=== PATIENT | female | born 1990 | race Caucasian/White ===

== ENCOUNTER 2020-04-22 12:11 | Emergency (ER) | payer MEDICAID, SELFPAY ==
--- NOTE | 2020-04-22 | US_ITS ---
EXAMINATION: US RENAL BILATERAL CLINICAL INFORMATION: Bilateral costovertebral angle tenderness and fever. History of stones and lithotripsy. COMPARISON: CT abdomen from 03/18/2020. TECHNIQUE: Sonographic imaging of both kidneys was performed using a curved 5 MHz transabdominal transducer. FINDINGS: The kidneys have normal size, cortical thickness and echotexture. The right kidney measures 13.2 x 5.7 x 5.8 cm and left kidney 12 x 5.2 x 5.5 cm (sagittal x AP x transverse dimensions). No evidence of nephrolithiasis or hydronephrosis. No cystic or solid renal mass. No perinephric fluid. IMPRESSION: Kidneys are sonographically normal.
[2020-04-22 12:38] VITALS: BP 132/73; PULSE 103; RESP 20; TEMP 37.4; O2SAT 100; BMI 37.5
--- NOTE | 2020-04-22 13:40 | XR_ITS ---
EXAMINATION: XR CHEST CLINICAL INFORMATION: Fever COMPARISON: 09/13/2013 TECHNIQUE: Frontal view of the chest was obtained. FINDINGS: No significant abnormality is noted involving the heart, lungs, mediastinum, bony thorax or soft tissues. IMPRESSION: Unremarkable examination.
--- NOTE | 2020-04-22 13:49 | ED_ITS ---
HPI - Fever General Chief Complaint: Fever Stated Complaint: FEVER Time Seen by Provider: 04/22/20 13:31 Source: patient and family Mode of arrival: ambulatory History of Present Illness HPI Narrative: 30-year-old female with a PMH asthma, CKD, spinal stenosis, renal stones c/o fever T-max 102?, chills, myalgias, decreased p.o. intake, in creased thirst, bilateral flank pain x6 days. also reports dysuria. Denies cough, CP / SOB, abdominal pain, vomiting, sick contacts/recent travel Related Data Allergies Allergy/AdvReac Type Severity Reaction Status Date / Time cat dander [CATS] Allergy Intermediate RASH Verified 04/22/20 12:37 mold Allergy Intermediate RASH Unverified 03/30/20 15:51 amoxicillin AdvReac Unknown yeast Verified 06/03/17 00:00 infection seasonal Allergy Unknown Unknown Uncoded 04/22/20 12:37 Review of Systems Review of Systems: Constitutional: No Weight loss, + Fever, + Chills, No Night Sweats, + Fatigue, +myalgias ENT/Mouth: No Ear Pain, No Nasal Congestion, No Sinus Pain, No Hoarseness, No sore throat, No Rhinorrhea, No Swallowing Difficulty Cardiovascular: No Chest Pain, No SOB, No Dyspnea on Exertion Respiratory: No Cough, No Sputum, No Wheezing, No Smoke Exposure, No Dyspnea Gastrointestinal: + Nausea, No Vomiting, No Diarrhea, No Constipation, No Abdominal pain Genitourinary: +Dysuria, No Urinary Frequency, No Hematuria No Urinary Incontinence, No Urgency, No Flank Pain, No Urinary Flow Changes, No Hesitancy Musculoskeletal: No joint pain, No Myalgias, No Joint Swelling Skin: No Skin Lesions, No rash Yes all other systems are reviewed and are negative [facility] Past Medical History Attestation statement: The following information was validated with the patient. Medical History (Updated 04/22/20 @ 12:42 by Jeni Botello) Asthma Chronic kidney disease Cyst, pilonidal, with abscess Degenerative disc disease Spinal stenosis Syncope Surgical History (Updated 04/22/20 @ 12:42 by Jeni Botello) H/O Spinal surgery History of cholecystectomy Social History Social History Alcohol intake: current Alcohol intake frequency: holidays/special occasions only Alcohol type: beer Smoking Status: Current every day smoker Smoked in Last 30 Days: Yes Use of substances other than those prescribed or required for medical reasons: No Advance Directives: No Advance Directives Information Provided: No Physical Exam Vital Signs: Vital Signs: Vital Signs Temp Pulse Resp BP Pulse Ox 04/22/20 16:00 100.7 F H 95 18 122/65 97 04/22/20 12:38 99.3 F 103 H 20 132/73 100 Body Mass Index 37.5 Const: General: cooperative and healthy appearing Orientation/consciousness: patient oriented x3 Limitations: no limitations HENMT: Head: Yes normal to inspection Ears: hearing grossly normal bilaterally General nose exam: Normal external nose present Face and sinus: Yes normal facial exam Eyes: General: appearance normal, both eyes and all related structures EOM: EOMs intact bilaterally Neck: Neck: Yes normal visual inspection Resp: Effort & Inspection: normal respiratory effort and no stridor Auscultation: clear to auscultation bilaterally, no crackles, no rales, no rhonchi and no wheezes Cardio: Rate: regular rate Heart sounds: S1 normal heart sound present and S2 normal heart sound present Peripheral pulses: Peripheral pulses 2+ throughout GI: Inspection: Yes normal to inspection Palpation (GI): Soft to palpation, nontender, no guarding and not rigid : General: Yes no CVA tenderness Back/Spine/Pelvis: Back: no CVA tenderness Skin: Wounds: no wounds Neuro: General: patient oriented x3 Extrem: General: Yes normal to inspection Course Course Course Narrative: - leukocytosis of 12.1, labs otherwise unremarkable, lactate WNL, UA infected - CXR unremarkable -Kidney ultrasound normal >> will treat for pyelonephritis lab and imaging results including worrisome signs and symptoms and strict retur n precautions discussed. Patient verbalized understanding feel safe for discharge MDM - Fever MDM Narrative Medical decision making narrative: 30-year-old female with a PMH asthma, CKD, spinal stenosis, renal stones c/o fever T-max 102?, chills, myalgias, decreased p.o. intake, increased thirst, bilateral flank pain x6 days. On exam tachycardic likely from low-grade temp 99.3?, nontoxic appearing. Bilateral CVAT. Concern for UTI/pyelonephritis vs viral syndrome/COVID-19 vs ? renal stone. Low concern for appendicitis /diverticulitis or pneumonia low concern for severe sepsis Plan: Labs, UA, CXR, renal ultrasound, IVF/reassess Differential Diagnosis Differential diagnosis: Likely pyelonephritis and viral infection Lab Data Result diagrams: 04/22/20 15:01 04/22/20 15:01 Labs: Lab Results 04/22/20 04/22/20 04/22/20 Range/Units 14:11 15:01 15:01 WBC 12.1 H (4.8-10.8) X10*3/uL RBC 4.35 (4.20-5.50) X10*6/uL Hgb 13.0 (12.0-16.0) g/dl Hct 39.0 (37-47) % MCV 89.7 (80-98) fL MCH 29.9 (27.0-33.0) pg MCHC 33.3 (31.0-35.0) g/dl RDW 13.1 (11.0-16.0) % Plt Count 323 (160-400) X10*3/uL MPV 9.3 L (9.4-12.3) fL Immature Gran % (Auto) 0.4 (0.0-0.4) % Neut % (Auto) 66.4 (45-73) % Lymph % (Auto) 19.1 L (20-40) % [place] % (Auto) 11.9 H (2-11) % Eos % (Auto) 1.7 (0-4) % Baso % (Auto) 0.5 (0-2) % Lymph # (Auto) 2.3 (1.2-4.9) X10*3/uL [place] # (Auto) 1.4 H (0.1-1.2) X10*3/uL Eos # (Auto) 0.2 (0.0-0.4) X10*3/uL Baso # (Auto) 0.1 (0.0-0.2) X10*3/uL Abs Immat Gran (auto) 0.05 H (0.00-0.03) X10*3/uL Absolute Neuts (auto) 8.0 (2.0-8.3) X10*3/uL Absolute Nucleated RBC 0.000 (0.0-0.012) X10*3/uL Nucleated RBC % (auto) 0.0 (0.0-0.2) /100WBC Smear Tech's Comments VERIFIED Sodium 135 (135-145) mmol/L Potassium 3.8 (3.3-5.1) mmol/l Chloride 103 (96-108) mmol/L Carbon Dioxide 23 (22-29) mmol/L Anion Gap 13 (12-20) BUN 8 L (9-16) mg/dL Creatinine 0.83 (0.5-1.4) mg/dL Estim Creat Clear Calc 124.8 Estimated GFR > 60 Random Glucose 92 (60-115) mg/dL Lactic Acid (0.5-2.0) mmol/L Calcium 8.6 (8.4-10.2) mg/dL Magnesium 1.9 (1.6-2.6) mg/dL Ferritin 106 (10-122) ng/mL Total Bilirubin 0.2 (0.0-1.0) mg/dL Direct Bilirubin < 0.2 (0.0-0.5) mg/dL AST 13 (5-31) U/L ALT 14 (0-31) U/L Alkaline Phosphatase 93 (39-117) U/L Lactate Dehydrogenase 161 (122-220) U/L Total Protein 6.9 (6.5-8.0) g/dL Albumin 3.9 (3.5-5.0) g/dL Urine Color YELLOW Urine Appearance CLEAR Urine pH 6.0 (5.0-8.0) Ur Specific [place] 1.010 (1.005-1.025) Urine Protein NEG (NEG-TRACE) MG/DL Urine Glucose (UA) NEG (NEG) MG/DL Urine Ketones NEG (NEG) MG/DL Urine Blood TRACE (NEG) Urine Nitrite POS H (NEG) Ur Leukocyte Esterase TRACE H (NEG) Urine RBC 0-2 (0) /HPF Urine WBC 15-29 H (0-4) /HPF Ur Squamous Epith Cells 1+ /LPF Urine Bacteria TRACE /LPF 04/22/20 Range/Units 15:01 WBC (4.8-10.8) X10*3/uL RBC (4.20-5.50) X10*6/uL Hgb (12.0-16.0) g/dl Hct (37-47) % MCV (80-98) fL MCH (27.0-33.0) pg MCHC (31.0-35.0) g/dl RDW (11.0-16.0) % Plt Count (160-400) X10*3/uL MPV (9.4-12.3) fL Immature Gran % (Auto) (0.0-0.4) % Neut % (Auto) (45-73) % Lymph % (Auto) (20-40) % [place] % (Auto) (2-11) % Eos % (Auto) (0-4) % Baso % (Auto) (0-2) % Lymph # (Auto) (1.2-4.9) X10*3/uL [place] # (Auto) (0.1-1.2) X10*3/uL Eos # (Auto) (0.0-0.4) X10*3/uL Baso # (Auto) (0.0-0.2) X10*3/uL Abs Immat Gran (auto) (0.00-0.03) X10*3/uL Absolute Neuts (auto) (2.0-8.3) X10*3/uL Absolute Nucleated RBC (0.0-0.012) X10*3/uL Nucleated RBC % (auto) (0.0-0.2) /100WBC Smear Tech's Comments Sodium (135-145) mmol/L Potassium (3.3-5.1) mmol/l Chloride (96-108) mmol/L Carbon Dioxide (22-29) mmol/L Anion Gap (12-20) BUN (9-16) mg/dL Creatinine (0.5-1.4) mg/dL Estim Creat Clear Calc Estimated GFR Random Glucose (60-115) mg/dL Lactic Acid 1.2 (0.5-2.0) mmol/L Calcium (8.4-10.2) mg/dL Magnesium (1.6-2.6) mg/dL Ferritin (10-122) ng/mL Total Bilirubin (0.0-1.0) mg/dL Direct Bilirubin (0.0-0.5) mg/dL AST (5-31) U/L ALT (0-31) U/L Alkaline Phosphatase (39-117) U/L Lactate Dehydrogenase (122-220) U/L Total Protein (6.5-8.0) g/dL Albumin (3.5-5.0) g/dL Urine Color Urine Appearance Urine pH (5.0-8.0) Ur Specific [place] (1.005-1.025) Urine Protein (NEG-TRACE) MG/DL Urine Glucose (UA) (NEG) MG/DL Urine Ketones (NEG) MG/DL Urine Blood (NEG) Urine Nitrite (NEG) Ur Leukocyte Esterase (NEG) Urine RBC (0) /HPF Urine WBC (0-4) /HPF Ur Squamous Epith Cells /LPF Urine Bacteria /LPF
[2020-04-22 14:34] LABS: Glucose Urine UA NEG (NEG); Leukocyte Esterase Urine TRACE (NEG); Nitrite Urine POS (NEG); Urine Blood TRACE (NEG); Urine Ketones NEG (NEG); Urine Protein NEG (NEG-TRACE)
[2020-04-22 14:36] LABS: Appearance Urine CLEAR; Color Urine YELLOW
[2020-04-22 14:41] LABS: Bacteria Urine TRACE /LPF; RBC Urine 0-2 /HPF (0); Squamous Epithelial Cell Urine 1+ /LPF
[2020-04-22] MEDS: 0.9 % Sodium Chloride 1,000 ML 999 ML IVCONT (14:44)
--- NOTE | 2020-04-22 14:46 | PC.NURSE ---
PATIENT A&OX3, IV INSERTED, IVF HANGING PER ORDER, US PERFORMED AT BEDSIDE, PT AWAITING FOR LABS TO BE DRAWN THEY WERE UNABLE TO BE DRAWN OFF IV SITE.
[2020-04-22 15:36] LABS: Basophils Absolute Auto 0.1 X10*3/uL (0.0-0.2); Basophils Percent Auto 0.5 % (0-2); Eosinophils Absolute Auto 0.2 X10*3/uL (0.0-0.4); Eosinophils Percent Auto 1.7 % (0-4); Imm Gran Abs Auto 0.05 X10*3/uL (0.00-0.03); Imm Gran Pct Auto 0.4 % (0.0-0.4); Lymphocytes Absolute Auto 2.3 X10*3/uL (1.2-4.9); Lymphocytes Percent Auto 19.1 % (20-40); MANUAL DIFF FLAG SCAN; Mean Corpuscular HGB Conc 33.3 g/dl (31.0-35.0); Mean Corpuscular Hemoglobin 29.9 pg (27.0-33.0); Mean Corpuscular Volume 89.7 fL (80-98); Mean Platelet Volume 9.3 fL (9.4-12.3); Monocytes Absolute Auto 1.4 X10*3/uL (0.1-1.2); Monocytes Percent Auto 11.9 % (2-11); Neutrophils Percent Auto 66.4 % (45-73); Platelet Count 323 X10*3/uL (160-400); Red Blood Count 4.35 X10*6/uL (4.20-5.50); Red Cell Distribution Width 13.1 % (11.0-16.0); SCAN SMEAR FLAG 1; White Blood Count 12.1 X10*3/uL (4.8-10.8)
[2020-04-22 16:00] VITALS: BP 122/65; PULSE 95; RESP 18; TEMP 38.2; O2SAT 97
[2020-04-22 16:00] LABS: Lactic Acid 1.2 mmol/L (0.5-2.0)
[2020-04-22 16:04] LABS: SLIDE REVIEW VERIFIED
[2020-04-22 16:06] LABS: Alanine Aminotransferase 14 U/L (0-31); Albumin Level 3.9 g/dL (3.5-5.0); Alkaline Phosphatase 93 U/L (39-117); Anion Gap 13 (12-20); Aspartate Amino Transferase 13 U/L (5-31); Bilirubin Direct < 0.2 mg/dL (0.0-0.5); Bilirubin Total 0.2 mg/dL (0.0-1.0); Blood Urea Nitrogen 8 mg/dL (9-16); Calcium 8.6 mg/dL (8.4-10.2); Carbon Dioxide 23 mmol/L (22-29); Chloride 103 mmol/L (96-108); Creatinine Clr Calc Pharmacy 124.8; Estimated Glomerular Filt Rate > 60; Glucose Random 92 mg/dL (60-115); Lactate Dehydrogenase 161 U/L (122-220); Magnesium 1.9 mg/dL (1.6-2.6); Potassium 3.8 mmol/l (3.3-5.1); Sodium 135 mmol/L (135-145); Total Protein 6.9 g/dL (6.5-8.0)
[2020-04-22 16:29] LABS: Ferritin 106 ng/mL (10-122)
--- NOTE | 2020-04-22 17:10 | PC.NURSE ---
PATIENT A&OX3, PT NOW FEBRILE 100.7, LAST TIME PATIENT TOOK MOTRIN WAS 5AM PER PATIENT,-VITALS OTHERWISE STABLE, PATIENT ASKING WHEN SHE WILL BE ABLE TO DISCHARGE, WILL NOTIFY PROVIDER.
[2020-04-22] MEDS: Acetaminophen 325 MG TABLET 650 MG PO (17:19)
--- NOTE | 2020-04-22 17:20 | PC.NURSE ---
PATIENT MEDICATED PER ORDER
--- NOTE | 2020-04-22 18:22 | PC.NURSE ---
PT TEMP UPON DISCHARGE WAS 99.8, PT AMBULATING INDEPENDENTLY
[2020-04-23 13:47] LABS: Procalcitonin 0.06 ng/mL
== END 2020-04-22 18:21 | disposition home or self-care (01) ==
PROVIDERS: Physician Assistant; Emergency Provider Emergency Medicine; PCP Pediatrics
DX: R50.9 Fever, unspecified (principal); Z20.828 Contact with and (suspected) exposure to other viral communicable diseases
CPT/HCPCS: 36415; 71045; 76775; 80048; 80076; 81001; 82728; 83605; 83615; 83735; 84145; 85025; 87040; 87086; 87088; 87186; 87635; 96360; 99284

== ENCOUNTER 2020-06-14 14:50 | Emergency (ER) | payer MEDICAID, SELFPAY ==
[2020-06-14 15:11] VITALS: BP 139/85; PULSE 106; RESP 18; TEMP 37.3; O2SAT 98; BMI 39.1
--- NOTE | 2020-06-14 16:59 | ED.GENADULT ---
HPI - General Adult General Chief complaint: Back Pain/Injury Stated complaint: kidney pain Time Seen by Provider: 06/14/20 16:13 History of Present Illness HPI narrative: 30-year-old female who presents to the emergency department for evaluation bilateral flank pain. She states that she has frequent kidney stones and believes she has had over 100 kidney stones in the past. She states that over the last 2-3 weeks she has been experiencing bilateral kidney stones, right greater than left. She states for the past several days she has had increased right flank pain. She describes the pain as a constant, stabbing pain which is greater than 10/10. She had associated nausea. She denied fever, chills, frequency, urgency or dysuria. The patient was seen in April 2020 and diagnosed with pyelonephritis, she had a positive urine culture at that time for E coli resistant to ampicillin and Bactrim. The patient says she tried to call her urologist today but was unable to get in to be seen, therefore she came to the emergency department for evaluation. Related Data Previous Rx's Medication Instructions Recorded ciprofloxacin HCl [Cipro] 500 mg PO BID 7 Days #14 tab 04/22/20 oxycodone-acetaminophen [Percocet] 1 tab PO Q4H PRN #10 tab 06/14/20 Allergies Allergy/AdvReac Type Severity Reaction Status Date / Time cat dander [CATS] Allergy Intermediate RASH Verified 04/22/20 12:37 mold Allergy Intermediate RASH Unverified 03/30/20 15:51 amoxicillin AdvReac Unknown yeast Verified 06/03/17 00:00 infection seasonal Allergy Unknown Unknown Uncoded 04/22/20 12:37 Review of Systems Review of Systems: Yes all other systems are reviewed and are negative Constitutional: Constitutional: Reports as per HPI Eyes: Eyes: Reports as per HPI ENT: Reports as per HPI Cardiovascular: Cardiovascular: Reports as per HPI Respiratory: Respiratory: Reports as per HPI Gastrointestinal: Gastrointestinal: Reports as per HPI Genitourinary: Genitourinary: Reports as per HPI Musculoskeletal: Musculoskeletal: Reports as per HPI Integumentary/Breasts: Skin/Breast: Reports as per HPI Neurologic: Reports as per HPI and Reports Abnormal speech present Psychiatric: Psychiatric: Reports as per HPI Allergic/Immunologic: Allergic/Immunologic: Reports as per HPI PMFSH Past Medical History Medical History Asthma Chronic kidney disease Cyst, pilonidal, with abscess Degenerative disc disease Spinal stenosis Syncope Surgical History H/O Spinal surgery History of cholecystectomy Social History Social History Alcohol intake: current Alcohol intake frequency: holidays/special occasions only Alcohol type: beer Smoking Status: Current every day smoker Advance Directives: No Advance Directives Information Provided: Yes Physical Exam Vital Signs: Vital Signs: Last Vital Signs Temp 97.5 F 06/14/20 19:29 Pulse 70 06/14/20 19:29 Resp 16 06/14/20 19:29 BP 121/63 06/14/20 19:29 Pulse Ox 97 06/14/20 19:29 Body Mass Index 39.1 Const: General: cooperative, no acute distress, alert and awake Orientation/consciousness: oriented to person and oriented to place Limitations: no limitations HENMT: Head: Yes normal to inspection, Yes normocephalic and Yes atraumatic Ears: external ears normal General nose exam: Normal external nose present Face and sinus: Yes normal facial exam Mouth: Normal oral and palatal mucosa present Teeth and gingiva: dentition normal Throat: Yes posterior oropharynx normal Eyes: General: appearance normal, both eyes and all related structures Periorbital: periorbital findings normal Eyelids: Yes eyelids normal Conjunctivae: conjunctivae normal Sclerae: sclerae normal Corneas: corneas normal Pupils: Equal, round and reactive pupils present Direct Ophthalmoscopy: normal light reflex Neck: Neck: Yes normal visual inspection and Yes supple Lymphatic: no lymphadenopathy noted Chest: Chest palpation & inspection: normal inspection of the chest and normal palpation of entire chest wall Resp: Effort & Inspection: normal respiratory effort, abnormal respiratory pattern, no audible wheezes and no respiratory distress Auscultation: clear to auscultation bilaterally, no crackles, no rales, no rhonchi and no wheezes Cardio: Rate: regular rate Rhythm: regular rhythm Heart sounds: S1 normal heart sound present, S2 normal heart sound present and no murmurs GI: Inspection: No distended Palpation (GI): Soft to palpation, nontender, no guarding and No hepatosplenomegaly present Auscultation: normal bowel sounds : General: Yes no CVA tenderness Back/Spine/Pelvis: Back: no CVA tenderness Skin: General skin exam: no rashes or lesions noted Lesions: no lesions Rashes: no rashes Wounds: no wounds Neuro: General: oriented to person and oriented to place Cranial nerves: Yes CN's II-XII intact bilaterally and Yes Equal, round and reactive pupils present Cognition (Neuro): normal cognition Speech: Abnormal speech present Motor exam (neuro): 5/5 motor strength present throughout Extrem: General: Yes normal to inspection, Yes full ROM, Yes no pedal edema and Yes no calf tenderness Psych: Appearance: grossly normal Mental Status: mental status grossly normal Speech and movement: Clear speech present Affect: normal affect Thought process: Normal thought process present Course Course Course Narrative: 30-year-old female with a history of kidney stones pyelonephritis who presents to the emergency department for evaluation of bilateral flank pain, right greater than left times 2-3 weeks with increased right-sided flank pain times several days. The patient had no other concerning symptoms such as fever, chills, frequency, urgency or dysuria. The patient's physical examination revealed no flank tenderness and no abdominal tenderness. I did order an abdominal workup to include blood work as well as an ultrasound to evaluate for hydronephrosis or hydroureter. The patient was given oxycodone 10 mg orally for her pain. 1950: The patient's laboratory evaluation revealed a slight elevation of WBC of 11.2. Her urinalysis revealed too numerous to count red blood cells but patient states she is having her menstrual period. The patient has 0-2 white blood cells per high-power field suggesting this does not have an infection. test was negative. Ultrasound of the patient's kidneys revealed no hydronephrosis or hydroureter. The patient does have a 3 mm right mid pole kidney stone. The patient did get some relief with oral hydrocodone. I will discharge the patient home with a prescription for Percocet. She is also advised to take Tylenol and ibuprofen for pain. She is advised to follow up with her urologist for re-evaluation and return to the emergency department for symptoms get worse or she develops any symptoms that are concerning to her. Medical Decision Making Lab Data Result diagrams: 06/14/20 17:06 06/14/20 17:06 Labs: Lab Results 06/14/20 06/14/20 06/14/20 Range/Units 17:06 17:06 17:08 WBC 11.2 H (4.8-10.8) X10*3/uL RBC 4.88 (4.20-5.50) X10*6/uL Hgb 14.6 (12.0-16.0) g/dl Hct 43.4 (37-47) % MCV 88.9 (80-98) fL MCH 29.9 (27.0-33.0) pg MCHC 33.6 (31.0-35.0) g/dl RDW 14.2 (11.0-16.0) % Plt Count 357 (160-400) X10*3/uL MPV 8.9 L (9.4-12.3) fL Immature Gran % (Auto) 0.4 (0.0-0.4) % Neut % (Auto) 53.2 (45-73) % Lymph % (Auto) 30.6 (20-40) % [place] % (Auto) 11.7 H (2-11) % Eos % (Auto) 3.6 (0-4) % Baso % (Auto) 0.5 (0-2) % Lymph # (Auto) 3.4 (1.2-4.9) X10*3/uL [place] # (Auto) 1.3 H (0.1-1.2) X10*3/uL Eos # (Auto) 0.4 (0.0-0.4) X10*3/uL Baso # (Auto) 0.1 (0.0-0.2) X10*3/uL Abs Immat Gran (auto) 0.05 H (0.00-0.03) X10*3/uL Absolute Neuts (auto) 5.9 (2.0-8.3) X10*3/uL Absolute Nucleated RBC 0.000 (0.0-0.012) X10*3/uL Nucleated RBC % (auto) 0.0 (0.0-0.2) /100WBC Sodium 137 (135-145) mmol/L Potassium 4.6 D (3.3-5.1) mmol/l Chloride 104 (96-108) mmol/L Carbon Dioxide 23 (22-29) mmol/L Anion Gap 15 (12-20) BUN 10 (9-16) mg/dL Creatinine 0.77 (0.5-1.4) mg/dL Estim Creat Clear Calc 137.5 Estimated GFR > 60 Random Glucose 94 (60-115) mg/dL Calcium 9.1 (8.4-10.2) mg/dL Total Bilirubin 0.3 (0.0-1.0) mg/dL Direct Bilirubin < 0.2 (0.0-0.5) mg/dL AST 17 (5-31) U/L ALT 21 (0-31) U/L Alkaline Phosphatase 103 (39-117) U/L Total Protein 7.3 (6.5-8.0) g/dL Albumin 4.2 (3.5-5.0) g/dL Lipase 28 (8-78) U/L Urine Color RED Urine Appearance CLOUDY Urine pH 5.0 (5.0-8.0) Ur Specific [place] 1.025 (1.005-1.025) Urine Protein 2+ H (NEG-TRACE) MG/DL Urine Glucose (UA) NEG (NEG) MG/DL Urine Ketones 5 (NEG) MG/DL Urine Blood 3+ H (NEG) Urine Nitrite POS H (NEG) Ur Leukocyte Esterase TRACE H (NEG) Urine RBC TNTC H (0) /HPF Urine WBC 0-2 (0-4) /HPF Ur Squamous Epith Cells 1+ /LPF Urine Bacteria NONE /LPF Urine Test NEGATIVE (NEGATIVE) Discharge Plan Discharge Clinical Impression: Bilateral flank pain Patient Disposition: Home, Self-Care Instructions: Flank Pain (ED) Additional Instructions: Your blood work was normal, kidney function was normal. Your urine was positive for blood but this is most likely secondary to her menstrual period. You did not have any white blood cells in the urine which suggests that she did not have a urine infection at this time. The ultrasound of your kidneys revealed no swelling of your kidneys (hydronephrosis) or swelling of the ureter (hydroureter) suggesting that you do not have an obstructing kidney stone at this time. I do not have a clear cause for your flank pain, but for the follow-up with the urologist for re-evaluation. Take ibuprofen 200 mg pills, 3 pills every 6 hours as needed for pain. Take Percocet 1 or 2 pills every 4 hours as needed for pain that is not relieved by ibuprofen. This medication can be addicting, you can ask the pharmacist for less pills a few word about addiction. Follow-up with your doctor in 2 days for re-evaluation. Follow-up with urologist for re-evaluation as well. Please return to the emergency department if his symptoms get worse or if you develop any new symptoms are concerning to you. Prescriptions: New oxycodone-acetaminophen [Percocet] 5-325 mg tablet 1 tab PO Q4H PRN (Reason: pain) Qty: 10 RF: 0 No Action ciprofloxacin HCl [Cipro] 500 mg tablet 500 mg PO BID 7 Days Qty: 14 RF: 0 Referrals: Raquel Sethi MD [Primary Care Provider] - 2 days
[2020-06-14 17:11] LABS: MANUAL DIFF FLAG NO
[2020-06-14] MEDS: oxyCODONE HCl Immed Release 5 MG TABLET 10 MG PO (17:11)
[2020-06-14 17:17] LABS: Glucose Urine UA NEG (NEG); Leukocyte Esterase Urine TRACE (NEG); Nitrite Urine POS (NEG); Specific Gravity - Urine 1.025 (1.005-1.025); Urine Blood 3+ (NEG); Urine Ketones 5 MG/DL (NEG); Urine Protein 2+ MG/DL (NEG-TRACE)
[2020-06-14 17:20] LABS: Basophils Absolute Auto 0.1 X10*3/uL (0.0-0.2); Basophils Percent Auto 0.5 % (0-2); Eosinophils Absolute Auto 0.4 X10*3/uL (0.0-0.4); Eosinophils Percent Auto 3.6 % (0-4); Hematocrit 43.4 % (37-47); Hemoglobin 14.6 g/dl (12.0-16.0); Imm Gran Abs Auto 0.05 X10*3/uL (0.00-0.03); Imm Gran Pct Auto 0.4 % (0.0-0.4); Lymphocytes Absolute Auto 3.4 X10*3/uL (1.2-4.9); Lymphocytes Percent Auto 30.6 % (20-40); Mean Corpuscular HGB Conc 33.6 g/dl (31.0-35.0); Mean Corpuscular Hemoglobin 29.9 pg (27.0-33.0); Mean Corpuscular Volume 88.9 fL (80-98); Mean Platelet Volume 8.9 fL (9.4-12.3); Monocytes Absolute Auto 1.3 X10*3/uL (0.1-1.2); Monocytes Percent Auto 11.7 % (2-11); Neutrophils Absolute Auto 5.9 X10*3/uL (2.0-8.3); Neutrophils Percent Auto 53.2 % (45-73); Platelet Count 357 X10*3/uL (160-400); Red Blood Count 4.88 X10*6/uL (4.20-5.50); Red Cell Distribution Width 14.2 % (11.0-16.0); White Blood Count 11.2 X10*3/uL (4.8-10.8)
[2020-06-14 17:20] LABS: Appearance Urine CLOUDY; Color Urine RED
[2020-06-14 17:24] LABS: UPreg QC Valid YES; Urine Pregnancy NEGATIVE (NEGATIVE)
[2020-06-14 17:34] LABS: Alanine Aminotransferase 21 U/L (0-31); Albumin Level 4.2 g/dL (3.5-5.0); Alkaline Phosphatase 103 U/L (39-117); Anion Gap 15 (12-20); Aspartate Amino Transferase 17 U/L (5-31); Bilirubin Direct < 0.2 mg/dL (0.0-0.5); Bilirubin Total 0.3 mg/dL (0.0-1.0); Blood Urea Nitrogen 10 mg/dL (9-16); Calcium 9.1 mg/dL (8.4-10.2); Carbon Dioxide 23 mmol/L (22-29); Chloride 104 mmol/L (96-108); Creatinine Clr Calc Pharmacy 137.5; Estimated Glomerular Filt Rate > 60; Glucose Random 94 mg/dL (60-115); Lipase 28 U/L (8-78); Potassium 4.6 mmol/l (3.3-5.1); Sodium 137 mmol/L (135-145); Total Protein 7.3 g/dL (6.5-8.0)
--- NOTE | 2020-06-14 17:37 | US_ITS ---
EXAMINATION: US RETROPERITONEAL LIMITED (RENAL ONLY) CLINICAL INFORMATION: Bilateral flank pain. COMPARISON: None TECHNIQUE: Renal ultrasound FINDINGS: RIGHT KIDNEY: 11.6 x 4.8 x 6 cm (SAG x AP x TRV). The kidney is normal in size, contour, and echogenicity. Renal cortical thickness is normal. Nonobstructing midpole 3 mm calculus. No focal parenchymal lesions. No hydronephrosis. LEFT KIDNEY: 10.7 x 5 x 5 cm (SAG x AP x TRV). The kidney is normal in size, contour, and echogenicity. Renal cortical thickness is normal. No calculi or focal parenchymal lesions. No hydronephrosis. US/US renal BI IMPRESSION: Right renal 3 mm midpole nonobstructing calculus.. No hydronephrosis.
[2020-06-14 17:39] LABS: RBC Urine TNTC /HPF (0); Squamous Epithelial Cell Urine 1+ /LPF; WBC Urine 0-2 /HPF (0-4)
--- NOTE | 2020-06-14 18:33 | PC.NURSE ---
ambulating to us via steady gait
[2020-06-14 19:29] VITALS: BP 121/63; PULSE 70; RESP 16; TEMP 36.4; O2SAT 97
== END 2020-06-14 20:35 | disposition home or self-care (01) ==
PROVIDERS: Emergency Provider Emergency Medicine Emergency Medical Services; PCP Pediatrics
DX: R10.9 Unspecified abdominal pain (principal); F17.200 Nicotine dependence, unspecified, uncomplicated; Z71.6 Tobacco abuse counseling; Z79.899 Other long term (current) drug therapy
CPT/HCPCS: 36415; 76775; 80048; 80076; 81001; 81025; 83690; 85025; 87086; 99284

== ENCOUNTER → 2020-06-16 11:03 | Outpatient (BNVA) | payer MEDICAID, SELFPAY | PROVIDERS: PCP Pediatrics; Referring Provider Pediatrics; Visit Provider Urology | DX: Z76.89 Persons encountering health services in other specified circumstances (principal) ==

== ENCOUNTER 2020-08-30 15:09 | Outpatient (REF) | payer MEDICAID, SELFPAY ==
--- NOTE | ~2020-08-30 | US_ITS ---
EXAMINATION: US RETROPERITONEAL LIMITED (RENAL ONLY) CLINICAL INFORMATION: Renal stone. COMPARISON: Previous CT of the abdomen and pelvis March 2020 and renal ultrasound most recent June 2020 TECHNIQUE: Grayscale and color imaging of the kidneys FINDINGS: RIGHT KIDNEY: 11.5 x 4.8 x 6.2 cm (SAG x AP x TRV). The kidney is normal in size, contour, and echogenicity. Renal cortical thickness is normal. No calculi or focal parenchymal lesions. No hydronephrosis. LEFT KIDNEY: 11.9 x 4.9 x 5 cm (SAG x AP x TRV). The kidney is normal in size, contour, and echogenicity. Renal cortical thickness is normal. There is a 2 x 4 mm echogenic density with twinkle artifact in the upper pole questionable for a small stone. No focal parenchymal lesions. No hydronephrosis. US/US renal BI IMPRESSION: Question small left upper pole renal stone.
== END 2020-08-30 15:10 | disposition home or self-care (01) ==
LOC: HO.US 15:09
PROVIDERS: Visit Provider Urology
DX: N20.0 Calculus of kidney (principal)
CPT/HCPCS: 76775

== ENCOUNTER 2020-09-06 14:49 | Emergency (ER) | payer MEDICAID, SELFPAY ==
[2020-09-06 14:58] VITALS: BP 153/91; PULSE 100; RESP 18; TEMP 36.6; O2SAT 99; BMI 39.1
== END 2020-09-06 18:14 | disposition left against medical advice (07) ==
PROVIDERS: Emergency Provider Emergency Medicine; PCP Pediatrics
DX: R10.9 Unspecified abdominal pain (principal); Z87.442 Personal history of urinary calculi; N18.9 Chronic kidney disease, unspecified; F17.200 Nicotine dependence, unspecified, uncomplicated
CPT/HCPCS: 99282

== ENCOUNTER 2020-09-07 12:11 | Emergency (ER) | payer MEDICAID, SELFPAY ==
--- NOTE | ~2020-09-07 | CT_ITS ---
EXAMINATION: CT ABDOMEN AND PELVIS WITHOUT CONTRAST CLINICAL INFORMATION: Bilateral flank pain. Concern for renal calculi. COMPARISON: Renal ultrasound dated 08/30/2020. TECHNIQUE: Multidetector volumetric imaging was performed from the superior aspect of the liver through the pubic symphysis. Sagittal and coronal reformatted images were obtained on the technologist's workstation. This CT examination was performed using dose optimization techniques as appropriate, variously including the following: *Automated exposure control *Adjustment of mA and/or kV according to patient size (this includes techniques or standardized protocols for targeted exams where dose is matched to indication/reason for exam; i.e. extremities or head) *Use of iterative reconstruction technique DLP: 954 mGy-cm FINDINGS: [employer] imaging demonstrates intervertebral graft spacers at L4-L5 and right upper quadrant surgical clips. LUNG BASES: The visualized lung bases are unremarkable. LIVER, GALLBLADDER, AND BILIARY TREE: The liver is normal in size, shape, and attenuation. No focal hepatic lesion or biliary ductal dilatation is present. Gallbladder surgically absent. No intrahepatic or extra hepatic biliary ductal dilation. PANCREAS: Normal. SPLEEN: Normal. ADRENAL GLANDS: Normal. KIDNEYS AND URETERS: The kidneys are normal in size, shape, and attenuation. No hydronephrosis, hydroureter, or calculi seen. Ureters are normal throughout their course. No ureteral calculi. No perinephric stranding. BLADDER: Normal. No urinary bladder calculi. GASTROINTESTINAL TRACT: The small and large bowel are unremarkable. Colonic diverticula. Normal appendix. ABDOMINAL WALL: No significant hernia is appreciated. Tiny fat-containing periumbilical hernia. Rectus diastases. PERITONEUM/RETROPERITONEUM AND MESENTERY: No free air or fluid. LYMPH NODES: No pathologically enlarged lymph nodes. VASCULAR: Normal. PELVIC VISCERA: Anteverted uterus. No adnexal mass. Gas in the cervical soft tissues. Ill-defined hypoattenuation in the left adnexa likely reflects a ovarian cyst presumed functional in nature. Pelvic ultrasound may be considered for further evaluation. Subtle, nonspecific hazy inflammatory changes in the pelvic mesenteric fat of indeterminate significance. OSSEOUS STRUCTURES: Intervertebral spacer at L4-L5. No aggressive lytic or blastic osseous lesions. CT/CT abdomen pelvis wo con IMPRESSION: No evidence of renal, ureteral, or urinary bladder calculi. Normal appendix. Cholecystectomy. Likely left functional adnexal cyst. Pelvic ultrasound may be considered for further evaluation.
[2020-09-07 12:15] VITALS: BP 157/96; PULSE 87; RESP 18; TEMP 37.2; O2SAT 99; BMI 39.1
[2020-09-07 15:33] LABS: MANUAL DIFF FLAG NO
[2020-09-07 15:36] LABS: Basophils Absolute Auto 0.1 X10*3/uL (0.0-0.2); Basophils Percent Auto 0.6 % (0-2); Eosinophils Absolute Auto 0.3 X10*3/uL (0.0-0.4); Eosinophils Percent Auto 3.2 % (0-4); Hematocrit 44.8 % (37-47); Hemoglobin 15.2 g/dl (12.0-16.0); Imm Gran Abs Auto 0.04 X10*3/uL (0.00-0.03); Imm Gran Pct Auto 0.5 % (0.0-0.4); Lymphocytes Absolute Auto 3.2 X10*3/uL (1.2-4.9); Lymphocytes Percent Auto 38.1 % (20-40); Mean Corpuscular HGB Conc 33.9 g/dl (31.0-35.0); Mean Corpuscular Hemoglobin 29.7 pg (27.0-33.0); Mean Corpuscular Volume 87.7 fL (80-98); Mean Platelet Volume 9.6 fL (9.4-12.3); Monocytes Absolute Auto 0.9 X10*3/uL (0.1-1.2); Monocytes Percent Auto 10.2 % (2-11); Neutrophils Percent Auto 47.4 % (45-73); Platelet Count 309 X10*3/uL (160-400); Red Blood Count 5.11 X10*6/uL (4.20-5.50); Red Cell Distribution Width 13.7 % (11.0-16.0); White Blood Count 8.4 X10*3/uL (4.8-10.8)
[2020-09-07 15:38] VITALS: BP 116/60; PULSE 86; RESP 18; TEMP 36.9; O2SAT 98
[2020-09-07 15:55] LABS: Alanine Aminotransferase 25 U/L (0-31); Albumin Level 4.4 g/dL (3.5-5.0); Alkaline Phosphatase 91 U/L (39-117); Anion Gap 16 (12-20); Aspartate Amino Transferase 18 U/L (5-31); Bilirubin Direct 0.2 mg/dL (0.0-0.5); Bilirubin Total 0.5 mg/dL (0.0-1.0); Blood Urea Nitrogen 10 mg/dL (9-16); Calcium 9.7 mg/dL (8.4-10.2); Carbon Dioxide 22 mmol/L (22-29); Chloride 103 mmol/L (96-108); Estimated Glomerular Filt Rate > 60; Glucose Random 105 mg/dL (60-115); Magnesium 1.9 mg/dL (1.6-2.6); Potassium 4.7 mmol/L (3.3-5.1); Sodium 136 mmol/L (135-145); Total Protein 7.6 g/dL (6.5-8.0)
[2020-09-07 16:01] LABS: HCG Quantitative < 2 mIU/mL
--- NOTE | 2020-09-07 16:07 | ED_ITS ---
HPI - Abdominal Pain General Chief Complaint: Abdominal Pain Stated Complaint: kidney or uti infection Time Seen by Provider: 09/07/20 13:58 Source: patient Mode of arrival: ambulatory Limitations: no limitations History of Present Illness HPI narrative: 30 y/o female with history of bilateral kidney stone (multiple episodes over the last 6 years), hx ureteral stents in the past, hx recurrent UTI's, asthma, chronic back pain, pilonidal cyst who presnets to the ED with 1 week of worsening bilateral flank pain associated with severe nausea, bladder pressure and urinary frequency. She recently had a renal ultrasound on 08/30 that showed Question small left upper pole renal stone. She reports severe, sharp intermittent pain in both kidneys for the last week and that she can feel the kidney stones moving. She denies vomiting, diarrhea, LLQ/RLQ pain. No fevers but 1 episode of chills. She denies hematuria, vaginal discharge, vaginal bleeding, or change of . Related Data Previous Rx's Medication Instructions Recorded ciprofloxacin HCl [Cipro] 500 mg PO BID 7 Days #14 tab 04/22/20 oxycodone-acetaminophen [Percocet] 1 tab PO Q4H PRN #10 tab 06/14/20 sulfamethoxazole 800 1 tab PO BID 5 Days #10 tab 06/16/20 mg-trimethoprim 160 mg tablet fludrocortisone 0.1 mg tablet 0.1 mg PO DAILY #90 tab 06/26/20 cefuroxime axetil 250 mg PO BID 7 Days #14 tab 09/07/20 metronidazole [Flagyl] 500 mg PO Q12H #14 tab 09/07/20 ondansetron HCl [Zofran] 4 mg PO Q8H PRN #10 tab 09/07/20 Allergies Allergy/AdvReac Type Severity Reaction Status Date / Time cat dander [CATS] Allergy Intermediate RASH Verified 04/22/20 12:37 mold Allergy Intermediate RASH Unverified 03/30/20 15:51 amoxicillin AdvReac Unknown yeast Verified 06/03/17 00:00 infection seasonal Allergy Unknown Unknown Uncoded 04/22/20 12:37 Review of Systems Review of Systems Constitutional: No Fever, No Chills ENT/Mouth: No sore throat, No Rhinorrhea, No Swallowing Difficulty Eyes: No Eye Pain, No Swelling, No Redness Cardiovascular: No Chest Pain, No SOB, No Orthopnea, No Edema Respiratory: No Cough, No Sputum, No Wheezing, No dyspnea Gastrointestinal: No Nausea, No Vomiting, No Diarrhea, No abdominal Pain Genitourinary: + Dysuria, + Urinary Frequency, No Hematuria Musculoskeletal: No joint pain, No Myalgias Skin: No Skin Lesions, No rash Neuro: No Weakness, No Numbness, No Dizziness, No Headache Psych: No Anxiety/Panic, No Depression Heme/Lymph: No Bruising, No Lymphadenopathy Endocrine: No Polyuria, No Polydipsia Physical Exam Vital Signs: Vital Signs: Last Vital Signs Temp 98.8 F 09/07/20 16:15 Pulse 74 09/07/20 16:15 Resp 19 09/07/20 16:15 BP 121/68 09/07/20 16:15 Pulse Ox 97 09/07/20 16:15 Body Mass Index 39.1 Appearance: Alert. Oriented X3. No acute distress. Eyes: Pupils equal, round and reactive to light. ENT: Pharynx normal. Neck: Normal inspection. Neck supple. CVS: Normal heart rate and rhythm. Pulses normal. Respiratory: No respiratory distress. Breath sounds normal. Abdomen: Obese, Soft and nontender. +BS x4. +CVA tenderness on the right, mild. Pelvic exam deferred. Skin: Skin warm and dry. Normal skin color. Normal skin turgor. No rashes. Extremities: No lower extremity edema. Neuro: Oriented X 3. Nonfocal, moves all 4 extremities. Course Course Course Narrative: 30 y/o female with history of recurrent kidney stones and UTI's presenting with symptoms of kidney stones and UTI. She is non-toxic appearing, reporting severe discomfort 10/10 at times however she appears comfortable. She is not tachycardic, not febrile. Not septic at this time. Will get basic labs and CT scan for further evaluation. Last CT last Summer 2019. Reevaluation(s) Reevaluation #1: UA + for infection - hx E. coli UTI in the past, resistant to Bactrim but sensitive to ceftriaxone. Will give dose of IV abx while awaiting CT scan. No leukocytosis, no fever, Not septic. UA also showing trichomonas - will treat with PO flagyl. She denies vaginal discharge. Deferred pelvic exam for now per patient request. Reevaluation #2: CT scan showing NO stones. Small ovarian cyst noted on the left. No pelvic pain, no LLQ pain. No symptoms. No indication for pelvic U/S at this time. No signs or symptoms of torsion. She is stable for discharge with plan to follow up with PCP and Dr. Paul WONG. MDM - Abdominal Pain Lab Data Result diagrams: 09/07/20 15:22 09/07/20 15:22 Labs: Lab Results 09/07/20 09/07/20 09/07/20 Range/Units 15:22 15: 15:22 WBC 8.4 (4.8-10.8) X10*3/uL RBC 5.11 (4.20-5.50) X10*6/uL Hgb 15.2 (12.0-16.0) g/dl Hct 44.8 (37-47) % MCV 87.7 (80-98) fL MCH 29.7 (27.0-33.0) pg MCHC 33.9 (31.0-35.0) g/dl RDW 13.7 (11.0-16.0) % Plt Count 309 (160-400) X10*3/uL MPV 9.6 (9.4-12.3) fL Immature Gran % (Auto) 0.5 H (0.0-0.4) % Neut % (Auto) 47.4 (45-73) % Lymph % (Auto) 38.1 (20-40) % [place] % (Auto) 10.2 (2-11) % Eos % (Auto) 3.2 (0-4) % Baso % (Auto) 0.6 (0-2) % Lymph # (Auto) 3.2 (1.2-4.9) X10*3/uL [place] # (Auto) 0.9 (0.1-1.2) X10*3/uL Eos # (Auto) 0.3 (0.0-0.4) X10*3/uL Baso # (Auto) 0.1 (0.0-0.2) X10*3/uL Abs Immat Gran (auto) 0.04 H (0.00-0.03) X10*3/uL Absolute Neuts (auto) 4.0 (2.0-8.3) X10*3/uL Absolute Nucleated RBC 0.000 (0.0-0.012) X10*3/uL Nucleated RBC % (auto) 0.0 (0.0-0.2) /100WBC Hold Blue Top SEE NOTE Sodium 136 (135-145) mmol/L Potassium 4.7 (3.3-5.1) mmol/L Chloride 103 (96-108) mmol/L Carbon Dioxide 22 (22-29) mmol/L Anion Gap 16 (12-20) BUN 10 (9-16) mg/dL Creatinine 0.79 (0.5-1.4) mg/dL Estim Creat Clear Calc 134.0 Estimated GFR > 60 Random Glucose 105 (60-115) mg/dL Calcium 9.7 D (8.4-10.2) mg/dL Magnesium 1.9 (1.6-2.6) mg/dL Total Bilirubin 0.5 (0.0-1.0) mg/dL Direct Bilirubin 0.2 (0.0-0.5) mg/dL AST 18 (5-31) U/L ALT 25 (0-31) U/L Alkaline Phosphatase 91 (39-117) U/L Total Protein 7.6 (6.5-8.0) g/dL Albumin 4.4 (3.5-5.0) g/dL Beta HCG, Quant < 2 mIU/mL Urine Color Urine Appearance Urine pH (5.0-8.0) Ur Specific [place] (1.005-1.025) Urine Protein (NEG-TRACE) MG/DL Urine Glucose (UA) (NEG) MG/DL Urine Ketones (NEG) MG/DL Urine Blood (NEG) Urine Nitrite (NEG) Ur Leukocyte Esterase (NEG) Urine RBC (0) /HPF Urine WBC (0-4) /HPF Ur Squamous Epith Cells /LPF Urine Bacteria /LPF Urine Trichomonas Urine Test (NEGATIVE) 09/07/20 09/07/20 Range/Units 15:40 15:40 WBC (4.8-10.8) X10*3/uL RBC (4.20-5.50) X10*6/uL Hgb (12.0-16.0) g/dl Hct (37-47) % MCV (80-98) fL MCH (27.0-33.0) pg MCHC (31.0-35.0) g/dl RDW (11.0-16.0) % Plt Count (160-400) X10*3/uL MPV (9.4-12.3) fL Immature Gran % (Auto) (0.0-0.4) % Neut % (Auto) (45-73) % Lymph % (Auto) (20-40) % [place] % (Auto) (2-11) % Eos % (Auto) (0-4) % Baso % (Auto) (0-2) % Lymph # (Auto) (1.2-4.9) X10*3/uL [place] # (Auto) (0.1-1.2) X10*3/uL Eos # (Auto) (0.0-0.4) X10*3/uL Baso # (Auto) (0.0-0.2) X10*3/uL Abs Immat Gran (auto) (0.00-0.03) X10*3/uL Absolute Neuts (auto) (2.0-8.3) X10*3/uL Absolute Nucleated RBC (0.0-0.012) X10*3/uL Nucleated RBC % (auto) (0.0-0.2) /100WBC Hold Blue Top Sodium (135-145) mmol/L Potassium (3.3-5.1) mmol/L Chloride (96-108) mmol/L Carbon Dioxide (22-29) mmol/L Anion Gap (12-20) BUN (9-16) mg/dL Creatinine (0.5-1.4) mg/dL Estim Creat Clear Calc Estimated GFR Random Glucose (60-115) mg/dL Calcium (8.4-10.2) mg/dL Magnesium (1.6-2.6) mg/dL Total Bilirubin (0.0-1.0) mg/dL Direct Bilirubin (0.0-0.5) mg/dL AST (5-31) U/L ALT (0-31) U/L Alkaline Phosphatase (39-117) U/L Total Protein (6.5-8.0) g/dL Albumin (3.5-5.0) g/dL Beta HCG, Quant mIU/mL Urine Color YELLOW Urine Appearance CLEAR Urine pH 6.0 (5.0-8.0) Ur Specific [place] <= 1.005 (1.005-1.025) Urine Protein NEG (NEG-TRACE) MG/DL Urine Glucose (UA) NEG (NEG) MG/DL Urine Ketones NEG (NEG) MG/DL Urine Blood NEG (NEG) Urine Nitrite NEG (NEG) Ur Leukocyte Esterase 1+ H (NEG) Urine RBC 0 (0) /HPF Urine WBC 1-4 (0-4) /HPF Ur Squamous Epith Cells 3+ /LPF Urine Bacteria TRACE /LPF Urine Trichomonas NOTED Urine Test NEGATIVE (NEGATIVE) Critical Care Time Critical Care Time Critical Care Time: No Discharge Plan Discharge Clinical Impression: Recurrent UTI, Trichomonas infection Patient Disposition: Home, Self-Care Instructions: Trichomoniasis (ED), Urinary Tract Infection in Women (ED) Additional Instructions: Your lab workup today was normal. Your urine test showed evidence of bladder infection - you were given dose of IV antibiotics while in the ER. Recommend start taking the prescribed antibiotic (cefuroxime) tomorrow morning. Your urine test also showed evidence of Trichomonas infection - take the prescribed metronidazole antibiotic for this, starting tonight. Follow up with Dr. Yi as needed. Follow up with your doctor as needed. Prescriptions: New cefuroxime axetil 250 mg tablet 250 mg PO BID 7 Days Qty: 14 RF: 0 ondansetron HCl [Zofran] 4 mg tablet 4 mg PO Q8H PRN (Reason: nausea and vomiting) Qty: 10 RF: 0 metronidazole [Flagyl] 500 mg tablet 500 mg PO Q12H Qty: 14 RF: 0 No Action fludrocortisone 0.1 mg tablet 0.1 mg PO DAILY Qty: 90 RF: 1 oxycodone-acetaminophen [Percocet] 5-325 mg tablet 1 tab PO Q4H PRN (Reason: pain) Qty: 10 RF: 0 ciprofloxacin HCl [Cipro] 500 mg tablet 500 mg PO BID 7 Days Qty: 14 RF: 0 sulfamethoxazole-trimethoprim [Bactrim DS] 800-160 mg tablet 1 tab PO BID 5 Days Qty: 10 RF: 0 Referrals: Herminio Yi MD [Physician] - 1 week [facility] Past Medical History Medical History Asthma Chronic kidney disease Cyst, pilonidal, with abscess Degenerative disc disease Spinal stenosis Syncope Surgical History H/O Spinal surgery History of cholecystectomy Social History Social History Alcohol intake: never Smoking Status: Current every day smoker Use of substances other than those prescribed or required for medical reasons: No Advance Directives: Yes Advance Directives Information Provided: Yes Advance Directives on File: No
[2020-09-07 16:15] VITALS: BP 121/68; PULSE 74; RESP 19; TEMP 37.1; O2SAT 97
[2020-09-07 16:19] LABS: Glucose Urine UA NEG (NEG); Leukocyte Esterase Urine 1+ (NEG); Nitrite Urine NEG (NEG); Specific Gravity - Urine <= 1.005 (1.005-1.025); UACC Culture Trigger YES; Urine Blood NEG (NEG); Urine Ketones NEG (NEG); Urine Protein NEG (NEG-TRACE)
[2020-09-07 16:26] LABS: Appearance Urine CLEAR; Color Urine YELLOW
[2020-09-07 16:27] LABS: UPreg QC Valid YES; Urine Pregnancy NEGATIVE (NEGATIVE)
[2020-09-07 16:59] LABS: Bacteria Urine TRACE /LPF; RBC Urine 0 /HPF (0); Squamous Epithelial Cell Urine 3+ /LPF; Trichomonas Urine NOTED
[2020-09-07] MEDS: Ketorolac Tromethamine 30 MG/ML VIAL IVPUSH (17:21)
[2020-09-07] MEDS: ondansetron HCL 4 MG/2 ML VIAL IVPUSH (17:21)
[2020-09-07] MEDS: cefTRIAXone sodium 1 GM in 0.9 % Sodium Chloride 50 ML IV (17:22)
[2020-09-07] MEDS: 0.9 % Sodium Chloride 1,000 ML 999 ML IVCONT (17:22)
[2020-09-07 18:00] VITALS: BP 131/75; PULSE 58; RESP 18; TEMP 37.1; O2SAT 99
== END 2020-09-07 18:00 | disposition home or self-care (01) ==
PROVIDERS: Physician Assistant; Emergency Provider Emergency Medicine; PCP Pediatrics
DX: A59.03 Trichomonal cystitis and urethritis (principal); Z87.440 Personal history of urinary (tract) infections; Z87.442 Personal history of urinary calculi; N18.9 Chronic kidney disease, unspecified; F17.200 Nicotine dependence, unspecified, uncomplicated
CPT/HCPCS: 36415; 74176; 80048; 80076; 81001; 81003; 81025; 83735; 84702; 85025; 87086; 96365; 96374; 96375; 99284; J0696; J1885; J2405

== ENCOUNTER → 2020-10-19 11:13 | Outpatient (BNVA) | payer MEDICAID, SELFPAY | PROVIDERS: PCP Pediatrics; Visit Provider Urology | DX: N20.0 Calculus of kidney (principal) | CPT/HCPCS: 81002; 99212 ==

== ENCOUNTER 2021-02-09 07:46 | Emergency (ER) | payer MEDICAID, SELFPAY ==
[2021-02-09 07:53] VITALS: BP 145/99; PULSE 131; RESP 20; TEMP 35.8; O2SAT 97
[2021-02-09 08:12] VITALS: BP 137/87; PULSE 103; RESP 18; TEMP 37.2; O2SAT 97
--- NOTE | 2021-02-09 08:26 | ED_ITS ---
HPI - General Adult General Chief complaint: General Medical Stated complaint: abd pain Time Seen by Provider: 02/09/21 08:20 Source: patient Mode of arrival: ambulatory Limitations: no limitations History of Present Illness HPI narrative: Patient comes to the emergency room complaining of bilateral flank pain that started in August. Patient is known to have nephrolithiasis. Patient has an appointment with Urology in April. Patient states she has had multiple episodes of UTIs and pyelonephritis. States 3 weeks ago she was treated with what she believes is Bactrim for UTI. Patient denies any urinary symptoms other than the chronic bilateral flank pain for 5 months. Patient denies fever chills, no abdominal pain Related Data Previous Rx's Medication Instructions Recorded ciprofloxacin HCl 500 mg tablet 500 mg PO BID 7 Days #14 tab 04/22/20 (Cipro) oxycodone-acetaminophen 5 mg-325 1 tab PO Q4H PRN #10 tab 06/14/20 mg tablet (Percocet) sulfamethoxazole 800 1 tab PO BID 5 Days #10 tab 06/16/20 mg-trimethoprim 160 mg tablet (Bactrim DS) cefuroxime axetil 250 mg tablet 250 mg PO BID 7 Days #14 tab 09/07/20 metronidazole 500 mg tablet 500 mg PO Q12H #14 tab 09/07/20 (Flagyl) ondansetron HCl 4 mg tablet 4 mg PO Q8H PRN #10 tab 09/07/20 (Zofran) fludrocortisone 0.1 mg tablet 0.1 mg PO DAILY 90 Days #90 tab 02/08/21 levofloxacin 500 mg tablet 500 mg PO DAILY #9 tab 02/09/21 Allergies Allergy/AdvReac Type Severity Reaction Status Date / Time cat dander [CATS] Allergy Intermediate RASH Verified 04/22/20 12:37 mold Allergy Intermediate RASH Unverified 03/30/20 15:51 amoxicillin AdvReac Unknown yeast Verified 06/03/17 00:00 infection seasonal Allergy Unknown Unknown Uncoded 04/22/20 12:37 Review of Systems Review of Systems: Constitutional : No Weight loss, No Fever, No Chills, No Night Sweats, No Fatigue, No Malaise ENT/Mouth : No Hearing loss, No Ear Pain, No Nasal Congestion, No Sinus Pain, No Hoarseness, No sore throat, No Rhinorrhea, No Swallowing Difficulty Eyes: No Eye Pain, No Swelling, No Redness, No Foreign Body, No Discharge, No Vision Changes Cardiovascular : No Chest Pain, No SOB, No Dyspnea on Exertion, No Orthopnea, No Edema, No Palpitations Respiratory : No Cough, No Sputum, No Wheezing, No Smoke Exposure, No Dyspnea Gastrointestinal : No Nausea, No Vomiting, No Diarrhea, No Constipation, No abdominal Pain, No Hematochezia, No Melena Genitourinary : no irregular bleeding, No Dysuria, No Urinary Frequency, No Hematuria, No Urinary Incontinence, No Urgency, complaining of bilateral Flank Pain for 5 months No Urinary Flow Changes, No Hesitancy Musculoskeletal : No joint pain, No Myalgias, No Joint Swelling Skin : No Skin Lesions, No rash Neuro : No Weakness, No Numbness, No Paresthesias, No Loss of Consciousness, No Dizziness, No Headache Psych : No Anxiety/Panic, No Depression, No SI/HI/AH/VH, No Social Issues, Heme/Lymph: No Bruising, No Bleeding,No Lymphadenopathy Endocrine : No Polyuria, No Polydipsia, No Temperature Intolerance PMFSH Past Medical History Medical History Asthma Chronic kidney disease Cyst, pilonidal, with abscess Degenerative disc disease Spinal stenosis Syncope Surgical History H/O Spinal surgery History of cholecystectomy Social History Social History Alcohol intake: never Patient Tobacco Use Status: Current everyday Tobacco user Smoked in Last 30 Days: Yes Use of substances other than those prescribed or required for medical reasons: No Advance Directives: No Advance Directives Information Provided: No Patient : No Physical Exam Vital Signs: Vital Signs: Last Vital Signs Temp 98.9 F 02/09/21 08:12 Pulse 103 H 02/09/21 08:12 Resp 18 02/09/21 08:12 BP 137/87 02/09/21 08:12 Pulse Ox 97 02/09/21 08:12 Body Mass Index 0.0 Const: Other: Appearance: Alert. Oriented X3. No acute distress. Sitting comfortably in bed Eyes: Pupils equal, round and reactive to light. ENT: Pharynx normal. Neck: Normal inspection. Neck supple. No lymph nodes noted. No crepitus CVS: Normal heart rate and rhythm. Pulses normal. Normal S1 and S2 Respiratory: No respiratory distress. Breath sounds normal. No Wheezing. No rales Abdomen: Soft and nontender. No rigidity. No distention. No flank pain bilaterally Skin: Skin warm and dry. Normal skin color. Normal skin turgor. Extremities: No lower extremity edema. No lower extremity edema. No Lacerations. No Rash Neuro: Oriented X 3. No motor deficit. No sensory deficit. Moving all extermities. No slurred speech. Course Course Course Narrative: Patient remains comfortable, no nausea vomiting, 1 dose of To radol IV offer. I discussed the labs with the patient, patient does have a UTI, patient given 1 dose of p.o. levofloxacin. Patient struck to follow up with Dr. Yi. Patient's white blood cell count within normal limits, no fever or chills, sepsis is not suspected. Medical Decision Making Lab Data Result diagrams: 02/09/21 08:37 02/09/21 08:37 Labs: Lab Results 02/09/21 02/09/21 02/09/21 Range/Units 08:37 08:37 08:45 WBC 10.4 (4.8-10.8) X10*3/uL RBC 4.61 (4.20-5.50) X10*6/uL Hgb 14.1 (12.0-16.0) g/dl Hct 42.0 (37-47) % MCV 91.1 (80-98) fL MCH 30.6 (27.0-33.0) pg MCHC 33.6 (31.0-35.0) g/dl RDW 14.4 (11.0-16.0) % Plt Count 309 (160-400) X10*3/uL MPV 9.2 L (9.4-12.3) fL Immature Gran % (Auto) 1.0 H (0.0-0.4) % Neut % (Auto) 58.7 (45-73) % Lymph % (Auto) 23.8 (20-40) % [place] % (Auto) 11.4 H (2-11) % Eos % (Auto) 4.4 H (0-4) % Baso % (Auto) 0.7 (0-2) % Lymph # (Auto) 2.5 (1.2-4.9) X10*3/uL [place] # (Auto) 1.2 (0.1-1.2) X10*3/uL Eos # (Auto) 0.5 H (0.0-0.4) X10*3/uL Baso # (Auto) 0.1 (0.0-0.2) X10*3/uL Abs Immat Gran (auto) 0.10 H (0.00-0.03) X10*3/uL Absolute Neuts (auto) 6.1 (2.0-8.3) X10*3/uL Absolute Nucleated RBC 0.000 (0.0-0.012) X10*3/uL Nucleated RBC % (auto) 0.0 (0.0-0.2) /100WBC Sodium 137 (135-145) mmol/L Potassium 4.4 (3.3-5.1) mmol/L Chloride 107 (96-108) mmol/L Carbon Dioxide 20 L (22-29) mmol/L Anion Gap 14 (12-20) BUN 14 (9-16) mg/dL Creatinine 0.80 (0.5-1.4) mg/dL Estim Creat Clear Calc 215.2 Estimated GFR > 60 Random Glucose 91 (60-115) mg/dL Calcium 9.7 (8.4-10.2) mg/dL Total Bilirubin 0.3 (0.0-1.0) mg/dL Direct Bilirubin < 0.2 (0.0-0.5) mg/dL AST 20 (5-31) U/L ALT 23 (0-31) U/L Alkaline Phosphatase 93 (39-117) U/L Total Protein 7.0 (6.5-8.0) g/dL Albumin 3.9 (3.5-5.0) g/dL Urine Color YELLOW Urine Appearance HAZY Urine pH 6.0 (5.0-8.0) Ur Specific [place] 1.025 (1.005-1.025) Urine Protein NEG (NEG-TRACE) MG/DL Urine Glucose (UA) NEG (NEG) MG/DL Urine Ketones NEG (NEG) MG/DL Urine Blood NEG (NEG) Urine Nitrite POS H (NEG) Ur Leukocyte Esterase NEG (NEG) Urine RBC 0 (0) /HPF Urine WBC 0-2 (0-4) /HPF Ur Squamous Epith Cells 3+ /LPF Urine Bacteria 3+ /LPF Urine Test (NEGATIVE) 02/09/21 Range/Units 08:45 WBC (4.8-10.8) X10*3/uL RBC (4.20-5.50) X10*6/uL Hgb (12.0-16.0) g/dl Hct (37-47) % MCV (80-98) fL MCH (27.0-33.0) pg MCHC (31.0-35.0) g/dl RDW (11.0-16.0) % Plt Count (160-400) X10*3/uL MPV (9.4-12.3) fL Immature Gran % (Auto) (0.0-0.4) % Neut % (Auto) (45-73) % Lymph % (Auto) (20-40) % [place] % (Auto) (2-11) % Eos % (Auto) (0-4) % Baso % (Auto) (0-2) % Lymph # (Auto) (1.2-4.9) X10*3/uL [place] # (Auto) (0.1-1.2) X10*3/uL Eos # (Auto) (0.0-0.4) X10*3/uL Baso # (Auto) (0.0-0.2) X10*3/uL Abs Immat Gran (auto) (0.00-0.03) X10*3/uL Absolute Neuts (auto) (2.0-8.3) X10*3/uL Absolute Nucleated RBC (0.0-0.012) X10*3/uL Nucleated RBC % (auto) (0.0-0.2) /100WBC Sodium (135-145) mmol/L Potassium (3.3-5.1) mmol/L Chloride (96-108) mmol/L Carbon Dioxide (22-29) mmol/L Anion Gap (12-20) BUN (9-16) mg/dL Creatinine (0.5-1.4) mg/dL Estim Creat Clear Calc Estimated GFR Random Glucose (60-115) mg/dL Calcium (8.4-10.2) mg/dL Total Bilirubin (0.0-1.0) mg/dL Direct Bilirubin (0.0-0.5) mg/dL AST (5-31) U/L ALT (0-31) U/L Alkaline Phosphatase (39-117) U/L Total Protein (6.5-8.0) g/dL Albumin (3.5-5.0) g/dL Urine Color Urine Appearance Urine pH (5.0-8.0) Ur Specific [place] (1.005-1.025) Urine Protein (NEG-TRACE) MG/DL Urine Glucose (UA) (NEG) MG/DL Urine Ketones (NEG) MG/DL Urine Blood (NEG) Urine Nitrite (NEG) Ur Leukocyte Esterase (NEG) Urine RBC (0) /HPF Urine WBC (0-4) /HPF Ur Squamous Epith Cells /LPF Urine Bacteria /LPF Urine Test NEGATIVE (NEGATIVE) Discharge Plan Discharge Clinical Impression: Recurrent UTI, Bilateral nephrolithiasis Patient Disposition: Home, Self-Care Instructions: Urinary Tract Infection in Women (ED) Additional Instructions: Please follow-up with your primary care physician tomorrow. If you have any worsening or new symptoms, please return to the emergency room or call 911 Prescriptions: New levofloxacin 500 mg tablet 500 mg PO DAILY Qty: 9 RF: 0 No Action fludrocortisone 0.1 mg tablet 0.1 mg PO DAILY 90 Days Qty: 90 RF: 2 oxycodone-acetaminophen [Percocet] 5-325 mg tablet 1 tab PO Q4H PRN (Reason: pain) Qty: 10 RF: 0 cefuroxime axetil 250 mg tablet 250 mg PO BID 7 Days Qty: 14 RF: 0 ondansetron HCl [Zofran] 4 mg tablet 4 mg PO Q8H PRN (Reason: nausea and vomiting) Qty: 10 RF: 0 metronidazole [Flagyl] 500 mg tablet 500 mg PO Q12H Qty: 14 RF: 0 ciprofloxacin HCl [Cipro] 500 mg tablet 500 mg PO BID 7 Days Qty: 14 RF: 0 sulfamethoxazole-trimethoprim [Bactrim DS] 800-160 mg tablet 1 tab PO BID 5 Days Qty: 10 RF: 0
[2021-02-09 08:41] LABS: Basophils Absolute Auto 0.1 X10*3/uL (0.0-0.2); Basophils Percent Auto 0.7 % (0-2); Eosinophils Absolute Auto 0.5 X10*3/uL (0.0-0.4); Eosinophils Percent Auto 4.4 % (0-4); Hemoglobin 14.1 g/dl (12.0-16.0); Lymphocytes Absolute Auto 2.5 X10*3/uL (1.2-4.9); Lymphocytes Percent Auto 23.8 % (20-40); MANUAL DIFF FLAG NO; Mean Corpuscular HGB Conc 33.6 g/dl (31.0-35.0); Mean Corpuscular Hemoglobin 30.6 pg (27.0-33.0); Mean Corpuscular Volume 91.1 fL (80-98); Mean Platelet Volume 9.2 fL (9.4-12.3); Monocytes Absolute Auto 1.2 X10*3/uL (0.1-1.2); Monocytes Percent Auto 11.4 % (2-11); Neutrophils Absolute Auto 6.1 X10*3/uL (2.0-8.3); Neutrophils Percent Auto 58.7 % (45-73); Platelet Count 309 X10*3/uL (160-400); Red Blood Count 4.61 X10*6/uL (4.20-5.50); Red Cell Distribution Width 14.4 % (11.0-16.0); White Blood Count 10.4 X10*3/uL (4.8-10.8)
[2021-02-09 08:53] LABS: Glucose Urine UA NEG (NEG); Leukocyte Esterase Urine NEG (NEG); Nitrite Urine POS (NEG); Specific Gravity - Urine 1.025 (1.005-1.025); UACC Culture Trigger YES; Urine Blood NEG (NEG); Urine Ketones NEG (NEG); Urine Protein NEG (NEG-TRACE)
[2021-02-09 08:54] LABS: Appearance Urine HAZY; Color Urine YELLOW
[2021-02-09 08:55] LABS: UPreg QC Valid YES; Urine Pregnancy NEGATIVE (NEGATIVE)
[2021-02-09 09:01] LABS: Bacteria Urine 3+ /LPF; RBC Urine 0 /HPF (0); Squamous Epithelial Cell Urine 3+ /LPF; WBC Urine 0-2 /HPF (0-4)
[2021-02-09 09:09] LABS: Alanine Aminotransferase 23 U/L (0-31); Albumin Level 3.9 g/dL (3.5-5.0); Alkaline Phosphatase 93 U/L (39-117); Anion Gap 14 (12-20); Aspartate Amino Transferase 20 U/L (5-31); Bilirubin Direct < 0.2 mg/dL (0.0-0.5); Bilirubin Total 0.3 mg/dL (0.0-1.0); Blood Urea Nitrogen 14 mg/dL (9-16); Calcium 9.7 mg/dL (8.4-10.2); Carbon Dioxide 20 mmol/L (22-29); Chloride 107 mmol/L (96-108); Creatinine Clr Calc Pharmacy 215.2; Estimated Glomerular Filt Rate > 60; Glucose Random 91 mg/dL (60-115); Potassium 4.4 mmol/L (3.3-5.1); Sodium 137 mmol/L (135-145)
[2021-02-09 09:17] LABS: Amphetamine Screen Urine Not Detected (Not Detect); Barbiturates, Urine Not Detected (Not Detect); Benzodiazepines Screen Urine Not Detected (Not Detect); Cannabinoid Screen Urine Not Detected (Not Detect); Cocaine Screen Urine Not Detected (Not Detect); Opiate Screen Urine Not Detected (Not Detect); Phencyclidine Screen Urine Not Detected (Not Detect)
[2021-02-09] MEDS: levoFLOXacin 500 MG TABLET PO (09:18)
[2021-02-09] MEDS: Ketorolac Tromethamine 15 MG/ML VIAL 30 MG IVPUSH (09:21)
== END 2021-02-09 09:34 | disposition home or self-care (01) ==
PROVIDERS: Emergency Provider Emergency Medicine; PCP Pediatrics
DX: N20.0 Calculus of kidney (principal); N39.0 Urinary tract infection, site not specified; R10.9 Unspecified abdominal pain; F17.210 Nicotine dependence, cigarettes, uncomplicated; Z87.440 Personal history of urinary (tract) infections; Z87.442 Personal history of urinary calculi; Z79.899 Other long term (current) drug therapy
CPT/HCPCS: 36415; 80048; 80076; 80307; 81001; 81025; 85025; 87086; 87088; 87186; 96374; 99284; J1885

== ENCOUNTER 2021-03-17 09:38 | Emergency (ER) | payer MEDICAID, SELFPAY ==
[2021-03-17 09:57] VITALS: BP 142/93; PULSE 107; RESP 16; TEMP 36.9; O2SAT 97; BMI 45.4
--- NOTE | 2021-03-17 10:55 | ED_ITS ---
HPI - Dental/Oral General Chief complaint: Dental/Oral Stated complaint: JAW PAIN Time Seen by Provider: 03/17/21 10:19 Source: patient Mode of arrival: ambulatory Limitations: no limitations History of Present Illness MD Complaint: tooth pain Teeth map: 1. She had 2 dental extractions to the molars Onset (ago): day(s) (3 days ago) Duration: constant Severity: moderate Relieving factors: nothing Exacerbating factors: nothing Context: history of dental caries, poor dental care and other (Recent dental extraction on Friday by oral surgeon of 2 molars on the left lower aspect of the mouth) Treatment prior to arrival: other (She is currently on clindamycin and taking Motrin Tylenol and no symptomatic relief) Related Data Previous Rx's Medication Instructions Recorded ciprofloxacin HCl 500 mg tablet 500 mg PO BID 7 Days #14 tab 04/22/20 (Cipro) oxycodone-acetaminophen 5 mg-325 1 tab PO Q4H PRN #10 tab 06/14/20 mg tablet (Percocet) sulfamethoxazole 800 1 tab PO BID 5 Days #10 tab 06/16/20 mg-trimethoprim 160 mg tablet (Bactrim DS) cefuroxime axetil 250 mg tablet 250 mg PO BID 7 Days #14 tab 09/07/20 metronidazole 500 mg tablet 500 mg PO Q12H #14 tab 09/07/20 (Flagyl) ondansetron HCl 4 mg tablet 4 mg PO Q8H PRN #10 tab 09/07/20 (Zofran) fludrocortisone 0.1 mg tablet 0.1 mg PO DAILY 90 Days #90 tab 02/08/21 levofloxacin 500 mg tablet 500 mg PO DAILY #9 tab 02/09/21 acetaminophen 500 mg tablet 1,000 mg PO QID PRN #14 tab 03/17/21 (Tylenol Extra Strength) ibuprofen 800 mg tablet 800 mg PO Q8H PRN #14 tab 03/17/21 oxycodone 5 mg tablet 5 mg PO BID PRN #10 tab 03/17/21 Allergies Allergy/AdvReac Type Severity Reaction Status Date / Time cat dander [CATS] Allergy Intermediate RASH Verified 04/22/20 12:37 mold Allergy Intermediate RASH Unverified 03/30/20 15:51 amoxicillin AdvReac Unknown yeast Verified 06/03/17 00:00 infection seasonal Allergy Unknown Unknown Uncoded 04/22/20 12:37 Review of Systems Review of Systems: Constitutional : No Fever, No Chills, No changes in PO intake, No difficulty speaking, no recent dental procedure, no heat or cold intolerance while eating, no recent face trauma, ENT/Mouth : + Dental pain/jaw pain, No Sore throat, No throat swelling, No swallowing difficulty, no change in voice, No facial swelling, no drooling, no trismus, no bleeding, no lacerations, no tongue swelling, gum swelling, Eyes: No Eye Pain, No periorbital Swelling Cardiovascular : No Chest Pain, No SOB Respiratory : No Cough, No Sputum, No Wheezing, No Smoke Exposure, No Dyspnea Gastrointestinal : No Nausea, No Vomiting, No Diarrhea Genitourinary : No Dysuria Musculoskeletal : No Myalgias Skin : No rash, no facial swelling or redness, Neuro : No Weakness, No Numbness, No Headache Yes all other systems are reviewed and are negative FOR[facility]LY [facility] Past Medical History Attestation statement: The following information was validated with the patient. Medical History Asthma Chronic kidney disease Cyst, pilonidal, with abscess Degenerative disc disease Spinal stenosis Syncope Surgical History H/O Spinal surgery History of cholecystectomy Social History Social History Alcohol intake: never Patient Tobacco Use Status: Current everyday Tobacco user Advance Directives: Yes Advance Directives Information Provided: No Advance Directives on File: No Patient : No Physical Exam Vital Signs: Vital Signs: Last Vital Signs Temp 98.4 F 03/17/21 09:57 Pulse 107 H 03/17/21 09:57 Resp 16 03/17/21 09:57 BP 142/93 H 03/17/21 09:57 Pulse Ox 97 03/17/21 09:57 Body Mass Index 45.4 vital signs have been reviewed as normal and appeared to be correct. Blood pressure hypertensive 143/93 Heart rate tachycardic at 107. Respiration rate normal. Temperature normal. Oxygen saturation normal. Appearance: Alert. Oriented X3. No acute distress. Head: Normal external exam. Normocephalic. Atraumatic. Eyes: PERRLA. EOMI. Conjunctiva and sclera normal. Eyelids normal. ENT: EAC normal. TM's Normal. Pharynx normal. Uvula midline. Moist mucous membranes. No trismus noted. No drooling noted. No muffled voice noted. Dentition: Patient with poor dentition throughout with multiple dental caries. She appears to have 2 molar extractions to the left lower aspect no purulent drainage/fluctuance noted or foreign bodies. Gingival within normal limits. No fluctuance. Not consistent with peritonsillar abscess. Not consistent with dental abscess. No salivary duct obstruction noted. Neck: Normal inspection. Neck supple. FROM. No adenopathy. Thyroid Normal. No meningeal signs. No neck mass noted. Trachea midline. CVS: Normal heart rate and rhythm. Heart sound normal. No murmurs noted. Pulses normal throughout. Respiratory: No respiratory distress. Painless inspiration. Breath sounds kalyani l. No wheezes/rales/rhonchi noted. Chest nontender. No accessory muscle usage noted or decreased air movement noted. Back: Full range of motion noted. Skin: Skin warm and dry. Normal skin color. Normal skin turgor. No rashes/lesions/lacerations noted. Extremities:Extremities exhibit normal range of motion. Extremities nontender. Neuro: Oriented X 3. No motor deficit. No sensory deficit. Reflexes normal. Course Course Course Narrative: 30-year-old female presenting to the ED 3 days after she had 2 molars extracted by her oral surgeon currently on clindamycin and Motrin Tylenol reports she is taking as prescribed although no symptomatic relief. Reports she called her dentist this morning although they are closed therefore she came here for further evaluation treatment. On exam patient is noted to have the 2 extraction sites no signs of infection or fluctuance. Not consistent with peritonsillar/dental abscess or pharyngeal abscess. No trismus or drooling on exam. Will DC home with symptomatic treatment instructions to continue taking her antibiotics as previously prescribed and to follow up with her oral surgeon. Patient understands agrees with this plan. [facility] - Dental/Oral Medical Records Attestation: I reviewed the patient's medical records. Discharge Plan Discharge Clinical Impression: Toothache, Dental caries Patient Disposition: Home, Self-Care Instructions: Toothache (ED), Tooth Extraction (DC) Additional Instructions: Please continue taking your previously prescribed antibiotics and medications as previously prescribed. Return if any new or worsening symptoms follow-up with her oral surgeon at your earliest convenience. Prescriptions: New ibuprofen 800 mg tablet 800 mg PO Q8H PRN (Reason: pain) Qty: 14 RF: 0 acetaminophen [Tylenol Extra Strength] 500 mg tablet 1,000 mg PO QID PRN (Reason: fever or pain) Qty: 14 RF: 0 oxycodone 5 mg tablet 5 mg PO BID PRN (Reason: pain) Qty: 10 RF: 0 No Action fludrocortisone 0.1 mg tablet 0.1 mg PO DAILY 90 Days Qty: 90 RF: 2 oxycodone-acetaminophen [Percocet] 5-325 mg tablet 1 tab PO Q4H PRN (Reason: pain) Qty: 10 RF: 0 cefuroxime axetil 250 mg tablet 250 mg PO BID 7 Days Qty: 14 RF: 0 ondansetron HCl [Zofran] 4 mg tablet 4 mg PO Q8H PRN (Reason: nausea and vomiting) Qty: 10 RF: 0 metronidazole [Flagyl] 500 mg tablet 500 mg PO Q12H Qty: 14 RF: 0 levofloxacin 500 mg tablet 500 mg PO DAILY Qty: 9 RF: 0 ciprofloxacin HCl [Cipro] 500 mg tablet 500 mg PO BID 7 Days Qty: 14 RF: 0 sulfamethoxazole-trimethoprim [Bactrim DS] 800-160 mg tablet 1 tab PO BID 5 Days Qty: 10 RF: 0 Referrals: Raquel Sethi MD [Primary Care Provider] - 2 days Print Language: Macedonian
== END 2021-03-17 11:14 | disposition home or self-care (01) ==
PROVIDERS: Emergency Provider Student in an Organized Health Care Education/Training Program; PCP Pediatrics
DX: K08.89 Other specified disorders of teeth and supporting structures (principal); K02.9 Dental caries, unspecified; F17.210 Nicotine dependence, cigarettes, uncomplicated
CPT/HCPCS: 99283

== ENCOUNTER 2021-03-28 15:50 | Outpatient (REF) | payer MEDICAID, SELFPAY ==
--- NOTE | ~2021-03-28 | US_ITS ---
EXAMINATION: US RETROPERITONEAL LIMITED (RENAL ONLY) CLINICAL INFORMATION: Calculus of kidney. COMPARISON: CT abdomen and pelvis 09/07/2020. Renal ultrasound 09/27/2020 and 06/14/2020. KUB 03/07/2020 and 03/03/2020. TECHNIQUE: Real-time imaging of the kidneys. FINDINGS: RIGHT KIDNEY: 11.6 x 4.8 x 6.1 cm (SAG x AP x TRV). The kidney is normal in size, contour, and echogenicity. Renal cortical thickness is normal. No calculi or focal parenchymal lesions. No hydronephrosis. LEFT KIDNEY: 11.7 x 4.9 x 5.6 cm (SAG x AP x TRV). The kidney is normal in size, contour, and echogenicity. Renal cortical thickness is normal. There are 2 echogenic foci with twinkle artifact questionable for small stones measuring 3 mm in the upper pole and 4 mm in the lower pole. No focal parenchymal lesions or hydronephrosis. US/US renal BI IMPRESSION: Question small left renal stones. Normal right kidney..
== END 2021-03-28 15:51 | disposition home or self-care (01) ==
LOC: HO.US 15:50
PROVIDERS: Visit Provider Urology
DX: N20.0 Calculus of kidney (principal)
CPT/HCPCS: 76775

== ENCOUNTER → 2021-04-17 12:59 | Outpatient (BNVA) | payer MEDICAID, SELFPAY | DX: N20.0 Calculus of kidney (principal) | CPT/HCPCS: 99212 ==

== ENCOUNTER → 2021-04-24 12:34 | Outpatient (BNVA) | payer MEDICAID, SELFPAY | PROVIDERS: PCP Pediatrics; Referring Provider Pediatrics; Visit Provider Internal Medicine Cardiovascular Disease | DX: R94.31 Abnormal electrocardiogram [ECG] [EKG] (principal); R55 Syncope and collapse; R60.0 Localized edema; E66.01 Morbid (severe) obesity due to excess calories | CPT/HCPCS: 93005; 99212 ==

== ENCOUNTER 2021-05-14 10:33 | Day surgery (SDC) | payer MEDICAID, SELFPAY ==
[2021-05-08 09:36] VITALS: BMI 46.2
--- NOTE | 2021-05-11 10:17 | HO.ANESPROP2 ---
Documented by User: Crystal Curran NP 05/11/21 10:24 HPI - Anesthesia Eval Consult details Narrative: 31yo F for Left Cystoscopy, Ureteroroscopy, Retro, Laser with possible stents Optimized per cardiology, OK to proceed without ECHO results PMFSH Active Problems Active Problems: All Active Problems (Updated 05/07/21 @ 15:45 by Jennifer Schwab RN) Recurrent UTI (Acute) Bilateral nephrolithiasis (Acute) Morbid obesity (Acute) Vasovagal syncope (Acute) Past Medical History Medical History Asthma Chronic kidney disease Degenerative disc disease Morbid obesity Spinal stenosis Vasovagal syncope Surgical History Surgical History H/O Spinal surgery History of cholecystectomy History of surgical removal of pilonidal cyst Hx of cystoscopy Hx of lithotripsy Social History Social History Alcohol intake: never Patient Tobacco Use Status: Current everyday Tobacco user Tobacco use type: Cigarette Advance Directives Information Provided: Yes (informational brochure mailed) Advance Directives on File: No Meds Allergies Allergy/AdvReac Type Severity Reaction Status Date / Time cat dander [CATS] Allergy Intermediate RASH Verified 04/17/21 13:07 mold Allergy Intermediate RASH Verified 04/17/21 13:07 amoxicillin AdvReac Intermediate yeast Verified 05/08/21 09:31 infection seasonal Allergy Unknown Unknown Uncoded 04/22/20 12:37 Home Medications Medication Instructions Recorded Confirmed Last Taken Type aripiprazole 10 mg tablet 10 mg PO DAILY 04/24/21 05/08/21 Unknown History Exam Exam Date and Time: May 11, 2021 1017 Height,Weight and Vital Signs: Height 5 ft 7 in Weight 133.81 kg Pertinent Lab Results Pertinent Lab Results: Laboratory Tests 02/09/21 02/09/21 08:37 08:37 WBC 10.4 Hgb 14.1 Hct 42.0 Plt Count 309 Sodium 137 Potassium 4.4 Chloride 107 Carbon Dioxide 20 L BUN 14 Creatinine 0.80 Narrative Narrative: EKG 04/2021 sinus tachycardia with right atrial enlargement and rightward axis deviation with nonspecific ST T wave changes Assessment and Plan Assessment Anesthesia Assessment: Chart Reviewed Documented by User: Saida Knox MD 05/14/21 12:47 PMFSH Past Medical History Medical History Asthma Chronic kidney disease Degenerative disc disease Morbid obesity Spinal stenosis Vasovagal syncope Surgical History Surgical History H/O Spinal surgery History of cholecystectomy History of surgical removal of pilonidal cyst Hx of cystoscopy Hx of lithotripsy History of Problems with Anesthesia: No Social History Social History Alcohol intake: never Patient Tobacco Use Status: Current everyday Tobacco user Tobacco use type: Cigarette Advance Directives Information Provided: Yes (informational brochure mailed) Advance Directives on File: No Meds Allergies Allergy/AdvReac Type Severity Reaction Status Date / Time cat dander [CATS] Allergy Intermediate RASH Verified 04/17/21 13:07 mold Allergy Intermediate RASH Verified 04/17/21 13:07 amoxicillin AdvReac Intermediate yeast Verified 05/08/21 09:31 infection seasonal Allergy Unknown Unknown Uncoded 04/22/20 12:37 Home Medications Medication Instructions Recorded Confirmed Last Taken Type aripiprazole 10 mg tablet 10 mg PO DAILY 04/24/21 05/08/21 Unknown History Exam Airway Mallampati Class: II (Very poor dentition) TM Dist: >3cm Loose/Missing/Broken Teeth: Yes, Upper and Lower Heart: RRR Lungs: CTA Assessment and Plan Assessment Anesthesia Assessment: Anesthesia Plan Discussed Final Anesthetic Review History of Problems with Anesthesia: No NPO: Yes ASA Class: III Final Preanesthetic Review: Meds/Allgs Chart Reviewed, Consent Obtained/Reviewed and Anes Risks/Benef Reviewed Patient Risk: Intermediate Procedure Risk: Low Anesthetic Plan Anesthetic Plan: GA Disposition: Standard PACU
--- NOTE | ~2021-05-14 | FL_ITS ---
EXAMINATION: XR FLUOROSCOPY WITH IMAGES CLINICAL INFORMATION: Urinary calculus. COMPARISON: CT scan of 09/07/2020 and ultrasound of 03/28/2021. TECHNIQUE: Fluoroscopy performed by Dr. Herminio Yi. Fluoroscopy time: 40.1 seconds DLP: 22.2 mGy-cm Images: 2 FINDINGS: Two images demonstrate small amount of contrast within the urinary bladder. A catheter is seen with its proximal and overlying the left upper quadrant. Pigtail does not appear to be formed. The distal end of the catheter is seen overlying the urinary bladder without pigtail formed and questionably with the distal and lying within the urethra. FL/FL guidance in OR IMPRESSION: Intraoperative fluoroscopy performed for left ureteral intervention as described.
[2021-05-14 11:03] VITALS: BP 145/95; PULSE 103; RESP 18; TEMP 36.1; O2SAT 96
[2021-05-14 11:14] LABS: UPreg QC Valid YES; Urine Pregnancy NEGATIVE (NEGATIVE)
[2021-05-14] MEDS: levoFLOXacin 500 MG TABLET PO (11:22)
[2021-05-14] MEDS: Lactated Ringers 1,000 ML 100 ML IVCONT (11:22)
--- NOTE | 2021-05-14 13:18 | P.HPSUR_ITS ---
Pre-Procedural Eval Section A Date of Service: 05/14/21 Section B Chief Complaint: kidney stone Details of Present Illness: Left kidney stones Relevant Family History (Specify if Yes): Yes Relevant Social History: None Present Medications: see Short Stay Collaborative assessment Medical History: Significant History History of Previous Operations: Relevant previous surgery/procedure and date(s) Allergies: Allergies Allergy/AdvReac Type Severity Reaction Status Date / Time cat dander [CATS] Allergy Intermediate RASH Verified 04/17/21 13:07 mold Allergy Intermediate RASH Verified 04/17/21 13:07 amoxicillin AdvReac Intermediate yeast Verified 05/08/21 09:31 infection seasonal Allergy Unknown Unknown Uncoded 04/22/20 12:37 Review of Systems Sugical H&P ROS: Negative: Constitution, Cardiovascular, Respiratory, Neurologic al, Psychiatric, Hem-Onc, Allergic/Immunologic, Gastrointestinal, Genitourinary, Musculoskeletal, Integumentary, Endocrine and Eyes/Ears/Nose/Throat Exam Surgical H&P Exam: Normal: HEENT, Normal: Heart, Normal: Lungs, Normal: Extremities, Normal: Abdomen, Normal: Skin and Normal: Neurological Plan Diagnosis/Plan: Unchanged (Cysto left retrograde, left ureteroscopy, laser lithotripsy, stent placement) I have reviewed the history and physical and performed a pertinent physical examination on my patient. No changes have occurred unless specified.
[2021-05-14 14:15] VITALS: BP 100/64; PULSE 68; RESP 15; TEMP 36.4; O2SAT 99
--- NOTE | 2021-05-14 14:15 | P.OP_ITS ---
Operative Note Operative Note Date of Service: 05/14/21 Narrative: PreOperative Diagnosis: Left renal stones Post Operative Diagnosis: Left submucosal renal stones Procedure: - cystoscopy, left retrograde - left dilatation of ureteric orifice under fluoroscopy - left ureteroscopy, laser lithotripsy of submucosal calyceal stones - left stent placement Surgeon: Dr Herminio Yi Anesthesia: General Indications for procedure: This is a 31-year-old female. Known stone former. Prior calcium oxalate stones. On imaging has stones on left side. Recommendation for ureteroscopy given prior ESWL and more than 1 target. Procedure: After informed consent was verified patient was brought to the operating placed in supine position. Anesthesia was administered per protocol. Patient was placed in modified dorsal lithotomy position and prepped and draped in a sterile fashion. Safety pause time-out and side of surgery confirmed. Antibiotics confirmed. Twenty-two Nigerian cystoscope placed. Left ureteric orifice seen in normal position. Retrograde examination performed. No filling defects seen of ureteral clear defect within left renal pelvis. Sensor guidewire placed. Ureteric access sheath used for dilatation of left ureteric orifice. Wire removed. Flexible digital ureteral scope placed. Kidney in determine its entirety. Multiple small calcifications seen submucosally in multiple papilla. Probably when ultrasound is performed the small fragments appear is a single medium-sized fragment. Using the holmium laser with dusting settings stones were released from the submucosa on 3 different calices. Upper, lower and lower. Once this was performed the Sensor guidewire was placed back up the access sheath. The digital scope was removed. The access sheath was removed. A 6 Nigerian by 24 cm double-J stent was placed with good coil seen within the renal pelvis and in the bladder. She tolerated the procedure well was extubated in operating room transferred in stable condition to the recovery area. Pathology: None Drains: 6 Nigerian by 24 cm double-J stone
[2021-05-14 14:20] VITALS: BP 136/88; PULSE 85; RESP 18; O2SAT 96
[2021-05-14 14:25] VITALS: BP 133/91; PULSE 83; RESP 17; O2SAT 96
[2021-05-14 14:30] VITALS: BP 137/97; PULSE 82; RESP 17; O2SAT 96
[2021-05-14] MEDS: ondansetron HCL 4 MG/2 ML VIAL IVPUSH (14:35)
[2021-05-14] MEDS: Phenazopyridine HCL 100 MG TABLET PO (14:35)
[2021-05-14 14:44] VITALS: BP 140/96; PULSE 82; RESP 16; TEMP 36.1; O2SAT 98
== END 2021-05-14 15:21 | disposition home or self-care (01) ==
PROVIDERS: Nurse Practitioner; PCP Pediatrics; Visit Provider Urology
PROC: (CPT 52356; principal; 2021-05-14 12:50)
DX: N20.0 Calculus of kidney (principal); Z87.442 Personal history of urinary calculi; N18.9 Chronic kidney disease, unspecified; J45.909 Unspecified asthma, uncomplicated; E66.01 Morbid (severe) obesity due to excess calories; Z68.42 Body mass index [BMI] 45.0-49.9, adult; R55 Syncope and collapse; F17.210 Nicotine dependence, cigarettes, uncomplicated
CPT/HCPCS: 52356; 81025; C1769; C1894; C2617; J1100; J1170; J2250; J2405; J3010; Q9967

== ENCOUNTER 2021-05-21 13:51 | Day surgery (SDC) | payer MEDICAID, SELFPAY ==
--- NOTE | 2021-05-18 10:21 | P.CONAN_ITS ---
Documented by User: Crystal Curran NP 05/18/21 10:25 HPI - Anesthesia Eval Consult details Narrative: 31yo F for Left Cystoscopy & Stent Removal Optimized per cardiology, OK to proceed without ECHO results PMFSH Active Problems Active Problems: All Active Problems (Updated 05/07/21 @ 15:45 by Jennifer Schwab RN) Recurrent UTI (Acute) Bilateral nephrolithiasis (Acute) Morbid obesity (Acute) Vasovagal syncope (Acute) Past Medical History Medical History Asthma Chronic kidney disease Degenerative disc disease Morbid obesity Spinal stenosis Vasovagal syncope Surgical History Surgical History H/O Spinal surgery History of cholecystectomy History of surgical removal of pilonidal cyst Hx of cystoscopy Hx of lithotripsy History of Problems with Anesthesia: No Social History Social History Alcohol intake: never Patient Tobacco Use Status: Current everyday Tobacco user Tobacco use type: Cigarette Use of substances other than those prescribed or required for medical reasons: No Are you DNR?: No Advance Directives: No Advance Directives Information Provided: Yes Meds Allergies Allergy/AdvReac Type Severity Reaction Status Date / Time cat dander [CATS] Allergy Intermediate RASH Verified 04/17/21 13:07 mold Allergy Intermediate RASH Verified 04/17/21 13:07 amoxicillin AdvReac Intermediate yeast Verified 05/08/21 09:31 infection seasonal Allergy Unknown Unknown Uncoded 04/22/20 12:37 Home Medications Medication Instructions Recorded Confirmed Last Taken Type aripiprazole 10 mg tablet 10 mg PO DAILY 04/24/21 05/08/21 Unknown History Exam Exam Date and Time: May 18, 2021 1021 Pertinent Lab Results Pertinent Lab Results: Laboratory Tests ? 02/09/21 02/09/21 ? 08:37 08:37 WBC ?10.4 ? Hgb ?14.1 ? Hct ?42.0 ? Plt Count ?309 ? Sodium ? ?137 Potassium ? ?4.4 C Chloride ? ?107 Carbon Dioxide ? ?20 L BUN ? ?14 Creatinine ? ?0.80 Narrative Narrative: EKG 04/2021 sinus tachycardia with right atrial enlargement and rightward axis deviation with nonspecific ST T wave changes Assessment and Plan Assessment Anesthesia Assessment: Chart Reviewed Final Anesthetic Review History of Problems with Anesthesia: No Documented by User: Clarice Segura MD 05/21/21 15:39 HPI - Anesthesia Eval Consult details Narrative: 31yo F for Cystoscopy & Left Stent Removal Optimized per cardiology, OK to proceed without ECHO results PMFSH Past Medical History Medical History Asthma Chronic kidney disease Degenerative disc disease Morbid obesity Spinal stenosis Vasovagal syncope Family History Family history of problems with anesthesia: No Surgical History Surgical History H/O Spinal surgery History of cholecystectomy History of surgical removal of pilonidal cyst Hx of cystoscopy Hx of lithotripsy History of Problems with Anesthesia: No Social History Social History Alcohol intake: never Patient Tobacco Use Status: Current everyday Tobacco user Tobacco use type: Cigarette Use of substances other than those prescribed or required for medical reasons: No Are you DNR?: No Advance Directives: No Advance Directives Information Provided: Yes Meds Allergies Allergy/AdvReac Type Severity Reaction Status Date / Time cat dander [CATS] Allergy Intermediate RASH Verified 04/17/21 13:07 mold Allergy Intermediate RASH Verified 04/17/21 13:07 amoxicillin AdvReac Intermediate yeast Verified 05/08/21 09:31 infection seasonal Allergy Unknown Unknown Uncoded 04/22/20 12:37 Home Medications Medication Instructions Recorded Confirmed Last Taken Type aripiprazole 10 mg tablet 10 mg PO DAILY 04/24/21 05/08/21 Unknown History Exam Height,Weight and Vital Signs: Height 5 ft 7 in Weight 136.078 kg Vital Signs Temp Pulse Resp BP Pulse Ox 05/21/21 15:36 98.5 F 86 18 116/72 96 05/21/21 14:14 95 Airway Mallampati Class: II TM Dist: >3cm Neck ROM: Full Loose/Missing/Broken Teeth: Yes (Poor. Missing and broken) Heart: RRR Lungs: CTAB Assessment and Plan Assessment Anesthesia Assessment: Anesthesia Plan Discussed Final Anesthetic Review Family History of Problems with Anesthesia: No History of Problems with Anesthesia: No NPO: Yes ASA Class: III Final Preanesthetic Review: No Changes in Pt Med Stat, Meds/Allgs Chart Reviewed, Consent Obtained/Reviewed and Anes Risks/Benef Reviewed Patient Risk: Intermediate Procedure Risk: Low Assessment/Block/Sedation in SS: Assess/Block/Sedation-SS Anesthetic Plan Anesthetic Plan: GA Disposition: Standard PACU
[2021-05-21 14:14] VITALS: O2SAT 95; BMI 47.0
[2021-05-21 14:19] LABS: UPreg QC Valid YES; Urine Pregnancy NEGATIVE (NEGATIVE)
[2021-05-21] MEDS: Lactated Ringers 1,000 ML 100 ML IVCONT (14:27)
[2021-05-21] MEDS: levoFLOXacin 500 MG TABLET PO (14:49)
[2021-05-21 15:36] VITALS: BP 116/72; PULSE 86; RESP 18; TEMP 36.9; O2SAT 96
--- NOTE | 2021-05-21 15:45 | MHC.SHP ---
Pre-Procedural Eval Section A Date of Service: 05/21/21 The patient is an INPATIENT: Yes Changes since office visit: No Cold of Flu in the past 2 weeks, No New Medical Problems, No Changes in Medication and No Patient answered all questions The History & Physical has been completed within 30 days and I have reviewed it.: Yes Section B Chief Complaint: calculus of kidney Allergies: Allergies Allergy/AdvReac Type Severity Reaction Status Date / Time cat dander [CATS] Allergy Intermediate RASH Verified 04/17/21 13:07 mold Allergy Intermediate RASH Verified 04/17/21 13:07 amoxicillin AdvReac Intermediate yeast Verified 05/08/21 09:31 infection seasonal Allergy Unknown Unknown Uncoded 04/22/20 12:37 Plan Diagnosis/Plan: Unchanged (cysto left stent removal) I have reviewed the history and physical and performed a pertinent physical examination on my patient. No changes have occurred unless specified.
[2021-05-21 16:25] VITALS: BP 116/71; PULSE 75; RESP 16; TEMP 36.8; O2SAT 94
[2021-05-21 16:40] VITALS: BP 118/64; PULSE 81; RESP 16; TEMP 36.8; O2SAT 96
--- NOTE | 2021-05-21 16:40 | W.PM.OPN ---
Operative Note Operative Note Date of Service: 05/21/21 Narrative: PreOperative Diagnosis: Indwelling left ureteric stent Post Operative Diagnosis: Indwelling left ureteric stent Procedure: Cystoscopy stent removal Surgeon: Dr Herminio Yi Anesthesia: Sedation Indications for procedure: Did not tolerate procedure in office. Requested procedure in operating room Procedure: After informed consent was verified the patient was brought to the operating room and placed in a supine position. Anesthesia was administered per protocol. Patient was prepped and draped in sterile fashion. Safety pause time-out was performed. Antibiotics being given. Cystoscopy performed. Stent seen grasped and removed from left ureteric orifice. She tolerated procedure well was transferred in stable condition to recovery area Pathology: None Drains: None
== END 2021-05-21 16:49 | disposition home or self-care (01) ==
PROVIDERS: Nurse Practitioner; PCP Pediatrics; Visit Provider Urology
PROC: (CPT 52310; principal; 2021-05-21 15:30)
DX: Z46.6 Encounter for fitting and adjustment of urinary device (principal); Z96.0 Presence of urogenital implants; N20.0 Calculus of kidney; N18.9 Chronic kidney disease, unspecified; Z87.442 Personal history of urinary calculi; R55 Syncope and collapse; J45.909 Unspecified asthma, uncomplicated; Z88.0 Allergy status to penicillin; F17.210 Nicotine dependence, cigarettes, uncomplicated; Z90.49 Acquired absence of other specified parts of digestive tract
CPT/HCPCS: 52310; 81025; J1885; J2250; J3010; Q9967

== ENCOUNTER → 2021-06-05 09:16 | Outpatient (REF) | payer MEDICAID, SELFPAY ==
--- NOTE | 2021-06-05 09:20 | CA_ITS ---
Transthoracic Echocardiogram Patient (Last, First, Middle): Bita Irizarry A Gender: Female Date of : 1990 Age: 31 Procedure Date: 06/05/2021 Procedure Type: Transthoracic Echocardiogram Location: OP Height: 170.18 cm Weight: 136.08 kg BSA: 2.40 m2 Heart Rate: bpm BP: 120 / 78 mmHg Team Leader Surgery: YOLIE/DAVID Referring MD: Beny Leach MD Sharemilker: Beny Leach MD Symptoms: R94.31 - Abnormal electrocardiogram [ECG] [EKG] Study Quality: Fair ECG Rhythm: Sinus Conclusions: - 1. Normal LV systolic function with grade 1 diastolic dysfunction 2. Possible inferior wall motion abnormality 3. Normal cardiac valvular Doppler 4. Normal RV systolic pressure 5. No gross pericardial effusion Findings Left Ventricle Normal left ventricular size, thickness, and systolic function. The visually estimated ejection fraction is between 55-60%. Spectral Doppler is indicative of an impaired relaxation filling pattern. E/E prime ratio is <8, consistent with normal filling pressures. Evidence suggests grade I (mild) diastolic dysfunction. Right Ventricle Normal right ventricular cavity size and systolic function. Atria The left atrium is likely dilated. There is no evidence of interatrial shunt. The right atrium is normal in size. Aortic Valve Normal aortic valve structure and function. There is no aortic valve stenosis. There is no aortic valve regurgitation. Mitral Valve Normal mitral valve structure and function. There is trace mitral valve regurgitation. There is no mitral valve stenosis. Pulmonic Valve The pulmonic valve was not well visualized. Tricuspid Valve Likely normal tricuspid valve structure and function. There is trace tricuspid valve regurgitation. The right ventricular systolic pressure is normal. The right ventricular systolic pressure is 26 mmHg. Normal right atrial pressure. There is no evidence of pulmonary hypertension. Great Vessels All visible segments of the aorta are normal in size. The pulmonary artery was not well visualized. Venous The inferior vena cava is normal in size and collapses greater than 50% with inspiration. Pericardium/Pleural There is no evidence of pericardial effusion. Prior Study Comparison No prior study available for comparison. Measurements 2D Linear Measurements IVSd: 1.15 0.6-0.9/0.6-1.0 cm LVIDd: 4.86 3.9-5.3/4.2-5.9 cm LVIDd Index: 2.03 2.4-3.2/2.2-3.1 cm/m2 LVIDs: 2.98 2.0-3.6 cm LVPWd: 0.94 0.7-1.1 cm Ao Root: 3.10 2.1-3.5 cm LA Diam: 3.50 2.7-3.8/3.0-4.0 cm LAIDs Index: 1.46 1.5-2.3 cm/m2 LV Mass: 230.20 67-162/88-224 g LV Mass Index: 95.92 43-95/49-115 g/m2 LVOT Diam: 2.00 3.0+(-)1.3 cm Mitral Valve MV Pk E: 0.50 MV PK A: 0.61 MV Decel Time: 352.00 E/A: 0.80 E'Lateral: 10.60 E'Medial: 7.62 E/E' Med: 6.60 E/E' Lat: 4.70 PHT: 103.00 MVA PHT: 2.14 Decel [place]: 1.43 Aortic Valve AoV Pk Conner: 1.42 AoV Mn Conner: 0.98 AoV VTI: 0.28 AoV Pk Grad: 8.00 Aov Mn Grad: 4.00 [place] Cont.VTI: 2.32 LVOT LVOT Pk Conner: 1.13 LVOT Mn Conner: 0.74 LVOT VTI: 0.21 LVOT Pk Grad: 5.00 LVOT Mn Grad: 2.00 LVOT Diam: 2.00 LVOT Area: 3.14 Diastolic Function MV Pk E: 0.50 MV Pk A: 0.61 E/A: 0.80 E'Medial: 7.62 E/E' Med: 6.60 E' Laterial: 10.60 E/E' Lat: 4.70 Tricuspid Valve TR Pk Conner: 2.39 TR Pk Grad: 23.00 RA Press: 3.00 RVSP: 26.00 Great Vessels Aorta Ao Root-2D: 3.10 2.0-3.7 cm Ao Asc: 2.80 2.1-3.4 cm Ao Arch: 2.70 Updated in Other Vendor System with Status of Final Beny Leach MD electronically signed on 06/05/2021 2:15:02 PM with status of Final
== END ==
LOC: HO.CARD 09:16
PROVIDERS: Visit Provider Internal Medicine Cardiovascular Disease
DX: R94.31 Abnormal electrocardiogram [ECG] [EKG] (principal)
CPT/HCPCS: 93306

== ENCOUNTER 2021-06-11 15:46 | Outpatient (REF) | payer MEDICAID, SELFPAY ==
--- NOTE | ~2021-06-11 | US_ITS ---
EXAMINATION: US RETROPERITONEAL LIMITED (RENAL ONLY) CLINICAL INFORMATION: Calculus of kidney. COMPARISON: Bilateral renal ultrasound dated 03/28/2021 and 08/30/2020. CT of abdomen and pelvis without contrast dated 12/05/2020. KUBs dated 03/07/2020 and 03/03/2020. TECHNIQUE: Real-time imaging of the kidneys. FINDINGS: RIGHT KIDNEY: 11.5 x 4.8 x 5.9 cm (SAG x AP x TRV). The kidney is normal in size, contour, and echogenicity. Renal cortical thickness is normal. No calculi or focal parenchymal lesions. No hydronephrosis. LEFT KIDNEY: (0 x 4.6 x 6.1 cm (SAG x AP x TRV). The kidney is normal in size, contour, and echogenicity. Renal cortical thickness is normal. There is question of a 4 mm stone in the lower pole. No focal parenchymal lesions or hydronephrosis. US/US retroperitoneal limited IMPRESSION: Question left lower pole renal stone.
== END 2021-06-11 15:47 | disposition home or self-care (01) ==
LOC: HO.US 15:46
PROVIDERS: PCP Pediatrics; Visit Provider Urology
DX: N20.0 Calculus of kidney (principal)
CPT/HCPCS: 76775

== ENCOUNTER → 2021-06-28 09:22 | Outpatient (REF) | payer MEDICAID, SELFPAY ==
--- NOTE | ~2021-06-28 | NM_ITS ---
Myocardial perfusion study Indication: Abnormal EKG to evaluate for myocardial ischemia Technique: The patient was brought in for a Lexiscan perfusion study on 06/28/2021. Patient performed low-level exercise and was injected 0.4 mg of Lexiscan intravenously. Within a minute of injection, 40 mCi of sestamibi was given intravenously. Images were obtained using the SPECT gamma camera interlaced with the gating device. Images were obtained in supine position. Resting perfusion study was performed on 06/29/2021. Patient was administered 40 mCi of sestamibi intravenously at rest. Images were then obtained in supine position. Images obtained with and without CT attenuation. Total DLP 137 mGy-cm. Images were processed with the software and compared side to side in short axis, horizontal long axis and vertical long axis views. Findings: The stress perfusion study showed non attenuated images show minimally reduced uptake and anterior wall most in the basal and mid segments of the LV myocardium. Remainder of the LV myocardium normally perfused. Attenuation corrected images show normal uptake of radiotracer in all segments of LV myocardium. There is suggestion of left ventricle hypertrophy. The gated study shows normal LV systolic function with calculated LVEF of 61%. LV cavity is normal size. The gated study shows normal systolic wall thickening and contraction of segments. Resting study shows attenuation corrected images show mildly reduced uptake in the distal anterior and apex of the LV myocardium. Non attenuated images show normal uptake of radiotracer in all segments of LV myocardium.. Gating at rest reveals normal cyst colic wall motion with ejection fraction at 60%. The findings are consistent with findings overall equivocal, with reversible defect suggestive nontransmural images. However this is most suggestive of shifting breast attenuation. Anterior uptake is normalized after attenuation corrected images.. NM/NM cardiolite stress test Impression: 1. Myocardial perfusion imaging study shows likely normal myocardial perfusion 2. Gated LVEF is 61% 3. Transient ischemic dilatation not present EKG is equivocal for ischemia
--- NOTE | 2021-06-28 09:24 | CA_ITS ---
Acquisition Time: 2021-06-28 10:36:10 Total Exercise Time: 00:02:05 Test Indications: Abnormal ECG Medications: SEE CHART Protocol: TAMIKO Max HR: 173 BPM 92% of Pred: 188 BPM Max BP: 238/100 mmHG Max Work Load: 4.5 METS Exercise stress test with exercise 2 min 5 sec of Tamiko protocol, with moderate shortness of breath and request to stop exercise, without arrythmia, with brisk chronotropic and hypertensive response to exercise with max BP 238/100, with EKG changes meeting criteria for ischemia: up to 1 mm horizontal to downslopng ST depression inferiorly and V4-V6 with gradual improvement in recovery. Once breathing, BP and heart rate improved, test was changed to a pharmacological stress test with Lexiscan injection, while sitting, without anginal symptoms, without arrythmia, with normotensive response to injection, with nondiagnostic EKG for ischemia. In recovery she was treated with Aminophylline 75mg IVP to reverse Lexsican. Nuclear images pending. Test reviewed with Dr Leach. Referred By: Beny Leach Overread By: DIONNE FRIEDMAN
== END ==
LOC: HO.CARD 09:22
PROVIDERS: PCP Pediatrics; Visit Provider Internal Medicine Cardiovascular Disease
DX: R94.31 Abnormal electrocardiogram [ECG] [EKG] (principal)
CPT/HCPCS: 78452; 93017; A9500; J0280; J2785

== ENCOUNTER → 2021-07-24 14:34 | Outpatient (BNVA) | payer MEDICAID, SELFPAY | PROVIDERS: PCP Pediatrics; Visit Provider Urology ==

== ENCOUNTER 2021-12-17 14:10 | Emergency (ER) | payer MEDICAID, SELFPAY ==
[2021-12-17 14:13] VITALS: BP 155/106; PULSE 129; RESP 20; TEMP 36.8; O2SAT 96; BMI 47.0
[2021-12-17 14:30] LABS: Appearance Urine CLEAR; Color Urine YELLOW; Glucose Urine UA NEG (NEG); Leukocyte Esterase Urine NEG (NEG); Nitrite Urine NEG (NEG); PH 5.5 (5.0-8.0); Urine Blood NEG (NEG); Urine Ketones NEG (NEG); Urine Protein NEG (NEG-TRACE)
[2021-12-17 14:32] LABS: UPreg QC Valid YES; Urine Pregnancy NEGATIVE (NEGATIVE)
== END 2021-12-17 20:37 | disposition left against medical advice (07) ==
PROVIDERS: Emergency Provider Emergency Medicine; PCP Pediatrics
DX: R10.9 Unspecified abdominal pain (principal); Z87.442 Personal history of urinary calculi; Z87.440 Personal history of urinary (tract) infections
CPT/HCPCS: 81003; 81025; 99282

== ENCOUNTER 2021-12-26 12:15 | Emergency (ER) | payer MEDICAID, SELFPAY ==
--- NOTE | ~2021-12-26 | XR_ITS ---
EXAMINATION: XR CHEST CLINICAL INFORMATION: Shortness of breath COMPARISON: Previous chest x-ray April 2020 TECHNIQUE: 2 views of the chest were obtained. FINDINGS: The cardiac and mediastinal contours are normal. There is subsegmental atelectasis at the left lung base. The lungs are otherwise clear. There is no pleural effusion or pneumothorax. Bony structures are normal. XR/XR chest 2V IMPRESSION: Subsegmental atelectasis at the left lung base.
[2021-12-26 12:25] VITALS: BP 153/100; PULSE 133; RESP 20; TEMP 37.2; O2SAT 96; BMI 47.0
--- NOTE | 2021-12-26 12:31 | ECG_ITS ---
Test Reason : chest pain Blood Pressure : / mmHG Vent. Rate : 122 BPM Atrial Rate : 122 BPM P-R Int : 128 ms QRS Dur : 086 ms QT Int : 300 ms P-R-T Axes : 057 079 007 degrees QTc Int : 427 ms Sinus tachycardia Possible Left atrial enlargement T wave abnormality, consider inferior ischemia Abnormal ECG When compared with ECG of 23-JAN-2016 22:31, Nonspecific T wave abnormality has replaced inverted T waves in Lateral leads Referred By: Generic ED Physician Electronically Signed By:Hussain Willis
[2021-12-26 12:57] LABS: MANUAL DIFF FLAG NO
[2021-12-26 12:58] LABS: Basophils Absolute Auto 0.1 X10*3/uL (0.0-0.2); Basophils Percent Auto 0.6 % (0-2); Eosinophils Percent Auto 8.2 % (0-4); Hematocrit 44.9 % (37.0-47.0); Hemoglobin 14.8 g/dl (12.0-16.0); Imm Gran Abs Auto 0.09 X10*3/uL (0.00-0.03); Imm Gran Pct Auto 0.8 % (0.0-0.4); Lymphocytes Absolute Auto 3.1 X10*3/uL (1.2-4.9); Lymphocytes Percent Auto 26.9 % (20-40); Mean Corpuscular Hemoglobin 29.9 pg (27.0-33.0); Mean Corpuscular Volume 90.7 fL (80.0-98.0); Monocytes Absolute Auto 1.3 X10*3/uL (0.1-1.2); Monocytes Percent Auto 11.2 % (2-11); Neutrophils Percent Auto 52.3 % (45-73); Platelet Count 340 X10*3/uL (160-400); Red Blood Count 4.95 X10*6/uL (4.20-5.50); Red Cell Distribution Width 14.3 % (11.0-16.0); White Blood Count 11.5 X10*3/uL (4.8-10.8)
[2021-12-26 13:13] LABS: Anion Gap 15 (12-20); Blood Urea Nitrogen 6 mg/dL (9-16); Calcium 9.3 mg/dL (8.4-10.2); Carbon Dioxide 23 mmol/L (22-29); Chloride 104 mmol/L (96-108); Creatinine Clr Calc Pharmacy 130.9; Estimated Glomerular Filt Rate > 60; Glucose Random 103 mg/dL (60-115); Potassium 4.6 mmol/L (3.3-5.1); Sodium 137 mmol/L (135-145)
[2021-12-26 13:17] LABS: Troponin-I High Sensitivity < 3.5 ng/L (<3.5-17.0)
[2021-12-26 13:20] LABS: COVID-19 Test Negative (Negative); IDNOW Serial# 16C4AD1C; Influenza A Negative (Negative); Influenza B2 Negative (Negative)
--- NOTE | 2021-12-26 16:32 | ED_ITS ---
HPI - URI/Sore Throat General Chief Complaint: Upper Respiratory Symptoms Stated Complaint: chest pain diff breathing Time Seen by Provider: 12/26/21 16:32 Source: patient Mode of arrival: ambulatory Limitations: no limitations History of Present Illness HPI Narrative: This is a 31-year-old female past medical history significant for asthma, CKD, degenerative disc disease, spinal stenosis, syncopal episodes presenting to the emergency department with complaints of cough, shortness of breath, congestion times 4 days worsening. She tells me that the cough is consistent throughout the day, she reports shortness of breath when she coughs, she tells me she feels like she has chest congestion and facial congestion. Patient tells me this feels like her typical bronchitis. She tells me that she is a current daily smoker. She tells me that she is coughing up clear sputum. Denies any recent sick contacts. Denies chest pain, nausea, vomiting, fevers, chills, headache, dizziness, weakness, calf pain or tenderness, pleuritic chest pain.. To note patient is not on control, denies any recent long travel, no history of PE/DVT, no history of hypercoagulable disorders. MD elicited complaint: cough and nasal congestion Onset (ago): day(s) (4) Consistency: constant Severity: moderate Description of mucous: clear Able to tolerate fluids by mouth: Yes Exacerbating factors: nothing Relieving factors: nothing Associated symptoms: nasal congestion, cough and shortness of breath Treatments prior to arrival: none Related Data Home Medications Medication Instructions Recorded Confirmed aripiprazole 10 mg tablet 10 mg PO DAILY 04/24/21 05/08/21 Previous Rx's Medication Instructions Recorded ondansetron HCl 4 mg tablet 4 mg PO Q8H PRN nausea and 09/07/20 (Zofran) vomiting #10 tabs fludrocortisone 0.1 mg tablet 0.1 mg PO DAILY 90 days #90 tabs 02/08/21 acetaminophen 500 mg tablet 1,000 mg PO QID PRN fever or pain 03/17/21 (Tylenol Extra Strength) #14 tabs ibuprofen 800 mg tablet 800 mg PO Q8H PRN pain #14 tabs 03/17/21 oxycodone 5 mg tablet 5 mg PO BID PRN pain #10 tabs 03/17/21 pyridoxine (vitamin B6) 100 mg 100 mg PO DAILY 90 days #90 tabs 04/17/21 tablet propranolol 80 mg capsule,24 80 mg PO DAILY #30 caps 04/24/21 hr,extended release (Inderal LA) oxycodone-acetaminophen 5 mg-325 1 tab PO Q4H PRN pain (scale score 05/14/21 mg tablet 4-6) 7 days #14 tabs phenazopyridine 100 mg tablet 100 mg PO TID PRN Spasm 4 days #12 05/14/21 (Pyridium) tabs tamsulosin 0.4 mg capsule 0.4 mg PO BEDTIME 14 days #14 caps 05/14/21 tramadol 50 mg tablet 50 mg PO Q6H PRN pain (scale score 05/14/21 4-6) #14 tabs albuterol sulfate 90 mcg/actuation 2 inh inhalation Q4-6H PRN 12/26/21 breath activated powder inhaler shortness of breath or wheezing #1 ea azithromycin 250 mg tablet See Rx Instructions PO .COMPLEX #6 12/26/21 tabs prednisone 20 mg tablet 20 mg PO DAILY 5 days #5 tabs 12/26/21 Allergies Allergy/AdvReac Type Severity Reaction Status Date / Time cat dander [CATS] Allergy Intermediate RASH Verified 07/24/21 14:44 mold Allergy Intermediate RASH Verified 07/24/21 14:44 amoxicillin AdvReac Intermediate yeast Verified 07/24/21 14:44 infection seasonal Allergy Unknown Unknown Uncoded 07/24/21 14:44 Review of Systems Review of Systems: Constitutional : No Weight loss, No Fever, No Chills, No Fatigue, No Malaise ENT/Mouth : No sore throat, No Rhinorrhea Eyes: No Eye Pain, No Swelling, No Redness Cardiovascular : No Chest Pain, No SOB, + Dyspnea on Exertion, No Orthopnea, No Edema, No Palpitations Respiratory : + Cough, + Sputum, No Wheezing Gastrointestinal : No Nausea, No Vomiting, No Diarrhea, No Constipation, No abdominal Pain, No Hematochezia, No Melena Genitourinary : No Dysuria, No Urinary Frequency, No Hematuria, Musculoskeletal : No joint pain, No Myalgias, No Joint Swelling Skin : No Skin Lesions, No rash Neuro : No Weakness, No Numbness, No Dizziness, No Headache Psych : No Anxiety/Panic, No Depression All other systems reviewed and are negative Yes all other systems are reviewed and are negative PMFSH Past Medical History Attestation statement: The following information was validated with the patient. Source: old records reviewed and nursing notes reviewed Medical History Asthma Chronic kidney disease Degenerative disc disease Spinal stenosis Surgical History H/O Spinal surgery History of cholecystectomy History of surgical removal of pilonidal cyst Hx of cystoscopy Hx of lithotripsy Social History Social History Alcohol intake: never Patient Tobacco Use Status: Current everyday Tobacco user Tobacco use type: Cigarette Advance Directives: No Advance Directives Information Provided: No Physical Exam Vital Signs: Vital Signs: Last Vital Signs Temp 99 F 12/26/21 12:25 Pulse 102 H 12/26/21 16:54 Resp 20 12/26/21 16:54 BP 153/100 H 12/26/21 12:25 Pulse Ox 96 12/26/21 12:25 O2 Del Method 12/26/21 12:25 BMI result Body Mass Index 47.0 Vital signs stable Appearance: Alert.? Oriented X3.? No acute distress.? Head: Normocephalic, atraumatic, no step-offs or deformities Eyes: Pupils equal, round and reactive to light.? ENT: Pharynx normal.? Neck: Normal inspection.? Neck supple.? CVS: Normal heart rate and rhythm.? Pulses normal.? Respiratory: No respiratory distress.? Wheezing throughout. Abdomen: Soft and nontender.? Skin: Skin warm and dry.? Normal skin color.? Normal skin turgor.? Extremities: No lower extremity edema.? No calf ttp, negative Kamala. 5/5 strength to bilateral upper and lower extremities Back: No midline tenderness, no C-spine tenderness, full range of motion, no CVA tenderness bilaterally Neuro: Oriented X 3.? No motor deficit.? No sensory deficit. CN 2-12 intact Course Reevaluation(s) Reevaluation #1: Patient with slight leukocytosis likely secondary viral infection or bron chitis. Chemistry with no acute electrolyte abnormalities. Troponin negative, EKG nonischemic unlikely ACS. Flu, COVID negative. Patient with subsegmental atelectasis at the left lung base on chest x-ray . Time: 16:59 Reevaluation #2: Patient's wheezing improved after 1 DuoNeb, offered for patient to get a 2nd however patient tells me she is hungry and would like to go eat [employer]. At this time patient will be discharged home with PCP follow-up. She will be started given is Z-Krishna, prednisone and albuterol inhaler for home. Advised her to return with new or worsening symptoms. Time: 17:28 MDM - URI/Sore Throat MDM Narrative Medical decision making narrative: 1637 31-year-old female presents with productive cough, congestion, shortness of breath times 4 days worsening. Physical exam significant for expiratory wheezing, regular rate rhythm, abdomen soft nontender nondistended, neuro exam nonfocal. Negative Kamala bilaterally. History and physical examination consistent with acute bronchitis or pneumonia. Low suspicion for PE on my examination patient was not tachycardic. Plan at this time labs, imaging, covid Medical Records Attestation: I reviewed the patient's medical records. Lab Data Attestation: I reviewed the patient's lab results. Result diagrams: 12/26/21 12:50 12/26/21 12:50 Labs: Lab Results 12/26/21 12/26/21 12/26/21 Range/Units 12:50 12:50 12:50 WBC 11.5 H (4.8-10.8) X10*3/uL RBC 4.95 (4.20-5.50) X10*6/uL Hgb 14.8 (12.0-16.0) g/dl Hct 44.9 (37.0-47.0) % MCV 90.7 (80.0-98.0) fL MCH 29.9 (27.0-33.0) pg MCHC 33.0 (31.0-35.0) g/dl RDW 14.3 (11.0-16.0) % Plt Count 340 (160-400) X10*3/uL MPV 9.0 L (9.4-12.3) fL Immature Gran % (Auto) 0.8 H (0.0-0.4) % Neut % (Auto) 52.3 (45-73) % Lymph % (Auto) 26.9 (20-40) % [place] % (Auto) 11.2 H (2-11) % Eos % (Auto) 8.2 H (0-4) % Baso % (Auto) 0.6 (0-2) % Lymph # (Auto) 3.1 (1.2-4.9) X10*3/uL [place] # (Auto) 1.3 H (0.1-1.2) X10*3/uL Eos # (Auto) 1.0 H (0.0-0.4) X10*3/uL Baso # (Auto) 0.1 (0.0-0.2) X10*3/uL Abs Immat Gran (auto) 0.09 H (0.00-0.03) X10*3/uL Absolute Neuts (auto) 6.0 (2.0-8.3) x10*3/uL Absolute Nucleated RBC 0.000 (0.0-0.012) X10*3/uL Nucleated RBC % (auto) 0.0 (0.0-0.2) /100WBC Sodium 137 (135-145) mmol/L Potassium 4.6 (3.3-5.1) mmol/L Chloride 104 (96-108) mmol/L Carbon Dioxide 23 (22-29) mmol/L Anion Gap 15 (12-20) BUN 6 L (9-16) mg/dL Creatinine 0.89 (0.5-1.4) mg/dL Estim Creat Clear Calc 130.9 Estimated GFR > 60 Random Glucose 103 (60-115) mg/dL Calcium 9.3 (8.4-10.2) mg/dL Troponin I High Sens < 3.5 (<3.5-17.0) ng/L COVID-19 (FAITH) (Negative) COVID-19 Clin Com Influenza Type A (NYDIA) (Negative) Influenza Type B (NYDIA) (Negative) Influenza A & B Note 12/26/21 12/26/21 Range/Units 12:50 12:50 WBC (4.8-10.8) X10*3/uL RBC (4.20-5.50) X10*6/uL Hgb (12.0-16.0) g/dl Hct (37.0-47.0) % MCV (80.0-98.0) fL MCH (27.0-33.0) pg MCHC (31.0-35.0) g/dl RDW (11.0-16.0) % Plt Count (160-400) X10*3/uL MPV (9.4-12.3) fL Immature Gran % (Auto) (0.0-0.4) % Neut % (Auto) (45-73) % Lymph % (Auto) (20-40) % [place] % (Auto) (2-11) % Eos % (Auto) (0-4) % Baso % (Auto) (0-2) % Lymph # (Auto) (1.2-4.9) X10*3/uL [place] # (Auto) (0.1-1.2) X10*3/uL Eos # (Auto) (0.0-0.4) X10*3/uL Baso # (Auto) (0.0-0.2) X10*3/uL Abs Immat Gran (auto) (0.00-0.03) X10*3/uL Absolute Neuts (auto) (2.0-8.3) x10*3/uL Absolute Nucleated RBC (0.0-0.012) X10*3/uL Nucleated RBC % (auto) (0.0-0.2) /100WBC Sodium (135-145) mmol/L Potassium (3.3-5.1) mmol/L Chloride (96-108) mmol/L Carbon Dioxide (22-29) mmol/L Anion Gap (12-20) BUN (9-16) mg/dL Creatinine (0.5-1.4) mg/dL Estim Creat Clear Calc Estimated GFR Random Glucose (60-115) mg/dL Calcium (8.4-10.2) mg/dL Troponin I High Sens (<3.5-17.0) ng/L COVID-19 (FAITH) Negative (Negative) COVID-19 Clin Com See Note Influenza Type A (NYDIA) Negative (Negative) Influenza Type B (NYDIA) Negative (Negative) Influenza A & B Note See Note ECG Data Attestation: I personally reviewed and interpreted this ECG as follows: ECG interpretation date: 12/26/21 ECG interpretation time: 16:58 Prior ECG tracings: available for review Interpretation: Ventricular rate of 122, VA normal, QRS normal, QT/QTC normal. EKG shows sinus tachycardia with possible left atrial enlargement no ST elevations or inversions concerning for ischemia. No significant changes when compared from EKG from January 2016. Critical Care Time Critical Care Time Critical Care Time: No Discharge Plan Discharge Clinical Impression: Bronchitis Patient Disposition: Home, Self-Care Instructions: Acute Bronchitis (ED), How Your Lungs Work (ED) Additional Instructions: Take your medications as prescribed. If you were prescribed antibiotics today, it is important that you take your medication to their entirety, do not skip any doses, do not finish them early. Follow-up with your primary care provider this week. Return to the emergency department with new or worsening symptoms. Such as fevers, chills, chest pain, shortness of breath, nausea, vomiting, dizziness, h eadache, vision changes, lethargy In case of emergency call 911 Prescriptions: New azithromycin 250 mg tablet See Rx Instructions .ROUTE .COMPLEX Qty: 6 0RF Rx Instructions: For 250 mg dose pack: take 500 mg today (day 1), then 250 mg for 4 days (days 2-5) prednisone 20 mg tablet 20 mg PO DAILY 5 Days Qty: 5 0RF albuterol sulfate 90 mcg/actuation aerosol powdr breath activated 2 inh inhalation Q4-6H PRN (Reason: shortness of breath or wheezing) Qty: 1 0RF No Action fludrocortisone 0.1 mg tablet 0.1 mg PO DAILY 90 Days Qty: 90 2RF ondansetron HCl [Zofran] 4 mg tablet 4 mg PO Q8H PRN (Reason: nausea and vomiting) Qty: 10 0RF ibuprofen 800 mg tablet 800 mg PO Q8H PRN (Reason: pain) Qty: 14 0RF acetaminophen [Tylenol Extra Strength] 500 mg tablet 1,000 mg PO QID PRN (Reason: fever or pain) Qty: 14 0RF oxycodone 5 mg tablet 5 mg PO BID PRN (Reason: pain) Qty: 10 0RF phenazopyridine [Pyridium] 100 mg tablet 100 mg PO TID PRN (Reason: Spasm) 4 Days Qty: 12 0RF tramadol 50 mg tablet 50 mg PO Q6H PRN (Reason: pain (scale score 4-6)) Qty: 14 0RF tamsulosin 0.4 mg capsule 0.4 mg PO BEDTIME 14 Days Qty: 14 0RF oxycodone-acetaminophen 5-325 mg tablet 1 tab PO Q4H PRN (Reason: pain (scale score 4-6)) 7 Days Qty: 14 0RF aripiprazole 10 mg tablet 10 mg PO DAILY propranolol [Inderal LA] 80 mg capsule,extended release 24 hr 80 mg PO DAILY Qty: 30 5RF pyridoxine (vitamin B6) 100 mg tablet 100 mg PO DAILY 90 Days Qty: 90 1RF Referrals: Raquel Sethi MD [Primary Care Provider] - 2 days Stand Alone Forms: Work/School Release
--- NOTE | 2021-12-26 16:49 | PC.NURSE ---
RT contacted for jose tx
[2021-12-26] MEDS: Albuterol/Iprat 2.5/0.5MG 3 ML AMPUL.NEB INHALE (16:52)
[2021-12-26 16:54] VITALS: PULSE 102; RESP 20; O2SAT 95
[2021-12-26 18:04] VITALS: BP 134/88; PULSE 113; RESP 16; O2SAT 97
== END 2021-12-26 18:06 | disposition home or self-care (01) ==
PROVIDERS: Emergency Provider Internal Medicine; PCP Pediatrics
DX: J40 Bronchitis, not specified as acute or chronic (principal); J45.909 Unspecified asthma, uncomplicated; N18.9 Chronic kidney disease, unspecified; F17.210 Nicotine dependence, cigarettes, uncomplicated; Z20.822 Contact with and (suspected) exposure to COVID-19
CPT/HCPCS: 71046; 80048; 84484; 85025; 87502; 87635; 93005; 94640; 99284

== ENCOUNTER 2022-01-22 08:27 | Emergency (ER) | payer MEDICAID, SELFPAY ==
--- NOTE | ~2022-01-22 | CT_ITS ---
EXAMINATION: CT ABDOMEN AND PELVIS WITHOUT CONTRAST CLINICAL INFORMATION: Flank pain. History of kidney stones. COMPARISON: Previous ultrasounds most recent May [address] August 2020 TECHNIQUE: Multidetector volumetric imaging was performed from the superior aspect of the liver through the pubic symphysis. Sagittal and coronal reformatted images were obtained on the technologist's workstation. This CT examination was performed using dose optimization techniques as appropriate, variously including the following: *Automated exposure control *Adjustment of mA and/or kV according to patient size (this includes techniques or standardized protocols for targeted exams where dose is matched to indication/reason for exam; i.e. extremities or head) *Use of iterative reconstruction technique DLP: 1165 mGy-cm FINDINGS: LUNG BASES: The visualized lung bases are unremarkable. LIVER, GALLBLADDER, AND BILIARY TREE: The liver is normal in size, shape, and attenuation. No focal hepatic lesion or biliary ductal dilatation is present. The gallbladder has been removed. PANCREAS: Unremarkable. SPLEEN: Unremarkable. ADRENAL GLANDS: Unremarkable. KIDNEYS AND URETERS: There are tiny 1 to 2 mm stones in the lower pole of both kidneys. No hydronephrosis, ureteral dilatation or ureteral stone.. BLADDER: Not optimally distended. GASTROINTESTINAL TRACT: Diverticulosis of the colon. No evidence of diverticulitis. The small and large bowel are otherwise unremarkable. The appendix is unremarkable. ABDOMINAL WALL: Small umbilical hernia containing fat.. LYMPH NODES: Normal. VASCULAR: Unremarkable. PELVIC VISCERA: Unremarkable. OSSEOUS STRUCTURES: Postsurgical changes at L4-L5. CT/CT abdomen pelvis wo con IMPRESSION: Tiny nonobstructing bilateral renal stones. Diverticulosis of the colon. Fleischner guidelines were followed.
--- NOTE | ~2022-01-22 | XR_ITS ---
EXAMINATION: XR CHEST CLINICAL INFORMATION: Left chest pain COMPARISON: Chest 12/26/2021 TECHNIQUE: 2 views of the chest were obtained. FINDINGS: The lungs are well-expanded with patchy opacity in the lingular segment likely atelectasis. Heart size and progress clarities normal. No gross bony abnormality seen. XR/XR chest 2V IMPRESSION: Patchy lingular atelectasis. Rest of the lungs are clear.
[2022-01-22 08:37] VITALS: BP 149/99; PULSE 100; RESP 19; TEMP 36.6; O2SAT 100; BMI 47.0
[2022-01-22 10:42] VITALS: BP 142/88; PULSE 77; RESP 18; TEMP 36.8; O2SAT 98
--- NOTE | 2022-01-22 10:46 | ED.FEMALEGU ---
HPI - Female Genitourinary General Chief complaint: Urogenital-Female Stated complaint: Kidney Stones L Breast Pain Time Seen by Provider: 01/22/22 10:46 Source: patient Mode of arrival: ambulatory Limitations: no limitations History of Present Illness HPI Narrative: low back pain and left lateral chest pain, worse with coughing. patient states she has frequent stones and feels that she has stones again. Pertinent past history: other (kidney stones) Onset (ago): week(s) Location of symptoms: low back Related Data Home Medications Medication Instructions Recorded Confirmed aripiprazole 10 mg tablet 10 mg PO DAILY 04/24/21 05/08/21 Previous Rx's Medication Instructions Recorded ondansetron HCl 4 mg tablet 4 mg PO Q8H PRN nausea and 09/07/20 (Zofran) vomiting #10 tabs fludrocortisone 0.1 mg tablet 0.1 mg PO DAILY 90 days #90 tabs 02/08/21 acetaminophen 500 mg tablet 1,000 mg PO QID PRN fever or pain 03/17/21 (Tylenol Extra Strength) #14 tabs ibuprofen 800 mg tablet 800 mg PO Q8H PRN pain #14 tabs 03/17/21 oxycodone 5 mg tablet 5 mg PO BID PRN pain #10 tabs 03/17/21 pyridoxine (vitamin B6) 100 mg 100 mg PO DAILY 90 days #90 tabs 04/17/21 tablet propranolol 80 mg capsule,24 80 mg PO DAILY #30 caps 04/24/21 hr,extended release (Inderal LA) oxycodone-acetaminophen 5 mg-325 1 tab PO Q4H PRN pain (scale score 05/14/21 mg tablet 4-6) 7 days #14 tabs phenazopyridine 100 mg tablet 100 mg PO TID PRN Spasm 4 days #12 05/14/21 (Pyridium) tabs tamsulosin 0.4 mg capsule 0.4 mg PO BEDTIME 14 days #14 caps 05/14/21 tramadol 50 mg tablet 50 mg PO Q6H PRN pain (scale score 05/14/21 4-6) #14 tabs albuterol sulfate 90 mcg/actuation 2 inh inhalation Q4-6H PRN 12/26/21 breath activated powder inhaler shortness of breath or wheezing #1 ea azithromycin 250 mg tablet See Rx Instructions PO .COMPLEX #6 12/26/21 tabs prednisone 20 mg tablet 20 mg PO DAILY 5 days #5 tabs 12/26/21 cyclobenzaprine 10 mg tablet 10 mg PO TID #10 tabs 01/22/22 naproxen 500 mg tablet (Naprosyn) 500 mg PO BID #20 tabs 01/22/22 oxycodone-acetaminophen 5 mg-325 1 tab PO DAILY pain 7 days #7 tabs 01/22/22 mg tablet (Percocet) Allergies Allergy/AdvReac Type Severity Reaction Status Date / Time cat dander [CATS] Allergy Intermediate RASH Verified 07/24/21 14:44 mold Allergy Intermediate RASH Verified 07/24/21 14:44 amoxicillin AdvReac Intermediate yeast Verified 07/24/21 14:44 infection seasonal Allergy Unknown Unknown Uncoded 07/24/21 14:44 Review of Systems Constitutional: Constitutional: Reports no additional constitutional complaints Eyes: Eyes: Reports no additional eye complaints ENT: Denies dizziness Cardiovascular: Cardiovascular: Reports no additional cardiovascular complaints Respiratory: Respiratory: Reports as per HPI Gastrointestinal: Gastrointestinal: Reports no additional gastrointestinal complaints Genitourinary: Genitourinary: Reports no additional female genitourinary complaints Musculoskeletal: Musculoskeletal: Reports no additional musculoskeletal complaints Integumentary/Breasts: Skin/Breast: Denies rash Neurologic: Reports system reviewed and no additional complaints, except as documented, Denies dizziness and Denies Sensory deficit (Neuro) Psychiatric: Psychiatric: Denies anxiety PMFSH Past Medical History Medical History Asthma Chronic kidney disease Degenerative disc disease Morbid obesity Spinal stenosis Vasovagal syncope Surgical History H/O Spinal surgery History of cholecystectomy History of surgical removal of pilonidal cyst Hx of cystoscopy Hx of lithotripsy Social History Social History Alcohol intake: current Alcohol intake frequency: holidays/special occasions only Alcohol type: beer Patient Tobacco Use Status: Current everyday Tobacco user Tobacco use type: Cigarette Use of substances other than those prescribed or required for medical reasons: No Advance Directives: Yes Advance Directives Information Provided: Yes Advance Directives on File: No Physical Exam Vital Signs: Vital Signs: Last Vital Signs Temp 98.3 F 01/22/22 10:42 Pulse 77 01/22/22 10:42 Resp 18 01/22/22 10:42 BP 142/88 H 01/22/22 10:42 Pulse Ox 98 01/22/22 10:42 O2 Del Method 01/22/22 10:42 BMI result Body Mass Index 47.0 Const: Other: obese female looking older than stated age Orientation/consciousness: oriented to person and patient oriented x3 Limitations: no limitations HEENT: Head: Yes normal to inspection Ears: external ears normal General nose exam: Normal external nose present Mouth: Normal oral and palatal mucosa present and oropharynx normal Throat: Yes posterior oropharynx normal Eyes: General: appearance normal, both eyes and all related structures Neck: Other: supple Neck: Yes normal visual inspection Chest: Chest palpation & inspection: normal inspection of the chest Resp: Auscultation: clear to auscultation bilaterally Cardio: Jugular venous distension: no JVD Rate: regular rate Rhythm: regular rhythm Heart sounds: S1 normal heart sound present and S2 normal heart sound present GI: Inspection: Yes normal to inspection Palpation (GI): Soft to palpation, nontender and No hepatosplenomegaly present Auscultation: normal bowel sounds Back/Spine/Pelvis: Other: left SI joint tenderness Skin: General skin exam: no rashes or lesions noted Neuro: General: oriented to person and patient oriented x3 Cranial nerves: Yes CN's II-XII intact bilaterally Motor exam (neuro): 5/5 motor strength present throughout Sensory Exam: No Sensory deficit (Neuro) Extrem: General: Yes normal to inspection Psych: Appearance: grossly normal Course Reevaluation(s) Reevaluation #1: Patient with non obstructing stone. Pain is most likely from SI joint will place on NSAIDs and flexeril Time: 12:58 MDM - Female Genitourinary Lab Data Labs: Lab Results 01/22/22 01/22/22 01/22/22 Range/Units 11:27 11:32 11:32 Urine Color YELLOW Urine Appearance HAZY Urine pH 6.0 (5.0-8.0) Ur Specific [place] >= 1.030 H (1.005-1.025) Urine Protein NEG (NEG-TRACE) MG/DL Urine Glucose (UA) NEG (NEG) MG/DL Urine Ketones NEG (NEG) MG/DL Urine Blood NEG (NEG) Urine Nitrite NEG (NEG) Ur Leukocyte Esterase NEG (NEG) Urine Test NEGATIVE (NEGATIVE) COVID-19 (FAITH) Negative (Negative) COVID-19 Clin Com See Note Imaging Data Chest x-ray: Radiologist's impression: FINDINGS: The lungs are well-expanded with patchy opacity in the lingular segment likely atelectasis. Heart size and progress clarities normal. No gross bony abnormality seen. XR/XR chest 2V IMPRESSION: Patchy lingular atelectasis. Rest of the lungs are clear. CT scan - abdomen: Radiologist's impression: IMPRESSION: Tiny nonobstructing bilateral renal stones. Diverticulosis of the colon.? ? Discharge Plan Discharge Clinical Impression: Low back pain Patient Disposition: Home, Self-Care Instructions: Acute Low Back Pain (ED) Prescriptions: New cyclobenzaprine 10 mg tablet 10 mg PO TID Qty: 10 0RF naproxen [Naprosyn] 500 mg tablet 500 mg PO BID Qty: 20 0RF No Action fludrocortisone 0.1 mg tablet 0.1 mg PO DAILY 90 Days Qty: 90 2RF oxycodone-acetaminophen [Percocet] 5-325 mg tablet 1 tab PO DAILY 7 Days Qty: 7 0RF Rx Instructions: Partial Fill upon patient request. ondansetron HCl [Zofran] 4 mg tablet 4 mg PO Q8H PRN (Reason: nausea and vomiting) Qty: 10 0RF ibuprofen 800 mg tablet 800 mg PO Q8H PRN (Reason: pain) Qty: 14 0RF acetaminophen [Tylenol Extra Strength] 500 mg tablet 1,000 mg PO QID PRN (Reason: fever or pain) Qty: 14 0RF oxycodone 5 mg tablet 5 mg PO BID PRN (Reason: pain) Qty: 10 0RF phenazopyridine [Pyridium] 100 mg tablet 100 mg PO TID PRN (Reason: Spasm) 4 Days Qty: 12 0RF tramadol 50 mg tablet 50 mg PO Q6H PRN (Reason: pain (scale score 4-6)) Qty: 14 0RF tamsulosin 0.4 mg capsule 0.4 mg PO BEDTIME 14 Days Qty: 14 0RF oxycodone-acetaminophen 5-325 mg tablet 1 tab PO Q4H PRN (Reason: pain (scale score 4-6)) 7 Days Qty: 14 0RF azithromycin 250 mg tablet See Rx Instructions .ROUTE .COMPLEX Qty: 6 0RF Rx Instructions: For 250 mg dose pack: take 500 mg today (day 1), then 250 mg for 4 days (days 2-5) prednisone 20 mg tablet 20 mg PO DAILY 5 Days Qty: 5 0RF albuterol sulfate 90 mcg/actuation aerosol powdr breath activated 2 inh inhalation Q4-6H PRN (Reason: shortness of breath or wheezing) Qty: 1 0RF aripiprazole 10 mg tablet 10 mg PO DAILY propranolol [Inderal LA] 80 mg capsule,extended release 24 hr 80 mg PO DAILY Qty: 30 5RF pyridoxine (vitamin B6) 100 mg tablet 100 mg PO DAILY 90 Days Qty: 90 1RF Referrals: Raquel Sethi MD [Primary Care Provider] - 1 week
[2022-01-22] MEDS: Ketorolac Tromethamine 60 MG/2 ML VIAL IM (11:21)
[2022-01-22 11:43] LABS: UPreg QC Valid YES; Urine Pregnancy NEGATIVE (NEGATIVE)
[2022-01-22 11:47] LABS: Appearance Urine HAZY; Color Urine YELLOW; Glucose Urine UA NEG (NEG); Leukocyte Esterase Urine NEG (NEG); Nitrite Urine NEG (NEG); Specific Gravity - Urine >= 1.030 (1.005-1.025); Urine Blood NEG (NEG); Urine Ketones NEG (NEG); Urine Protein NEG (NEG-TRACE)
[2022-01-22 11:53] LABS: COVID-19 Test Negative (Negative)
== END 2022-01-22 14:03 | disposition home or self-care (01) ==
PROVIDERS: Emergency Provider Emergency Medicine; PCP Pediatrics
DX: R10.9 Unspecified abdominal pain (principal); R07.89 Other chest pain; N64.4 Mastodynia; M54.50 Low back pain, unspecified; R05.9 Cough, unspecified; F17.210 Nicotine dependence, cigarettes, uncomplicated; Z20.822 Contact with and (suspected) exposure to COVID-19; Z79.899 Other long term (current) drug therapy; Z71.6 Tobacco abuse counseling; Z87.442 Personal history of urinary calculi
CPT/HCPCS: 71046; 74176; 81003; 81025; 87635; 96372; 99284; J1885

== ENCOUNTER 2022-07-16 15:30 | Outpatient (REF) | payer MEDICAID, SELFPAY ==
--- NOTE | ~2022-07-16 | US_ITS ---
EXAMINATION: US RETROPERITONEAL LIMITED (RENAL ONLY) CLINICAL INFORMATION: Calculus of kidney. COMPARISON: CT abdomen and pelvis without contrast 01/22/2022. Ultrasound retroperitoneal limited (renal only) 06/11/2021 and 03/28/2021. X-ray abdomen KUB 03/07/2020 and 03/03/2020. TECHNIQUE: Real-time imaging of the kidneys. Limited visualization due to bowel gas and body habitus. FINDINGS: RIGHT KIDNEY: 11.9 x 4.7 x 7.1 cm (SAG x AP x TRV). No hydronephrosis. No renal calculi. Limited visualization. LEFT KIDNEY: 11.9 x 4.7 x 6.3 cm (SAG x AP x TRV). No hydronephrosis. No renal calculi. Limited visualization. US/US renal BI IMPRESSION: No hydronephrosis. No renal calculi. Limited visualization.
== END 2022-07-16 15:31 | disposition home or self-care (01) ==
LOC: HO.HMGCX 15:30
PROVIDERS: PCP Pediatrics; Visit Provider Urology
DX: N20.0 Calculus of kidney (principal)
CPT/HCPCS: 76775

== ENCOUNTER → 2022-07-23 14:39 | Outpatient (BNVA) | payer MEDICAID, SELFPAY | PROVIDERS: PCP Pediatrics; Visit Provider Urology | DX: Z87.442 Personal history of urinary calculi (principal) | CPT/HCPCS: 99212 ==

== ENCOUNTER 2022-11-25 14:08 | Outpatient (REF) | payer MEDICAID, SELFPAY ==
--- NOTE | ~2022-11-25 | MM_ITS ---
EXAMINATION: MM DIAGNOSTIC DIGITAL BREAST TOMOSYNTHESIS, BILATERAL US DIAGNOSTIC ULTRASOUND BREAST, RIGHT CLINICAL INFORMATION: Pain right nipple/areolar. No redness, discharge, or palpable abnormality. No prior breast imaging. Age 32. No known family history breast cancer. The lifetime risk of breast cancer based on the Tyrer-Cuzick Model is 13%. COMPARISON: None (current study represents initial baseline exam). TECHNIQUE: Digital breast tomosynthesis is performed in both the craniocaudal and mediolateral oblique views along with computer-aided detection (CAD). Synthesized 2D images are generated from the tomosynthesis. Additional bilateral MLO views are obtained. Ultrasound right breast is targeted to the anterior breasts subareolar and periareolar region. Grayscale imaging and color Doppler are performed without and with harmonics. FINDINGS: There are scattered areas of fibroglandular density (ACR BI-RADS breast composition Category b). Right breast shows no significant mass, or architectural abnormality. Neither breast shows skin thickening or coarsening of the Faisal's ligaments. No abnormal calcifications. The axilla and skin contours are unremarkable. Left breast has small nodular asymmetry is central mid 9:00 and mid lower inner quadrant, respectively. No architectural abnormality. Ultrasound right breast demonstrates incidental 0.5 cm simple cyst 11:00 position 2 cm from nipple. There is no solid mass or architectural abnormality. No focal duct ectasia. No skin thickening or edema tracking in soft tissue planes. Results are discussed with the patient at time of visit. There is no imaging correlate for right breast symptoms. Left mammography small asymmetries are probably benign. Short interval follow-up left mammography will be suggested in 6 months to confirm stability of parenchymal pattern. MM/MM tomosynthesis diagnostic BI IMPRESSION: Right: -No mammographic evidence of malignancy or inflammatory changes. -Incidental simple cyst anterior 11:00 right breast. No inflammatory changes. Left: -Probable benign nodular asymmetries mid central 9:00 and mid lower inner quadrant, respectively. ASSESSMENT: BI-RADS 3: Probably Benign RECOMMENDATION: 1. Patient's right breast symptoms should be managed based on the clinical impression. 2. Recommend short interval six-month follow-up left mammography for probable benign asymmetries. This patient's information was entered into a reminder system with a target due date for their next mammogram.
== END 2022-11-25 14:09 | disposition home or self-care (01) ==
LOC: HO.MAMMO 14:08
PROVIDERS: PCP Pediatrics; Visit Provider General Practice
DX: N64.4 Mastodynia (principal)
CPT/HCPCS: 76642; 77062; 77066

== ENCOUNTER 2023-03-04 09:40 | Outpatient (REF) | payer MEDICAID, SELFPAY ==
--- NOTE | ~2023-03-04 | XR_ITS ---
EXAMINATION: XR ABDOMEN KUB CLINICAL INDICATION: Kidney stone COMPARISON: Previous renal ultrasound July [address] of the abdomen and pelvis January 2022 TECHNIQUE: AP view of the abdomen. FINDINGS: The bowel gas pattern is normal with no evidence of ileus or obstruction. No renal stone. Calcified phleboliths in the pelvis. Postsurgical changes at L4-L5. XR/XR KUB IMPRESSION: No definite stone seen. Calcified phleboliths in the pelvis.
== END 2023-03-04 09:41 | disposition home or self-care (01) ==
LOC: HO.XRAY 09:40
PROVIDERS: Visit Provider Urology
DX: N20.0 Calculus of kidney (principal)
CPT/HCPCS: 74018

== ENCOUNTER 2023-04-17 15:38 | Outpatient (REF) | payer MEDICAID, SELFPAY | END 2023-04-17 15:39 | disposition home or self-care (01) | LOC: HO.CHCLNP 15:38 | PROVIDERS: Visit Provider Family Medicine | DX: Z11.52 Encounter for screening for COVID-19 (principal); R05.1 Acute cough | CPT/HCPCS: 0241U ==

== ENCOUNTER 2023-05-07 10:30 | Outpatient (REF) | payer MEDICAID, SELFPAY ==
[2023-05-07 15:01] LABS: MANUAL DIFF FLAG NO
[2023-05-07 15:05] LABS: Basophils Absolute Auto 0.1 X10*3/uL (0.0-0.2); Basophils Percent Auto 0.7 % (0-2); Eosinophils Absolute Auto 0.4 X10*3/uL (0.0-0.4); Eosinophils Percent Auto 4.2 % (0-4); Hematocrit 44.1 % (37.0-47.0); Hemoglobin 14.4 g/dl (12.0-16.0); Imm Gran Abs Auto 0.04 X10*3/uL (0.00-0.03); Imm Gran Pct Auto 0.5 % (0.0-0.4); Lymphocytes Absolute Auto 3.1 X10*3/uL (1.2-4.9); Lymphocytes Percent Auto 36.2 % (20-40); Mean Corpuscular HGB Conc 32.7 g/dl (31.0-35.0); Mean Corpuscular Hemoglobin 30.1 pg (27.0-33.0); Mean Corpuscular Volume 92.3 fL (80.0-98.0); Mean Platelet Volume 10.1 fL (9.4-12.3); Monocytes Absolute Auto 0.8 X10*3/uL (0.1-1.2); Monocytes Percent Auto 8.7 % (2-11); Neutrophils Absolute Auto 4.3 x10*3/uL (2.0-8.3); Neutrophils Percent Auto 49.7 % (45-73); Platelet Count 327 X10*3/uL (160-400); Red Blood Count 4.78 X10*6/uL (4.20-5.50); Red Cell Distribution Width 14.7 % (11.0-16.0); White Blood Count 8.6 X10*3/uL (4.8-10.8)
[2023-05-07 15:28] LABS: Alanine Aminotransferase 20 U/L (0-31); Albumin Level 4.1 g/dL (3.5-5.0); Alkaline Phosphatase 91 U/L (39-117); Anion Gap 14 (12-20); Aspartate Amino Transferase 18 U/L (5-31); Bilirubin Direct 0.1 mg/dL (0.0-0.5); Bilirubin Total 0.3 mg/dL (0.0-1.0); Blood Urea Nitrogen 5 mg/dL (9-16); Calcium 9.8 mg/dL (8.4-10.2); Carbon Dioxide 25 mmol/L (22-29); Chloride 105 mmol/L (96-108); Cholesterol 205 mg/dL (<200); Estimated Glomerular Filt Rate > 60; Glucose Fasting 83 mg/dL (60-99); HDL Cholesterol 35 mg/dL (>40); LDL Cholesterol Calculated 136 mg/dL (<100); Potassium 4.3 mmol/L (3.3-5.1); Sodium 140 mmol/L (135-145); Total Protein 7.3 g/dL (6.5-8.0); Triglycerides 171 mg/dL (<150)
[2023-05-07 15:40] LABS: Estimated Average Glucose 103 mg/dL; Hemoglobin A1c % 5.2 % (<6.0)
[2023-05-07 15:49] LABS: Insulin 14 uU/mL (2-29); TSH reflex Free T4 0.63 uIU/mL (0.32-4.0); Vitamin D 25-OH Total 23.7 ng/mL (>30)
[2023-05-07 17:12] LABS: CT PCR NOT DETECTED (Not Detect.); NG PCR NOT DETECTED (Not Detect.)
[2023-05-08 04:47] LABS: ~HepC Num1 0.07 S/CO (0.00-0.79); ~Hepatitis C Antibody Nonreactive (Nonreactive)
[2023-05-10 15:33] LABS: HIV RNA PCR Qn Copies Not Detected Copies/mL; HIV RNA PCR Qn Log Copies Not Detected Log cps/mL
== END 2023-05-07 10:31 | disposition home or self-care (01) ==
LOC: HO.CHCLDS 10:30
PROVIDERS: Visit Provider Pediatrics
DX: Z00.00 Encounter for general adult medical examination without abnormal findings (principal); Z11.3 Encounter for screening for infections with a predominantly sexual mode of transmission
CPT/HCPCS: 0353U; 80048; 80061; 80076; 82306; 83036; 83525; 84443; 85025; 86803; 87536; 87900

== ENCOUNTER 2023-05-26 08:37 | Outpatient (REF) | payer MEDICAID, SELFPAY ==
--- NOTE | ~2023-05-26 | US_ITS ---
EXAMINATION: US RETROPERITONEAL LIMITED (RENAL ONLY) CLINICAL INFORMATION: Calculus in the kidney. COMPARISON: X-ray abdomen KUB 03/04/2023. Renal ultrasound 07/16/2022 and 06/11/2021. CT abdomen and pelvis 01/22/2022. TECHNIQUE: Real-time imaging of the kidneys. FINDINGS: RIGHT KIDNEY: 11.6 x 5.0 x 5.9 cm (SAG x AP x TRV). The kidney is normal in size, contour, and echogenicity. Renal cortical thickness is normal. No focal parenchymal lesions or hydronephrosis. 0.6 x 0.4 x 0.9 cm upper pole nonobstructing renal calculus is seen. Couple small adjacent nonobstructing lower pole calculi also identified. LEFT KIDNEY: 12.6 x 4.8 x 6.3 cm (SAG x AP x TRV). The kidney is normal in size, contour, and echogenicity. Renal cortical thickness is normal. No focal parenchymal lesions or hydronephrosis. 0.7 x 0.3 x 0.5 cm upper pole nonobstructing calculus identified. US/US renal BI IMPRESSION: Bilateral nonobstructing renal calculi.
== END 2023-05-26 08:38 | disposition home or self-care (01) ==
LOC: HO.US 08:37
PROVIDERS: Visit Provider Urology
DX: N20.0 Calculus of kidney (principal)
CPT/HCPCS: 76775

== ENCOUNTER 2023-06-11 10:28 | Outpatient (REF) | payer MEDICAID, SELFPAY ==
--- NOTE | ~2023-06-11 | MM_ITS ---
EXAMINATION: MM DIAGNOSTIC DIGITAL BREAST TOMOSYNTHESIS, LEFT CLINICAL INFORMATION: Six-month follow-up for left breast small densities COMPARISON: Mammography: 09/25/2022, no additional. TECHNIQUE: Digital left breast tomosynthesis is performed in both the craniocaudal and mediolateral oblique views along with computer-aided detection (CAD). Synthesized 2D images are generated from the tomosynthesis. FINDINGS: There are scattered areas of fibroglandular density (ACR BI-RADS breast composition Category b). Left breast small densities previously noted are unchanged in both appearance and morphology. These favor benign process. On previous ultrasound, a 0.5 simple cyst was seen in the 11:00 position, 2 cm from the nipple. Otherwise, there are no suspicious masses, suspicious grouped calcifications, or areas of architectural distortion in either breast. The parenchymal pattern is stable from prior exams. MM/MM tomosynthesis diagnostic LT IMPRESSION: There are no significant changes from prior study. Recommend six-month interval follow-up left breast standard views to assess stability when the patient is due for bilateral screening. ASSESSMENT: BI-RADS BI-RADS 3 - Probably benign finding(s) - 6 month follow-up suggested RECOMMENDATION: 6 Month F/U Results were provided to the patient at time of visit by the technologist. This patient's information was entered into a reminder system with a target due date for their next mammogram.
== END 2023-06-11 10:29 | disposition home or self-care (01) ==
LOC: HO.MAMMO 10:28
PROVIDERS: PCP Pediatrics; Visit Provider Pediatrics
DX: R92.2 Inconclusive mammogram (principal)
CPT/HCPCS: 77061; 77065

== ENCOUNTER → 2023-06-11 11:00 | Outpatient (BNV) | payer MEDICAID, SELFPAY | PROVIDERS: PCP Pediatrics; Visit Provider Radiology Diagnostic Radiology | DX: R92.312 Mammographic fatty tissue density, left breast (principal) | CPT/HCPCS: 77061; 77065 ==

== ENCOUNTER 2023-06-12 10:39 | Outpatient (AMB) | payer MEDICAID, SELFPAY ==
--- NOTE | 2023-06-12 10:54 | A.OFFVIS_ITS ---
Intake Intake Visit Reasons: 3mo follow up/ US Intake Note: Patient is Present for Follow Up US Urology Medication: None Antibiotic Allergies: Amoxicillin Compliants: Patient states that she is currently in chronic pain and discomfort Allergies cat dander [CATS] Allergy (Intermediate, Verified 06/12/23 10:58) RASH mold Allergy (Intermediate, Verified 06/12/23 10:58) RASH amoxicillin Adverse Reaction (Intermediate, Verified 06/12/23 10:58) yeast infection seasonal Allergy (Unknown, Uncoded 06/12/23 10:58) Unknown HPI HPI Comments History of Present Illness Details Bita is a pleasant female. She is a patient of Dr. Sethi. She is seen for the following urologic conditions - nephrolithiasis Discussed imaging findings Has recurrent stones bilateral Has been causing intermittent discomfort with nausea. Requesting Zofran. Is interested in ESWL Would prefer to have it done with sequential sides Well organized repeat baseline stone labs and 24 hour urine Recurrent stone former Imaging 09/03 CT NAD, 07/03 renal ultrasound no evidence of stones, 07/04 renal ultrasound no evidence of stones - 07/05 renal ultrasound bilateral 6 mm stone Procedures - multiple prior ESWL Associated symptoms - minimal No definitive family history Discussed dietary restrictions Encouraged fluid intake with lemon water PFSH Medical History Morbid obesity Vasovagal syncope Asthma Spinal stenosis Degenerative disc disease Chronic kidney disease Surgical History History of surgical removal of pilonidal cyst Hx of lithotripsy Hx of cystoscopy History of cholecystectomy H/O Spinal surgery Social History Alcohol intake: current Alcohol intake frequency: holidays/special occasions only Alcohol type: beer Patient Tobacco Use Status: Current everyday Tobacco user Tobacco use type: Cigarette Review of Systems Const Denies chills and Denies fever(s) Card Reports no additional complaints and Denies syncope Resp Denies cough GI Denies abdominal pain and Denies heartburn Reports as per HPI and Denies change in libido Neuro Denies syncope Psych Denies change in libido Endo Denies change in libido Physical Exam Const General: cooperative, healthy appearing, comfortable and no acute distress Orientation/consciousness: patient oriented x3 HEENT Face and sinus: Yes normal facial exam Mouth: moist mucous membranes Neck Neck: Yes normal visual inspection, Yes full ROM and Yes trachea midline Chest Chest palpation & inspection: normal inspection of the chest Resp Effort & Inspection: normal respiratory effort, able to speak in complete sentences and no respiratory distress GI Inspection: Yes normal to inspection Back/Spine/Pelvis Cervical Spine: normal cervical lordosis Thoracic/Lumbar Spine: thoracic and lumbar spine normal to inspection Skin General skin exam: no rashes or lesions noted Neuro General: patient oriented x3, gait normal, tone normal and moves all extremities Extrem General: Yes normal to inspection and Yes capillary refill normal Assessment & Plan Assessment & Plan (1) Bilateral nephrolithiasis: Code(s): N20.0 - Calculus of kidney Plan Sequentially ESWL Extracorporeal Shock Wave Lithotripsy We discussed the nature of the decision and reasonable alternatives for performing the above surgery. Interventions include chemical dissolution, ESWL, ureteroscopy with laser lithotripsy and stent placement, PCNL. Options such as medical therapy were discussed. The relative uncertainties and benefits related to each alternate procedure were adequately discussed. General surgical risks including, but not limited to, pain, bleeding, infection, myocardial infarction, pulmonary embolus, deep vein thrombosis and cerebrovascular accident which may result in further hospitalization were discussed. Full disclosure of the procedure as well as all major risks, benefits and complications were discussed including but not limited to risks of bleeding, injury to the kidney with hematoma or marilyn-hematoma, failure to fragments stone, potential for ureteric obstruction from stone passage and need for secondary procedures. There is a small long-term risk of hypertension and a question juanito of diabetes. Success rate of fragmentation and passage is approximately 70- 75%. This is compared to the risks and benefits for ureteroscopy which has a higher success rate but is a more invasive procedure. The success rate of the procedure was discussed. Success of the procedure in the short-term does not necessarily guarantee that long-term success will be maintained. Suitable follow up will need to be maintained. The patient showed understanding of the discussion as well as the typical recovery time, and the outpatient nature of this procedure. Opportunity was given for questions. Repeat-back protocol used to confirm understanding. They wish to proceed with right and left ESWL - left first. Orders: Orders Calcium Today N20.0 - Calculus of kidney Magnesium Today N20.0 - Calculus of kidney Phosphorus Today N20.0 - Calculus of kidney Uric Acid Today N20.0 - Calculus of kidney Parathyroid Hormone Intact Today N20.0 - Calculus of kidney Medications: New pyridoxine (vitamin B6) 50 mg PO DAILY 90 days 90 tabs 1RF N20.0 - Calculus of kidney ondansetron HCl 4 mg PO BEDTIME 4 days PRN 20 tabs 0RF nausea and vomiting N20.0 - Calculus of kidney Patient Instructions: Imaging studies, laboratory and physical exam results were discussed and reviewed in detail. No major barriers to patient understanding were identified. An opportunity to ask questions regarding the treatment plan was provided. All questions were answered. The patient expressed understanding and agreement with the above treatment plan. The patient is aware they should contact our office by phone for worsening of their current condition or the appearance of new urologic symptoms. Compliance is encouraged with any medications and followup testing that is ordered. It is a privilege to participate in the urologic care of your patient. If you have any questions or concerns regarding treatment for the above conditions, or other urologic issues, please do not hesitate to contact me. The office telephone contact is [phone]. This note is constructed using voice recognition software. While every effort has been made to ensure accuracy preformer impregnated fabrics errors may have been included. Yours sincerely, Dr Herminio Yi MD, [facility] - Urology Providers of Expert, Compassionate Care for the Genitourinary System Coding Level of Care Code Est Pt Level 4 (93373) Diagnoses Bilateral nephrolithiasis N20.0
== END 2023-06-12 11:31 | disposition home or self-care (01) ==
PROVIDERS: PCP Pediatrics; Visit Provider Urology
DX: N20.0 Calculus of kidney (principal)
CPT/HCPCS: 99214

== ENCOUNTER → 2023-06-12 10:39 | Outpatient (BNVA) | payer MEDICAID, SELFPAY | PROVIDERS: PCP Pediatrics; Visit Provider Urology | DX: N20.0 Calculus of kidney (principal); N18.9 Chronic kidney disease, unspecified | CPT/HCPCS: 99212 ==

== ENCOUNTER 2023-06-26 10:19 | Outpatient (AMB) | payer MEDICAID, SELFPAY ==
[2023-06-26 10:25] VITALS: BP 132/73; PULSE 101; BMI 44.5
--- NOTE | 2023-06-26 10:25 | A.OFFVIS_ITS ---
Intake Vital Signs 06/26/23 10:25 06/26/23 10:40 06/26/23 10:42 Height 5 ft 7 in Weight 284 lb 6.341 oz BMI 44.5 BP 132/73 134/85 127/77 Blood Pressure Location Lt brachial Lt brachial Lt brachial Position Supine Sitting Standing Pulse 101 H 106 H 113 H Intake Visit Reasons: pre-op with ekg Intake Note: pre-op with ekg pt its having chest pain bc she haves bronchitis. 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 Accompanied by: Self / Same As Patient Allergies cat dander [CATS] Allergy (Intermediate, Verified 06/12/23 10:58) RASH mold Allergy (Intermediate, Verified 06/12/23 10:58) RASH amoxicillin Adverse Reaction (Intermediate, Verified 06/12/23 10:58) yeast infection seasonal Allergy (Unknown, Uncoded 06/12/23 10:58) Unknown Medication List - Last Reconciled 06/26/23 by Beny Leach MD albuterol sulfate 90 mcg/actuation 2 inhalations inhalation Q4-6H PRN aripiprazole 10 mg PO DAILY aripiprazole 20 mg PO DAILY azithromycin For 250 mg dose pack: take 500 mg today (day 1), then 250 mg for 4 days (days 2-5) PO clonazepam mg PO cyclobenzaprine 10 mg PO TID ondansetron HCl 4 mg PO BEDTIME PRN 4 days prednisone 20 mg PO DAILY pyridoxine (vitamin B6) 50 mg PO DAILY 90 days HPI HPI Comments History of Present Illness Details Bita comes for follow-up. Since April she has been of Florinef therapy as it was felt that this would be causing weight gain. She has multiple limitations including asthmatic bronchitis, back pain which prevents her from exercising. She has not been able to lose weight. She has not had any recurrent syncopal episodes. She has been maintaining adequate hydration. She is scheduled to undergo renal stones surgery in the future. She denies any other cardiac symptoms at this point in time. [facility] Medical History Morbid obesity Vasovagal syncope Asthma Spinal stenosis Degenerative disc disease Chronic kidney disease Surgical History History of surgical removal of pilonidal cyst Hx of lithotripsy Hx of cystoscopy History of cholecystectomy H/O Spinal surgery Social History Alcohol intake: current Alcohol intake frequency: holidays/special occasions only Alcohol type: beer Patient Tobacco Use Status: Current everyday Tobacco user Tobacco use type: Cigarette Review of Systems Const Reports chills, Reports fatigue, Reports fever(s), Reports frequent falls, Reports weakness, Reports weight gain and Reports weight loss ENT Reports dizziness Card Reports chest pain, Reports leg edema, Reports lightheadedness, Reports palpitations, Reports dyspnea and Reports dyspnea on exertion Resp Reports cough, Reports dyspnea and Reports dyspnea on exertion GI Reports hematochezia Musc Reports abnormal gait, Reports muscle weakness, Reports numbness, Reports radiating pain into limb and Reports tingling Neuro Reports abnormal gait, Reports dizziness, Reports frequent falls, Reports numbness, Reports tingling and Reports weakness Endo Reports fatigue and Reports palpitations Physical Exam Vital Signs: Last Vital Signs Pulse 113 H 06/26/23 10:42 BP 127/77 06/26/23 10:42 BMI result Body Mass Index 44.5 Const General: cooperative, comfortable, no acute distress, alert, awake and poor hygiene Nutritional Appearance: obese morbidly obese Orientation/consciousness: patient oriented x3 Limitations: no limitations Neck Neck: Yes trachea midline, Yes supple and Yes no JVD Resp Effort & Inspection: normal respiratory effort Auscultation: clear to auscultation bilaterally Cardio Jugular venous distension: no JVD Rate: regular rate and tachycardic Rhythm: regular rhythm Heart sounds: S1 normal heart sound present, S2 normal heart sound present, no click, no gallops, no murmurs and no rubs GI Auscultation: normal bowel sounds Neuro General: patient oriented x3 and no focal motor deficits Extrem General: No clubbing, No cyanosis and Yes edema Office Procedures EKG Details: EKG shows sinus tachycardia otherwise normal EKG [id number], Complete Assessment & Plan Assessment & Plan (1) Preoperative cardiovascular examination: Code(s): Z01.810 - Encounter for preprocedural cardiovascular examination Plan: Preoperative cardiovascular risk stratification this young woman with negative stress test within last 2 years with no cardiovascular symptoms. Unfortunately she does have risk factors although there are no new symptoms that would preclude her from having surgery. She remains low risk for perioperative cardiovascular morbidity mortality and is optimized to undergo the noncardiac surgery under general anesthesia. (2) Vasovagal syncope: Comment: sees Dr. Leach Code(s): R55 - Syncope and collapse Plan: Prior history of vasovagal syncope and was taken off Florinef therapy. Although in the last 2 months she has had no recurrent events. We discussed about management of vasovagal syncope again with increase fluid and salt intake. She understands the symptoms and management well. Will follow up in the clinic in 2 years time, sooner p.r.n.. Coding Level of Care Code Est Pt Level 3 (06293) Diagnoses Preoperative cardiovascular examination Z01.810 Vasovagal syncope R55 CPT Codes EKG - CPT: 81892-[id number], Complete ([id number])
[2023-06-26 10:40] VITALS: BP 134/85; PULSE 106
[2023-06-26 10:42] VITALS: BP 127/77; PULSE 113
== END 2023-06-26 10:55 | disposition home or self-care (01) ==
PROVIDERS: PCP Pediatrics; Visit Provider Internal Medicine Cardiovascular Disease
DX: Z01.810 Encounter for preprocedural cardiovascular examination (principal); R55 Syncope and collapse
CPT/HCPCS: 93010; 99213

== ENCOUNTER → 2023-06-26 10:19 | Outpatient (BNVA) | payer MEDICAID, SELFPAY | PROVIDERS: PCP Pediatrics; Visit Provider Internal Medicine Cardiovascular Disease | DX: Z01.810 Encounter for preprocedural cardiovascular examination (principal); R55 Syncope and collapse | CPT/HCPCS: 93005; 99212 ==

== ENCOUNTER 2023-07-02 06:58 | Day surgery (SDC) | payer MEDICAID, SELFPAY ==
[2023-06-30 09:36] VITALS: BMI 44.5
--- NOTE | 2023-07-01 09:02 | HO.ANESPROP2 ---
Documented by User: Crystal Curran NP 07/01/23 09:04 HPI - Anesthesia Eval Consult details Narrative: 33yo F for Right ESWL PMFSH Active Problems Active Problems: All Active Problems (Updated 01/23/22 @ 00:02 by Dane Finn) Recurrent UTI (Acute) Bilateral nephrolithiasis (Acute) Morbid obesity (Acute) Vasovagal syncope (Acute) Past Medical History Medical History Anxiety and depression Morbid obesity Vasovagal syncope Asthma Spinal stenosis Degenerative disc disease Chronic kidney disease Family History Family history of problems with anesthesia: No Surgical History Surgical History History of surgical removal of pilonidal cyst Hx of lithotripsy Hx of cystoscopy History of cholecystectomy H/O Spinal surgery History of Problems with Anesthesia: No Social History Social History Alcohol intake: current Alcohol intake frequency: holidays/special occasions only Alcohol type: beer Patient Tobacco Use Status: Current everyday Tobacco user Tobacco use type: Cigarette Cigarettes Per Day: 8 Use of substances other than those prescribed or required for medical reasons: No Are you DNR?: No Advance Directives: No Advance Directives Information Provided: Yes Meds Allergies Allergy/AdvReac Type Severity Reaction Status Date / Time cat dander [CATS] Allergy Intermediate RASH Verified 07/02/23 07:09 mold Allergy Intermediate RASH Verified 07/02/23 07:09 amoxicillin AdvReac Intermediate yeast Verified 07/02/23 07:09 infection seasonal Allergy Unknown Unknown Uncoded 06/12/23 10:58 Home Medications Medication Instructions Recorded Confirmed Last Taken Type aripiprazole 20 mg tablet 20 mg PO DAILY 06/26/23 06/26/23 Unknown History clonazepam 1 mg tablet mg PO BID PRN Anxiety 06/26/23 06/26/23 Unknown History ergocalciferol (vitamin D2) 1,250 1,250 mcg PO QWEEK 07/02/23 07/02/23 Unknown History mcg (50,000 unit) capsule Exam Height,Weight and Vital Signs: Height 5 ft 7 in Weight 128.82 kg Pertinent Lab Results Pertinent Lab Results: Laboratory Tests 05/07/23 10:35 WBC 8.6 Hgb 14.4 Hct 44.1 Plt Count 327 Sodium 140 Potassium 4.3 Chloride 105 Carbon Dioxide 25 BUN 5 L Creatinine 0.75 Assessment and Plan Assessment Anesthesia Assessment: Chart Reviewed Final Anesthetic Review Family History of Problems with Anesthesia: No History of Problems with Anesthesia: No Documented by User: Colby Mcgowan MD 07/02/23 07:55 PMFSH Past Medical History Medical History Anxiety and depression Morbid obesity Vasovagal syncope Asthma Spinal stenosis Degenerative disc disease Chronic kidney disease Surgical History Surgical History History of surgical removal of pilonidal cyst Hx of lithotripsy Hx of cystoscopy History of cholecystectomy H/O Spinal surgery Social History Social History Alcohol intake: current Alcohol intake frequency: holidays/special occasions only Alcohol type: beer Patient Tobacco Use Status: Current everyday Tobacco user Tobacco use type: Cigarette Cigarettes Per Day: 8 Use of substances other than those prescribed or required for medical reasons: No Are you DNR?: No Advance Directives: No Advance Directives Information Provided: Yes Meds Allergies Allergy/AdvReac Type Severity Reaction Status Date / Time cat dander [CATS] Allergy Intermediate RASH Verified 07/02/23 07:09 mold Allergy Intermediate RASH Verified 07/02/23 07:09 amoxicillin AdvReac Intermediate yeast Verified 07/02/23 07:09 infection seasonal Allergy Unknown Unknown Uncoded 06/12/23 10:58 Home Medications Medication Instructions Recorded Confirmed Last Taken Type aripiprazole 20 mg tablet 20 mg PO DAILY 06/26/23 06/26/23 Unknown History clonazepam 1 mg tablet mg PO BID PRN Anxiety 06/26/23 06/26/23 Unknown History ergocalciferol (vitamin D2) 1,250 1,250 mcg PO QWEEK 07/02/23 07/02/23 Unknown History mcg (50,000 unit) capsule Exam Airway Mallampati Class: III TM Dist: >3cm Neck ROM: Full Loose/Missing/Broken Teeth: Yes Heart: rrr+[id number] Lungs: cta b/l Assessment and Plan Assessment Anesthesia Assessment: Anesthesia Plan Discussed Final Anesthetic Review NPO: Yes ASA Class: III Final Preanesthetic Review: No Changes in Pt Med Stat, Meds/Allgs Chart Reviewed, Consent Obtained/Reviewed and Anes Risks/Benef Reviewed Patient Risk: Intermediate Procedure Risk: Intermediate Assessment/Block/Sedation in SS: Assess/Block/Sedation-SS Anesthetic Plan Anesthetic Plan: GA, MAC: and Agree w/ Assess. and Plan Disposition: Standard PACU
--- NOTE | ~2023-07-02 | XR_ITS ---
EXAMINATION: XR ABDOMEN KUB CLINICAL INDICATION: Right renal stone. COMPARISON: KUB from 03/04/2023. Renal ultrasound from 05/26/2023. Abdomen CT from 01/22/2022. TECHNIQUE: AP view of the abdomen. FINDINGS: Cholecystectomy clips in the right upper quadrant of the abdomen. Bowel gas pattern is normal. There are no radiographically visible renal stones. The calcifications seen within the pelvis correspond to phleboliths. Intervertebral fusion cages are present within the L4-L5 disc space. No suspicious osseous lesions. XR/XR KUB IMPRESSION: No radiographic evidence of renal stones.
[2023-07-02 07:10] VITALS: BMI 45.1
[2023-07-02 07:19] VITALS: BP 143/92; PULSE 88; RESP 15; TEMP 36.4; O2SAT 97
[2023-07-02 07:19] LABS: UPreg QC Valid YES; Urine Pregnancy NEGATIVE (NEGATIVE)
[2023-07-02] MEDS: Lactated Ringers 1,000 ML 100 ML IVCONT (07:31)
[2023-07-02] MEDS: Acetaminophen 1,000 MG/100 ML PIGGYBACK 400 MG IV (08:00)
--- NOTE | 2023-07-02 08:09 | W.PM.OPN ---
Operative Note Operative Note Date of Service: 07/02/23 Narrative: PreOperative Diagnosis: Right Renal stones Post Operative Diagnosis: Right Renal stones Procedure: Right ESWL Surgeon: Dr Herminio Yi Anesthesia: mac/sedation Indications for procedure: The patient understands ESWL may be a staged procedure and subsequent intervention may be required based on imaging after ESWL. Quoted stone clearance rates for a solitary procedure are in the 70-80% range based primarily on stone location. They also understand there is a risk of bleeding to the kidney, infection, damage to adjacent organs, and stone migration following the procedure. - Imaging bilateral 6mm stones - right causing more pain than left Procedure: After informed consent was verified the patient was brought to the operating room and placed in a supine position. Anesthesia was performed per protocol. Safety pause time-out was performed. Imaging was displayed in the room and laterality confirmed. ESWL was performed. The 1st 500 shocks were performed at 60 hertz. These were performed with increasing power. Once maximum power was reached the rate was increased to 180 hertz. A total of 2500 shocks were given. Targeted imaging with ultrasound/fluoroscopy showed stone smudging suggestive of disintegration. The patient tolerated the procedure well and was transferred to the recovery area upon completion. Post procedure imaging will be organized. There was no evidence for flank discoloration.
[2023-07-02 08:41] VITALS: BP 132/68; PULSE 75; RESP 16; TEMP 36.4; O2SAT 97
[2023-07-02 08:46] VITALS: BP 132/66; PULSE 72; RESP 16; O2SAT 97
[2023-07-02 08:51] VITALS: BP 127/87; PULSE 71; RESP 16; O2SAT 97
[2023-07-02] MEDS: Ketorolac Tromethamine 15 MG/ML VIAL IVPUSH (08:54)
[2023-07-02 08:56] VITALS: BP 103/77; PULSE 61; RESP 16; TEMP 36.3; O2SAT 97
== END 2023-07-02 10:13 | disposition home or self-care (01) ==
PROVIDERS: Nurse Practitioner; PCP Pediatrics; Visit Provider Urology
PROC: (CPT 50590; principal; 2023-07-02 09:10)
DX: N20.0 Calculus of kidney (principal); N18.9 Chronic kidney disease, unspecified; Z87.442 Personal history of urinary calculi; J45.909 Unspecified asthma, uncomplicated; E66.01 Morbid (severe) obesity due to excess calories; F41.8 Other specified anxiety disorders; Z79.899 Other long term (current) drug therapy; Z88.1 Allergy status to other antibiotic agents; Z98.890 Other specified postprocedural states; F17.210 Nicotine dependence, cigarettes, uncomplicated
CPT/HCPCS: 50590; 74018; 81025; J0131; J1885; J2250; J2704; J3010

== ENCOUNTER → 2023-07-02 06:58 | Outpatient (BNV) | payer MEDICAID, SELFPAY | PROVIDERS: PCP Pediatrics; Visit Provider Urology | DX: N20.0 Calculus of kidney (principal) | CPT/HCPCS: 50590 ==

== ENCOUNTER → 2023-07-24 12:08 | Outpatient (BNVA) | payer MEDICAID, SELFPAY | PROVIDERS: PCP Pediatrics; Visit Provider Urology ==

== ENCOUNTER 2023-07-30 05:56 | Day surgery (SDC) | payer MEDICAID, SELFPAY ==
--- NOTE | 2023-07-28 13:00 | HO.ANESPROP2 ---
Documented by User: Crystal Curran NP 07/28/23 13:01 HPI - Anesthesia Eval Consult details Narrative: 33yo F for Left ESWL s/p right side 07/02/23 with GA-LMA Poor denition PMFSH Active Problems Active Problems: All Active Problems (Updated 07/02/23 @ 07:11 by Miracle Louis RN) Bilateral nephrolithiasis (Acute) Recurrent UTI (Acute) Morbid obesity (Acute) Vasovagal syncope (Acute) Past Medical History Medical History Anxiety and depression Morbid obesity Vasovagal syncope Asthma Spinal stenosis Degenerative disc disease Chronic kidney disease Family History Family history of problems with anesthesia: No Surgical History Surgical History History of surgical removal of pilonidal cyst Hx of lithotripsy Hx of cystoscopy History of cholecystectomy H/O Spinal surgery History of Problems with Anesthesia: No Social History Social History Alcohol intake: current Alcohol intake frequency: holidays/special occasions only Alcohol type: beer Patient Tobacco Use Status: Current everyday Tobacco user Tobacco use type: Cigarette Cigarettes Per Day: 10 Use of substances other than those prescribed or required for medical reasons: No Are you DNR?: No Advance Directives: No Advance Directives Information Provided: Yes Meds Allergies Allergy/AdvReac Type Severity Reaction Status Date / Time cat dander [CATS] Allergy Intermediate RASH Verified 07/30/23 07:13 mold Allergy Intermediate RASH Verified 07/30/23 07:13 amoxicillin AdvReac Intermediate yeast Verified 07/30/23 07:13 infection seasonal Allergy Unknown Unknown Uncoded 06/12/23 10:58 Home Medications Medication Instructions Recorded Confirmed Last Taken Type aripiprazole 20 mg tablet 20 mg PO DAILY 06/26/23 07/28/23 Unknown History clonazepam 1 mg tablet 1 mg PO BID PRN Anxiety 06/26/23 07/28/23 Unknown History ergocalciferol (vitamin D2) 1,250 1,250 mcg PO QWEEK 07/02/23 07/28/23 Unknown History mcg (50,000 unit) capsule Exam Pertinent Lab Results Pertinent Lab Results: Laboratory Tests 05/07/23 10:35 WBC 8.6 Hgb 14.4 Hct 44.1 Plt Count 327 Sodium 140 Potassium 4.3 Chloride 105 Carbon Dioxide 25 BUN 5 L Creatinine 0.75 Assessment and Plan Assessment Anesthesia Assessment: Chart Reviewed Final Anesthetic Review Family History of Problems with Anesthesia: No History of Problems with Anesthesia: No Documented by User: Clarice Segura MD 07/30/23 07:41 PMFSH Active Problems Active Problems: All Active Problems (Updated 07/30/23 @ 07:15 by Clarice Segura MD) Bilateral nephrolithiasis (Acute) Recurrent UTI (Acute) Morbid obesity (Acute) BMI 45.6 Vasovagal syncope (Acute) Denies VIELKA Past Medical History Medical History Anxiety and depression Morbid obesity Vasovagal syncope Asthma Spinal stenosis Degenerative disc disease Chronic kidney disease Surgical History Surgical History History of surgical removal of pilonidal cyst Hx of lithotripsy Hx of cystoscopy History of cholecystectomy H/O Spinal surgery Social History Social History Alcohol intake: current Alcohol intake frequency: holidays/special occasions only Alcohol type: beer Patient Tobacco Use Status: Current everyday Tobacco user Tobacco use type: Cigarette Cigarettes Per Day: 10 Use of substances other than those prescribed or required for medical reasons: No Are you DNR?: No Advance Directives: No Advance Directives Information Provided: Yes Meds Allergies Allergy/AdvReac Type Severity Reaction Status Date / Time cat dander [CATS] Allergy Intermediate RASH Verified 07/30/23 07:13 mold Allergy Intermediate RASH Verified 07/30/23 07:13 amoxicillin AdvReac Intermediate yeast Verified 07/30/23 07:13 infection seasonal Allergy Unknown Unknown Uncoded 06/12/23 10:58 Home Medications Medication Instructions Recorded Confirmed Last Taken Type aripiprazole 20 mg tablet 20 mg PO DAILY 06/26/23 07/28/23 Unknown History clonazepam 1 mg tablet 1 mg PO BID PRN Anxiety 06/26/23 07/28/23 Unknown History ergocalciferol (vitamin D2) 1,250 1,250 mcg PO QWEEK 07/02/23 07/28/23 Unknown History mcg (50,000 unit) capsule Exam Height,Weight and Vital Signs: Height 5 ft 7 in Weight 132.086 kg Vital Signs Temp Pulse Resp BP Pulse Ox O2 Del Method 07/30/23 07:01 98.2 F 104 H 16 143/104 H 96 Room Air Pertinent Lab Results Pertinent Lab Results: Laboratory Tests 05/07/23 10:35 WBC 8.6 Hgb 14.4 Hct 44.1 Plt Count 327 Sodium 140 Potassium 4.3 Chloride 105 Carbon Dioxide 25 BUN 5 L Creatinine 0.75 Lab Results 07/30/23 Range/Units 06:55 Urine Test NEGATIVE (NEGATIVE) Airway Mallampati Class: II TM Dist: >3cm Neck ROM: Full Loose/Missing/Broken Teeth: Yes (Poor. Many broken/missing) Heart: RRR Lungs: CTAB Assessment and Plan Assessment Anesthesia Assessment: Anesthesia Plan Discussed Final Anesthetic Review NPO: Yes ASA Class: III Final Preanesthetic Review: No Changes in Pt Med Stat, Meds/Allgs Chart Reviewed, Consent Obtained/Reviewed and Anes Risks/Benef Reviewed Patient Risk: Intermediate Procedure Risk: Low Assessment/Block/Sedation in SS: Assess/Block/Sedation-SS Anesthetic Plan Anesthetic Plan: GA and MAC: Disposition: Standard PACU
[2023-07-28 14:17] VITALS: BMI 44.5
--- NOTE | ~2023-07-30 | XR_ITS ---
EXAMINATION: XR ABDOMEN KUB CLINICAL INDICATION: Left-sided renal stone Preoperative KUB COMPARISON: 07/02/23 TECHNIQUE: AP view of the abdomen. FINDINGS: There are surgical clips in the right upper quadrant. Disc prostheses available for/L5. The renal contours are not well visualized. There is no definite opaque calculus overlying the expected region of either kidney. There are multiple round calcifications in the pelvis similar to previous. The bowel gas pattern is nonobstructed XR/XR KUB IMPRESSION: No definite opaque left renal calculus
[2023-07-30 06:59] VITALS: BMI 45.6
[2023-07-30 07:01] VITALS: BP 143/104; PULSE 104; RESP 16; TEMP 36.8; O2SAT 96
[2023-07-30] MEDS: Acetaminophen 1,000 MG/100 ML PIGGYBACK 400 MG IV (07:10)
[2023-07-30] MEDS: Lactated Ringers 1,000 ML 100 ML IVCONT (07:12)
[2023-07-30 07:14] LABS: UPreg QC Valid YES; Urine Pregnancy NEGATIVE (NEGATIVE)
--- NOTE | 2023-07-30 07:43 | MHC.SHP ---
Pre-Procedural Eval Section A Date of Service: 07/30/23 The patient is an INPATIENT: No Changes since office visit: No Cold of Flu in the past 2 weeks, No New Medical Problems, No Changes in Medication and No Patient answered all questions The History & Physical has been completed within 30 days and I have reviewed it.: Yes Section B Chief Complaint: Calculus of kidney Allergies: Allergies Allergy/AdvReac Type Severity Reaction Status Date / Time cat dander [CATS] Allergy Intermediate RASH Verified 07/30/23 07:13 mold Allergy Intermediate RASH Verified 07/30/23 07:13 amoxicillin AdvReac Intermediate yeast Verified 07/30/23 07:13 infection seasonal Allergy Unknown Unknown Uncoded 06/12/23 10:58 Plan Diagnosis/Plan: Unchanged (left renal ESWL) I have reviewed the history and physical and performed a pertinent physical examination on my patient. No changes have occurred unless specified. Time Spent With Patient Time: Total time managing care of this patient today ____ minutes.
--- NOTE | 2023-07-30 08:15 | W.PM.OPN ---
Operative Note Operative Note Date of Service: 07/30/23 Narrative: PreOperative Diagnosis: left Renal stones Post Operative Diagnosis: left Renal stones Procedure: left ESWL Surgeon: Dr Herminio Yi Anesthesia: mac/sedation Indications for procedure: The patient understands ESWL may be a staged procedure and subsequent intervention may be required based on imaging after ESWL. Quoted stone clearance rates for a solitary procedure are in the 70-80% range based primarily on stone location. They also understand there is a risk of bleeding to the kidney, infection, damage to adjacent organs, and stone migration following the procedure. - Imaging 7mm left upper pole ultrasound Procedure: After informed consent was verified the patient was brought to the operating room and placed in a supine position. Anesthesia was performed per protocol. Safety pause time-out was performed. Imaging was displayed in the room and laterality confirmed. ESWL was performed. The 1st 500 shocks were performed at 60 hertz. These were performed with increasing power. Once maximum power was reached the rate was increased to 180 hertz. A total of 2500 shocks were given. Targeted imaging with ultrasound/fluoroscopy showed stone smudging suggestive of disintegration. The patient tolerated the procedure well and was transferred to the recovery area upon completion. Post procedure imaging will be organized. There was no evidence for flank discoloration.
[2023-07-30 08:23] VITALS: BP 126/90; PULSE 78; RESP 17; TEMP 36.8; O2SAT 98
[2023-07-30 08:38] VITALS: BP 133/92; PULSE 86; RESP 20; TEMP 36.2; O2SAT 100
== END 2023-07-30 09:23 | disposition home or self-care (01) ==
PROVIDERS: Nurse Practitioner; PCP Pediatrics; Visit Provider Urology
PROC: (CPT 50590; principal; 2023-07-30 07:30)
DX: N20.0 Calculus of kidney (principal); N18.9 Chronic kidney disease, unspecified; J45.909 Unspecified asthma, uncomplicated; Z88.0 Allergy status to penicillin
CPT/HCPCS: 50590; 74018; 81025; J0131; J1596; J1885; J2250; J2704; J3010

== ENCOUNTER → 2023-07-30 05:56 | Outpatient (BNV) | payer MEDICAID, SELFPAY | PROVIDERS: PCP Pediatrics; Visit Provider Urology | DX: N20.0 Calculus of kidney (principal) | CPT/HCPCS: 50590 ==

== ENCOUNTER 2023-09-09 10:05 | Outpatient (REF) | payer MEDICAID, SELFPAY ==
--- NOTE | ~2023-09-09 | US_ITS ---
EXAMINATION: US RETROPERITONEAL LIMITED (RENAL ONLY) CLINICAL INFORMATION: Calculus of kidney. COMPARISON: X-ray abdomen KUB 07/30/2023 and 07/02/2023. Renal ultrasound 05/26/2023 and 07/16/2022. CT abdomen and pelvis 01/22/2022. TECHNIQUE: Real-time imaging of the kidneys. Limited visualization due to bowel gas. FINDINGS: RIGHT KIDNEY: 12.1 x 4.7 x 7.3 cm (SAG x AP x TRV). Lower pole 4 mm and 3 mm calculi. No hydronephrosis. Renal cortical thickness is normal. Limited visualization. LEFT KIDNEY: 13 x 5 x 6 cm (SAG x AP x TRV). No hydronephrosis. Renal cortical thickness is normal. Limited visualization. Tiny punctate echogenic focus in the interpolar region may possibly represent a tiny nonobstructing calculus. US/US renal BI IMPRESSION: 1. Right renal lower pole 4 mm and 3 mm calculi. No hydronephrosis. 2. Possible tiny punctate nonobstructing left renal calculus.
== END 2023-09-09 10:06 | disposition home or self-care (01) ==
LOC: HO.HMGCX 10:05
PROVIDERS: PCP Pediatrics; Visit Provider Urology
DX: N20.0 Calculus of kidney (principal)
CPT/HCPCS: 76775

== ENCOUNTER 2023-09-12 11:40 | Outpatient (AMB) | payer MEDICAID, SELFPAY ==
--- NOTE | 2023-09-12 11:41 | A.OFFVIS_ITS ---
Intake Intake Visit Reasons: Post-op- ESWL/Ultrasound(09/09)Confirmed Intake Note: Patient presents today for a telehealth follow-up Meds- Pyridium, Vitamin B6, Tamsulosin Allergies to Antibiotic- Amoxicillin Blood Thinner- None Immersion Metal Cleaner Required: No Allergies cat dander [CATS] Allergy (Intermediate, Verified 09/12/23 11:43) RASH mold Allergy (Intermediate, Verified 09/12/23 11:43) RASH amoxicillin Adverse Reaction (Intermediate, Verified 09/12/23 11:43) yeast infection seasonal Allergy (Unknown, Uncoded 09/12/23 11:43) Unknown HPI HPI Comments History of Present Illness Details Bita is a pleasant female. She is a patient of Dr. Sethi. She is seen for the following urologic conditions - nephrolithiasis Still with pain on right side Small stone on US Renal US - Lower pole 4 mm and 3 mm calculi Repeat baseline stone labs and 24 hour urine Recurrent stone former Imaging 09/03 CT NAD, 07/03 renal ultrasound no evidence of stones, 07/04 renal ultrasound no evidence of stones - 07/05 renal ultrasound bilateral 6 mm stone Procedures - multiple prior ESWL Associated symptoms - minimal No definitive family history Discussed dietary restrictions Encouraged fluid intake with lemon water PFSH Medical History Anxiety and depression Morbid obesity Vasovagal syncope Asthma Spinal stenosis Degenerative disc disease Chronic kidney disease Surgical History History of surgical removal of pilonidal cyst Hx of lithotripsy Hx of cystoscopy History of cholecystectomy H/O Spinal surgery Social History Alcohol intake: current Alcohol intake frequency: holidays/special occasions only Alcohol type: beer Patient Tobacco Use Status: Current everyday Tobacco user Tobacco use type: Cigarette Cigarettes Per Day: 10 Assessment & Plan Assessment & Plan (1) Bilateral nephrolithiasis: Code(s): N20.0 - Calculus of kidney Plan Risks, benefits and alternatives to therapy were discussed. These include but are not limited to infection, bleeding, damage to local organs and tissues, need for further interventions. Anesthetic risks regarding cardiac arrhythmia, blood clots, and potential mortality were discussed. The patient understands the typical recovery time and the outpatient nature of the procedure. After consideration of these risks the patient gives full informed consent and they wish to move ahead with the procedure. Right ESWL Orders: Orders US renal BI 09/09/23 N20.0 - Calculus of kidney Patient Instructions: Imaging studies, laboratory and physical exam results were discussed and reviewed in detail. No major barriers to patient understanding were identified. An opportunity to ask questions regarding the treatment plan was provided. All questions were answered. The patient expressed understanding and agreement with the above treatment plan. The patient is aware they should contact our office by phone for worsening of their current condition or the appearance of new urologic symptoms. Compliance is encouraged with any medications and followup testing that is ordered. It is a privilege to participate in the urologic care of your patient. If you have any questions or concerns regarding treatment for the above conditions, or other urologic issues, please do not hesitate to contact me. The office telephone contact is [phone]. This note is constructed using voice recognition software. While every effort has been made to ensure accuracy telecommunications project manager errors may have been included. Yours sincerely, Dr Herminio Yi MD, MISA[facility] - Urology Providers of Expert, Compassionate Care for the Genitourinary System Telehealth Telehealth Location of provider rendering services: practice address Location of patient: address on file Patient Identification confirmed using: Name, : Yes Telehealth method: video Patient verbally consented to treatment: Yes Patient verbally consented to billing insurance company: Yes Patient informed of any privacy concerns related to visit: Yes Coding Level of Care Code Est Pt Level 4 (32884) Diagnoses Bilateral nephrolithiasis N20.0
== END 2023-09-12 12:23 | disposition home or self-care (01) ==
LOC: HO.HUSH 11:40
PROVIDERS: PCP Pediatrics; Visit Provider Urology
DX: N20.0 Calculus of kidney (principal)
CPT/HCPCS: 99024

== ENCOUNTER → 2023-09-12 11:40 | Outpatient (BNVA) | payer MEDICAID, SELFPAY | PROVIDERS: PCP Pediatrics; Visit Provider Urology | DX: N20.0 Calculus of kidney (principal) | CPT/HCPCS: 99212 ==

== ENCOUNTER → 2023-09-30 10:09 | Day surgery (SDC) | payer MEDICAID, SELFPAY ==
--- NOTE | 2023-09-29 09:22 | HO.ANESPROP2 ---
HPI - Anesthesia Eval Consult details Narrative: 33yo F for Right Cystoscopy, Ureteroroscopy, Retro, Laser with possible stent placement s/p ESWL 07/2023 with [facility] Active Problems Active Problems: All Active Problems (Updated 07/02/23 @ 07:11 by Miracle Louis RN) Bilateral nephrolithiasis (Acute) Recurrent UTI (Acute) Morbid obesity (Acute) Vasovagal syncope (Acute) Past Medical History Medical History Anxiety and depression Morbid obesity Vasovagal syncope Asthma Spinal stenosis Degenerative disc disease Chronic kidney disease Family History Family history of problems with anesthesia: No Surgical History Surgical History (Updated 09/26/23 @ 12:26 by Jennifer Schwab RN) History of surgical removal of pilonidal cyst Hx of lithotripsy Hx of cystoscopy History of cholecystectomy H/O Spinal surgery History of Problems with Anesthesia: No Social History Social History Alcohol intake: current Alcohol intake frequency: holidays/special occasions only Alcohol type: beer Patient Tobacco Use Status: Current everyday Tobacco user Tobacco use type: Cigarette Cigarettes Per Day: 10 Meds Allergies Allergy/AdvReac Type Severity Reaction Status Date / Time cat dander [CATS] Allergy Intermediate RASH Verified 09/12/23 11:43 mold Allergy Intermediate RASH Verified 09/12/23 11:43 amoxicillin AdvReac Intermediate yeast Verified 09/12/23 11:43 infection seasonal Allergy Unknown Unknown Uncoded 09/12/23 11:43 Home Medications Medication Instructions Recorded Confirmed Last Taken Type aripiprazole 20 mg tablet 20 mg PO DAILY 06/26/23 09/26/23 Unknown History clonazepam 1 mg tablet 1 mg PO BID PRN Anxiety 06/26/23 09/26/23 Unknown History ergocalciferol (vitamin D2) 1,250 1,250 mcg PO QWEEK 07/02/23 09/26/23 Unknown History mcg (50,000 unit) capsule Exam Height,Weight and Vital Signs: Height 5 ft 7 in Assessment and Plan Assessment Anesthesia Assessment: Chart Reviewed Final Anesthetic Review Family History of Problems with Anesthesia: No History of Problems with Anesthesia: No
[2023-09-30 10:40] LABS: UPreg QC Valid YES; Urine Pregnancy POSITIVE (NEGATIVE)
--- NOTE | 2023-09-30 10:46 | PC.NURSE ---
patient cancelled secondary to positive pregnacny dr maya at bedside speaking to patient aware of new careplan
== END ==
PROVIDERS: Nurse Practitioner; PCP Pediatrics; Visit Provider Urology
DX: N20.0 Calculus of kidney (principal); Z53.09 Procedure and treatment not carried out because of other contraindication; Z32.01 Encounter for pregnancy test, result positive
CPT/HCPCS: 81025; J2250; J2704; J3010; Q9967

== ENCOUNTER 2023-10-03 15:44 | Outpatient (AMB) | payer MEDICAID, SELFPAY ==
--- NOTE | 2023-10-03 15:45 | A.OFFVIS_ITS ---
Intake Visit Reasons: Cancelled Surgical Procedure- follow up Intake Note: Patient is Present for Telephone Follow Up Urology Med:Vitamin b6. Tamsulosin Antibiotic Allergy: Amoxicillin Blood Thinner: None Allergies cat dander [CATS] Allergy (Intermediate, Verified 10/18/23 08:54) RASH mold Allergy (Intermediate, Verified 10/18/23 08:54) RASH amoxicillin Adverse Reaction (Intermediate, Verified 10/18/23 08:54) yeast infection seasonal Allergy (Unknown, Uncoded 09/12/23 11:43) Unknown HPI Comments Details: Bita is a pleasant female. She is a patient of Dr. Sethi. She is seen for the following urologic conditions - nephrolithiasis Telemedicine Evaluation 15 min Consultation Doximity Juancarlos Video Schedule for right-sided ESWL Recurrent stone former Imaging 09/03 CT NAD, 07/03 renal ultrasound no evidence of stones, 07/04 renal ultrasound no evidence of stones - 07/05 renal ultrasound bilateral 6 mm stone Procedures - multiple prior ESWL Associated symptoms - minimal No definitive family history Discussed dietary restrictions Encouraged fluid intake with lemon water PFSH Medical History Anxiety and depression Morbid obesity Vasovagal syncope Asthma Spinal stenosis Degenerative disc disease Chronic kidney disease Surgical History History of surgical removal of pilonidal cyst Hx of lithotripsy Hx of cystoscopy History of cholecystectomy H/O Spinal surgery Social History Alcohol intake: current Alcohol intake frequency: a few times a week Alcohol type: beer Patient Tobacco Use Status: Current everyday Tobacco user Tobacco use type: Cigarette Cigarettes Per Day: 10 Smoked in Last 30 Days: Yes Use of substances other than those prescribed or required for medical reasons: No Advance Directives: No Advance Directives Information Provided: No Review of Systems Const All systems reviewed & are unremarkable except as noted in HPI and below Reports no additional complaints Resp Reports no additional complaints GI Reports no additional complaints Reports as per HPI Musc Reports no additional complaints Physical Exam Telemedicine evaluation Appropriate responses Regular breathing rate and rhythm HEENT Head: Yes normal to inspection Ears: hearing grossly normal bilaterally Eyes General: appearance normal, both eyes and all related structures Neck Neck: Yes normal visual inspection Chest Chest palpation & inspection: normal inspection of the chest Resp Effort & Inspection: normal respiratory effort and able to speak in complete sentences Telehealth Telehealth Location of provider rendering services: practice address Location of patient: address on file Patient Identification confirmed using: Name, : Yes Telehealth method: video Patient verbally consented to treatment: Yes Patient verbally consented to billing insurance company: Yes Patient informed of any privacy concerns related to visit: Yes Assessment & Plan Assessment & Plan (1) Bilateral nephrolithiasis: Code(s): N20.0 - Calculus of kidney Category: Medical Plan Extracorporeal Shock Wave Lithotripsy We discussed the nature of the decision and reasonable alternatives for performing the above surgery. Interventions include chemical dissolution, ESWL, ureteroscopy with laser lithotripsy and stent placement, PCNL. Options such as medical therapy were discussed. The relative uncertainties and benefits related to each alternate procedure were adequately discussed. General surgical risks including, but not limited to, pain, bleeding, infection, myocardial infarction, pulmonary embolus, deep vein thrombosis and cerebrovascular accident which may result in further hospitalization were discussed. Full disclosure of the procedure as well as all major risks, benefits and complications were discussed including but not limited to risks of bleeding, injury to the kidney with hematoma or marilyn-hematoma, failure to fragments stone, potential for ureteric obstruction from stone passage and need for secondary procedures. There is a small long-term risk of hypertension and a question juanito of diabetes. Success rate of fragmentation and passage is approximately 70- 75%. This is compared to the risks and benefits for ureteroscopy which has a higher success rate but is a more invasive procedure. The success rate of the procedure was discussed. Success of the procedure in the short-term does not necessarily guarantee that long-term success will be maintained. Suitable follow up will need to be maintained. The patient showed understanding of the discussion as well as the typical recovery time, and the outpatient nature of this procedure. Opportunity was given for questions. Repeat-back protocol used to confirm understanding. They wish to proceed with right ESWL Patient Instructions: Imaging studies, laboratory and physical exam results were discussed and reviewed in detail. No major barriers to patient understanding were identified. An opportunity to ask questions regarding the treatment plan was provided. All questions were answered. The patient expressed understanding and agreement with the above treatment plan. The patient is aware they should contact our office by phone for worsening of their current condition or the appearance of new urologic symptoms. Compliance is encouraged with any medications and followup testing that is ordered. It is a privilege to participate in the urologic care of your patient. If you have any questions or concerns regarding treatment for the above conditions, or other urologic issues, please do not hesitate to contact me. The office telephone contact is [phone]. This note is constructed using voice recognition software. While every effort has been made to ensure accuracy monorail crane operator errors may have been included. Yours sincerely, Dr Herminio Yi MD, [facility]ISA[facility] - Urology Providers of Expert, Compassionate Care for the Genitourinary System
== END 2023-10-03 16:30 | disposition home or self-care (01) ==
LOC: HO.HUSH 15:44
PROVIDERS: PCP Pediatrics; Visit Provider Urology
DX: N20.0 Calculus of kidney (principal)
CPT/HCPCS: 99024

== ENCOUNTER → 2023-10-03 15:44 | Outpatient (BNVA) | payer MEDICAID, SELFPAY | PROVIDERS: PCP Pediatrics; Visit Provider Urology ==

== ENCOUNTER 2023-10-18 08:50 | Emergency (ER) | payer MEDICAID, SELFPAY ==
[2023-10-18 08:51] VITALS: BP 142/94; PULSE 127; RESP 20; TEMP 36.5; O2SAT 97; BMI 45.4
--- NOTE | 2023-10-18 09:24 | ED_ITS ---
HPI - Skin/Abscess/Foreign Bdy General Chief complaint: Skin/Abscess/Foreign Body Stated complaint: Abscess Time Seen by Provider: 10/18/23 09:17 Source: patient Mode of arrival: ambulatory Limitations: no limitations Related Data Home Medications ?Medication ?Instructions ?Recorded ?Confirmed aripiprazole 20 mg tablet 20 mg PO DAILY 06/26/23 09/26/23 clonazepam 1 mg tablet 1 mg PO BID PRN Anxiety 06/26/23 09/26/23 ergocalciferol (vitamin D2) 1,250 1,250 mcg PO QWEEK 07/02/23 09/26/23 mcg (50,000 unit) capsule Previous Rx's ?Medication ?Instructions ?Recorded albuterol sulfate 90 mcg/actuation 2 inh inhalation Q4-6H PRN 12/26/21 breath activated powder inhaler shortness of breath or wheezing #1 ea ondansetron HCl 4 mg tablet 4 mg PO BEDTIME PRN nausea and 06/12/23 vomiting 4 days #20 tabs pyridoxine (vitamin B6) 50 mg 50 mg PO DAILY 90 days #90 tabs 06/12/23 tablet oxycodone-acetaminophen 5 mg-325 1 tab PO Q4H PRN pain (scale score 07/02/23 mg tablet 4-6) 7 days #14 tabs phenazopyridine 100 mg tablet 100 mg PO TID PRN Spasm 4 days #12 07/02/23 (Pyridium) tabs naproxen 500 mg tablet 500 mg PO BID PRN pain 7 days #14 07/30/23 tabs oxycodone-acetaminophen 5 mg-325 1 tab PO Q4H PRN pain (scale score 07/30/23 mg tablet 4-6) 7 days #14 tabs phenazopyridine 100 mg tablet 100 mg PO TID PRN Spasm 4 days #12 07/30/23 (Pyridium) tabs tamsulosin 0.4 mg capsule 0.4 mg PO BEDTIME 14 days #14 caps 07/30/23 cephalexin 500 mg tablet 500 mg PO Q6H 10 days #40 tabs 10/18/23 doxycycline hyclate 100 mg capsule 100 mg PO BID 10 days #20 caps 10/18/23 Allergies Allergy/AdvReac Type Severity Reaction Status Date / Time cat dander [CATS] Allergy Intermediate RASH Verified 10/18/23 08:54 mold Allergy Intermediate RASH Verified 10/18/23 08:54 amoxicillin AdvReac Intermediate yeast Verified 10/18/23 08:54 infection seasonal Allergy Unknown Unknown Uncoded 09/12/23 11:43 Review of Systems Review of Systems: Yes all other systems are reviewed and are negative [facility] Past Medical History Attestation statement: The following information was validated with the patient. Source: old records reviewed and nursing notes reviewed Medical History Anxiety and depression Morbid obesity Vasovagal syncope Asthma Spinal stenosis Degenerative disc disease Chronic kidney disease Surgical History History of surgical removal of pilonidal cyst Hx of lithotripsy Hx of cystoscopy History of cholecystectomy H/O Spinal surgery Social History Social History Alcohol intake: current Alcohol intake frequency: holidays/special occasions only Alcohol type: beer Patient Tobacco Use Status: Current everyday Tobacco user Tobacco use type: Cigarette Cigarettes Per Day: 10 Advance Directives: No Advance Directives Information Provided: No Physical Exam Vital Signs: Vital Signs: Last Vital Signs Temp 97.7 F 10/18/23 08:51 Pulse 127 H 10/18/23 08:51 Resp 20 10/18/23 08:51 BP 142/94 H 10/18/23 08:51 Pulse Ox 97 10/18/23 08:51 O2 Del Method Room Air 10/18/23 08:51 BMI result Body Mass Index 45.4 vss Appearance: Alert.? Oriented X3.? No acute distress.? Head: Normocephalic, atraumatic, no step-offs or deformities Eyes: Pupils equal, round and reactive to light.? CVS: Pulses normal.? Respiratory: No respiratory distress. Abdomen: Soft and nontender.? Skin: Skin warm and dry.? Normal skin color.? Normal skin turgor.? + folliculitis w/ celluliitis and question developing abcess to right side of mons pubis region. No fluctuance Extremities: No lower extremity edema.? No calf ttp. 5/5 strength to bilateral upper and lower extremities Back: No midline tenderness, no C-spine tenderness, full range of motion, no CVA tenderness bilaterally Neuro: Oriented X 3.? No motor deficit.? No sensory deficit. CN 2-12 intact Medical Decision Making Medical Decision Making [facility] Narrative: [id number] 33 year old female presents w/ painful bump in mons pubis X 1 week PE + folliculitis w/ celluliitis and question developing abcess to right side of mons pubis region. No fluctuance HX and physical exam concerning for cellulitis with folliculitis. And possibly a developing abscess. No abscess at this time. Unlikely Dave gangrene, necrotizing infection. Plan at this time will discharge with doxycycline and Keflex. Educated on warm compresses. Educated patient on diagnosis and treatment plan, answered all question, patient verbalizes understanding. At this time patient will be discharged home, advised to return with new or worsening symptoms. Educated on worrisome signs and symptoms and when to return. At this time I feel comfortable discharge home. Differential Diagnosis Differential Diagnoses: The differential diagnosis associated with the presentation includes HX and physical exam concerning for cellulitis with folliculitis. And possibly a developing abscess. No abscess at this time. Unlikely Dave gangrene, necrotizing infection. Admission/Observation Consideration of admission/observation: Escalation of care including admission/observation considered Unlikley Prescription Management I considered prescription management with: Pain Medication (Educated on ibuprofen every 6 hours Tylenol every 4) and Antibiotic Chronic Conditions Patient?s care impacted by: Other (Kidney stones) Critical Care Time Critical Care Time Critical Care Time: No Discharge Plan Discharge Clinical Impression: Folliculitis, Cellulitis Patient Disposition: Home, Self-Care Instructions: Cellulitis (ED), Folliculitis (ED), Warm Compress or Soak (ED) Additional Instructions: Take your medications as prescribed. If you were prescribed antibiotics today, it is important that you take your medication to their entirety, do not skip any doses, do not finish them early. Follow-up with your primary care provider this week. Return to the emergency department with new or worsening symptoms. Such as fevers, chills, chest pain, shortness of breath, nausea, vomiting, dizziness, headache, vision changes, lethargy In case of emergency call 911 You can take ibuprofen every 6 hours Tylenol every 4 as needed for pain or discomfort Prescriptions: New doxycycline hyclate 100 mg capsule 100 mg PO BID 10 Days Qty: 20 0RF cephalexin 500 mg tablet 500 mg PO Q6H 10 Days Qty: 40 0RF No Action albuterol sulfate 90 mcg/actuation aerosol powdr breath activated 2 inh inhalation Q4-6H PRN (Reason: shortness of breath or wheezing) Qty: 1 0RF ergocalciferol (vitamin D2) 1,250 mcg (50,000 unit) capsule 1,250 mcg PO QWEEK oxycodone-acetaminophen 5-325 mg tablet 1 tab PO Q4H PRN (Reason: pain (scale score 4-6)) 7 Days Qty: 14 0RF Rx Instructions: Partial Fill upon patient request. phenazopyridine [Pyridium] 100 mg tablet 100 mg PO TID PRN (Reason: Spasm) 4 Days Qty: 12 0RF oxycodone-acetaminophen 5-325 mg tablet 1 tab PO Q4H PRN (Reason: pain (scale score 4-6)) 7 Days Qty: 14 0RF Rx Instructions: Partial Fill upon patient request. tamsulosin 0.4 mg capsule 0.4 mg PO BEDTIME 14 Days Qty: 14 0RF phenazopyridine [Pyridium] 100 mg tablet 100 mg PO TID PRN (Reason: Spasm) 4 Days Qty: 12 0RF naproxen 500 mg tablet 500 mg PO BID PRN (Reason: pain) 7 Days Qty: 14 0RF pyridoxine (vitamin B6) 50 mg tablet 50 mg PO DAILY 90 Days Qty: 90 1RF ondansetron HCl 4 mg tablet 4 mg PO BEDTIME PRN (Reason: nausea and vomiting) 4 Days Qty: 20 0RF clonazepam 1 mg tablet 1 mg PO BID PRN (Reason: Anxiety) aripiprazole 20 mg tablet 20 mg PO DAILY Referrals: Raquel Sethi MD [Primary Care Provider] - 2 days Print Language: Japanese
[2023-10-18 09:34] VITALS: PULSE 90
[2023-10-18 09:37] VITALS: BP 142/94; PULSE 89; RESP 18; TEMP 36.5; O2SAT 97
== END 2023-10-18 09:37 | disposition home or self-care (01) ==
PROVIDERS: Emergency Provider Student in an Organized Health Care Education/Training Program; PCP Pediatrics
DX: L03.314 Cellulitis of groin (principal); L73.9 Follicular disorder, unspecified; F17.210 Nicotine dependence, cigarettes, uncomplicated; Z79.899 Other long term (current) drug therapy
CPT/HCPCS: 99283; 99284

== ENCOUNTER 2023-11-12 08:22 | Day surgery (SDC) | payer MEDICAID, SELFPAY ==
[2023-11-10 14:10] VITALS: BMI 44.5
--- NOTE | 2023-11-11 12:12 | HO.ANESPROP2 ---
Documented by User: Crystal Curran NP 11/11/23 12:13 HPI - Anesthesia Eval Consult details Narrative: 33yo F for Right ESWL s/p same 07/2023 with MAC Cx'd DOS 09/2023 for +HCG PMFSH Active Problems Active Problems: All Active Problems Bilateral nephrolithiasis (Acute) Recurrent UTI (Acute) Morbid obesity (Acute) Vasovagal syncope (Acute) Past Medical History Medical History Anxiety and depression Morbid obesity Vasovagal syncope Asthma Spinal stenosis Degenerative disc disease Chronic kidney disease Family History Family history of problems with anesthesia: No Surgical History Surgical History History of surgical removal of pilonidal cyst Hx of lithotripsy Hx of cystoscopy History of cholecystectomy H/O Spinal surgery History of Problems with Anesthesia: No Social History Social History Alcohol intake: current Alcohol intake frequency: former alcohol drinker Alcohol type: beer Patient Tobacco Use Status: Current everyday Tobacco user Tobacco use type: Cigarette Cigarettes Per Day: 10 Use of substances other than those prescribed or required for medical reasons: No Are you DNR?: No Advance Directives: No Advance Directives Information Provided: Yes Meds Allergies Allergy/AdvReac Type Severity Reaction Status Date / Time cat dander [CATS] Allergy Intermediate RASH Verified 10/18/23 08:54 mold Allergy Intermediate RASH Verified 10/18/23 08:54 amoxicillin AdvReac Intermediate yeast Verified 10/18/23 08:54 infection seasonal Allergy Unknown Unknown Uncoded 09/12/23 11:43 Home Medications ?Medication ?Instructions ?Recorded ?Confirmed ?Last Taken ?Type aripiprazole 20 mg tablet 20 mg PO DAILY 06/26/23 11/12/23 Unknown History clonazepam 1 mg tablet 1 mg PO BID PRN Anxiety 06/26/23 11/12/23 Unknown History ergocalciferol (vitamin D2) 1,250 1,250 mcg PO QWEEK 07/02/23 11/12/23 Unknown History mcg (50,000 unit) capsule Exam Height,Weight and Vital Signs: Height 5 ft 7 in Weight 128.82 kg Assessment and Plan Assessment Anesthesia Assessment: Chart Reviewed Final Anesthetic Review Family History of Problems with Anesthesia: No History of Problems with Anesthesia: No Documented by User: Frankie Melendez MD 11/12/23 12:58 PMFSH Past Medical History Medical History Anxiety and depression Morbid obesity Vasovagal syncope Asthma Spinal stenosis Degenerative disc disease Chronic kidney disease Patient : No Surgical History Surgical History History of surgical removal of pilonidal cyst Hx of lithotripsy Hx of cystoscopy History of cholecystectomy H/O Spinal surgery Social History Social History Alcohol intake: current Alcohol intake frequency: former alcohol drinker Alcohol type: beer Patient Tobacco Use Status: Current everyday Tobacco user Tobacco use type: Cigarette Cigarettes Per Day: 10 Use of substances other than those prescribed or required for medical reasons: No Are you DNR?: No Advance Directives: No Advance Directives Information Provided: Yes Meds Allergies Allergy/AdvReac Type Severity Reaction Status Date / Time cat dander [CATS] Allergy Intermediate RASH Verified 10/18/23 08:54 mold Allergy Intermediate RASH Verified 10/18/23 08:54 amoxicillin AdvReac Intermediate yeast Verified 10/18/23 08:54 infection seasonal Allergy Unknown Unknown Uncoded 09/12/23 11:43 Home Medications ?Medication ?Instructions ?Recorded ?Confirmed ?Last Taken ?Type aripiprazole 20 mg tablet 20 mg PO DAILY 06/26/23 11/12/23 Unknown History clonazepam 1 mg tablet 1 mg PO BID PRN Anxiety 06/26/23 11/12/23 Unknown History ergocalciferol (vitamin D2) 1,250 1,250 mcg PO QWEEK 07/02/23 11/12/23 Unknown History mcg (50,000 unit) capsule Exam Airway Mallampati Class: II TM Dist: <=3cm Neck ROM: Full Loose/Missing/Broken Teeth: No Heart: ok Lungs: ok Assessment and Plan Assessment Anesthesia Assessment: Anesthesia Plan Discussed Final Anesthetic Review NPO: Yes ASA Class: III Final Preanesthetic Review: No Changes in Pt Med Stat, Meds/Allgs Chart Reviewed and Consent Obtained/Reviewed Patient Risk: Intermediate Procedure Risk: Low Anesthetic Plan Anesthetic Plan: GA and Agree w/ Assess. and Plan Disposition: Standard PACU
--- NOTE | ~2023-11-12 | XR_ITS ---
EXAMINATION: XR ABDOMEN KUB CLINICAL INDICATION: Right-sided flank pain COMPARISON: Ultrasound kidneys dated 09/09/2023 TECHNIQUE: AP view of the abdomen. FINDINGS: There is a fair amount of stool in the colon overlying the kidneys. No discrete stones are seen overlying the expected region of the kidneys. Surgical clips are seen in the right upper quadrant and postsurgical changes observed at the L4-L5 level. Several calcifications are seen in the pelvis likely phleboliths. XR/XR KUB IMPRESSION: No evidence for nephrolithiasis on this plain film.
[2023-11-12 10:22] LABS: UPreg QC Valid YES; Urine Pregnancy NEGATIVE (NEGATIVE)
[2023-11-12 10:25] VITALS: BMI 44.8
[2023-11-12] MEDS: Lactated Ringers 1,000 ML 100 ML IVCONT (10:30)
--- NOTE | 2023-11-12 12:57 | MHC.SHP ---
Pre-Procedural Eval Section A - 24 Hr Update-Section A only Date of Service: 11/12/23 The patient is an INPATIENT: No The patient has been examined within 24 hours of the surgical procedure. The History & Physical has been completed within 30 days and I have reviewed it.: Yes Section B - Complete if H&P > 30 days Chief Complaint: Calculus of kidney, right Allergies: Allergies Allergy/AdvReac Type Severity Reaction Status Date / Time cat dander [CATS] Allergy Intermediate RASH Verified 10/18/23 08:54 mold Allergy Intermediate RASH Verified 10/18/23 08:54 amoxicillin AdvReac Intermediate yeast Verified 10/18/23 08:54 infection seasonal Allergy Unknown Unknown Uncoded 09/12/23 11:43 Plan Diagnosis/Plan: Unchanged I have reviewed the history and physical and performed a pertinent physical examination on my patient. No changes have occurred unless specified. Right ESWL. Discussed risks to include but not limited to, blood in the urine, bruising to the skin, kidney hematoma, possible need for another procedure if a stone fragment obstructs the ureter while passing, possible need to repeat procedure if stone is not completely fragmented. Time Spent With Patient Time: Total time managing care of this patient today ____ minutes.
--- NOTE | 2023-11-12 13:43 | W.PM.OPN ---
Operative Note Operative Note Date of Service: 11/12/23 Narrative: PreOperative Diagnosis:? ? Right Renal stone Post Operative Diagnosis:?Right? Renal stone Procedure:?Right? ESWL Surgeon:?Dr Kate Mendez Anesthesia:? General Indications for procedure: The patient understands there is a risk of bruising or hematoma to the kidney, infection, and stone migration following the procedure and subsequent intervention may be required.? Ultrasound 4 x 4 mm mid/lower pole stone Procedure: After informed consent was verified the patient was brought to the operating room and placed in a supine position.? Anesthesia was performed per protocol. Safety pause time-out was performed. Imaging was displayed in the room and laterality confirmed. ESWL was performed.?The stone was visualized on ultrasound.? Shockwave lithotripsy was performed, with a maximum rate of 120 hertz. After the first 300 shocks a pause for 3 minutes was completed.? A total of 2000 shocks to a maximum of power of 18 with a maximum rate of 120 hertz.? The patient tolerated the procedure well and was transferred to the recovery area upon completion. Complications: None
[2023-11-12 13:55] VITALS: BP 127/75; PULSE 80; RESP 20; TEMP 36.6; O2SAT 94
[2023-11-12 14:00] VITALS: BP 114/73; PULSE 65; RESP 18; O2SAT 95
[2023-11-12 14:05] VITALS: BP 135/80; PULSE 72; RESP 18; O2SAT 95
[2023-11-12 14:10] VITALS: BP 118/64; PULSE 74; RESP 18; O2SAT 98
[2023-11-12 14:25] VITALS: BP 134/78; PULSE 68; RESP 18; TEMP 36.3; O2SAT 98
== END 2023-11-12 15:12 | disposition home or self-care (01) ==
PROVIDERS: Nurse Practitioner; PCP Pediatrics; Visit Provider Urology
PROC: (CPT 50590; principal; 2023-11-12 10:30)
DX: N20.0 Calculus of kidney (principal); N18.9 Chronic kidney disease, unspecified; Z87.442 Personal history of urinary calculi; J45.909 Unspecified asthma, uncomplicated; R55 Syncope and collapse; F41.8 Other specified anxiety disorders; E66.01 Morbid (severe) obesity due to excess calories; Z98.890 Other specified postprocedural states
CPT/HCPCS: 50590; 74018; 81025; J0131; J0690; J2704; J3010

== ENCOUNTER → 2023-11-12 08:22 | Outpatient (BNV) | payer MEDICAID, SELFPAY | PROVIDERS: PCP Pediatrics; Visit Provider Urology | DX: N20.0 Calculus of kidney (principal) | CPT/HCPCS: 50590 ==

== ENCOUNTER 2023-11-18 09:40 | Outpatient (REF) | payer MEDICAID, SELFPAY ==
--- NOTE | ~2023-11-18 | US_ITS ---
EXAMINATION: US RETROPERITONEAL LIMITED (RENAL ONLY) CLINICAL INFORMATION: Calculus of kidney. COMPARISON: X-ray KUB 11/12/2023 and 07/30/2023. Renal ultrasound from 09/09/2023 and 05/26/2023. CT abdomen and pelvis 01/22/2022. TECHNIQUE: Real-time imaging of the kidneys. FINDINGS: RIGHT KIDNEY: 12.4 x 5.3 x 7.1 cm (SAG x AP x TRV). The kidney is normal in size, contour, and echogenicity. Renal cortical thickness is normal. No focal parenchymal lesions or hydronephrosis. There is a lower pole stone at 4 mm in an upper pole stone at 3 mm. No change. LEFT KIDNEY: 12.6 x 4.9 x 5.9 cm (SAG x AP x TRV). The kidney is normal in size, contour, and echogenicity. Renal cortical thickness is normal. No calculi or focal parenchymal lesions. No hydronephrosis. US/US renal BI IMPRESSION: Small right nephroliths. No change from prior ultrasound dated 09/09/2023. No hydronephrosis..
== END 2023-11-18 09:41 | disposition home or self-care (01) ==
LOC: HO.HMGCX 09:40
PROVIDERS: PCP Pediatrics; Visit Provider Urology
DX: N20.0 Calculus of kidney (principal)
CPT/HCPCS: 76775

== ENCOUNTER 2023-11-24 11:01 | Outpatient (REF) | payer MEDICAID, SELFPAY ==
--- NOTE | ~2023-11-24 | MM_ITS ---
EXAMINATION: MM DIAGNOSTIC DIGITAL BREAST TOMOSYNTHESIS, BILATERAL US BREAST LIMITED, LEFT MAMMOGRAPHY: CLINICAL INFORMATION: Recommended short interval follow-up of 2 small focal asymmetries in the medial aspect of the left breast is noted on prior mammograms. COMPARISON: Mammography: This study is compared with prior mammograms dating back to 2019. TECHNIQUE: Digital breast tomosynthesis is performed in both the craniocaudal and mediolateral oblique views along with computer-aided detection (CAD). Synthesized 2D images are generated from the tomosynthesis. FINDINGS: There are scattered areas of fibroglandular density (ACR BI-RADS breast composition Category b). There are no significant masses, abnormal calcifications, or other abnormalities. There has been no significant interval change in the benign-appearing structures of the medial aspect of the left breast. ULTRASOUND: CLINICAL INFORMATION: Recommended short interval follow-up of 2 small focal asymmetries in the medial aspect of the left breast is noted on prior mammograms. COMPARISON: This study is compared with prior sonography from May 2023. TECHNIQUE: Targeted sonographic evaluation was performed using a high frequency linear transducer. Selected archived documentation. FINDINGS: LEFT BREAST: Sonography of the superior aspect of the right breast is normal. In the 8:00 region of the left breast, there is normal elias tissue spanning 1 cm in greatest dimension. There are no suspicious findings. MM/MM tomosynthesis diagnostic BI IMPRESSION: No mammographic signs of malignancy. OVERALL ASSESSMENT: Mammography: BI-RADS 1 - Negative Ultrasound: BI-RADS 1 - Negative RECOMMENDATION: 1 year F/U Results were provided to the patient at time of visit by the technologist. This patient's information was entered into a reminder system with a target due date for their next mammogram.
--- NOTE | ~2023-11-24 | US_ITS ---
EXAMINATION: MM DIAGNOSTIC DIGITAL BREAST TOMOSYNTHESIS, BILATERAL US BREAST LIMITED, LEFT MAMMOGRAPHY: CLINICAL INFORMATION: Recommended short interval follow-up of 2 small focal asymmetries in the medial aspect of the left breast is noted on prior mammograms. COMPARISON: Mammography: This study is compared with prior mammograms dating back to 2018. TECHNIQUE: Digital breast tomosynthesis is performed in both the craniocaudal and mediolateral oblique views along with computer-aided detection (CAD). Synthesized 2D images are generated from the tomosynthesis. FINDINGS: There are scattered areas of fibroglandular density (ACR BI-RADS breast composition Category b). There are no significant masses, abnormal calcifications, or other abnormalities. There has been no significant interval change in the benign-appearing structures of the medial aspect of the left breast. ULTRASOUND: CLINICAL INFORMATION: Recommended short interval follow-up of 2 small focal asymmetries in the medial aspect of the left breast is noted on prior mammograms. COMPARISON: This study is compared with prior sonography from May 2023. TECHNIQUE: Targeted sonographic evaluation was performed using a high frequency linear transducer. Selected archived documentation. FINDINGS: LEFT BREAST: Sonography of the superior aspect of the right breast is normal. In the 8:00 region of the left breast, there is normal eilas tissue spanning 1 cm in greatest dimension. There are no suspicious findings. US/US breast LT limited IMPRESSION: No mammographic signs of malignancy. OVERALL ASSESSMENT: Mammography: BI-RADS 1 - Negative Ultrasound: BI-RADS 1 - Negative RECOMMENDATION: 1 year F/U Results were provided to the patient at time of visit by the technologist. This patient's information was entered into a reminder system with a target due date for their next mammogram.
== END 2023-11-24 11:02 | disposition home or self-care (01) ==
LOC: HO.MAMMO 11:01
PROVIDERS: PCP Pediatrics; Visit Provider Pediatrics
DX: R92.30 Dense breasts, unspecified (principal)
CPT/HCPCS: 76642; 77062; 77066

== ENCOUNTER → 2023-11-24 11:30 | Outpatient (BNV) | payer MEDICAID, SELFPAY | PROVIDERS: PCP Pediatrics; Visit Provider Radiology Diagnostic Radiology | DX: R92.8 Other abnormal and inconclusive findings on diagnostic imaging of breast (principal) | CPT/HCPCS: 76642; 77062; 77066 ==

== ENCOUNTER 2023-12-24 15:27 | Outpatient (AMB) | payer MEDICAID, SELFPAY ==
--- NOTE | 2023-12-24 15:28 | A.OFFVIS_ITS ---
Intake Visit Reasons: ESWL- follow up/US Intake Note: Patient is Present for Telephone Follow Up Ultrasound Allergies cat dander [CATS] Allergy (Intermediate, Verified 01/29/24 15:21) RASH mold Allergy (Intermediate, Verified 01/29/24 15:21) RASH amoxicillin Adverse Reaction (Intermediate, Verified 01/29/24 15:21) yeast infection seasonal Allergy (Unknown, Uncoded 01/29/24 15:21) Unknown HPI Comments Details: Bita is a pleasant female. She is a patient of Dr. Sethi. She is seen for the following urologic conditions - nephrolithiasis Telemedicine Evaluation 15 min Consultation [employer] [facility] Video Persistent residual stone Suggest right-sided ureteroscopy Recurrent stone former Imaging 09/03 CT NAD, 07/03 renal ultrasound no evidence of stones, 07/04 renal ultrasound no evidence of stones - 07/05 renal ultrasound bilateral 6 mm stone Procedures - multiple prior ESWL Associated symptoms - minimal No definitive family history Discussed dietary restrictions Encouraged fluid intake with lemon water PFSH Medical History Anxiety and depression Morbid obesity Vasovagal syncope Asthma Spinal stenosis Degenerative disc disease Chronic kidney disease Surgical History History of surgical removal of pilonidal cyst Hx of lithotripsy Hx of cystoscopy History of cholecystectomy H/O Spinal surgery Social History Alcohol intake: current Alcohol intake frequency: former alcohol drinker Alcohol type: beer Patient Tobacco Use Status: Current everyday Tobacco user Tobacco use type: Cigarette Cigarettes Per Day: 10 Review of Systems Const All systems reviewed & are unremarkable except as noted in HPI and below Reports no additional complaints Resp Reports no additional complaints GI Reports no additional complaints Reports as per HPI Musc Reports no additional complaints Physical Exam Telemedicine evaluation Appropriate responses Regular breathing rate and rhythm HEENT Head: Yes normal to inspection Ears: hearing grossly normal bilaterally Eyes General: appearance normal, both eyes and all related structures Neck Neck: Yes normal visual inspection Chest Chest palpation & inspection: normal inspection of the chest Resp Effort & Inspection: normal respiratory effort and able to speak in complete sentences Telehealth Telehealth Telehealth Platform: [employer] Location of provider rendering services: practice address Location of patient: address on file Patient Identification confirmed using: Name, : Yes Telehealth method: video Patient verbally consented to treatment: Yes Patient verbally consented to billing insurance company: Yes Patient informed of any privacy concerns related to visit: Yes Minutes spent on Phone/Video with Pt.: 15 Assessment & Plan Assessment & Plan (1) Bilateral nephrolithiasis: Code(s): N20.0 - Calculus of kidney Category: Medical Plan Ureteroscopy We discussed the nature of the decision and reasonable alternatives for performing ureteroscopy. Options such as medical therapy were discussed. Interventions include chemical dissolution, ESWL, ureteroscopy with laser lithotripsy and stent placement, PCNL. The relative uncertainties and benefits related to each alternate procedure were adequately discussed. General surgical risks including, but not limited to - pain, bleeding, infection, myocardial infarction, pulmonary embolus, deep vein thrombosis and cerebrovascular accident which may result in further hospitalization were discussed. Full disclosure of the procedure as well as all major risks, benefits and complications were discussed including but not limited to damage to the urethra, bladder and kidney infection, damage to the ureter, stent migration or malposition, scarring to the renal pelvis, remnant stone fragments, subsequent stone passage with need for secondary procedures. The overall secondary pro cedure rate is approximately 10-15%. The overall clearance rate is approximately 90-95%. Success of the procedure in the short-term does not necessarily guarantee that long-term success will be maintained. Suitable follow up will need to be maintained. The patient showed understanding of discussion and wishes to proceed with - cystoscopy, retrograde, ureteroscopy, possible lithotripsy/stone basketing and stent on the right side Patient Instructions: Imaging studies, laboratory and physical exam results were discussed and reviewed in detail. No major barriers to patient understanding were identified. An opportunity to ask questions regarding the treatment plan was provided. All questions were answered. The patient expressed understanding and agreement with the above treatment plan. The patient is aware they should contact our office by phone for worsening of their current condition or the appearance of new urologic symptoms. Compliance is encouraged with any medications and followup testing that is ordered. It is a privilege to participate in the urologic care of your patient. If you have any questions or concerns regarding treatment for the above conditions, or other urologic issues, please do not hesitate to contact me. The office telephone contact is [phone]. This note is constructed using voice recognition software. While every effort has been made to ensure accuracy rescue boat operator errors may have been included. Yours sincerely, Dr Herminio Yi MD, [facility] - Urology Providers of Expert, Compassionate Care for the Genitourinary System Coding Level of Care Code Est Pt Level 4 (31844) Diagnoses Bilateral nephrolithiasis N20.0
== END 2023-12-24 16:11 | disposition home or self-care (01) ==
LOC: HO.HUSH 15:27
PROVIDERS: PCP Pediatrics; Visit Provider Urology
DX: N20.0 Calculus of kidney (principal)
CPT/HCPCS: 99024

== ENCOUNTER → 2023-12-24 15:27 | Outpatient (BNVA) | payer MEDICAID, SELFPAY | PROVIDERS: PCP Pediatrics; Visit Provider Urology ==

== ENCOUNTER 2024-01-20 10:46 | Day surgery (SDC) | payer MEDICAID, SELFPAY ==
--- NOTE | 2024-01-19 12:06 | HO.ANESPROP2 ---
Documented by User: Crystal Curran NP 01/19/24 12:07 HPI - Anesthesia Eval Consult details Narrative: 33yo F for Right Cystoscopy, Ureteroroscopy, Retro, Laser with possible stent placement s/p ESWL with GA-LMA 4 PMFSH Active Problems Active Problems: All Active Problems Bilateral nephrolithiasis (Acute) Recurrent UTI (Acute) Morbid obesity (Acute) Vasovagal syncope (Acute) Past Medical History Medical History Anxiety and depression Morbid obesity Vasovagal syncope Asthma Spinal stenosis Degenerative disc disease Chronic kidney disease Family History Family history of problems with anesthesia: No Surgical History Surgical History History of surgical removal of pilonidal cyst Hx of lithotripsy Hx of cystoscopy History of cholecystectomy H/O Spinal surgery History of Problems with Anesthesia: No Social History Social History Alcohol intake: current Alcohol intake frequency: former alcohol drinker Alcohol type: beer Patient Tobacco Use Status: Current everyday Tobacco user Tobacco use type: Cigarette Cigarettes Per Day: 10 Use of substances other than those prescribed or required for medical reasons: Yes Substance Use Frequency: Occasionally Are you DNR?: No Advance Directives: No Advance Directives Information Provided: Yes Meds Allergies Allergy/AdvReac Type Severity Reaction Status Date / Time cat dander [CATS] Allergy Intermediate RASH Verified 10/18/23 08:54 mold Allergy Intermediate RASH Verified 10/18/23 08:54 amoxicillin AdvReac Intermediate yeast Verified 10/18/23 08:54 infection seasonal Allergy Unknown Unknown Uncoded 09/12/23 11:43 Home Medications ?Medication ?Instructions ?Recorded ?Confirmed ?Last Taken ?Type aripiprazole 20 mg tablet 20 mg PO DAILY 06/26/23 11/12/23 Unknown History clonazepam 1 mg tablet 1 mg PO BID PRN Anxiety 06/26/23 11/12/23 Unknown History ergocalciferol (vitamin D2) 1,250 1,250 mcg PO QWEEK 07/02/23 11/12/23 Unknown History mcg (50,000 unit) capsule Assessment and Plan Assessment Anesthesia Assessment: Chart Reviewed Final Anesthetic Review Family History of Problems with Anesthesia: No History of Problems with Anesthesia: No Documented by User: Edward Jaramillo MD 01/20/24 12:50 [facility] Past Medical History Medical History Anxiety and depression Morbid obesity Vasovagal syncope Asthma Spinal stenosis Degenerative disc disease Chronic kidney disease Surgical History Surgical History History of surgical removal of pilonidal cyst Hx of lithotripsy Hx of cystoscopy History of cholecystectomy H/O Spinal surgery Social History Social History Alcohol intake: current Alcohol intake frequency: former alcohol drinker Alcohol type: beer Patient Tobacco Use Status: Current everyday Tobacco user Tobacco use type: Cigarette Cigarettes Per Day: 10 Use of substances other than those prescribed or required for medical reasons: Yes Substance Use Frequency: Occasionally Are you DNR?: No Advance Directives: No Advance Directives Information Provided: Yes Meds Allergies Allergy/AdvReac Type Severity Reaction Status Date / Time cat dander [CATS] Allergy Intermediate RASH Verified 10/18/23 08:54 mold Allergy Intermediate RASH Verified 10/18/23 08:54 amoxicillin AdvReac Intermediate yeast Verified 10/18/23 08:54 infection seasonal Allergy Unknown Unknown Uncoded 09/12/23 11:43 Home Medications ?Medication ?Instructions ?Recorded ?Confirmed ?Last Taken ?Type aripiprazole 20 mg tablet 20 mg PO DAILY 06/26/23 11/12/23 Unknown History clonazepam 1 mg tablet 1 mg PO BID PRN Anxiety 06/26/23 11/12/23 Unknown History ergocalciferol (vitamin D2) 1,250 1,250 mcg PO QWEEK 07/02/23 11/12/23 Unknown History mcg (50,000 unit) capsule Exam Airway Mallampati Class: III TM Dist: >3cm Neck ROM: Full Loose/Missing/Broken Teeth: Yes, Upper and Lower Assessment and Plan Assessment Anesthesia Assessment: Anesthesia Plan Discussed Final Anesthetic Review NPO: Yes ASA Class: III Final Preanesthetic Review: No Changes in Pt Med Stat, Meds/Allgs Chart Reviewed, Consent Obtained/Reviewed and Anes Risks/Benef Reviewed Patient Risk: Intermediate Procedure Risk: Low Anesthetic Plan Anesthetic Plan: GA Disposition: Standard PACU
[2024-01-20] VITALS (7 sets, daily range): BP systolic 114–139; BP diastolic 79–95; PULSE 73–91; RESP 13–18; TEMP 36.4–36.7; O2SAT 93–95; BMI 44.8
--- NOTE | ~2024-01-20 | FL_ITS ---
EXAMINATION: XR FLUOROSCOPY WITH IMAGES CLINICAL INFORMATION: Right renal calculus. COMPARISON: Renal ultrasound 11/18/2023. TECHNIQUE: Fluoroscopy Supervised By: Dr. Kate Mendez. Fluoroscopy Time: 44.1 seconds. Cumulative Dose: 16.248 mGy. DAP: 7.0678 Gycm2. Images: 8. FINDINGS: Intraoperative fluoroscopy and spot films were performed during a procedure in the OR. Contrast media is injected into the right renal collecting system. There is some forniceal extravasation. No large filling defects are seen. A guidewire is seen in the region of the renal pelvis. A top of a pigtail catheter is seen overlying the renal pelvis. The last sequential image shows no catheter. Surgical clips are present in the gallbladder fossa. Please correlate with Dr. Mendez's report for complete details. FL/FL guidance in OR IMPRESSION: Intraoperative fluoroscopy and spot films were obtained. Please see Dr. Mendez's report for complete details.
[2024-01-20 11:29] LABS: UPreg QC Valid YES; Urine Pregnancy NEGATIVE (NEGATIVE)
[2024-01-20] MEDS: Lactated Ringers 1,000 ML 100 ML IVCONT (11:54)
--- NOTE | 2024-01-20 11:57 | MHC.SHP ---
Pre-Procedural Eval Section A - 24 Hr Update-Section A only Date of Service: 01/20/24 The patient is an INPATIENT: No The patient has been examined within 24 hours of the surgical procedure. The History & Physical has been completed within 30 days and I have reviewed it.: Yes Section B - Complete if H&P > 30 days Chief Complaint: Calculus of kidney, right Details of Present Illness: 33 year old female h/o nephrolithiasis. CoMorbidity Obesity. Here for right ureteroscopy stone management Allergies: Allergies Allergy/AdvReac Type Severity Reaction Status Date / Time cat dander [CATS] Allergy Intermediate RASH Verified 10/18/23 08:54 mold Allergy Intermediate RASH Verified 10/18/23 08:54 amoxicillin AdvReac Intermediate yeast Verified 10/18/23 08:54 infection seasonal Allergy Unknown Unknown Uncoded 09/12/23 11:43 Review of Systems Review of Systems Comment: 10- point ROS negative other than noted in HPI Exam Surgical H&P Exam: Normal: HEENT, Normal: Heart, Normal: Skin and Normal: Neurological Plan Diagnosis/Plan: Unchanged I have reviewed the history and physical and performed a pertinent physical examination on my patient. No changes have occurred unless specified. Plan for Cystoscopy, right ureteroscopy, possible laser lithotripsy, possible ureteral stent. Risks discussed included but not limited to, possible need to repeat procedure if stone is not completely fragmented, Irritative voiding symptoms, bladder spasms, urgency, blood in urine. Time Spent With Patient Time: Total time managing care of this patient today ____ minutes.
--- NOTE | 2024-01-20 14:12 | W.PM.OPN ---
Operative Note Operative Note Date of Service: 01/20/24 Narrative: PreOperative Diagnosis:?? right renal calculi Post Operative Diagnosis:?? right renal calculi Procedure: - cystoscopy, right retrograde, right ureteroscopy Surgeon:?Dr Kate Mendze Anesthesia:? General Indications for procedure: s/p right ESWL for right renal calculus, fu renal us noted persistent calculi 3mm right upper pole, 4 mm right lower pole. Findings: no free floating calculi, few punctate calcifications adherent to renal tissue Procedure: After informed consent was verified the patient was brought to the operating placed on the OR table in supine position.? General Anesthesia was administered per protocol.? The patient was placed in lithotomy position, prepped and draped in the usual sterile fashion.? Safety pause time-out and side of surgery confirmed.? Antibiotics confirmed. 2% lidocaine jelly 10 mL was passed transurethrally. A 22 Kiswahili cystoscope was inserted transurethrally, The bladder was visualized.? Both ureteric orifices were in normal position. An open-ended ureteral catheter was passed into the right ureteral orifice and a retrograde examination was performed. There were no filling defects visualized. A guidewire was passed through the ureteral catheter into the kidney. The balloon dilator size 15 fr was passed over the guide -wire the balloon was inflated to 8 mmHg and the intramural ureter was dilated for 40 seconds. The balloon dilator was deflated and removed. After removing the balloon dilator a 2nd guidewire was then passed into the kidney to use as a safety. The cystoscope was removed, leaving both guidewires in place. One guidewire was used as the safety and was attached to the draping. The flexible ureteroscope was passed over one of the guidewires to the right renal pelvis. One guidewire was removed. The calyces were evaluated. No freely floating calculi visualized. Few punctate calcifications were noted adherent to renal tissue. The ureteroscope was removed. The open ended ureteral catheter was passed over the safety guidewire, the guide wire was removed and the catheter remained to drain the renal pelvis. The bladder was emptied.? The patient tolerated the procedure well and was brought to the recovery room in stable condition. Complications: None Drains: none
[2024-01-20] MEDS: Phenazopyridine HCL 100 MG TABLET PO (14:28)
== END 2024-01-20 14:46 | disposition home or self-care (01) ==
PROVIDERS: Nurse Practitioner; PCP Pediatrics; Visit Provider Urology
PROC: (CPT 52351; principal; 2024-01-20 13:10)
DX: N20.0 Calculus of kidney (principal); Z87.442 Personal history of urinary calculi; J45.909 Unspecified asthma, uncomplicated; R55 Syncope and collapse; F41.8 Other specified anxiety disorders; E66.01 Morbid (severe) obesity due to excess calories; N18.9 Chronic kidney disease, unspecified; Z79.899 Other long term (current) drug therapy; Z88.1 Allergy status to other antibiotic agents; Z98.890 Other specified postprocedural states; F17.210 Nicotine dependence, cigarettes, uncomplicated
CPT/HCPCS: 52351; 81025; C1726; C1758; C1769; J0690; J1100; J2250; J2405; J2704; J3010; Q9967

== ENCOUNTER → 2024-01-20 10:46 | Outpatient (BNV) | payer MEDICAID, SELFPAY | PROVIDERS: PCP Pediatrics; Visit Provider Urology | DX: N20.0 Calculus of kidney (principal) | CPT/HCPCS: 52341; 74420 ==

== ENCOUNTER → 2024-01-29 15:17 | Outpatient (BNVA) | payer MEDICAID, SELFPAY | PROVIDERS: PCP Pediatrics; Visit Provider Urology ==

== ENCOUNTER 2024-04-13 09:28 | Outpatient (REF) | payer MEDICAID, SELFPAY ==
--- NOTE | ~2024-04-13 | US_ITS ---
EXAMINATION: US RETROPERITONEAL LIMITED (RENAL ONLY) CLINICAL INFORMATION: Calculus of kidney. COMPARISON: Renal ultrasound 11/18/2023 and 09/09/2023. X-ray abdomen KUB 11/12/2023. CT abdomen and pelvis 01/22/2022. TECHNIQUE: Real-time imaging of the kidneys. FINDINGS: RIGHT KIDNEY: 12.0 x 4.8 x 6.4 cm (SAG x AP x TRV). The kidney is normal in size, contour, and echogenicity. Renal cortical thickness is normal. No calculi or focal parenchymal lesions. The small stones seen on the right at the time of the prior ultrasound are not identified on this exam. No hydronephrosis. LEFT KIDNEY: 12.2 x 5.0 x 6.6 cm (SAG x AP x TRV). The kidney is normal in size, contour, and echogenicity. Renal cortical thickness is normal. No calculi or focal parenchymal lesions. No hydronephrosis. US/US renal BI IMPRESSION: Normal exam Electronically signed by: Tony Bowie MD 06/16/2024 11:32 PM DON[facility]
== END 2024-04-13 09:29 | disposition home or self-care (01) ==
LOC: HO.HMGCX 09:28
PROVIDERS: PCP Pediatrics; Visit Provider Urology
DX: N20.0 Calculus of kidney (principal)
CPT/HCPCS: 76775

== ENCOUNTER 2024-04-28 09:53 | Outpatient (AMB) | payer MEDICAID, SELFPAY ==
--- NOTE | 2024-04-28 09:56 | MHC.OFFVIS ---
Intake Visit Reasons: 3M US (set)no litholink Intake Note: Patient is Present for Telephone Follow Up Ultrasound Urology Med:Vitamin B6, Allopurinol Antibiotic Allergy: Amoxicillin Blood Thinner:None Senior Integration Architect Required: No Accompanied by: Self / Same As Patient Allergies cat dander [CATS] Allergy (Intermediate, Verified 04/28/24 09:57) RASH mold Allergy (Intermediate, Verified 04/28/24 09:57) RASH amoxicillin Adverse Reaction (Intermediate, Verified 04/28/24 09:57) yeast infection seasonal Allergy (Unknown, Uncoded 04/28/24 09:57) Unknown Medication List - Last Reconciled 04/28/24 by Herminio Yi MD albuterol sulfate 90 mcg/actuation 2 inhalations inhalation Q4-6H PRN allopurinol 100 mg PO DAILY 90 days aripiprazole 20 mg PO DAILY clonazepam 1 mg PO BID PRN ergocalciferol (vitamin D2) 1,250 mcg PO QWEEK pyridoxine (vitamin B6) 50 mg PO DAILY 90 days venlafaxine ER 150 mg PO DAILY venlafaxine ER 37.5 mg PO DAILY HPI Comments Details: Bita is a pleasant female. She is a patient of Dr. Sethi. She is seen for the following urologic conditions - nephrolithiasis Telemedicine Evaluation 15 min Consultation [employer] Juancarl[employer] Video attempted Recent ultrasound shows no stones Continue allopurinol with vitamin B6. Prescriptions provided. Has not been able to complete Litholink. Six-month follow-up with imaging Recurrent stone former Imaging 09/03 CT NAD, 07/03 renal ultrasound no evidence of stones, 07/04 renal ultrasound no evidence of stones - 07/05 renal ultrasound bilateral 6 mm stone - 05/06 renal ultrasound no stones Procedures - multiple prior ESWL - 01/04 right ESWL Associated symptoms - minimal No definitive family history Discussed dietary restrictions Encouraged fluid intake with lemon water PFSH Medical History Anxiety and depression Morbid obesity Vasovagal syncope Asthma Spinal stenosis Degenerative disc disease Chronic kidney disease Surgical History History of surgical removal of pilonidal cyst Hx of lithotripsy Hx of cystoscopy History of cholecystectomy H/O Spinal surgery Social History (Reviewed 04/28/24 @ 09:57 by TRUDI Franklin Alcohol intake: current Alcohol intake frequency: former alcohol drinker Alcohol type: beer Patient Tobacco Use Status: Current everyday Tobacco user Tobacco use type: Cigarette Cigarettes Per Day: 10 Review of Systems Const All systems reviewed & are unremarkable except as noted in HPI and below Reports no additional complaints Resp Reports no additional complaints GI Reports no additional complaints Reports as per HPI Musc Reports no additional complaints Physical Exam Telemedicine evaluation Appropriate responses Regular breathing rate and rhythm HEENT Head: Yes normal to inspection Ears: hearing grossly normal bilaterally Eyes General: appearance normal, both eyes and all related structures Neck Neck: Yes normal visual inspection Chest Chest palpation & inspection: normal inspection of the chest Resp Effort & Inspection: normal respiratory effort and able to speak in complete sentences Telehealth Telehealth Telehealth Platform: TLabs Location of provider rendering services: practice address Location of patient: address on file Patient Identification confirmed using: Name, : Yes Telehealth method: video Patient verbally consented to treatment: Yes Patient verbally consented to billing insurance company: Yes Patient informed of any privacy concerns related to visit: Yes Minutes spent on Phone/Video with Pt.: 15 Assessment & Plan Assessment & Plan (1) Bilateral nephrolithiasis: Code(s): N20.0 - Calculus of kidney Category: Medical Plan Six-month follow-up renal ultrasound Continue vitamin B6 and allopurinol Orders: Orders US renal BI 6 Months N20.0 - Calculus of kidney Medications: Refilled pyridoxine (vitamin B6) 50 mg PO DAILY 90 days 90 tabs 1RF N20.0 - Calculus of kidney allopurinol 100 mg PO DAILY 90 days 90 tabs 1RF N20.0 - Calculus of kidney Patient Instructions: Imaging studies, laboratory and physical exam results were discussed and reviewed in detail. No major barriers to patient understanding were identified. An opportunity to ask questions regarding the treatment plan was provided. All questions were answered. The patient expressed understanding and agreement with the above treatment plan. The patient is aware they should contact our office by phone for worsening of their current condition or the appearance of new urologic symptoms. Compliance is encouraged with any medications and followup testing that is ordered. It is a privilege to participate in the urologic care of your patient. If you have any questions or concerns regarding treatment for the above conditions, or other urologic issues, please do not hesitate to contact me. The office telephone contact is [phone]. This note is constructed using voice recognition software. While every effort has been made to ensure accuracy p 3 armament/ordnance ima technician errors may have been included. Yours sincerely, Dr Herminio Yi MD, MISAEL [facility] - Urology Providers of Expert, Compassionate Care for the Genitourinary System Coding Level of Care Code Tele Est Pt Level 3 (75167) Diagnoses Bilateral nephrolithiasis N20.0
== END 2024-04-28 14:04 | disposition home or self-care (01) ==
LOC: HO.HUSH 09:53
PROVIDERS: PCP Pediatrics; Visit Provider Urology
DX: N20.0 Calculus of kidney (principal)
CPT/HCPCS: 99213

== ENCOUNTER → 2024-04-28 09:53 | Outpatient (BNVA) | payer MEDICAID, SELFPAY | PROVIDERS: PCP Pediatrics; Visit Provider Urology ==

== ENCOUNTER 2024-10-27 10:22 | Outpatient (REF) | payer MEDICAID, SELFPAY ==
--- NOTE | ~2024-10-27 | US_ITS ---
CLINICAL HISTORY: N20.0 - Calculus of kidney US renal Comparison: 04/13/2024 Findings: Right kidney 11.9 cm length. 3 mm upper pole nonobstructing stone. 6 mm midpole nonobstructing stones. Left kidney 12.2 cm length. No significant focal abnormality. No bilateral hydronephrosis. Normal bilateral renal echogenicity. Impression: Nonobstructing right renal stones This document has been electronically signed by: Thad Galloway MD on 10/27/2024 22:01:49
--- OUTSIDE RECORDS SUMMARY | 2024-10-27 12:05 | XMS_ITS | Encounter Summary ---
Author Organization [employer] Address [address] [facility] [address] [place] [address] Care Team Providers Care Director Of Solutions Architecture Name Role Phone Raquel Sethi MD Primary Care Provider [phone] Sarkis Law Unavailable Unavailable Reason for Visit * Reason Onset Date Comments new script 05/07/2023 Encounter Details Date Type Department Care Team ([facility] Contact Info) Description 05/07/2023 Telephone [facility] MEDICINE [address] [place] [address] Raquel Sethi MD [address] [place], [place] [phone] new script Social History Tobacco Use Types Packs/Day Years Used Date Smoking Tobacco: Every Day Cigarettes 0.5 14 Smokeless Tobacco: Never Depression Answer Date Recorded Patient Health Questionnaire-9 Score 1 03/10/2023 Housing Stability Answer Date Recorded What is your housing situation today? I have mateo chavira 04/28/[address] you li ve. Do you have problems with any of the following? None of the above 04/28/2023 Food Insecurity Answer Date Recorded Within the past 12 months, y ou worried that your food would run out before you got money to buy more: Never True 04/28/2023 Within the past 12 months,th e food you bought just didn't last and you didn't have enough money to get more: Never True Transportation Answer Date Recorded In the past 12 months, has l ack of transportation kept you from medical appts, meetings, work or from getting things needed for daily living? Yes, it has kept me from medical appointments or getting medications. 04/23/2023 Utilities Answer Date Recorded In the past 12 months, has t he electric, gas, oil or water company threatened to shut off services in your home? No 04/28/2023 Depression Answer Date Recorded Patient Health Questionnaire-2 Score 0 03/10/2023 Comments No Sex and Gender Information Value Date Recorded Sex Assigned at Female 05/13/2022 10:18 AM EDT Legal Sex Female 10:18 AM EDT Gender Identity Female 05/13/2022 10:18 AM EDT Sexual Orientation Straight 05/13/2022 10 :18 AM EDT documented as of this encounter Miscellaneous Notes * Telephone Encounter - Mirza Dubois RN - 05/07/2023 11:19 AM EDT Please review message below and advise. Thank you. * Telephone Encounter - Tamara Malagon - 05/07/2023 11:13 AM EDT [facility] [place] [facility] requesting a new script for Ventolin inhaler. Also stated we sent today Pro air inhaler but that one is no longer available. PCP DR. Sethi documented in this encounter Plan of Treatment Not on file documented as of this encounter Visit Diagnoses Not on filedocumented in this encounter Additional Health Concerns Assessment Noted Time PHQ-9 Depression Total Score: 1 03/10/20 23 2:28 PM EDT documented as of this encounter Care Teams Director Of Solutions Architecture Relationship Specialty Start Date End Date Raquel Sethi MD [address] [place] [address] PCP - General Family Medicine 07/14/18 Sarkis Law FNP [address] [place] [address] Nurse Practitioner Family Medicine 06/17/23 documented as of this encounter
--- OUTSIDE RECORDS SUMMARY | 2024-10-27 12:05 | XMS_ITS | Encounter Summary ---
Author Organization [employer] Address [address] [facility] [facility] [address] [place] [address] Care Team Providers Care Butane Compressor Operator Name Role Phone Raquel Sethi MD Primary Care Provider [phone] Sarkis Law Unavailable Unavailable Encounter Details Date Type Department Care Team ([facility] Contact Info) Description 06/02/2023 Abstract [facility] MEDICINE [address] [place] [address] Beronica Mcginnis Social History Tobacco Use Types Packs/Day Years Used Date Smoking Tobacco: Every Day Cigarettes 0.5 14 Smokeless Tobacco: Never Depression Answer Date Recorded Patient Health Questionnaire-9 Score 1 05/12/2023 Patient Health Questionnaire-9 Score 1 05/12/2023 Last PHQ-9: Questionnaire Data Not on file 1 Housing Stability Answer Date Recorded What is [...] Date Recorded Patient Health Questionnaire-2 Score 0 05/12/2023 Comments No Sex and Gender Information Value Date Recorded Sex Assigned at Female 05/13/2022 10:18 AM EDT Legal Sex Female 10:18 AM EDT Gender Identity Female 05/13/2022 10:18 AM EDT Sexual Orientation Straight 05/13/2022 10 :18 AM EDT documented as of this encounter Plan of Treatment Not on file documented as of this encounter Procedures Procedure Name Priority Date/Time Associated Diagnosis Comments PAP/HPV Routine 10/29/2018 documented in this encounter Results * Pap Smear (10/29/2018) Pap Negative for intraephithelial lesion or malignancy Negative for intraephithelial lesion or malignancy, Other HPV Undetected Historical Provider HEALTH MAINTENANCE Final Result documented in this encounter Visit Diagnoses Not on filedocumented in this encounter Additional Health Concerns Assessment Noted Time PHQ-9 Depression Total Score: 1 05/12/20 23 9:20 AM EDT documented as of this encounter Care Teams Butane Compressor Operator Relationship Specialty Start Date End Date Raquel Sethi MD [address] [place] [address] PCP - General Family Medicine 07/14/18 Sarkis Law FNP [address] [place] [address] Nurse Practitioner Family Medicine 06/17/23 documented as of this encounter
--- OUTSIDE RECORDS SUMMARY | 2024-10-27 12:05 | XMS_ITS | Encounter Summary ---
Author Organization [employer] Address [address] [address], [place] [address] Care Team Providers Care Pump Tender Name Role Phone Raquel Sethi MD Primary Care Provider [phone] Sarkis Law Unavailable Unavailable Reason for Visit * Reason Onset Date Comments Medication Question 09/12/2022 Encounter Details Date Type Department Care Team ([facility] Contact Info) Description 09/12/[address] [facility] MEDICINE [address] [place] [address] Raquel Sethi MD [address] [place], [place] [phone] Medication Question Social History Tobacco Use Types Packs/Day Years Used Date Smoking Tobacco: Every Day Cigarettes 0.5 14 Smokeless Tobacco: Never PHQ-2 Answer Date Recorded Patient Health Questionnaire-2 Score 0 08/27/2022 Comments Unknown Sex and Gender Information Value Date Recorded Sex Assigned at Female 05/13/2022 10:18 AM EDT Legal Sex Female 10:18 AM EDT Gender Identity Female 05/13/2022 10:18 AM EDT Sexual Orientation Straight 05/13/2022 10 :18 AM EDT COVID-19 Exposure Response Date Recorded In the last 10 days, have yo u been in contact with someone who was confirmed or suspected to have Coronavirus/COVID-19? Yes 08/29/2022 9:33 AM EST documented as of this encounter Miscellaneous Notes * Telephone Encounter - Waylon Talbot - 09/12/2022 12:46 PM EST Tc from pt requesting a call back regarding medication clonazepam 1 mg states PCP declined medication. Please contact pt at [phone] documented in this encounter Plan of Treatment Not on file documented as of this encounter Visit Diagnoses Not on filedocumented in this encounter Additional Health Concerns Assessment Noted Time PHQ-9 Depression Total Score: 2 08/27/19 23 9:17 AM EST documented as of this encounter Care Teams Pump Tender Relationship Specialty Start Date End Date Raquel Sethi MD [address] [place] [address] PCP - General Family Medicine 07/14/18 Sarkis Law FNP [address] [place] [address] Nurse Practitioner Family Medicine 06/17/23 documented as of this encounter
--- OUTSIDE RECORDS SUMMARY | 2024-10-27 12:05 | XMS_ITS | Encounter Summary ---
Author Organization [employer] Address [address] [facility] [address] [place] [address] Care Team Providers Care Biological Engineer Name Role Phone Raquel Sethi MD Primary Care Provider Sarkis Law Unavailable Unavailable Reason for Visit * Reason Onset Date Comments Med Refill 11/17/2023 Encounter Details Date Type Department Care Team ([facility] st Contact Info) Description 11/17/2023 Refill [facility] MEDICINE [address] [place] [address] Raquel Sethi MD [address] [place], [place] [phone] Anxious depression Social History Tobacco Use Types Packs/Day Years Used Date Smoking Tobacco: Every Day Cigarettes 0.5 14 Smokeless Tobacco: Never Depression Answer Date Recorded Patient Health Questionnaire-9 Score 2 11/13/2023 Patient Health Questionnaire-9 Score 2 11/13/2023 Last PHQ-9: Questionnaire Data Not on file 0 11/13/2023 Housing Stability Answer Date Recorded What is [...] Date Recorded Patient Health Questionnaire-2 Score 0 11/13/2023 Comments No Sex and Gender Information Value Date Recorded Sex Assigned at Female 05/13/2022 10:18 AM EDT Legal Sex Female 10:18 AM EDT Gender Identity Female 05/13/2022 10:18 AM EDT Sexual Orientation Straight 05/13/2022 10 :18 AM EDT documented as of this encounter Miscellaneous Notes * Telephone Encounter - Michaela Wakefield - 11/17/2023 8:45 AM EDT TC from pt requesting medication refill. Pt stated [facility] is out of stock Medications needing refill : clonazePAM (KlonoPIN) 1 MG tablet To be sent to: [facility] - [place], [place] - [facility] [address] documented in this encounter Plan of Treatment Not on file documented as of this encounter Visit Diagnoses Diagnosis Anxious depression documented in this encounter Additional Health Concerns Assessment Noted Time PHQ-9 Depression Total Score: 2 11/13/19 24 2:13 PM EDT documented as of this encounter Care Teams Biological Engineer Relationship Specialty Start Date End Date Raquel Sethi MD [address] [place] [address] PCP - General Family Medicine 07/14/18 Sarkis Law FNP [address] [place] [address] Nurse Practitioner Family Medicine 06/17/23 documented as of this encounter
--- OUTSIDE RECORDS SUMMARY | 2024-10-27 12:05 | XMS_ITS | Clinical Summary ---
Author Organization [employer] Address [address] [place] [address] 7 [place] [address] Care Team Providers Care Flower Grader Name Role Phone Raquel Sethi MD Primary Care Provider [phone] Sarkis Law Unavailable Unavailable Allergies Active Allergy Reactions Criticality Noted Date Comments Amoxicillin High 07/30/2023 Other Reaction(s): yeast infection Side Effects Cat Dander Rash High 11/21/2011 Other reaction(s): Hives / Skin Rash Molds & Smuts Rash High 07/30/2023 Pollen Extract Unknown 06/12/2023 Medications fludrocortisone (Florinef) 0.1 MG tablet Take 1 tablet by mouth in the morning. 019 Active azelastine (Astelin) 0.1 % nasal spray Administer 1 spray into each nostril 2 times daily. Use in each nostril as directed 30 mL 12 023 Active Blood Pressure kitIndications: Elevated BP without diagnosis of hypertension 1 Units in the morning. 1 kit 023 Active albuterol 108 (90 Base) MCG/ACT inhaler Inhale 2 puffs every 6 (six) hours if needed for wheezing. 18 g 2 023 Active ARIPiprazole (Abilify) 20 MG tablet Take 1 tablet (20 mg) by mouth Once daily. 90 tablet 3 024 Active venlafaxine XR (Effexor XR) 37.5 MG 24 hr capsuleIndicati ons:Anxious depression Once daily for 10 days prior to menses. Along with Venlafaxine ER 150 mg once daily. Do not crush or chew. 60 capsule 3 024 Active venlafaxine XR (Effexor XR) 150 MG 24 hr capsuleIndicati ons:Anxious depression Take 1 capsule (150 mg) by mouth Once daily. Also take Venlafaxine 37.5 mg daily for 10 days prior to menses. Do not crush or chew. 90 capsule 3 024 Active triamcinolone (Kenalog) 0.5 % cream Apply topically 3 times daily. 30 g 5 024 Active Semaglutide-Matthew ght Management (Wegovy) 0.25 MG/0.5ML solution auto-injectorIn dications:Anxio us depression,BMI 45.0-49.9, adult (CMS/HCC),Lumba r disc herniation Inject 0.25 mg weekly subcutaneously 0.5 mL 1 Active cetirizine (ZyrTEC) 10 MG tablet Take 1 tablet (10 mg) by mouth Once per day. 30 tablet 11 025 2025 Active bacitracin-poly myxin b (Polysporin) ointment Apply topically 2 times daily. 30 g 025 Active clonazePAM (KlonoPIN) 1 MG tabletIndicatio ns:Anxious depression Take 1 tablet (1 mg) by mouth 2 times daily. 45 tablet 025 Active clonazePAM (KlonoPIN) 1 MG tabletIndicatio ns:Anxious depression Take 1 tablet (1 mg) by mouth 2 times daily. 45 tablet 025 2024 Discontinued(R eorder (will not trigger notification to Pharmacy)) Active Problems Problem Noted Date Diagnosed Date Elevated BP without diagnosis of hypertension Assessment & Plan (04/17/2023 1:59 PM EDT): -Patient presents visit with elevated blood pressure readings 154/102 mmHg., was advised to monitor blood pressure home and bring readings upon next visit. -Will send Bloop pressure kit -Recommended to follow up with PCP Blood pressure was retaken with readings of 154/98 mmHg. 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 Stable and doing well. Continue Venlafaxine ER 150 mg daily plus extra Venlafaxine 37.5 mg for 9-10 days prior to onset of menses through day 2 of menses Continue Abilify 20 mg daily. Continue Clonazepam 1 mg BID prn, monthly quantity #45 tabs. F/U with therapist as usual. Since this provider is retiring, patient will now be transferred back to her PCP for continued medication management. She should call the health center with any needs or concerns. All her questions were answered. I have wished her well. Pt agrees with the plan. Assessment & Plan (09/09/2023 9:55 AM EST): Also PMDD. Doing well. Continue Clonazepam 1 mg BID prn, monthly quantity #45 tabs. Continue Venlafaxine ER 150 mg daily plus extra Venlafaxine 37.5 mg for 9-10 days prior to onset of menses through day 2 of menses Continue Abilify 20 mg daily. F/U with therapist, and with me in 2 months. On 05/12/2023 provider informed pt that I would be retiring, but we will make every effort to ensure continuity of care. Pt agrees with the plan. Assessment & Plan (07/10/2023 9:55 AM EST): Also PMDD. More anxious recently. Will not increase Clonazepam, continue 1 mg BID prn, monthly quantity #45 tabs. Increase to Venlafaxine ER 150 mg daily plus extra Venlafaxine 37.5 mg for 9-10 days prior to onset of menses through day 2 of menses Continue Abilify 20 mg daily. Urged to call to F/U for counseling so as not to lose her place on the list. On 05/12/2023 provider informed pt that I would be retiring within the next year or so. At upcoming appt in 2 months will discuss plans for continuity of care. Pt agrees with the plan. Assessment & Plan (05/12/2023 10:04 AM EDT): Also PMDD. Still doing well. Continue Abilify 20 mg daily. If she finds the Abilify too sedating, can take it at bedtime. Continue Venlafaxine ER 75 mg daily, plus extra Venlafaxine 37.5 mg for 9-10 days prior to onset of menses through day 2 of menses. Continue Clonazepam 1 mg BID prn, monthly quantity #45 tabs. Urged to call to F/U for counseling so as not to lose her place on the list. Today 05/12/2023 provider informed pt that I would be retiring within the next year or so, but we would make every effort to assure smooth transition of care. F/U with me in 2 months. She agrees with the plan. Assessment & Plan (03/10/2023 2:55 PM EDT): Also PMDD. Doing well. Continue Abilify 20 mg daily. Continue Venlafaxine ER 75 mg daily, plus extra Venlafaxine 37.5 mg for 9-10 days prior to onset of menses through day 2 of menses. Continue Clonazepam 1 mg BID prn, monthly quantity #45 tabs. Will refer again for counseling. F/U with me in 2 months. She agrees with the plan. Assessment & Plan (01/07/2023 9:43 AM EDT): Also PMDD. Generally doing well. For sleep problem, consider sleep apnea especially in context of morbid obesity. Suggest discussing with her PCP whether sleep study is indicated. Continue Venlafaxine ER 75 mg daily, plus extra Venlafaxine 37.5 mg for 9-10 days prior to onset of menses through day 2 of menses, Abilify 20 mg daily. Continue Clonazepam 1 mg BID prn, monthly quantity #45 tabs. Has been referred for OP counseling. F/U with me in 2 months. She agrees with the plan. Assessment & Plan (11/12/2022 10:13 AM EDT): Also PMDD. Feeling more anxious and depressed r/t several health and family problems. Unable to increase Venlafaxine r/t daytime sedation. Continue Venlafaxine ER 75 mg daily, plus extra Venlafaxine 37.5 mg for 9-10 days prior to onset of menses through day 2 of menses. Will increase to Abilify 20 mg daily. Continue Clonazepam 1 mg BID prn, monthly quantity #45 tabs. Will refer for OP counseling. F/U with me in 6-8 weeks. She agrees with the plan. Assessment & Plan (08/27/2022 10:14 AM EST): Also PMDD. Feeling more anxious and tired lately s/p COVID. No change in medication, but do get enough rest and good nutrition. Continue Clonazepam 1 mg BID prn, monthly quantity #45 tabs. Continue Venlafaxine ER 75 mg daily, plus extra Venlafaxine 37.5 mg for 9-10 days prior to onset of menses through day 2 of menses. Continue Abilify 15 mg daily. F/U with me in 2 months. She agrees with the plan. Superficial folliculitis due to bacteria 018 Chronic anxiety 11/14/2015 Renal calculus 11/14/2015 Lumbar disc herniation 02/09/2013 Acne 10/22/2012 Tobacco use disorder, continuous 09/18/2012 Cough 08/27/2012 Assessment & Plan (04/17/2023 1:59 PM EDT): -Patient with concerns of sputum cough will be prescribed steroids. -Will have refill on inhaler. Vasovagal syncope 12/25/2011 Obesity 12/25/2011 Assessment & Plan (04/17/2023 1:59 PM EDT): Discussed calorie deficit, recommended reduction of 20-30% of maintenance calories; golf club weigher referral offered. Recommended to decrease soda and sugary beverage consumption. Recommended at least 20 g per meal of protein to assist with satiety. Recommended at least 150 min/week of moderate intensity exercise. Anxiety 12/25/2011 Encounters Date Type Department Care Team Description 09/30/2024 Refill [facility] MED & PEDS [address] [place] [address] Raquel Sethi MD Anxious depression 09/24/2024 Population Health Risk Score [facility] ([facility] Department [address] [phone] Provider, Population Health Generic 09/15/2024 9:00 AM EST Telemedicine [facility] MED & PEDS [address] [place] [address] Raquel Sethi MD Abscess of axilla, right (Primary Dx); Renal calculus; Anxious depression 09/15/2024 Travel 09/09/2024 11:15 AM EST Office Visit [facility] MED [facility] PEDS [address] [place] [address] Raquel Sethi MD Abscess of axilla, right (Primary Dx) 09/09/2024 Travel 09/08/2024 Travel 09/08/2024 Telephone [facility] MEDICINE [address] [place], [place] [phone] Raquel Sethi MD Nurse Triage 09/08/2024 Refill [facility] MED & PEDS [address] [place] [address] Raquel Sethi MD Anxious depression 08/16/2024 Refill [facility] MED & PEDS [address] [place] [address] Dipika Markham MD Anxious depression 08/16/2024 Refill [facility] MED & PEDS [address] [place] [address] Dipika Markham MD Anxious depression 08/16/2024 Refill [facility] MED & PEDS [address] [place] [address] Raquel Sethi MD from Last 3 Months Immunizations Name Administration Dates Next Due DTaP, 5 pertussis antigens 02/25/1994,,1989,07/28,1989 HPV, Quadrivalent 05/27/2007,02/03/2007,11/25/19 07 Hep B, Adolescent or Pediatric 04/04/2000,1999,11/16/1999 Influenza injectable quadriv alent IIV4 with preservative 05/21/2019,04/01/2018,03/27/2015 Influenza injectable quadriv alent preservative free 05/16/2017,07/09/2016 Influenza, IIV3, injectable 04/20/2014 Influenza, Split (incl. jorge luis [place] antigen) 04/26/2013,04/17/2012 Influenza, seasonal, injecta ble, preservative free 04/22/2024 MMR 02/06/1997,07/28/1990 Meningococcal MCV4O 10/08/2007 OPV, Trivalent 02/25/1994, 1,1989,05/28 Pneumococcal Polysaccharide PPSV23 05/16/2017 TD (adult), 2 Lf tetanus tox oid, preservative free, adsorbed 01/12/2019,11/17/2000 Tdap 04/25/2017,10/08/2007 Varicella 10/08/2007,02/06/1997 Social History Tobacco Use Types Packs/Day Years Used Date Smoking Tobacco: Every Day Cigarettes 0.5 14 Smokeless Tobacco: Never Tobacco Cessation:Ready to Q uit: Not Asked; Counseling Given: Yes Depression Answer Date Recorded Patient Health Questionnaire-9 [...] Orientation Straight 05/13/2022 10 :18 AM EDT Last Filed Vital Signs Vital Sign Reading Time Taken Comments Blood Pressure 119/85 09/09/2024 10:56 AM EST Pulse 117 09/09/2024 10:56 AM EST Temperature 37.2 ??C (98.9 ??F) 09/09/2024 10:[address] Respiratory Rate 20 09/09/2024 10:56 AM EST Oxygen Saturation 97% 09/09/2024 10:56 AM EST Inhaled Oxygen Concentration - - Weight 135 kg (298 lb) 09/09/2024 10:56 AM EST Height 170.8 cm (5' 7.25 ) 09/09/2024 10:[address] Body Mass Index 46.33 09/09/2024 10:56 AM EST Plan of Treatment Health Maintenance Due Date Last Done Comments HIV Screening 1989 Alcohol/Substance Use Screening 2001 Family Planning (PISQ) 2004 Pneumococcal Vaccine: Pediatrics (0 to 5 Years) and At-Risk Patients (6 to 49) Years) (2 of 2 - PCV) 05/16/2018 05/16/2017 Cervical Cancer Screening 10/30/2023 HPV/Cotest 10/30/2023 10/29/2018, 10/29/2018 Pap Smear 10/30/2023 10/29/2018 SDOH Screening 11/21/2023 11/20/2022 COVID-19 Vaccine ( season) 2024 01/08/2021, 12/13/2020 Depression Screening 11/12/2024 11/13/2023, 11/13/19 24 Mammogram 11/23/2024 11/24/2023, 11/11, 06/11/2023, Additional history exists Tobacco Screening 04/22/2025 04/22/2024 Lipid Panel 05/07/2028 05/07/2023, 11/13/2020 DTaP/Tdap/Td Vaccines (9 - Td or Tdap) 01/12/2029 01/12/2019, 04/25/2017, 10/08/2007, Additional history exists Zoster Vaccines (1 of 2) 2039 RSV Patients and Patients Aged 60 years or older (1 - 1-dose 75+ series) 2064 IPV Vaccines Completed 02/25/1994, 10/12, 1989, Additional history exists Hepatitis B Vaccines Completed 04/04/2000, 12/24/1999, 11/16/1999 HPV Vaccines Completed 05/27/2007, 01/12, 11/24/2006 Meningococcal Vaccine Completed 10/08/2007 Hepatitis C Screening Completed 05/07/2023 Influenza Vaccine Completed 04/22/2024, , 04/01/2018, Additional history exists HIB Vaccines Aged Out No longer eligi ble based on patient's age to complete this topic Hepatitis A Vaccines Aged Out No long er eligible based on patient's age to complete this topic RSV under 20 months Aged Out No longe r eligible based on patient's age to complete this topic Rotavirus Vaccines Aged Out No longer eligible based on patient's age to complete this topic Procedures Procedure Name Priority Date/Time Associated Diagnosis Comments BI MAMMOGRAM DIAGNOSTIC TOMOSYNTHESIS BILATERAL Routine 11/24/2023 11:35 AM EDT HEPATITIS C AB W/REFL TO HCV RNA, QN, PCR Routine 05/07/2023 10:35 AM EDT Routine medical exam LIPID PANEL, STANDARD Routine 05/07/2023 10:35 AM EDT Routine medical exam ZZZ HISTORICAL HPV MRNA E6/E7 Routine 10/29/2018 3:26 PM EDT HM PAP/HPV Routine 10/29/2018 from Last 3 Months or Most Recently Relevant to Health Maintenance Results * BI Mammogram Diagnostic Tomosynthesis Bilateral (11/24/2023 11:35 AM EDT) Anatomical Region Laterality Modality Breast Bilateral Mammography 11/24/2023 11:3 5 AM EDT Narrative 12/01/2023 7:35 AM EDT ? [facility] ? [address] ?[place] [address] ? Mammography Report ? Signed ? Patient: Justice,Bita A ?MR#: [id number] ?? [id number] ? : 1990 ?Acct:[id number] ? Age/Sex: 33 / F ?ADM Date: 11/24/23 ? Loc: HO.MAMMO ? Attending Dr: Raquel Sethi MD ? Ordering Physician: Raquel Sethi MD ?Results: 1Ne ?? gative ? Date of Service: 11/24/23 ?Follow Up: 1 Year From Orig ?? inal Mammogram ? Procedure(s): MM tomosynthesis diagnostic BI ?? Accession Number(s): [id number] ? cc: Raquel Sethi MD ? EXAMINATION: ?? MM DIAGNOSTIC DIGITAL BREAST TOMOSYNTHESIS, BILATERAL ?? US BREAST LIMITED, LEFT ? MAMMOGRAPHY: ?? CLINICAL INFORMATION: ? Recommended short interval follow-up of 2 small focal asymmetries in ?? the medial aspect of the left breast is noted on prior mammograms. ? COMPARISON: ?? Mammography: This study is compared with prior mammograms dating back ?? to 2018. ? TECHNIQUE: ?? Digital breast tomosynthesis is performed in both the craniocaudal and ?? mediolateral oblique views along with computer-aided detection (CAD). ?? Synthesized 2D images are generated from the tomosynthesis. ? FINDINGS: ?? There are scattered areas of fibroglandular density (ACR BI-RADS breast ?? composition Category b). ? There are no significant masses, abnormal calcifications, or other ?? abnormalities. ?? There has been no significant interval change in the benign-appearing ?? structures of the medial aspect of the left breast. ? ULTRASOUND: ?? CLINICAL INFORMATION: ?? Recommended short interval follow-up of 2 small focal asymmetries in ?? the medial aspect of the left breast is noted on prior mammograms. ? COMPARISON: ?? This study is compared with prior sonography from May 2023. ? TECHNIQUE: ?? Targeted sonographic evaluation was performed using a high frequency ?? linear transducer. ??Selected archived documentation. ? FINDINGS: ? LEFT BREAST: Sonography of the superior aspect of the right breast is ?? normal. ?? In the 8:00 region of the left breast, there is normal elais tissue ?? spanning 1 cm in greatest dimension. There are no suspicious findings. ? MM/MM tomosynthesis diagnostic BI ?? IMPRESSION: ?? No mammographic signs of malignancy. ? OVERALL ASSESSMENT: ?? Mammography: BI-RADS 1 - Negative ?? Ultrasound: BI-RADS 1 - Negative ? RECOMMENDATION: ?? 1 year F/U ? Results were provided to the patient at time of visit by the ?? technologist. ? This patient's information was entered into a reminder system with a ?? target due date for their next mammogram. ? Dictated By: ?Anabel Vences MD ? Signed By: ?<Electronically signed by Anabel Vences MD in OV> ? 12/01/23 0731 ? DD/ 1135 ? TD/TT: ? Child Care Leader: ? Procedure Note [place] - 12/01/2023 [facility] [address] [place] [address] Mammography Report Signed Patient: Bita Irizarry [facility]#: [id number] : 1990Acct:[id number] Age/Sex: 33 / FADM Date: 11/24/23 Loc: HO.MAMMO Attending Dr: Raquel Sethi MD Ordering Physician: Raquel Sethi MDResults: 1Ne gatjacek Date of Service: 11/24/23Follow Up: 1 Year From [facility] ina Mammogram Procedure(s): MM tomosynthesis diagnostic BI Accession Number(s): [id number] cc: Raquel Sethi MD EXAMINATION: MM DIAGNOSTIC DIGITAL BREAST TOMOSYNTHESIS, BILATERAL US BREAST LIMITED, LEFT MAMMOGRAPHY: CLINICAL INFORMATION: Recommended short interval follow-up of 2 small focal asymmetries in the medial aspect of the left breast is noted on prior mammograms. COMPARISON: Mammography: This study is compared with prior mammograms dating back to 2018. TECHNIQUE: Digital breast tomosynthesis is performed in both the craniocaudal and mediolateral oblique views along with computer-aided detection (CAD). Synthesized 2D images are generated from the tomosynthesis. FINDINGS: There are scattered areas of fibroglandular density (ACR BI-RADS breast composition Category b). There are no significant masses, abnormal calcifications, or other abnormalities. There has been no significant interval change in the benign-appearing structures of the medial aspect of the left breast. ULTRASOUND: CLINICAL INFORMATION: Recommended short interval follow-up of 2 small focal asymmetries in the medial aspect of the left breast is noted on prior mammograms. COMPARISON: This study is compared with prior sonography from May 2023. TECHNIQUE: Targeted sonographic evaluation was performed using a high frequency linear transducer. Selected archived documentation. FINDINGS: LEFT BREAST: Sonography of the superior aspect of the right breast is normal. In the 8:00 region of the left breast, there is normal elias tissue spanning 1 cm in greatest dimension. There are no suspicious findings. MM/MM tomosynthesis diagnostic BI IMPRESSION: No mammographic signs of malignancy. OVERALL ASSESSMENT: Mammography: BI-RADS 1 - Negative Ultrasound: BI-RADS 1 - Negative RECOMMENDATION: 1 year F/U Results were provided to the patient at time of visit by the technologist. This patient's information was entered into a reminder system with a target due date for their next mammogram. Dictated By: Anabel Vences MD Signed By: <Electronically signed by Anabel Vences MD in OV> 12/01/23 0731 DD/ 1135 TD/TT: Child Care Leader: Raquel Sethi MD IMG BI PROCEDURES Edited Resu lt - Final * Hepatitis C Antibody with Reflex to HCV, RNA, Quantitative, Real-Time PCR (05/07/2023 10:35 AM EDT) Hepatitis C Antibody Nonreactive Nonreactive [facility] Comment:Antibodies to HCV no t detected; does not exclude early acuteHCV infection. Blood Venous blood specimen / Unknown 05/07/2023 10:35 AM EDT 05/07/2023 2:55 PM EDT us Raquel Sethi MD LAB BLOOD ORDERABLES Final Re sult [facility] [address] [place] [phone] * (ABNORMAL) Lipid Panel, Standard (05/07/2023 10:35 AM EDT) Triglycerides 171(H) <150 mg/dL [facility] Comment:Desirable Triglyceri de: less than 150 mg/dLBorderline High Triglyceride 150-199 mg/dLHigh Triglyceride: 200-499 mg/dLVery High Triglyceride: greater than or equal to 5OO mg/dL Cholesterol 205(H) <200 mg/dL [facility] Comment:Desirable Cholestero l: less than 200 mg/dLBorderline High Cholesterol: 200-239 mg/dLHigh Cholesterol: greater than 239 mg/dL LDL Cholesterol Calculated 136(H) <100 mg/dL [facility] Comment:Desirable LDL: less than 100 mg/dLNear Optimal/Above Optimal LDL: 110- 129 mg/dLBorderline High LDL: 130-159 mg/dLHigh LDL: 160-189 mg/dLVery High LDL: greater than or equal to 190 mg/dL HDL Cholesterol 35(L) >40 mg/dL [facility] Comment:Desirable HDL: great er than 40 mg/dL Note: This HDL assay may give artificially low results in patients with liver disease. Blood Venous blood specimen / Unknown 05/07/2023 10:35 AM EDT 05/07/2023 2:55 PM EDT us Raquel Sethi MD LAB BLOOD ORDERABLES Final Re sult Performing Organization Address City/[facility]/ZIP Co de Phone Number [facility] [address] [place] [phone] * HPV mRNA E6/E7 (10/29/2018 3:26 PM EDT) HPV mRNA E6/E7 Not Detected NOT DETECTED [facility] Comment: This test was performed using the APTIMA(R) HPV Assay ([employer] This assay detects E6/E7 viral messenger RNA (mRNA) from 14 high-risk HPV types (16,18,31,33,35,39,45,51, 52,56,58,59,66,68). For additional information please refer to: http://education.[employer]/faq/RVZ279i2 (This link is being provided for informational/ educational purposes only.) The analytical performance characteristics of this assay have been determined by [employer] [place], [place]. The modifications have not been cleared or approved by the FDA. This assay has been validated pursuant to the CLIA regulations and is used for clinical purposes. Test Performed by [facility], [facility], [address] [place] [address] Heath Kemp M.D., Ph.D., Director of Laboratories , CLIA [id number] Please note: ??Effective 03/25/2016, HPV testing will be performed using [employer]'s APTIMA test which targets mRNA. Detecting mRNA instead of DNA, as in older methods, offers significant improvements in specificity. 10/29/2018 3:26 PM EDT us Raquel Sethi MD HISTORICAL/NON ORDERABLE LABS Final Result Performing Organization Address City/State/[facility] Co de Phone Number [facility] [address] [place] [phone] * Pap Smear (10/29/2018) Pap Negative for intraephithelial lesion or malignancy Negative for intraephithelial lesion or malignancy, Other HPV Undetected Historical Provider HEALTH MAINTENANCE Final Result from Last 3 Months or Most Recently Relevant to Health Maintenance Insurance * Guarantor: Bita Irizarry Account Type Relation to Patient Date of Phone Billing Address Personal/Family Self [phone] Care Teams Flower Grader Relationship Specialty Start Date End Date Raquel Sethi MD [address] [place] [address] PCP - General Family Medicine 07/14/18 Sarkis Law FNP [address] [place] [address] Nurse Practitioner Family Medicine 06/17/23
--- OUTSIDE RECORDS SUMMARY | 2024-10-27 12:05 | XMS_ITS | Encounter Summary ---
Author Organization [employer] Address [address] [facility] [address] [place] [address] Care Team Providers Care Building Services Engineer Name Role Phone Raquel Sethi MD Primary Care Provider Sarkis Law Unavailable Unavailable Reason for Visit * Reason Onset Date Comments Med Refill 12/03/2023 Encounter Details Date Type Department Care Team ([facility] Contact Info) Description 12/03/2023 Refill [facility] MED & PEDS [address] [place] [address] Raquel Sethi MD [address] [place], [place] [phone] Social History Tobacco Use Types Packs/Day Years [...] documented as of this encounter Care Teams Building Services Engineer Relationship Specialty Start Date End Date Raquel Sethi MD [address] [place] [address] PCP - General Family Medicine 07/14/18 Sarkis Law FNP [address] [place] [address] Nurse Practitioner Family Medicine 06/17/23 documented as of this encounter
--- OUTSIDE RECORDS SUMMARY | 2024-10-27 12:05 | XMS_ITS | Encounter Summary ---
Author Organization [employer] Address 75 [facility] 7 [place] [address] Care Team Providers Care Inventory Controller Name Role Phone Raquel Sethi MD Primary Care Provider [phone] Sarkis Law Unavailable Unavailable Reason for Visit * Reason Onset Date Comments Med Refill 06/20/2024 Encounter Details Date Type Department Care Team ([facility] Contact Info) Description 06/20/2024 Refill [facility] MED & PEDS [address] [place] [address] Raquel Sethi MD [address] [place] [address] Anxious depression Social History Tobacco Use Types [...] documented as of this encounter Care Teams Inventory Controller Relationship Specialty Start Date End Date Raquel Sethi MD [address] [place] [address] PCP - General Family Medicine 07/14/18 Sarkis Law FNP [address] [place] [address] Nurse Practitioner Family Medicine 06/17/23 documented as of this encounter
--- OUTSIDE RECORDS SUMMARY | 2024-10-27 12:05 | XMS_ITS | Encounter Summary ---
Author Organization [employer] Address 75 [facility] 7 [place] [address] Care Team Providers Care Instructional Support Services Director Name Role Phone Raquel Sethi MD Primary Care Provider [phone] Sarkis Law Unavailable Unavailable Reason for Visit * Reason Onset Date Comments Nurse Triage 09/08/2024 Encounter Details Date Type Department Care Team ([facility] Contact Info) Description 09/08/2024 Telephone [facility] MEDICINE [address] [place] [address] Raquel Sethi MD [address] [place], [place] [phone] Nurse Triage Social History Tobacco Use Types Packs/Day Years [...] encounter Miscellaneous Notes * Telephone Encounter - Lucy Santos RN - 09/08/2024 10:18 AM EST Triage call Pt reports a half dollar sized boil under right arm pit. Pt reports it is painful andreddened. Pt is taking tylenol for discomfort and applying warm compresses often. Pt is given home care advice for care of the area. Pt is offered to come today to be seen by provider but, requests apt tomorrow instead. ASK apt with Dr. sethi 09/09/24 @ 1115AM. Pt agrees with this disposition and home care advised. Insurance is verified as active prior to booking Protocol Used: Boil (Skin Abscess) (Adult) Protocol-Based Disposition: See in Office or Video Visit Today or Tomorrow Video visit not offered Positive Triage Question: * Patient wants to be seen * All higher-acuity triage questions were negative Care Advice Discussed: * Reassurance and Education - Boil * Treatment for a Boil - General Care Advice * Treatment for a Boil - Moist Heat * Treatment for a Boil - Antibiotic Ointment * Draining Pus Is Contagious * Preventing Spread to Yourself and Others * Pain Medicines * Reasons To Call Back - Severe pain or fever occurs - Widespread rash occurs - You become worse * Telephone Encounter - Mann Larios - 09/08/2024 8:54 AM EST Symptom: Blisters Outcome: Schedule an appointment to be seen within 24 hours Reason: Caller denied all higher acuity questions The caller accepted this outcome. documented in this encounter Plan of Treatment Not on file documented as of this encounter Visit Diagnoses Not on filedocumented in this encounter Additional Health Concerns Assessment Noted Time PHQ-9 Depression Total Score: 2 11/13/19 24 2:13 PM EDT documented as of this encounter Care Teams Instructional Support Services Director Relationship Specialty Start Date End Date Raquel Sethi MD [address] [place] [address] PCP - General Family Medicine 07/14/18 Sarkis Law FNP [address] [place] [address] Nurse Practitioner Family Medicine 06/17/23 documented as of this encounter
== END 2024-10-27 10:23 | disposition home or self-care (01) ==
LOC: HO.HMGCX 10:22
PROVIDERS: PCP Pediatrics; Visit Provider Urology
DX: N20.0 Calculus of kidney (principal)
CPT/HCPCS: 76775

== ENCOUNTER → 2024-10-27 10:37 | Outpatient (BNV) | payer MEDICAID, SELFPAY | PROVIDERS: PCP Pediatrics; Visit Provider Radiology Diagnostic Radiology | DX: N20.0 Calculus of kidney (principal) | CPT/HCPCS: 76775 ==

== ENCOUNTER 2024-11-16 13:23 | Outpatient (AMB) | payer MEDICAID, SELFPAY ==
--- NOTE | 2024-11-16 13:24 | A.OFFVIS_ITS ---
Intake Visit Reasons: Followup/US Intake Note: Patient is present for US F/U Urology Medication:ONDANSETRON,ALLOPURINOL,VITAMIN B6 Antibiotic Allergy:AMOXICILLIN Blood Thinner:NONE Warehouse Administrator Required: No Allergies cat dander [CATS] Allergy (Intermediate, Verified 11/16/24 13:25) RASH mold Allergy (Intermediate, Verified 11/16/24 13:25) RASH amoxicillin Adverse Reaction (Intermediate, Verified 11/16/24 13:25) yeast infection seasonal Allergy (Unknown, Uncoded 11/16/24 13:25) Unknown HPI Comments Details: Bita is a pleasant female. She is a patient of Dr. Sethi. She is seen for the following urologic conditions - nephrolithiasis Telemedicine Evaluation 15 min Consultation [employer] Video attempted Recent ultrasound shows small stones right side Does have symptoms Organize ureteroscopy Continue allopurinol with vitamin B6. Prescriptions provided. Recurrent stone former Imaging 09/03 CT NAD, 07/03 renal ultrasound no evidence of stones, 07/04 renal ultrasound no evidence of stones - 07/05 renal ultrasound bilateral 6 mm stone - 05/06 renal ultrasound no stones - 11/05 renal ultrasound question 3 mm stone right side Procedures - multiple prior ESWL - 01/04 right ESWL Associated symptoms - minimal No definitive family history Discussed dietary restrictions Encouraged fluid intake with lemon water PFSH Medical History Anxiety and depression Morbid obesity Vasovagal syncope Asthma Spinal stenosis Degenerative disc disease Chronic kidney disease Surgical History History of surgical removal of pilonidal cyst Hx of lithotripsy Hx of cystoscopy History of cholecystectomy H/O Spinal surgery Social History Alcohol intake: current Alcohol intake frequency: former alcohol drinker Alcohol type: beer Patient Tobacco Use Status: Current everyday Tobacco user Tobacco use type: Cigarette Cigarettes Per Day: 10 Assessment & Plan Assessment & Plan (1) Bilateral nephrolithiasis: Code(s): N20.0 - Calculus of kidney Category: Medical Plan Risks, benefits and alternatives to therapy were discussed. These include but are not limited to infection, bleeding, damage to local organs and tissues, need for further interventions. Anesthetic risks regarding cardiac arrhythmia, blood clots, and potential mortality were discussed. The patient understands the typical recovery time and the outpatient nature of the procedure. After consideration of these risks the patient gives full informed consent and they wish to move ahead with the procedure. Cystoscopy, right retrograde, right ureteroscopy with laser lithotripsy stent placement Medications: Refilled allopurinol 100 mg PO DAILY 90 tabs 1RF 90 days N20.0 - Calculus of kidney pyridoxine (vitamin B6) 50 mg PO DAILY 90 tabs 1RF 90 days N20.0 - Calculus of kidney Patient Instructions: This note is constructed using voice recognition software. While every effort has been made to ensure accuracy systems accountant errors may have been included. Imaging studies, laboratory and physical exam results were discussed and reviewed in detail. No major barriers to patient understanding were identified. An opportunity to ask questions regarding the treatment plan was provided. All questions were answered. The patient expressed understanding and agreement with the above treatment plan. The patient is aware they should contact our office by phone for worsening of their current condition or the appearance of new urologic symptoms. Compliance is encouraged with any medications and followup testing that is ordered. It is a privilege to participate in the urologic care of your patient. If you have any questions or concerns regarding treatment for the above conditions, or other urologic issues, please do not hesitate to contact me. The office telephone contact is [phone]. Sincerely, Dr Herminio iY MD, MISA[facility] - Urology Compassionate Specialist Care for the Genitourinary System Coding Level of Care Code Tele Est Pt Level 4 (92260) Diagnoses Bilateral nephrolithiasis N20.0
--- OUTSIDE RECORDS SUMMARY | 2024-11-16 14:38 | XMS_ITS | Encounter Summary ---
Author Organization [employer] Address 75 [facility] 7t [place] [address] Care Team Providers Care Watch Caser Name Role Phone Raquel Sethi MD Primary Care Provider [phone] Sarkis Law Unavailable Unavailable Encounter Details Date Type Department Care Team ([facility] Contact Info) Description 06/02/2023 Abstract [facility] MEDICINE [address] [place] [address] Beronica Mcginnis Social History Tobacco Use Types Packs/Day Years Used Date Smoking Tobacco: Every Day Cigarettes 0.5 14 Smokeless Tobacco: Never Depression Answer Date Recorded Patient Health Questionnaire-9 Score 1 05/12/2023 Patient Health Questionnaire-9 Score 1 05/12/2023 Last PHQ-9: Questionnaire Data Not on file 1 Housing Stability Answer Date Recorded What is your housing situation today? I have mateoshahrzad chavira 04/28/[address] you [...] intraephithelial lesion or malignancy, Other HPV Undetected us Historical Provider HEALTH MAINTENANCE Final Result documented in this encounter Visit Diagnoses Not on filedocumented in this encounter Additional Health Concerns Assessment Noted Time PHQ-9 Depression Total Score: 1 05/12/20 23 9:20 AM EDT documented as of this encounter Care Teams Watch Caser Relationship Specialty Start Date End Date Raquel Sethi MD [address] [place] [address] PCP - General Family Medicine 07/14/18 Sarkis Law FNP [address] [place] [address] Nurse Practitioner Family Medicine 06/17/23 documented as of this encounter
--- OUTSIDE RECORDS SUMMARY | 2024-11-16 14:38 | XMS_ITS | Encounter Summary ---
Author Organization [employer] Address 75 [facility] 7 [place] [address] Care Team Providers Care Java Software Engineer Name Role Phone Raquel Sethi MD Primary Care Provider [phone] Sarkis Law Unavailable Unavailable Reason for Visit * Reason Onset Date Comments Med Refill 11/17/2023 Encounter Details Date Type Department Care Team ([facility] st Contact Info) Description 11/17/2023 Refill [facility] MEDICINE [address] [place] [address] Raquel Sethi MD [address] [place] [address] Anxious depression Social History Tobacco Use Types [...] 1 MG tablet To be sent to: [facility] - [place], [place] - [address] [place] [address] documented in this encounter Plan of Treatment Not on file documented as of this encounter Visit Diagnoses Diagnosis Anxious depression documented in this encounter Additional Health Concerns Assessment Noted Time PHQ-9 Depression Total Score: 2 11/13/19 24 2:13 PM EDT documented as of this encounter Care Teams Java Software Engineer Relationship Specialty Start Date End Date Raquel Sethi MD [address] [place] [address] PCP - General Family Medicine 07/14/18 Sarkis Law FNP [address] [place] [address] Nurse Practitioner Family Medicine 06/17/23 documented as of this encounter
--- OUTSIDE RECORDS SUMMARY | 2024-11-16 14:38 | XMS_ITS | Encounter Summary ---
Author Organization [employer] Address 75 [facility] 7 [place] [address] Care Team Providers Care Stator Winder Name Role Phone Raquel Sethi MD Primary Care Provider [phone] Sarkis Law Unavailable Unavailable Encounter Details Date Type Department Care Team ([facility] Contact Info) Description 11/10/2024 Orders Only [facility] MED & PEDS [address] [place], [place] [phone] Dipika Markham MD [address] [place] [address] Social History Tobacco Use Types Packs/Day Years [...] documented as of this encounter Care Teams Stator Winder Relationship Specialty Start Date End Date Raquel Sethi MD [address] [place] [address] PCP - General Family Medicine 07/14/18 Sarkis Law FNP [address] [place] [address] Nurse Practitioner Family Medicine 06/17/23 documented as of this encounter
--- OUTSIDE RECORDS SUMMARY | 2024-11-16 14:38 | XMS_ITS | Clinical Summary ---
Author Organization [employer] Address [address] [place] [address] 7t [place] [address] Care Team Providers Care Residence Leasing Agent Name Role Phone Raquel Sethi MD Primary Care Provider [phone] Sarkis Law Unavailable Unavailable Allergies Active Allergy [...] 2 times daily. 45 tablet 025 Active ondansetron (Zofran) 4 MG tabletIndicatio ns:Nausea and Vomiting Take 1 tablet (4 mg) by mouth every 12 (twelve) hours if needed for nausea or vomiting. 20 tablet 025 Active clonazePAM (KlonoPIN) 1 MG tabletIndicatio ns:Anxious depression Take 1 tablet (1 mg) by mouth 2 times daily. 45 tablet 025 2024 Discontinued(R eorder (will not trigger notification to Pharmacy)) ondansetron (Zofran) 1 MG split tablet Take 4 mg by mouth 1 (one) time. 2024 Discontinued(T herapy completed) ondansetron (Zofran) 4 MG tabletIndicatio ns:Nausea and Vomiting Take 4 mg by mouth every 12 (twelve) hours if needed for nausea or vomiting. 2024 Discontinued(R eorder (will not trigger notification [...] recommended reduction of 20-30% of maintenance calories; test inspection engineer referral offered. Recommended to decrease soda and sugary beverage consumption. Recommended at least 20 g per meal of protein to assist with satiety. Recommended at least 150 min/week of moderate intensity exercise. Anxiety 12/25/2011 Encounters Date Type Department Care Team Description 11/10/2024 Orders Only [facility] MED & PEDS [address] [place] [address] Dipika Markham MD 10/29/2024 Refill [facility] [address] [place] [address] Raquel Sethi MD Anxious depression 10/28/2024 Refill [facility] [address] [place] [address] Raquel Sethi MD Anxious depression 10/27/2024 Orders Only [facility] External Provider, [facility] 09/30/2024 Refill [facility] CHC MED & PEDS [address] [place] [address] Raquel Sethi MD Anxious depression 09/24/2024 Population Health Risk Score [facility] (C[facility]) Department [address] [id number] Provider, Population Health Generic 09/15/2024 9:00 AM EST Telemedicine [facility] [address] [place] [address] Raquel Sethi MD Abscess of axilla, right (Primary Dx); Renal calculus; Anxious depression 09/15/2024 Travel 09/09/2024 11:15 AM EST Office Visit [facility] [address] [place] [address] Raquel Sethi MD Abscess of axilla, right (Primary Dx) 09/09/2024 Travel 09/08/2024 Travel 09/08/2024 Telephone [facility] MEDICINE [address] [place] [address] Raquel Sethi MD Nurse Triage 09/08/2024 Refill [facility] [address] [place] [address] Raquel Sethi MD Anxious depression from Last 3 Months Immunizations Name Administration [...] the past 12 months, has t he [employer], gas, oil or water company threatened to [...] Procedure Name Priority Date/Time Associated Diagnosis Comments US RENAL BI Routine 10/27/2024 10:01 PM EDT BI MAMMOGRAM DIAGNOSTIC TOMOSYNTHESIS BILATERAL Routine 11/24/2023 [...] Recently Relevant to Health Maintenance Results * US RENAL BI (10/27/2024 10:01 PM EDT) Anatomical Region Laterality Modality Abdomen Ultrasound 10/27/2024 10:0 1 PM EDT Narrative 10/27/2024 10:03 PM EDT ? [facility] ?[address] ? [place] [address] ? Ultrasound Report ? Signed ? Patient: Bita Irizarry ?MR#: [id number] ?? [id number] ? : 1990 ?Acct:[id number] ? Age/Sex: 34 / F ?ADM Date: 10/27/24 ? Loc: HO.HMGCX ? Attending Dr: Herminio Yi MD ? Ordering Physician: Herminio Yi MD ?? Date of Service: 10/27/24 ?? Procedure(s): US renal BI ?? Accession Number(s): [id number] ? cc: Raquel Sethi MD; Herminio Yi MD ? CLINICAL HISTORY: N20.0 - Calculus of kidney ? US renal ? Comparison: 04/13/2024 ? Findings: ? Right kidney 11.9 cm length. ?? 3 mm upper pole nonobstructing stone. ?? 6 mm midpole nonobstructing stones. ? Left kidney 12.2 cm length. ?? No significant focal abnormality. ? No bilateral hydronephrosis. ?? Normal bilateral renal echogenicity. ? Impression: ? Nonobstructing right renal stones ? This document has been electronically signed by: Thad Galloway MD on ?? 10/27/2024 22:01:49 ? Dictated By: ?Thad Galloway MD ? Signed By: ?<Electronically signed by Thad Galloway MD in OV> ? 10/27/242201 ? DD/ 00 ? TD/TT: 10/27/242200 ? Wet Char Conveyor Tender: ? Procedure Note Donotarmindainterpreter, Image - 10/27/2024 [facility] [address] [place] [address] [place] [address] Ultrasound Report Signed Patient: Bita Irizarry AMR#: [id number] : 1990Acct:[id number] Age/Sex: 34 / FADM Date: 10/27/24 Loc: HO.HMGCX Attending Dr: Herminio Yi MD Ordering Physician: Herminio Yi MD Date of Service: 10/27/24 Procedure(s): US renal BI Accession Number(s): [id number] cc: Raquel Sethi MD; Herminio Yi MD CLINICAL HISTORY: N20.0 - Calculus of kidney US renal Comparison: 04/13/2024 Findings: Right kidney 11.9 cm length. 3 mm upper pole nonobstructing stone. 6 mm midpole nonobstructing stones. Left kidney 12.2 cm length. No significant focal abnormality. No bilateral hydronephrosis. Normal bilateral renal echogenicity. Impression: Nonobstructing right renal stones This document has been electronically signed by: Thad Galloway MD on 10/27/2024 22:01:49 Dictated By: Thad Galloway MD Signed By: <Electronically signed by Thad Galloway MD in OV> 10/27/242201 DD/ 00 TD/TT: 10/27/242200 Wet Char Conveyor Tender: [facility] External Provider IMG US PROCEDURES Final Result * BI Mammogram Diagnostic Tomosynthesis Bilateral (11/24/2023 11:35 AM EDT) Anatomical Region Laterality Modality Breast Bilateral Mammography 11/24/2023 11:3 5 AM EDT Narrative 12/01/2023 7:35 AM EDT ? [facility] ? [address] ?[place] [address] ? Mammography Report ? Signed ? Patient: Justice,Bita A ?MR#: [id number] ?? [id number] ? : 1990 ?Acct:[id number] ? Age/Sex: 33 / F ?ADM Date: 11/24/23 ? Loc: HO.MAMMO ? Attending Dr: Raquel Sethi MD ? Ordering Physician: Raquel Sethi MD ?Results: 1Ne ?? gative ? Date of Service: 11/24/23 ?Follow Up: 1 Year From Orig ?? inal Mammogram ? Procedure(s): MM tomosynthesis diagnostic BI ?? Accession Number(s): [id number] ? cc: Raquel Sethi MD ? EXAMINATION: [...] left breast, there is normal elias tissue ?? spanning 1 cm in greatest [...] 0731 ? DD/ 1135 ? TD/TT: ? Wet Char Conveyor Tender: ? Procedure Note Mikayla, Image - 12/01/2023 [facility] [address] [place] [address] [place] [address] Mammography Report Signed Patient: Bita Irizarry#: [id number] : 1990Acct:[id number] Age/Sex: 33 / FADM Date: 11/24/23 Loc: JERMAINE Attending Dr: Raquel Sethi MD Ordering Physician: Begolli,Raquel M MDResults: 1Ne gative Date of Service: 11/24/23Follow Up: 1 Year From Orig inal Mammogram Procedure(s): MM tomosynthesis diagnostic BI Accession Number(s): [id number] cc: Raquel Sethi MD EXAMINATION: MM DIAGNOSTIC DIGITAL BREAST TOMOSYNTHESIS, BILATERAL US BREAST LIMITED, LEFT MAMMOGRAPHY: CLINICAL INFORMATION: Recommended short interval follow-up of 2 small focal asymmetries in the medial aspect of the left breast is noted on prior mammograms. COMPARISON: Mammography: This study is compared with prior mammograms dating back to 2019. TECHNIQUE: Digital breast tomosynthesis is performed in [...] in OV> 12/01/23 0731 DD/ 1135 TD/TT: Wet Char Conveyor Tender: Raquel Sethi MD IMG BI PROCEDURES Edited Resu lt - Final * Hepatitis C Antibody with Reflex to HCV, RNA, Quantitative, Real-Time PCR (05/07/2023 10:35 AM EDT) Hepatitis C Antibody Nonreactive Nonreactive [facility] Comment:Antibodies to HCV no t detected; does not exclude early acuteHCV infection. Blood Venous blood specimen / Unknown 05/07/2023 10:35 AM EDT 05/07/2023 2:55 PM EDT Raquel Sethi MD LAB BLOOD ORDERABLES Final Re sult [facility] [address] [place] [phone] * (ABNORMAL) Lipid Panel, Standard (05/07/2023 10:35 AM EDT) Triglycerides 171(H) <150 mg/dL [facility] Comment:Desirable Triglyceri de: less than 150 mg/dLBorderline High Triglyceride 150-199 mg/dLHigh Triglyceride: 200-499 mg/dLVery High Triglyceride: greater than or equal to 5OO mg/dL Cholesterol 205(H) <200 mg/dL [facility] Comment:Desirable Cholestero l: less than 200 mg/dLBorderline High Cholesterol: 200-239 mg/dLHigh Cholesterol: greater than 239 mg/dL LDL Cholesterol Calculated 136(H) <100 mg/dL [facility] Comment:Desirable LDL: less than 100 mg/dLNear Optimal/Above Optimal LDL: 110- 129 mg/dLBorderline High LDL: 130-159 mg/dLHigh LDL: 160-189 mg/dLVery High LDL: greater than or equal to 190 mg/dL HDL Cholesterol 35(L) >40 mg/dL [facility] Comment:Desirable HDL: great er than 40 mg/dL Note: This HDL assay may give artificially low results in patients with liver disease. Blood Venous blood specimen / Unknown 05/07/2023 10:35 AM EDT 05/07/2023 2:55 PM EDT Raquel Sethi MD LAB BLOOD ORDERABLES Final Re sult [facility] [address] [place] [address] [phone] * HPV mRNA E6/E7 (10/29/2018 3:26 PM EDT) HPV mRNA E6/E7 Not Detected NOT DETECTED [facility] Comment: This test was performed using the APTIMA(R) HPV Assay ([email or web address] This assay detects E6/E7 viral messenger RNA (mRNA) from 14 high-risk HPV types (16,18,31,33,35,39,45,51, 52,56,58,59,66,68). For additional information please refer to: http://education.[employer]/faq/GGB061y0 (This link is being provided for informational/ educational purposes only.) The analytical performance characteristics of this assay have been determined by [employer] [place], [place]. The modifications have not been cleared or approved by the FDA. This assay has been validated pursuant to the CLIA regulations and is used for clinical purposes. Test Performed by [facility], [employer] [facility], [address] [place] [address] Heath Kemp M.D., Ph.D., Director of Laboratories , CLIA [id number] Please note: ??Effective 03/25/2016, HPV testing will be performed using [employer]'s APTIMA test which targets mRNA. Detecting mRNA instead of DNA, as in older methods, offers significant improvements in specificity. 10/29/2018 3:26 PM EDT us Raquel Sethi MD HISTORICAL/NON ORDERABLE LABS Final Result [facility] [address] [place] [address], * Hm Pap Smear (10/29/2018) Pap Negative for intraephithelial lesion or malignancy Negative for intraephithelial lesion or malignancy, Other HPV Undetected us Historical Provider HEALTH MAINTENANCE Final Result from Last 3 Months or Most Recently Relevant to Health Maintenance Insurance [employer] Care Teams Residence Leasing Agent Relationship Specialty Start Date End Date Raquel Sethi MD [address] [place] [address] PCP - General Family Medicine 07/14/18 Sarkis Law FNP [address] [place] [address] Nurse Practitioner Family Medicine 06/17/23
--- OUTSIDE RECORDS SUMMARY | 2024-11-16 14:38 | XMS_ITS | Encounter Summary ---
Author Organization [employer] Address [address] [facility] [address] [place] [address] Care Team Providers Care Mining Detail Draftsperson Name Role Phone Raquel Sethi MD Primary Care Provider Sarkis Law Unavailable Unavailable Reason for Visit * Reason Onset Date Comments Medication Question 09/12/2022 Encounter Details Date Type Department Care Team ([facility] Contact Info) Description 09/12/2022 Telephone [facility] MEDICINE [address] [place] [address] Raquel Sethi MD [address] [place] [address] Medication Question Social History Tobacco Use Types [...] PCP declined medication. Please contact pt at [phone] documented in this encounter Plan of Treatment Not on file documented as of this encounter Visit Diagnoses Not on filedocumented in this encounter Additional Health Concerns Assessment Noted Time PHQ-9 Depression Total Score: 2 08/27/19 9:17 AM EST documented as of this encounter Care Teams Mining Detail Draftsperson Relationship Specialty Start Date End Date Raquel Sethi MD [address] [place] [address] PCP - General Family Medicine 07/14/18 Sarkis Law FNP [address] [place] [address] Nurse Practitioner Family Medicine 06/17/23 documented as of this encounter
--- OUTSIDE RECORDS SUMMARY | 2024-11-16 14:38 | XMS_ITS | Encounter Summary ---
Author Organization [employer] Address [address] [facility] 7 [place] [address] Care Team Providers Care Deskidding Machine Operator Name Role Phone Raquel Sethi MD Primary Care Provider [phone] Sarkis Law Unavailable Unavailable Reason for Visit * Reason Onset Date Comments new script 05/07/2023 Encounter Details Date Type Department Care Team ([facility] Contact Info) Description 05/07/[address] [facility] MEDICINE [address] [place] [address] Raquel Sethi MD [address] [place] [address] new script Social History Tobacco Use Types [...] - 05/07/2023 11:13 AM EDT Tc from [place] with [facility] requesting a new script for Ventolin [...] documented as of this encounter Care Teams Deskidding Machine Operator Relationship Specialty Start Date End Date Raquel Sethi MD [address] [place] [address] PCP - General Family Medicine 07/14/18 Sarkis Law FNP [address] [place] [address] Nurse Practitioner Family Medicine 06/17/23 documented as of this encounter
--- OUTSIDE RECORDS SUMMARY | 2024-11-16 14:38 | XMS_ITS | Encounter Summary ---
Author Organization [employer] Address [address] [facility] 7 [place] [address] Care Team Providers Care Chassis Driver Name Role Phone Raquel Sethi MD Primary Care Provider [phone] Sarkis Law Unavailable Unavailable Reason for Visit * Reason Onset Date Comments Med Refill 12/03/2023 Encounter Details Date Type Department Care Team ([facility] Contact Info) Description 12/03/2023 Refill [facility] MED & PEDS [address] [place] [address] Raquel Sethi MD [address] [place] [address] Social History Tobacco Use Types Packs/Day Years [...] documented as of this encounter Care Teams Chassis Driver Relationship Specialty Start Date End Date Raquel Sethi MD [address] [place] [address] PCP - General Family Medicine 07/14/18 Sarkis Law FNP [address] [place] [address] Nurse Practitioner Family Medicine 06/17/23 documented as of this encounter
--- OUTSIDE RECORDS SUMMARY | 2024-11-16 14:39 | XMS_ITS | Encounter Summary ---
Author Organization [employer] Address [address] [facility] [address] [place] [address] Care Team Providers Care Bi Data Architect Name Role Phone Raquel Sethi MD Primary Care Provider [phone] Sarkis Law Unavailable Unavailable Reason for Visit * Reason Onset Date Comments Med Refill 06/20/2024 Encounter Details Date Type Department Care Team ([facility] st Contact Info) Description 06/20/2024 Refill [facility] MED & PEDS [address] [place] [address] Raquel Sethi MD [address] [place] [address] Anxious depression Social History Tobacco Use Types [...] documented as of this encounter Care Teams Bi Data Architect Relationship Specialty Start Date End Date Raquel Sethi MD [address] [place] [address] PCP - General Family Medicine 07/14/18 Sarkis Law FNP [address] [place] [address] Nurse Practitioner Family Medicine 06/17/23 documented as of this encounter
--- OUTSIDE RECORDS SUMMARY | 2024-11-16 14:39 | XMS_ITS | Encounter Summary ---
Author Organization [employer] Address [address] [facility] 7 [place] [address] Care Team Providers Care Ward Helper Name Role Phone Raquel Sethi MD Primary Care Provider [phone] Sarkis Law Unavailable Unavailable Reason for Visit * Reason Onset Date Comments Nurse Triage 09/08/2024 Encounter Details Date Type Department Care Team ([facility] st Contact Info) Description 09/08/2024 Telephone [facility] MEDICINE [address] [place] [address] Raquel Sethi MD [address] [place] [address] Nurse Triage Social History Tobacco Use Types [...] documented as of this encounter Care Teams Ward Helper Relationship Specialty Start Date End Date Raquel Sethi MD [address] [place] [address] PCP - General Family Medicine 07/14/18 Sarkis Law FNP [address] [place] [address] Nurse Practitioner Family Medicine 06/17/23 documented as of this encounter
== END 2024-11-16 14:02 | disposition home or self-care (01) ==
LOC: HO.HUSH 13:24
PROVIDERS: PCP Pediatrics; Visit Provider Urology
DX: N20.0 Calculus of kidney (principal)
CPT/HCPCS: 99214

== ENCOUNTER 2024-12-25 14:12 | Emergency (ER) | payer MEDICAID, SELFPAY ==
--- NOTE | ~2024-12-25 | CT_ITS ---
CLINICAL HISTORY: pleuritic CP, tachycardic CTA chest with 3-D postprocessing Comparison: CR - XR CHEST 2V - 12/25/24 14:50 EDT Findings: Study quality is adequate for the diagnosis of pulmonary embolism. No pulmonary embolism. Heart size within normal limits. RV/LV ratio is normal. No calcified coronary artery disease. No aortic dissection or aneurysm. No calcified atherosclerotic disease. Mediastinal/hilar lymph nodes measure up to 1.1 cm in short axis in the right paratracheal region. Subsegmental atelectasis versus scarring in the lingula. No pneumothorax. Trace pleural fluid. No acute osseous or soft tissue abnormality. Wall thickening of the esophagus. No acute pathology in the imaged portion of the upper abdomen. Status post cholecystectomy. Small hiatal hernia. Colonic diverticulosis. Impression: No pulmonary embolism. Esophageal wall thickening may indicate esophagitis. Trace pleural fluid. Mild lymphadenopathy, likely infectious/inflammatory. This document has been electronically signed by: Sierra Craft MD on 12/25/2024 18:14:39
--- NOTE | ~2024-12-25 | XR_ITS ---
CLINICAL HISTORY: chest pain worse with swallowing 2 view chest x-ray Comparison: None Findings: No consolidation or effusion. Normal size heart. No acute fracture. IMPRESSION: 1. No acute findings. This document has been electronically signed by: Eduin Rai MD on 12/25/2024 15:32:24
--- NOTE | 2024-12-25 14:14 | ECG_ITS ---
Test Reason : chest pain Blood Pressure : */* mmHG Vent. Rate : 108 BPM Atrial Rate : 108 BPM P-R Int : 130 ms QRS Dur : 88 ms QT Int : 322 ms P-R-T Axes : 53 73 -8 degrees QTcB Int : 431 ms Sinus tachycardia T wave abnormality, consider inferior ischemia Abnormal ECG When compared with ECG of 26-Dec-2021 12:35, No significant change was found Referred By: Betty Treviño Electronically Signed By: MAHENDRA COLEMAN MD
[2024-12-25 14:27] VITALS: BP 151/99; PULSE 121; RESP 16; TEMP 36.3; O2SAT 100; BMI 46.2
--- NOTE | 2024-12-25 14:28 | ED_ITS ---
HPI - General Adult General Chief complaint: Chest Pain Stated complaint: CP, numbness/tingling in hand Time Seen by Provider: 12/25/24 15:26 Source: patient and RN notes reviewed Mode of arrival: ambulatory Limitations: no limitations History of Present Illness ED Provider: Aurelia Crowley PA-C HPI narrative: This is a 34 year old female, with a past medical history of asthma, chronic kidney disease, degenerative disc disease, morbid obesity, spinal stenosis, who presents emergency department with concerns of back pain and chest pain. Patient reports that over the last 2 days she has had chest pain that radiates into her back. She states that the pain is constant, and tends to worsen when she is swallowing. Describing this as a burning Sensation. She states that Friday evening she did have alcohol. She does not typically drink alcohol daily. She denies any fevers or chills. She does also report tingling into her right 4th and 5th digits. She denies history of similar symptoms in the past. She denies any palpitations, abdominal pain, nausea, vomiting or diarrhea. Denies any urinary symptoms. No history of blood clots or cancer history. She is a smoker. No history of IVDA. She is not on any hormone replacement or control. No recent travel, surgery, or hospitalizations. No other complaints or concerns at this time. MD complaint: Chest pain/back pain Relieving factors: none Exacerbating factors: none Associated symptoms: denies other symptoms Treatments prior to arrival: none Related Data Home Medications ?Medication ?Instructions ?Recorded ?Confirmed aripiprazole 20 mg tablet 20 mg PO DAILY 06/26/23 04/28/24 clonazepam 1 mg tablet 1 mg PO BID PRN Anxiety 06/26/23 04/28/24 ergocalciferol (vitamin D2) 1,250 1,250 mcg PO QWEEK 07/02/23 04/28/24 mcg (50,000 unit) capsule venlafaxine 150 mg 150 mg PO DAILY 01/29/24 04/28/24 capsule,extended release 24 hr venlafaxine 37.5 mg 37.5 mg PO DAILY 01/29/24 04/28/24 capsule,extended release 24 hr Previous Rx's ?Medication ?Instructions ?Recorded albuterol sulfate 90 mcg/actuation 2 inh inhalation Q4-6H PRN 12/26/21 breath activated powder inhaler shortness of breath or wheezing #1 ea ondansetron HCl 4 mg tablet 4 mg PO Q8H 14 days #42 tabs 11/05/24 allopurinol 100 mg tablet 100 mg PO DAILY 90 days #90 tabs 11/16/24 pyridoxine (vitamin B6) 50 mg 50 mg PO DAILY 90 days #90 tabs 11/16/24 tablet omeprazole 20 mg capsule,delayed 20 mg PO DAILY 4 weeks #28 caps 12/25/24 release Allergies Allergy/AdvReac Type Severity Reaction Status Date / Time cat dander [CATS] Allergy Intermediate RASH Verified 12/25/24 14:27 mold Allergy Intermediate RASH Verified 12/25/24 14:27 amoxicillin AdvReac Intermediate yeast Verified 12/25/24 14:27 infection seasonal Allergy Unknown Unknown Uncoded 11/16/24 13:25 Review of Systems 2 Review of Systems: Yes all other systems are reviewed and are negative Constitutional: Constitutional: Reports as per [facility] Past Medical History Attestation statement: The following information was validated with the patient. Medical History Anxiety and depression Morbid obesity Vasovagal syncope Asthma Spinal stenosis Degenerative disc disease Chronic kidney disease Surgical History History of surgical removal of pilonidal cyst Hx of lithotripsy Hx of cystoscopy History of cholecystectomy H/O Spinal surgery Social History Social History Alcohol intake: current Alcohol intake frequency: former alcohol drinker Alcohol type: beer Patient Tobacco Use Status: Current everyday Tobacco user Tobacco use type: Cigarette Cigarettes Per Day: 10 Smoked in Last 30 Days: Yes Use of substances other than those prescribed or required for medical reasons: Yes Substance Use Type: Marijuana Substance Use Frequency: Occasionally Advance Directives: No Advance Directives Information Provided: No Do you have a plan to hurt others: No Plan Patient : No Physical Exam ED Vital Signs: Vital Signs - 24 hr 12/25/24 14:27 12/25/24 16:05 12/25/24 18:05 Temperature 97.4 F 98.6 F 98.6 F Pulse Rate 121 H 109 H 101 H Respiratory Rate 16 18 18 Blood Pressure 151/99 H 139/85 126/85 Pulse Oximetry 100 95 99 Oxygen Delivery Method Room Air Room Air Room Air 12/25/24 18:51 12/25/24 19:36 Temperature 98.6 F 98.6 F Pulse Rate 97 97 Respiratory Rate 17 17 Blood Pressure 139/86 139/86 Pulse Oximetry 96 96 Oxygen Delivery Method Room Air Room Air BMI result Body Mass Index 46.2 Const General: cooperative, comfortable and no acute distress Orientation/consciousness: patient oriented x3 Limitations: no limitations HENMT Head: Yes normal to inspection, Yes normocephalic and Yes atraumatic Ears: hearing grossly normal bilaterally General nose exam: Normal external nose present Face and sinus: Yes normal facial exam Mouth: Normal oral and palatal mucosa present, oropharynx normal and moist mucous membranes Throat: Yes posterior oropharynx normal Eyes General: appearance normal, both eyes and all related structures Eyelids: Yes eyelids normal Conjunctivae: conjunctivae normal Sclerae: sclerae normal Pupils: Equal, round and reactive pupils present EOM: EOMs intact bilaterally Neck Neck: Yes normal visual inspection, Yes full ROM and Yes no lymphadenopathy Lymphatic: no lymphadenopathy noted Chest Chest palpation & inspection: normal inspection of the chest Resp Effort & Inspection: normal respiratory effort and able to speak in complete sentences Auscultation: clear to auscultation bilaterally, no crackles, no rales, no rhonchi and no wheezes Cardio Rate: regular rate Rhythm: regular rhythm Heart sounds: S1 normal heart sound present and S2 normal heart sound present GI Inspection: Yes normal to inspection Skin General skin exam: no rashes or lesions noted Trauma: no lacerations or abrasions Wounds: no wounds Neuro General: patient oriented x3 and moves all extremities Cranial nerves: Yes Equal, round and reactive pupils present Extrem General: Yes normal to inspection Right upper extremity: normal to inspection Left upper extremity: normal to inspection Right lower extremity: normal to inspection Left lower extremity: normal to inspection Course Course Course Narrative: This is a rapid medical exam performed by Samara Treviño NP: Additional HPI, ROS, PE not included below will be deferred to primary provider. Patient is a 34-year-old female presenting to the ED with complaint of severe heartburn since Thurs am, pain with swallowing. Also having numbness to 4th/5th fingers of right hand. Plan: EKG, labs, CXR Medications Administered Discontinued Medications Generic Name Dose Route Start Last Admin Trade Name Freq PRN Reason Stop Dose Admin Al Hydroxide/Mg Hydroxide 30 ml 12/25/24 18:25 12/25/24 18:30 Magnesium Hydrox/Alum Hydrox 30 Ml Oral.Susp PO 12/25/24 18:26 30 ml ONCE ONE Administration Clonazepam 1 mg 12/25/24 15:53 12/25/24 16:17 Clonazepam 1 Mg Tablet PO 12/25/24 15:54 1 mg ONCE ONE Administration Sodium Chloride 1,000 mls @ 999 mls/hr 12/25/24 15:52 12/25/24 19:35 Ns IV 12/25/24 16:52 Infused .Q1H1M ONE Infusion Iohexol 65 ml 12/25/24 17:05 12/25/24 17:05 Iohexol 350 Mg/Ml 100 Ml Infus..Btl IV 12/25/24 17:06 65 ml ONCE ONE Administration Lidocaine HCl 15 ml 12/25/24 18:25 12/25/24 18:30 Lidocaine Hcl Viscous 2 % 15 Ml Solution MUCOUS MEM 12/25/24 18:26 15 ml ONCE ONE Administration Pantoprazole Sodium 40 mg 12/25/24 18:36 12/25/24 18:50 Pantoprazole Sodium 40 Mg/10 Ml Vial IVPUSH 12/25/24 18:37 40 mg ONCE ONE Administration Medical Decision Making Medical Decision Making [facility] Narrative: this is a 34-year-old female who presents emergency department with complaints of chest pain and back pain which started 2 days ago. Pain is constant, worsens with inspiration, as well as eating. On arrival, patient tachycardic at 121blood pressure elevated at 151/99, oxygen saturation 100% on room air. Labs were obtained prior to my evaluation, she does have slight leukocytosis at 12.6, chemistry with no significant electrolyte derangement. First troponin less than 2.7, beta quant less than 2. Chest x-ray was also obtained prior to my evaluation, which was unremarkable. Given patient is tachycardic with pleuritic chest pain, PE is on the differential. Unable to PERC patient out as she is tachycardic. Will obtain CTA to rule out PE. We will continue to closely monitor. Patient also reports that she is anxious, will medicate with Klonopin 1 mg orally as she takes this at home as well as IV fluids. We will continue to closely monitor. Course: CTA returns, no PE seen however there is evidence of esophageal thickening concerning for esophagitis as well as hiatal hernia. This is likely the source of her symptoms as she is having burning sensation in her chest that goes into her back, worsening with eating. Patient was given Maalox and viscous lidocaine as well as a dose of Protonix. She states that her symptoms have improved after receiving these medications. We will start her on a course of omeprazole, and I gave her referral to GI. She was given strict return precautions. She understands and agrees with plan. Patient stable for discharge. Differential Diagnosis Differential Diagnoses: The differential diagnosis associated with the presentation includes PE, GERD, gastritis, ACS -unlikely Admission/Observation Consideration of admission/observation: Escalation of care including admission/observation considered Lab Data MDM Lab Attestation statement: I reviewed the patient's lab results. Slight leukocytosis at 12.6> nonspecific, chemistry with no significant electrolyte derangement, troponin less than 2.7, no need for repeat as symptoms have been occurring for the last 3 days, beta quant less than 2. 12/25/24 14:45 12/25/24 14:45 Labs: Lab Results 12/25/24 12/25/24 Range/Units 14:44 14:45 WBC 12.6 H (4.8-10.8) X10*3/uL RBC 4.64 (4.20-5.50) X10*6/uL Hgb 14.6 (12.0-16.0) g/dl Hct 41.1 (37.0-47.0) % MCV 88.6 (80.0-98.0) fL MCH 31.5 (27.0-33.0) pg MCHC 35.5 H (31.0-35.0) g/dl RDW 14.5 (11.0-16.0) % Plt Count 343 (160-400) X10*3/uL MPV 9.2 L (9.4-12.3) fL Immature Gran % (Auto) 1.0 H (0.0-0.4) % Neut % (Auto) 50.8 (45-73) % Lymph % (Auto) 32.9 (20-40) % [place] % (Auto) 10.5 (2-11) % Eos % (Auto) 4.0 (0-4) % Baso % (Auto) 0.8 (0-2) % Lymph # (Auto) 4.2 (1.2-4.9) X10*3/uL [place] # (Auto) 1.3 H (0.1-1.2) X10*3/uL Eos # (Auto) 0.5 H (0.0-0.4) X10*3/uL Baso # (Auto) 0.1 (0.0-0.2) X10*3/uL Abs Immat Gran (auto) 0.12 H (0.00-0.03) X10*3/uL Absolute Neuts (auto) 6.4 (2.0-8.3) x10*3/uL Absolute Nucleated RBC 0.000 (0.0-0.012) X10*3/uL Nucleated RBC % (auto) 0.0 (0.0-0.2) /100WBC Smear Tech's Comments VERIFIED PT 11.1 (10.9-12.4) SEC INR 1.0 (0.9-1.1) Sodium 138 (135-145) mmol/L Potassium 3.6 (3.3-5.1) mmol/L Chloride 104 (96-108) mmol/L Carbon Dioxide 23 (22-29) mmol/L Anion Gap 15 (12-20) BUN 6 L (9-16) mg/dL Creatinine 0.79 (0.5-1.4) mg/dL Estim Creat Clear Calc 142.0 Estimated GFR > 60 Random Glucose 108 (60-115) mg/dL Calcium 9.5 (8.4-10.2) mg/dL Magnesium 1.7 (1.6-2.6) mg/dL Total Bilirubin 0.3 (0.0-1.0) mg/dL AST 23 (5-31) U/L ALT 29 (0-31) U/L Alkaline Phosphatase 78 (39-117) U/L Troponin I High Sens < 2.7 (<3.5-17.0) ng/L B-Natriuretic Peptide < 10 (<100) pg/mL Total Protein 7.4 (6.5-8.0) g/dL Albumin 4.3 (3.5-5.0) g/dL Lipase 14 (8-78) U/L Beta HCG, Quant < 2 mIU/mL Independent Interpretation I performed an independent interpretation of an: EKG Interpretation: Sinus tachycardic at 108 beats per minute, no ST elevation or depression. Radiology Impression Discussion of test interpretation with radiology: I have reviewed the radiologist's reading. Radiologist Impression: Findings: Study quality is adequate for the diagnosis of pulmonary embolism. No pulmonary embolism. Heart size within normal limits. RV/LV ratio is normal. No calcified coronary artery disease. No aortic dissection or aneurysm. No calcified atherosclerotic disease. Mediastinal/hilar lymph nodes measure up to 1.1 cm in short axis in the right paratracheal region. Subsegmental atelectasis versus scarring in the lingula. No pneumothorax. Trace pleural fluid. No acute osseous or soft tissue abnormality. Wall thickening of the esophagus. No acute pathology in the imaged portion of the upper abdomen. Status post cholecystectomy. Small hiatal hernia. Colonic diverticulosis. Impression: No pulmonary embolism. Esophageal wall thickening may indicate esophagitis. Trace pleural fluid. Mild lymphadenopathy, likely infectious/inflammatory. This document has been electronically signed by: Sierra Craft MD on 12/25/2024 18:14:39 Dictated By: Sierra Zamora MD Findings: No consolidation or effusion. Normal size heart. No acute fracture. IMPRESSION: 1. No acute findings. This document has been electronically signed by: Eduin Rai MD on 12/25/2024 15:32:24 Dictated By: Eduin Rai MD Critical Care Time Critical Care Time Critical Care Time: Yes Total Critical Care Time: 31 Attestation: I have personally provided critical care time exclusive of time spent on separately billable procedures. Time includes review of lab data, radiology results, discussion with consultants, and monitoring for potential decompensation. Intervention performed as documented. Discharge Plan Discharge Clinical Impression: Esophagitis Patient Disposition: Home, Self-Care Instructions: Esophagitis (ED) Additional Instructions: You were seen in the emergency department, your labs are reassuring, your CT scan is concerning for esophageal thickening concerning for esophagitis. Please take omeprazole as prescribed, take this 30-60 minutes prior to eating. Avoid spicy, fried, or acidic foods. You may take brdt-cfl-[id number] antacid medications as this can also help with your symptoms. Please follow-up with your primary care physician. I am also referring you to GI. Please call on Friday to follow-up. If any new or worsening symptoms occur including but not limited to severe chest pain, shortness of breath, please return for re-evaluation. Prescriptions: New omeprazole 20 mg capsule,delayed release(DR/EC) 20 mg PO DAILY 28 Days Qty: 28 0RF No Action ondansetron HCl 4 mg tablet 4 mg PO Q8H 14 Days Qty: 42 0RF albuterol sulfate 90 mcg/actuation aerosol powdr breath activated 2 inh inhalation Q4-6H PRN (Reason: shortness of breath or wheezing) Qty: 1 0RF ergocalciferol (vitamin D2) 1,250 mcg (50,000 unit) capsule 1,250 mcg PO QWEEK venlafaxine 150 mg capsule,extended release 24hr 150 mg PO DAILY venlafaxine 37.5 mg capsule,extended release 24hr 37.5 mg PO DAILY clonazepam 1 mg tablet 1 mg PO BID PRN (Reason: Anxiety) aripiprazole 20 mg tablet 20 mg PO DAILY allopurinol 100 mg tablet 100 mg PO DAILY 90 Days Qty: 90 1RF pyridoxine (vitamin B6) 50 mg tablet 50 mg PO DAILY 90 Days Qty: 90 1RF Referrals: [facility] Gastroenterology Services [Provider Group] Interventions: ED Discharge Assessment Last Done: 12/25/24 19:36 Discharge Date/Time: 12/25/24 19:37 Print Language: [place]
[2024-12-25 14:50] LABS: Basophils Absolute Auto 0.1 X10*3/uL (0.0-0.2); Basophils Percent Auto 0.8 % (0-2); Eosinophils Absolute Auto 0.5 X10*3/uL (0.0-0.4); Hematocrit 41.1 % (37.0-47.0); Hemoglobin 14.6 g/dl (12.0-16.0); Imm Gran Abs Auto 0.12 X10*3/uL (0.00-0.03); Lymphocytes Absolute Auto 4.2 X10*3/uL (1.2-4.9); Lymphocytes Percent Auto 32.9 % (20-40); MANUAL DIFF FLAG SCAN; Mean Corpuscular HGB Conc 35.5 g/dl (31.0-35.0); Mean Corpuscular Hemoglobin 31.5 pg (27.0-33.0); Mean Corpuscular Volume 88.6 fL (80.0-98.0); Mean Platelet Volume 9.2 fL (9.4-12.3); Monocytes Absolute Auto 1.3 X10*3/uL (0.1-1.2); Monocytes Percent Auto 10.5 % (2-11); Neutrophils Absolute Auto 6.4 x10*3/uL (2.0-8.3); Neutrophils Percent Auto 50.8 % (45-73); Platelet Count 343 X10*3/uL (160-400); Red Blood Count 4.64 X10*6/uL (4.20-5.50); Red Cell Distribution Width 14.5 % (11.0-16.0); SCAN SMEAR FLAG 1; White Blood Count 12.6 X10*3/uL (4.8-10.8)
[2024-12-25 14:55] LABS: Prothrombin Time 11.1 SEC (10.9-12.4)
[2024-12-25 15:12] LABS: Alanine Aminotransferase 29 U/L (0-31); Albumin Level 4.3 g/dL (3.5-5.0); Alkaline Phosphatase 78 U/L (39-117); Anion Gap 15 (12-20); Aspartate Amino Transferase 23 U/L (5-31); Bilirubin Total 0.3 mg/dL (0.0-1.0); Blood Urea Nitrogen 6 mg/dL (9-16); Calcium 9.5 mg/dL (8.4-10.2); Carbon Dioxide 23 mmol/L (22-29); Chloride 104 mmol/L (96-108); Estimated Glomerular Filt Rate > 60; Glucose Random 108 mg/dL (60-115); Lipase 14 U/L (8-78); Magnesium 1.7 mg/dL (1.6-2.6); Potassium 3.6 mmol/L (3.3-5.1); Sodium 138 mmol/L (135-145); Total Protein 7.4 g/dL (6.5-8.0)
[2024-12-25 15:34] LABS: SLIDE REVIEW VERIFIED
[2024-12-25 15:38] LABS: Troponin-I High Sensitivity < 2.7 ng/L (<3.5-17.0)
[2024-12-25 15:38] LABS: HCG Quantitative < 2 mIU/mL
[2024-12-25 16:05] VITALS: BP 139/85; PULSE 109; RESP 18; TEMP 37; O2SAT 95
[2024-12-25] MEDS: 0.9 % Sodium Chloride 1,000 ML 999 ML IV (16:13)
[2024-12-25] MEDS: clonazePAM 1 MG TABLET PO (16:17)
[2024-12-25 16:35] LABS: B Type Natriuretic Peptide < 10 pg/mL (<100)
[2024-12-25] MEDS: iohexoL 350 MG/ML 100 ML INFUS..BTL 65 ML IV (17:05)
[2024-12-25 18:05] VITALS: BP 126/85; PULSE 101; RESP 18; TEMP 37; O2SAT 99
[2024-12-25] MEDS: Lidocaine HCl Viscous 2 % 15 ML SOLUTION MUCOUS MEM (18:30)
[2024-12-25] MEDS: Magnesium Hydrox/Alum Hydrox 30 ML ORAL.SUSP PO (18:30)
[2024-12-25] MEDS: Pantoprazole Sodium 40 MG/10 ML VIAL IVPUSH (18:50)
[2024-12-25 18:51] VITALS: BP 139/86; PULSE 97; RESP 17; TEMP 37; O2SAT 96
[2024-12-25 19:36] VITALS: BP 139/86; PULSE 97; RESP 17; TEMP 37; O2SAT 96
== END 2024-12-25 19:37 | disposition home or self-care (01) ==
PROVIDERS: Physician Assistant Medical; Registered Nurse Emergency; Emergency Provider Emergency Medicine; PCP Pediatrics
DX: K20.90 Esophagitis, unspecified without bleeding (principal); K44.9 Diaphragmatic hernia without obstruction or gangrene; R00.0 Tachycardia, unspecified; F41.9 Anxiety disorder, unspecified; J45.909 Unspecified asthma, uncomplicated; Z79.899 Other long term (current) drug therapy
CPT/HCPCS: 36415; 71046; 71275; 80053; 83690; 83735; 83880; 84484; 84702; 85025; 85610; 93005; 96361; 96374; 99285; J2470; Q9967

== ENCOUNTER → 2024-12-25 14:14 | Outpatient (BNV) | payer MEDICAID, SELFPAY | PROVIDERS: Emergency Provider Emergency Medicine; PCP Pediatrics; Visit Provider Internal Medicine Cardiovascular Disease | DX: R00.0 Tachycardia, unspecified (principal) | CPT/HCPCS: 93010 ==

== ENCOUNTER → 2024-12-25 14:29 | Outpatient (BNV) | payer MEDICAID, SELFPAY | PROVIDERS: Emergency Provider Emergency Medicine; PCP Pediatrics; Visit Provider Radiology Diagnostic Radiology | DX: R09.1 Pleurisy (principal); R00.0 Tachycardia, unspecified; R07.9 Chest pain, unspecified; R22.2 Localized swelling, mass and lump, trunk | CPT/HCPCS: 71046; 71275 ==

== ENCOUNTER 2025-01-17 06:03 | Day surgery (SDC) | payer MEDICAID, SELFPAY ==
[2025-01-12 09:03] VITALS: BMI 44.5
--- NOTE | 2025-01-13 09:00 | HO.ANESPROP2 ---
Documented by User: Crystal Curran NP 01/13/25 09:02 HPI - Anesthesia Eval Consult details Narrative: 34yo F for Right Cystoscopy, Ureteroroscopy, Retro, Laser PMFSH Active Problems Active Problems: All Active Problems Bilateral nephrolithiasis (Acute) Recurrent UTI (Acute) Morbid obesity (Acute) Vasovagal syncope (Acute) Past Medical History Medical History Anxiety and depression Morbid obesity Vasovagal syncope Asthma Spinal stenosis Degenerative disc disease Chronic kidney disease Family History Family history of problems with anesthesia: No Surgical History Surgical History History of surgical removal of pilonidal cyst Hx of lithotripsy Hx of cystoscopy History of cholecystectomy H/O Spinal surgery History of Problems with Anesthesia: No Social History Social History Alcohol intake: current Alcohol intake frequency: former alcohol drinker Alcohol type: beer Patient Tobacco Use Status: Current someday Tobacco user Tobacco use type: Cigarette Cigarette Packs Per Day: 0.5 Cigarettes Per Day: 10.0 Use of substances other than those prescribed or required for medical reasons: Yes Substance Use Type: Marijuana Substance Use Frequency: Occasionally Advance Directives: No Advance Directives Information Provided: Yes Meds Allergies Allergy/AdvReac Type Severity Reaction Status Date / Time cat dander (CATS) Allergy Intermediate RASH Verified 12/25/24 14:27 mold Allergy Intermediate RASH Verified 12/25/24 14:27 amoxicillin AdvReac Intermediate yeast Verified 12/25/24 14:27 infection seasonal Allergy Unknown Unknown Uncoded 11/16/24 13:25 Home Medications ?Medication ?Instructions ?Recorded ?Confirmed ?Last Taken ?Type aripiprazole 20 mg tablet 20 mg PO DAILY 06/26/23 04/28/24 Unknown History clonazepam 1 mg tablet 1 mg PO BID PRN Anxiety 06/26/23 04/28/24 Unknown History ergocalciferol (vitamin D2) 1,250 1,250 mcg PO QWEEK 07/02/23 04/28/24 Unknown History mcg (50,000 unit) capsule venlafaxine 150 mg 150 mg PO DAILY 01/29/24 04/28/24 Unknown History capsule,extended release 24 hr venlafaxine 37.5 mg 37.5 mg PO DAILY 01/29/24 04/28/24 Unknown History capsule,extended release 24 hr Exam Height,Weight and Vital Signs: Height 5 ft 7 in Weight 129 kg Pertinent Lab Results Pertinent Lab Results: Laboratory Tests 12/25/24 14:45 WBC 12.6 H Hgb 14.6 Hct 41.1 Plt Count 343 Sodium 138 Potassium 3.6 Chloride 104 Carbon Dioxide 23 BUN 6 L Creatinine 0.79 Narrative Narrative: EKG 12/2024 Vent. Rate : 108 BPM Atrial Rate : 108 BPM P-R Int : 130 ms QRS Dur : 88 ms QT Int : 322 ms P-R-T Axes : 53 73 -8 degrees QTcB Int : 431 ms Sinus tachycardia T wave abnormality, consider inferior ischemia Abnormal ECG When compared with ECG of 26-Dec-2021 12:35, No significant change was found Assessment and Plan Assessment Anesthesia Assessment: Chart Reviewed Final Anesthetic Review Family History of Problems with Anesthesia: No History of Problems with Anesthesia: No Documented by User: Frankie Melendez MD 01/17/25 07:29 [facility] Past Medical History Medical History Anxiety and depression Morbid obesity Vasovagal syncope Asthma Spinal stenosis Degenerative disc disease Chronic kidney disease Patient : No Surgical History Surgical History History of surgical removal of pilonidal cyst Hx of lithotripsy Hx of cystoscopy History of cholecystectomy H/O Spinal surgery Social History Social History Alcohol intake: current Alcohol intake frequency: former alcohol drinker Alcohol type: beer Patient Tobacco Use Status: Current someday Tobacco user Tobacco use type: Cigarette Cigarette Packs Per Day: 0.5 Cigarettes Per Day: 10.0 Use of substances other than those prescribed or required for medical reasons: Yes Substance Use Type: Marijuana Substance Use Frequency: Occasionally Advance Directives: No Advance Directives Information Provided: Yes Meds Allergies Allergy/AdvReac Type Severity Reaction Status Date / Time cat dander (CATS) Allergy Intermediate RASH Verified 12/25/24 14:27 mold Allergy Intermediate RASH Verified 12/25/24 14:27 amoxicillin AdvReac Intermediate yeast Verified 12/25/24 14:27 infection seasonal Allergy Unknown Unknown Uncoded 11/16/24 13:25 Home Medications ?Medication ?Instructions ?Recorded ?Confirmed ?Last Taken ?Type aripiprazole 20 mg tablet 20 mg PO DAILY 06/26/23 04/28/24 Unknown History clonazepam 1 mg tablet 1 mg PO BID PRN Anxiety 06/26/23 04/28/24 Unknown History ergocalciferol (vitamin D2) 1,250 1,250 mcg PO QWEEK 07/02/23 04/28/24 Unknown History mcg (50,000 unit) capsule venlafaxine 150 mg 150 mg PO DAILY 01/29/24 04/28/24 Unknown History capsule,extended release 24 hr venlafaxine 37.5 mg 37.5 mg PO DAILY 01/29/24 04/28/24 Unknown History capsule,extended release 24 hr Exam Airway Mallampati Class: II TM Dist: <=3cm Neck ROM: Full Loose/Missing/Broken Teeth: Yes, Upper and Lower Heart: ok Lungs: ok Assessment and Plan Assessment Anesthesia Assessment: Anesthesia Plan Discussed Final Anesthetic Review NPO: Yes ASA Class: III Final Preanesthetic Review: No Changes in Pt Med Stat, Meds/Allgs Chart Reviewed and Consent Obtained/Reviewed Patient Risk: Intermediate Procedure Risk: Low Anesthetic Plan Anesthetic Plan: GA and Agree w/ Assess. and Plan Disposition: Standard PACU
--- NOTE | ~2025-01-17 | FL_ITS ---
EXAMINATION: FL GUIDANCE ONLY HISTORY: right stone COMPARISON: Correlation is made with a renal ultrasound dated 10/27/2024. TECHNIQUE: Fluoroscopy time: 22.9 seconds. Cumulative Dose: 12.80 mGy. Images: 3. FINDINGS: Fluoroscopic spot films demonstrate opacification of the right intrarenal collecting system and proximal ureter, which are unremarkable in appearance. The final images demonstrate a nephroureteral stent in place. FL/FL guidance in OR IMPRESSION: Fluoroscopy during procedure. Please see procedure report for additional information. Electronically signed by: Abbe Vieira MD 01/17/2025 08:33 AM EDT
[2025-01-17 06:15] VITALS: BMI 46.5
[2025-01-17 06:24] VITALS: BP 142/85; PULSE 118; RESP 20; TEMP 36.4; O2SAT 97
[2025-01-17] MEDS: Lactated Ringers 1,000 ML 100 ML IVCONT (06:26)
[2025-01-17 07:19] LABS: UPreg QC Valid YES
--- NOTE | 2025-01-17 07:35 | MHC.SHP ---
Pre-Procedural Eval Section A - 24 Hr Update-Section A only Date of Service: 01/17/25 The patient is an INPATIENT: No Changes since office visit: No Cold of Flu in the past 2 weeks, No New Medical Problems, No Changes in Medication and No Patient answered all questions The patient has been examined within 24 hours of the surgical procedure. The History & Physical has been completed within 30 days and I have reviewed it.: Yes Section B - Complete if H&P > 30 days Chief Complaint: Calculus of kidney Details of Present Illness: right ureteroscopy Allergies: Allergies Allergy/AdvReac Type Severity Reaction Status Date / Time cat dander (CATS) Allergy Intermediate RASH Verified 12/25/24 14:27 mold Allergy Intermediate RASH Verified 12/25/24 14:27 amoxicillin AdvReac Intermediate yeast Verified 12/25/24 14:27 infection seasonal Allergy Unknown Unknown Uncoded 11/16/24 13:25 Plan I have reviewed the history and physical and performed a pertinent physical examination on my patient. No changes have occurred unless specified. Time Spent With Patient Time: Total time managing care of this patient today ____ minutes.
--- NOTE | 2025-01-17 08:09 | P.OP_ITS ---
Operative Note Operative Note Date of Service: 01/17/25 Narrative: PreOperative Diagnosis: Right renal stones Post Operative Diagnosis: Right renal stone Procedure: - cystoscopy, right retrograde - right dilatation of ureteric orifice under fluoroscopy - right ureteroscopy, laser lithotripsy - right stent placement Surgeon: Dr Herminio Yi Anesthesia: General Indications for procedure: Recurrent right renal stones Procedure: After informed consent was verified patient was brought to the operating placed in supine position. Anesthesia was administered per protocol. Patient was placed in modified dorsal lithotomy position and prepped and draped in a sterile fashion. Safety pause time-out and side of surgery confirmed. Antibiotics confirmed. A 22 Prydeinig cystoscope was inserted per urethra. The urethra and bladder were normal in their entirety. Both ureteric orifices were in normal position. The right ureteric orifice was cannulated and a retrograde examination was performed. No filling defects seen. A Sensor guidewire was placed up to the level of the renal pelvis under fluoroscopy. The rigid cystoscope was removed and the inner cannula of ureteric access sheath was used under fluoroscopy to dilate the ureteric orifice. The ureteric access sheath was placed and the inner cannula with access wire removed. The digital flexible ureteral scope was placed. Using the digital scope the kidney was examined in its entirety. The upper pole showed evidence of a moth-eaten pattern consistent with recurrent small stone formation. Submucosal stones were seen in the mid and lower pole calices. Using the 272 holmium laser fiber and settings of 1.2 joules with 6 hertz the submucosal areas were lasered and small stones released. This was performed in multiple poles. At the completion of the stone procedure a Sensor wire was placed back into the renal pelvis. A 6 Prydeinig by 26 cm double-J stent was placed into the renal pelvis and bladder under a combination of fluoroscopy and direct visualization. The symphisis pubis was used as a radiographic marker to release the stent and good coil was seen within the bladder confirming position. Proximal positioning of the stent was confirmed using fluoroscopy. The bladder was emptied. The patient tolerated the procedure well and was ext ubated in the operating room, and transferred in stable condition to the recovery area. Pathology: None Drains: Stent as above
[2025-01-17 08:17] VITALS: BP 124/83; PULSE 85; RESP 17; TEMP 36.7; O2SAT 92
[2025-01-17 08:22] VITALS: BP 128/87; PULSE 86; RESP 17; O2SAT 94
[2025-01-17 08:27] VITALS: BP 128/87; PULSE 83; RESP 17; O2SAT 96
[2025-01-17 08:32] VITALS: BP 119/87; PULSE 83; RESP 18; TEMP 36.3; O2SAT 97
== END 2025-01-17 10:32 | disposition home or self-care (01) ==
PROVIDERS: Nurse Practitioner; PCP Pediatrics; Visit Provider Urology
PROC: (CPT 52356; principal; 2025-01-17 07:30)
DX: N20.0 Calculus of kidney (principal); Z87.442 Personal history of urinary calculi; N18.9 Chronic kidney disease, unspecified; J45.909 Unspecified asthma, uncomplicated; E66.01 Morbid (severe) obesity due to excess calories; M48.00 Spinal stenosis, site unspecified; F41.8 Other specified anxiety disorders; Z79.899 Other long term (current) drug therapy; Z88.1 Allergy status to other antibiotic agents; Z90.49 Acquired absence of other specified parts of digestive tract; Z98.890 Other specified postprocedural states; F17.210 Nicotine dependence, cigarettes, uncomplicated
CPT/HCPCS: 52356; 81025; C1758; C1769; C1894; J1956; J2003; J2405; J2704; J3010; Q9967

== ENCOUNTER → 2025-01-17 06:03 | Outpatient (BNV) | payer MEDICAID, SELFPAY | PROVIDERS: PCP Pediatrics; Visit Provider Urology | DX: N20.0 Calculus of kidney (principal) | CPT/HCPCS: 52356; 74420 ==

== ENCOUNTER 2025-01-25 13:22 | Outpatient (AMB) | payer MEDICAID, SELFPAY ==
--- NOTE | 2025-01-25 13:25 | MHC.OFFVIS ---
Intake Visit Reasons: Stent removal Intake Note: Patient is present for cysto stent removal Urology Medication:,ALLOPURINOL,VITAMIN B6 Antibiotic Allergy:AMOXICILLIN Blood Thinner:NONE Rebar Bender Required: No Accompanied by: Self / Same As Patient Allergies cat dander (CATS) Allergy (Intermediate, Verified 01/25/25 13:39) RASH mold Allergy (Intermediate, Verified 01/25/25 13:39) RASH amoxicillin Adverse Reaction (Intermediate, Verified 01/25/25 13:39) yeast infection seasonal Allergy (Unknown, Uncoded 11/16/24 13:25) Unknown PFSH Medical History Anxiety and depression Morbid obesity Vasovagal syncope Asthma Spinal stenosis Degenerative disc disease Chronic kidney disease Surgical History History of surgical removal of pilonidal cyst Hx of lithotripsy Hx of cystoscopy History of cholecystectomy H/O Spinal surgery Social History Alcohol intake: current Alcohol intake frequency: former alcohol drinker Alcohol type: beer Patient Tobacco Use Status: Current someday Tobacco user Tobacco use type: Cigarette Cigarette Packs Per Day: 0.5 Cigarettes Per Day: 10.0 Substance Use Type: Marijuana Office Procedures Cystoscopy Consent Discussed risk and benefit or proposed procedure with the patient. Information consent for procedure given to the patient. Discussed technical aspects, risks, benefits and alternatives in full. Addressed all of the patient's questions and concerns regarding the procedure. The patient demonstrated knowledge and understanding. They wish to proceed with this procedure. Preparation The patient was prepped in the usual manner. A door repairer bus was present and in the room. Genitalia was prepped with betadine solution in a sterile manner. Lidocaine Jelly 2% was placed into the urethra and 16Fr flexible Olympus cystoscope was inserted into the meatus after adequate lubrication. [id number] with stent removal DISPOSABLE SCOPE URO-G FLEXIBLE SCOPE Procedure code (CPT) selection complete Office Meds lidocaine HCl 2 % mucosal jelly in applicator Performing Provider: Herminio Yi MD [facility] Administered by: Jennifer Cervantes RN on 01/25/25 14:14 Dose Route Admin Location Dispensed Lot Number Expiration Date NDC Customs Compliance Director 10 mL intra-urethral 10 mL nitrofurantoin monohydrate/macrocrystals 100 mg capsule Performing Provider: Herminio Yi MD Performing Location: [facility] [place] Administered by: Jennifer Cervantes RN on 01/25/25 14:14 Dose Route Admin Location Dispensed Lot Number Expiration Date NDC Customs Compliance Director 100 mg PO 1 cap naproxen 500 mg tablet Performing Provider: Herminio Yi MD Performing Location: [facility] [place] [facility] Administered by: Jennifer Cervantes RN on 01/25/25 14:14 Dose Route Admin Location Dispensed Lot Number Expiration Date NDC Customs Compliance Director 500 mg PO 1 tab Assessment & Plan Assessment & Plan (1) Bilateral nephrolithiasis: Code(s): N20.0 - Calculus of kidney Category: Medical Plan Continue allopurinol and vitamin B6 Orders: Orders AMB Cystoscopy Today N39.0 - Urinary tract infection, site not specified XR KUB 4 Months N20.0 - Calculus of kidney Patient Instructions: This note is constructed using voice recognition software. While every effort has been made to ensure accuracy dock guard errors may have been included. Imaging studies, laboratory and physical exam results were discussed and reviewed in detail. No major barriers to patient understanding were identified. An opportunity to ask questions regarding the treatment plan was provided. All questions were answered. The patient expressed understanding and agreement with the above treatment plan. The patient is aware they should contact our office by phone for worsening of their current condition or the appearance of new urologic symptoms. Compliance is encouraged with any medications and followup testing that is ordered. It is a privilege to participate in the urologic care of your patient. If you have any questions or concerns regarding treatment for the above conditions, or other urologic issues, please do not hesitate to contact me. The office telephone contact is [phone]. Sincerely, Dr Herminio Yi MD, [facility] - Urology Compassionate Specialist Care for the Genitourinary System Coding Level of Care Code Est Pt Level 3 (82752) Diagnoses Bilateral nephrolithiasis N20.0 CPT Codes Cystoscopy - CPT: 07410-[id number] with stent removal ([id number])
--- OUTSIDE RECORDS SUMMARY | 2025-01-25 14:43 | XMS_ITS | Encounter Summary ---
Author Organization [employer] Address [address] [facility] [address] [place] [address] Care Team Providers Care Can Repairer Name Role Phone Raquel Sethi MD Primary Care Provider [phone] Sarkis Law Unavailable Unavailable Amelia Walker RN Unavailable [phone] Brody Dubois Unavailable Reason for Visit * Reason Onset Date Comments Med Refill 11/17/2023 Encounter Details Date Type Department Care Team (Late st Contact Info) Description 11/17/2023 Refill [facility] [address] [place] [address] Raquel Sethi MD [address] [place], [place] [id number] Anxious depression Social History Tobacco Use Types [...] from pt requesting medication refill. Pt stated [facility] is out of stock Medications needing refill : clonazePAM (KlonoPIN) 1 MG tablet To be sent to: [facility] - [place], [place] - [address] [facility] documented in this encounter Plan of Treatment Upcoming Encounters Date Type Department Care Team ([facility] st Contact Info) Description 02/04/2025 10:00 AM EDT Clinical Support [facility] [address] [place] [address] documented as of this encounter Visit Diagnoses Diagnosis Anxious depression documented in this encounter Additional Health Concerns Assessment Noted Time PHQ-9 Depression Total Score: 2 11/13/19 24 2:13 PM EDT documented as of this encounter Care Teams Can Repairer Relationship Specialty Start Date End Date Raquel Sethi MD [address] [place] [address] PCP - General Family Medicine 07/14/18 Sarkis Law FNP [address] [place] [address] Nurse Practitioner Family Medicine 06/17/23 Amelia Walker RN [address] [place] [address] Registered Nurse Family Medicine 12/27/24 Brody Dubois 12/27/24 documented as of this encounter
== END 2025-01-25 14:13 | disposition home or self-care (01) ==
LOC: HO.HUSH 13:22
PROVIDERS: PCP Pediatrics; Visit Provider Urology
DX: N39.0 Urinary tract infection, site not specified (principal); N20.0 Calculus of kidney; Z13.9 Encounter for screening, unspecified
CPT/HCPCS: 52310

== ENCOUNTER → 2025-01-25 13:22 | Outpatient (BNVA) | payer MEDICAID, SELFPAY | PROVIDERS: PCP Pediatrics; Visit Provider Urology | DX: N20.0 Calculus of kidney (principal); N39.0 Urinary tract infection, site not specified | CPT/HCPCS: 52310; 81003 ==

== ENCOUNTER 2025-04-18 08:24 | Outpatient (REF) | payer MEDICAID, SELFPAY ==
--- NOTE | ~2025-04-18 | XR_ITS ---
EXAMINATION: XR ABDOMEN KUB CLINICAL INDICATION: N20.0 - Calculus of kidney COMPARISON: X-ray 11/12/2023 . Ultrasound 04/14/2024 TECHNIQUE: 3 AP views of the abdomen. FINDINGS: No radiographic evidence of renal calculi. Calcifications seen in the pelvis, having the appearance of phleboliths, similar to previous. Redemonstrated intervertebral fusion cage at L4-5. No aggressive bony lesion. Nonobstructive bowel gas pattern. No free air. XR/XR KUB IMPRESSION: No radiographic evidence of renal stones. Electronically signed by: Aravind Whitehead MD 04/18/2025 09:05 AM EDT
--- OUTSIDE RECORDS SUMMARY | 2025-04-18 08:50 | XMS_ITS | Encounter Summary ---
Author Organization [employer] Address [address] [facility] [address] [place] [address] Care Team Providers Care Steel Analyst Name Role Phone Raquel Sethi MD Primary Care Provider [phone] Sarkis Law Unavailable Unavailable Amelia Walker RN Unavailable [phone] Brody Dubois Unavailable Reason for Visit * Reason Onset Date Comments Nurse Triage 09/08/2024 Encounter Details Date Type Department Care Team (Late st Contact Info) Description 09/08/2024 Telephone [facility] [address] [place] [address] Raquel Sethi MD [address] [place] [address] Nurse Triage Social History Tobacco Use Types [...] documented as of this encounter Care Teams Steel Analyst Relationship Specialty Start Date End Date Raquel Sethi MD [address] [place] [address] PCP - General Family Medicine 07/14/18 Sarkis Law FNP [address] [place] [address] Nurse Practitioner Family Medicine 06/17/23 Amelia Walker, TRACEY [address] [place] [address] Registered Nurse Family Medicine 12/27/24 02/28/25 Brody Dubois 12/27/24 02/28/25 documented as of this encounter
--- OUTSIDE RECORDS SUMMARY | 2025-04-18 08:50 | XMS_ITS | Clinical Summary ---
Author Organization [employer] Address [address] [place] [address] 7t [place] [address] Care Team Providers Care Core Stripper Name Role Phone Raquel Sethi MD Primary Care Provider [phone] Sarkis Law Unavailable Unavailable Allergies Active Allergy Reactions Criticality Noted Date Comments Amoxicillin High 07/30/2023 Other Reaction(s): yeast infection Side Effects Cat Dander Rash High 11/21/2011 Other reaction(s): Hives / Skin Rash Molds & Smuts Rash High 07/30/2023 Pollen Extract Unknown 06/12/2023 Medications * This document contains information received from the source organization and may not represent a complete record from that organization. Blood Pressure kitIndications: Elevated BP without diagnosis of hypertension 1 Units in the morning. 1 kit 04/17/20 23 Active albuterol 108 (90 Base) MCG/ACT inhaler Inhale 2 puffs every 6 (six) hours if needed for wheezing. 18 g 2 05/07/20 23 Active ARIPiprazole (Abilify) 20 MG tablet Take 1 tablet (20 mg) by mouth Once daily. 90 tablet 3 11/13/19 24 Active triamcinolone (Kenalog) 0.5 % cream Apply topically 3 times daily. 30 g 5 04/22/20 24 Active bacitracin-poly myxin b (Polysporin) ointment Apply topically 2 times daily. 30 g 09/09/19 25 Active venlafaxine XR (Effexor XR) 150 MG 24 hr capsuleIndicati ons:Anxious depression Take 1 capsule (150 mg) by mouth in the morning. Also take Venlafaxine 37.5 mg daily for 10 days prior to menses. Do not crush or chew. 90 capsule 3 01/05/20 25 Active venlafaxine XR (Effexor XR) 37.5 MG 24 hr capsuleIndicati ons:Anxious depression Once daily for 10 days prior to menses. Along with Venlafaxine ER 150 mg once daily. Do not crush or chew. 60 capsule 3 01/05/20 25 Active omeprazole (PriLOSEC) [address] capsule Take 1 capsule (40 mg) by mouth before breakfast. Do not crush or chew. 30 capsule 2 01/05/20 25 2025 Active cetirizine (ZyrTEC) 10 MG tablet TAKE 1 TABLET BY MOUTH EVERY DAY 90 tablet 1 03/22/20 25 Active ondansetron (Zofran) 4 MG tabletIndicatio ns:Nausea and Vomiting TAKE 1 TABLET BY MOUTH EVERY 12 HOURS NEEDED FOR NAUSEA OR VOMITING 20 tablet 03/22/20 25 Active metoprolol succinate XL (Toprol-XL) 25 MG 24 hr tabletIndicatio ns:Primary hypertension Take 1 tablet (25 mg) by mouth Once per day. Do not crush or chew. 30 tablet 2 04/01/20 25 2025 Active clonazePAM (KlonoPIN) 1 MG tabletIndicatio ns:Anxious depression Take 1 tablet (1 mg) by mouth 2 times daily. 45 tablet 04/01/20 25 Active cetirizine (ZyrTEC) 10 MG tablet Take 1 tablet (10 mg) by mouth Once per day. 30 tablet 11 08/16/19 25 2024 Discontinued(R eorder (will not trigger notification to Pharmacy)) ondansetron (Zofran) 4 MG tabletIndicatio ns:Nausea and Vomiting Take 1 tablet (4 mg) by mouth every 12 (twelve) hours if needed for nausea or vomiting. 20 tablet 01/05/20 25 2024 Discontinued(R eorder (will not trigger notification to Pharmacy)) metoprolol succinate XL (Toprol-XL) 25 MG 24 hr tabletIndicatio ns:Primary hypertension Take 1 tablet (25 mg) by mouth Once per day. Do not crush or chew. 30 tablet 2 01/05/20 25 2024 Discontinued(R eorder (will not trigger notification to Pharmacy)) clonazePAM (KlonoPIN) 1 MG tabletIndicatio ns:Anxious depression Take 1 tablet (1 mg) by mouth 2 times daily. Do not start before March 13, 2025. 45 tablet 03/13/20 25 2024 Discontinued(R eorder (will not trigger notification [...] recommended reduction of 20-30% of maintenance calories; spinning frame cleaner referral offered. Recommended to decrease soda and sugary beverage consumption. Recommended at least 20 g per meal of protein to assist with satiety. Recommended at least 150 min/week of moderate intensity exercise. Anxiety 12/25/2011 Encounters * This document contains information received from the source organization and may not represent a complete record from that organization. Date Type Department Care Team Description 04/01/2025 Refill [facility] [address] [place] [address] Raquel Sethi MD Primary hypertension; Anxious depression 03/21/2025 Refill [facility] & PEDS [address] [place] [address] Raquel Sethi MD 03/11/2025 Refill [facility]S [address] [place] [address] Raquel Sethi MD Anxious depression 02/28/2025 Patient Outreach [facility] [address] [place] [address] Raquel Sethi MD Care Coordination ([facility] Brody Dubois, TC #4 RS assessment appt_closed ) 02/17/2025 Refill [facility]EDS [address] [place] [address] Ricky Lundberg MD Anxious depression 02/03/2025 Patient Outreach [facility] [address] [place] [phone] Raquel Sethi MD Care Coordination ([facility]/Paula Dubois reschedule initial assessment_lvm) 01/28/2025 9:20 AM EDT Office Visit [facility] [address] [place] [address] Kusum Li MD Keloid (Primary Dx) 01/28/2025 Travel 01/27/2025 Patient Outreach [facility] [address] [place] [address] Raquel Sethi MD Care Coordination ([facility]/W Brody Dubois, attempt #2 to RS assessment_lvm ) 01/27/2025 Patient Outreach [facility] [address] [place] [address] Raquel Sethi MD 01/27/2025 Travel 01/26/2025 Refill [facility] [address] [place] [address] Raquel Sethi MD Anxious depression 01/21/2025 Patient Outreach [facility] [address] [place] [address] Raquel Sethi MD Care Coordination ([facility] Brody Dubois, attempt to RS missed I.A._lvm ) 01/17/2025 Orders Only GENERIC EXTERNAL DATA DEPARTMENT Provider, Generic External Data from Last 3 Months Immunizations Immunization Administration Dates Next Due DTaP, 5 pertussis [...] to Q uit: Not Asked; Counseling Given: Not Answered Depression Answer Date Recorded Patient Health Questionnaire-9 Score 2 11/13/2023 Patient Health Questionnaire-9 Score 2 11/13/2023 Last PHQ-9: Questionnaire Data Not on file 0 11/13/2023 Housing Stability Answer Date Recorded What is your housing situation today? I have mateo fan 04/28/[address] you li [...] Sign Reading Time Taken Comments Blood Pressure 140/88 01/28/2025 9:07 AM EDT Pulse 76 01/28/2025 9:07 AM EDT Temperature 36.1 C (97 F) 01/28/2025 9:07 AM EDT Respiratory Rate 18 01/28/2025 9:07 AM EDT Oxygen Saturation 97% 09/09/2024 10:56 AM EST Inhaled Oxygen Concentration - - Weight 135 kg (297 lb) 01/28/2025 9:07 AM EDT Height 170.8 cm (5' 7.25 ) 01/28/2025 9:07 AM ED T Body Mass Index 46.17 01/28/2025 9:07 AM EDT Plan of Treatment Health Maintenance Due Date Last Done Comments HIV Screening 1989 Alcohol/Substance Use Screening 2001 Family Planning (PISQ) 2004 Pneumococcal Vaccine: Pediatrics (0 to 5 Years) and At-Risk Patients (6 to 49) Years (2 of 2 - PCV) 05/16/2018 05/16/2017 Cervical Cancer Screening 10/30/2023 HPV/Cotest 10/30/2023 10/29/2018, 10/29/2018 Pap Smear 10/30/2023 10/29/2018 SDOH Screening 11/21/2023 11/20/2022 Depression Screening 11/12/2024 11/13/2023, 11/13/19 24 Mammogram 11/23/2024 11/24/2023, 11/11, 06/11/2023, Additional history exists COVID-19 Vaccine ( season) 2025 01/08/2021, 12/13/2020 Influenza Vaccine (#1) 2025 , 05/21/2019, 04/01/2018, Additional history exists Disability Screening 09/08/2025 09/08/2024 Tobacco Screening 01/28/2026 01/28/2025 Lipid Panel 05/07/2028 05/07/2023, 11/13/2020 DTaP/Tdap/Td Vaccines [...] Completed 10/08/2007 Hepatitis C Screening Completed 05/07/2023 HIB Vaccines Aged Out No longer eligi ble based on patient's age to complete this topic Hepatitis A Vaccines Aged Out No long er eligible based on patient's age to complete this topic Meningococcal B Vaccine Aged Out No l onger eligible based on patient's age to complete this topic RSV under 20 months Aged Out No longe r eligible based on patient's age to complete this topic Rotavirus Vaccines Aged Out No longer eligible based on patient's age to complete this topic Procedures Procedure Name Priority Date/Time Associated Diagnosis Comments FL GUIDANCE IN OR Routine 01/17/2025 7:4 5 AM EDT HCG, QL, URINE Routine 01/17/2025 6:07 AM EDT BI MAMMOGRAM DIAGNOSTIC TOMOSYNTHESIS BILATERAL Routine [...] Recently Relevant to Health Maintenance Results * FL Guidance in OR (01/17/2025 7:45 AM EDT) Anatomical Region Laterality Modality X-Ray Angiograph y 01/17/2025 7:45 AM EDT Narrative 01/17/2025 8:36 AM EDT [address] [address] Fluoroscopy Report Signed Patient: Bita Irizarry MR#: [id number] : 1990 Acct:[id number] Age/Sex: 34 / F ADM Date: 01/17/25 Loc: HO.SSS Attending Dr: Herminio Yi MD Ordering Physician: Herminio Yi MD Date of Service: 01/17/25 Procedure(s): FL guidance in OR Accession Number(s): [id number] cc: Raquel Sethi MD; Herminio Yi MD EXAMINATION: FL GUIDANCE ONLY HISTORY: right stone COMPARISON: Correlation is made with a renal ultrasound dated 10/27/2024. TECHNIQUE: Fluoroscopy time: 22.9 seconds. Cumulative Dose: 12.80 mGy. Images: 3. FINDINGS: Fluoroscopic spot films demonstrate opacification of the right intrarenal collecting system and proximal ureter, which are unremarkable in appearance. The final images demonstrate a nephroureteral stent in place. FL/FL guidance in OR IMPRESSION: Fluoroscopy during procedure. Please see procedure report for additional information. Electronically signed by: Abbe Vieira MD 01/17/2025 08:33 AM EDT Dictated By: Abbe Vieira MD Signed By: <Electronically signed by Abbe Vieira MD in OV> 01/17/2533 DD/ 0745 TD/TT: 01/17/25 0807 Machine Quilt Stuffer: Procedure Note Donotuseinterpreter, Image - 01/17/[address] [address] Fluoroscopy Report Signed Patient: Bita Irizarry AMR#: [id number] : 1990Acct:[id number] Age/Sex: 34 / FADM Date: 01/17/25 Loc: HO.SSS Attending Dr: Herminio Yi MD Ordering Physician: Herminio Yi MD Date of Service: 01/17/25 Procedure(s): FL guidance in OR Accession Number(s): [id number] cc: Raquel Sethi MD; Herminio Yi MD EXAMINATION: FL GUIDANCE ONLY HISTORY: right stone COMPARISON: Correlation is made with a renal ultrasound dated 10/27/2024. TECHNIQUE: Fluoroscopy time: 22.9 seconds. Cumulative Dose: 12.80 mGy. Images: 3. FINDINGS: Fluoroscopic spot films demonstrate opacification of the right intrarenal collecting system and proximal ureter, which are unremarkable in appearance. The final images demonstrate a nephroureteral stent in place. FL/FL guidance in OR IMPRESSION: Fluoroscopy during procedure. Please see procedure report for additional information. Electronically signed by: Abbe Vieira MD 01/17/2025 08:33 AM EDT RP Dictated By: Abbe Vieira MD Signed By: <Electronically signed by Abbe Vieira MD in OV> 01/17/2533 DD/ TD/TT: 01/17/25806 Machine Quilt Stuffer: [facility] External Provider IMG IR PROCEDURES Final Result * HCG, Qualitative, Urine (01/17/2025 6:07 AM EDT) Urine NEGATIVE NEGATIVE [facility] Comment:This test was develo ped to detect early . Falsenegative results may occur after the 5th - 7th week ofpregnancy when using this test method. If clinicallyindicated, consider a serum hCG. 01/17/2025 6:07 AM EDT 01/17/2025 7:13 AM EDT Generic External Data Provider LAB URINE ORDERAB LES Final Result [facility] [address] [place] [phone] * BI Mammogram Diagnostic Tomosynthesis Bilateral (11/24/2023 11:35 AM EDT) Anatomical Region Laterality Modality Breast Bilateral Mammography 11/24/2023 11:3 5 AM EDT Narrative 12/01/2023 7:35 AM EDT [facility] [address] [place] [address] Mammography Report Signed Patient: Bita Irizarry MR#: [id number] : 1990 Acct:[id number] Age/Sex: 33 / F ADM Date: 11/24/23 Loc: HO.MAMMO Attending Dr: Raquel Sethi MD Ordering Physician: Raquel Sethi MD Results: 1Ne gative Date of Service: 11/24/23 Follow Up: 1 Year From Orig inal Mammogram Procedure(s): MM tomosynthesis diagnostic BI Accession Number(s): [id number] cc: Raquel Sethi MD EXAMINATION: MM DIAGNOSTIC [...] in OV> 12/01/23 0731 DD/ 1135 TD/TT: Machine Quilt Stuffer: Procedure Note Donotuseinterpreter, Image - [facility] [address] [place] [address] Mammography Report Signed Patient: Bita Irizarry [facility]#: [id number] : 1990Acct:[id number] Age/Sex: 33 / FADM Date: 11/24/23 Loc: MAMMO Attending Dr: Raquel Sethi MD Ordering Physician: Raquel Sethi MDResults: 1Ne gative Date of Service: 11/24/23Follow Up: 1 Year From Orig inal Mammogram Procedure(s): MM tomosynthesis diagnostic BI Accession Number(s): [id number] cc: Raquel Sethi MD EXAMINATION: MM DIAGNOSTIC [...] in OV> 12/01/23 0731 DD/ 1135 TD/TT: Machine Quilt Stuffer: Raquel Sethi MD IMG BI PROCEDURES Edited Resu lt - Final * Hepatitis C Antibody with Reflex to HCV, RNA, Quantitative, Real-Time PCR (05/07/2023 10:35 AM EDT) Hepatitis C Antibody Nonreactive Nonreactive [facility] Comment:Antibodies to HCV no t detected; does not exclude early acuteHCV infection. Blood Venous blood specimen / Unknown 05/07/2023 10:35 AM EDT 05/07/2023 2:55 PM EDT Raquel Sethi MD LAB BLOOD ORDERABLES Final Re sult [facility] [address] [place] [phone] * (ABNORMAL) Lipid Panel, Standard (05/07/2023 10:35 AM EDT) Triglycerides 171(H) <150 mg/dL [facility] Comment:Desirable Triglyceri de: less than 150 mg/dLBorderline High Triglyceride 150-199 mg/dLHigh Triglyceride: 200-499 mg/dLVery High Triglyceride: greater than or equal to 5OO mg/dL Cholesterol 205(H) <200 mg/dL [facility] Comment:Desirable Cholestero l: less than 200 mg/dLBorderline High Cholesterol: 200-239 mg/dLHigh Cholesterol: greater than 239 mg/dL LDL Cholesterol Calculated 136(H) <100 mg/dL [facility] Comment:Desirable LDL: less than 100 mg/dLNear Optimal/Above Optimal LDL: 110- 129 mg/dLBorderline High LDL: 130-159 mg/dLHigh LDL: 160-189 mg/dLVery High LDL: greater than or equal to 190 mg/dL HDL Cholesterol 35(L) >40 mg/dL [facility] Comment:Desirable HDL: great er than 40 mg/dL Note: This HDL assay may give artificially low results in patients with liver disease. Blood Venous blood specimen / Unknown 05/07/2023 10:35 AM EDT 05/07/2023 2:55 PM EDT us Raquel Sethi MD LAB BLOOD ORDERABLES Final Re sult [facility] [address] [place] [phone] * HPV mRNA E6/E7 (10/29/2018 3:26 PM EDT) HPV mRNA E6/E7 Not Detected NOT DETECTED [facility] Comment: This test was performed using the APTIMA(R) HPV Assay ([employer] This assay detects E6/E7 viral messenger RNA (mRNA) from 14 high-risk HPV types (16,18,31,33,35,39,45,51, 52,56,58,59,66,68). For additional information please refer to: http://education.Stylistpick/faq/HQX086r4 (This link is being provided for informational/ educational purposes only.) The analytical performance characteristics of this assay have been determined by [employer] [place], [place]. The modifications have not been cleared or approved by the FDA. This assay has been validated pursuant to the CLIA regulations and is used for clinical purposes. Test Performed by [facility], [address] [place] [address] Heath Kemp M.D., Ph.D., Director of Laboratories , [facility] [id number] Please note: Effective 03/25/2016, HPV testing will be performed using [employer]'s APTIMA test which targets mRNA. Detecting mRNA instead of DNA, as in older methods, offers significant improvements in specificity. 10/29/2018 3:26 PM EDT Raquel Sethi MD HISTORICAL/NON ORDERABLE LABS Final Result [facility] [address] * Pap Smear (10/29/2018) Pap Negative for intraephithelial lesion or malignancy Negative for intraephithelial lesion or malignancy, Other HPV Undetected Historical Provider HEALTH MAINTENANCE Final Result from Last 3 Months or Most Recently Relevant to Health Maintenance Insurance [facility] C3 Care Teams Core Stripper Relationship Specialty Start Date End Date Raquel Sethi MD [address] [facility] [place] [address] PCP - General Family Medicine 07/14/18 Sarkis Law FNP [address] [place] [place] [address] Nurse Practitioner Family Medicine 06/17/23
--- OUTSIDE RECORDS SUMMARY | 2025-04-18 08:50 | XMS_ITS | Encounter Summary ---
Author Organization [employer] Address [address] [place] [address] 7 [place] [address] Care Team Providers Care Mule Driver Name Role Phone Raquel Sethi MD Primary Care Provider [phone] Sarkis Law Unavailable Unavailable Amelia Walker RN Unavailable [phone] Brody Dubois Unavailable Reason for Visit * Reason Onset Date Comments Medication Question 09/12/2022 Encounter Details Date Type Department Care Team ([facility] st Contact Info) Description 09/12/[address] [facility] [address] [place] [address] Raquel Sethi MD [address] [place] [address] Medication Question Social History Tobacco Use Types [...] PCP declined medication. Please contact pt at [phone] documented in this encounter Plan of Treatment Not on file documented as of this encounter Visit Diagnoses Not on filedocumented in this encounter Additional Health Concerns Assessment Noted Time PHQ-9 Depression Total Score: 2 08/27/19 23 9:17 AM EST documented as of this encounter Care Teams Mule Driver Relationship Specialty Start Date End Date Raquel Sethi MD [address] [place] [address] PCP - General Family Medicine 07/14/18 Sarkis Law FNP [address] [place] [address] Nurse Practitioner Family Medicine 06/17/23 Amelia Walker RN [address] [place] [address] Registered Nurse Family Medicine 12/27/24 02/28/25 Brody Dubois 12/27/24 02/28/25 documented as of this encounter
--- OUTSIDE RECORDS SUMMARY | 2025-04-18 08:50 | XMS_ITS | Encounter Summary ---
Author Organization [employer] Address [address] [facility] 7 [place] [address] Care Team Providers Care Inspector Fabric Name Role Phone Raquel Sethi MD Primary Care Provider [phone] Sarkis Law Unavailable Unavailable Amelia Walker RN Unavailable [phone] Brody Dubois Unavailable Reason for Visit * Reason Onset Date Comments Med Refill 11/17/2023 Encounter Details Date Type Department Care Team (Late st Contact Info) Description 11/17/2023 Refill [facility] [address] [place] [address] Raquel Sethi MD [address] [place], [place] [phone] Anxious depression Social History Tobacco Use Types [...] 1 MG tablet To be sent to: [facility] [place] documented in this encounter Plan of Treatment Not on file documented as of this encounter Visit Diagnoses Diagnosis Anxious depression documented in this encounter Additional Health Concerns Assessment Noted Time PHQ-9 Depression Total Score: 2 11/13/19 24 2:13 PM EDT documented as of this encounter Care Teams Inspector Fabric Relationship Specialty Start Date End Date Raquel Sethi MD [address] [facility] [place] [phone] PCP - General Family Medicine 07/14/18 Sarkis Law FNP [address] [place] [address] Nurse Practitioner Family Medicine 06/17/23 Amelia Walker RN [address] [place], [place] [address] [address] Registered Nurse Family Medicine 12/27/24 02/28/25 Brody Dubois 12/27/24 02/28/25 documented as of this encounter
--- OUTSIDE RECORDS SUMMARY | 2025-04-18 08:50 | XMS_ITS | Encounter Summary ---
Author Organization [employer] Address [address] [place] [address] 7 [place] [address] Care Team Providers Care Roll Line Operator Name Role Phone Raquel Sethi MD Primary Care Provider [phone] Sarkis Law Unavailable Unavailable Amelia Walker RN Unavailable [phone] Brody Dubois Unavailable Encounter Details Date Type Department Care Team ([facility] Contact Info) Description 11/10/2024 Orders Only [facility]S [address] [place], [place] [phone] Dipika Markham MD [address] [place], [place] [phone] Social History Tobacco Use Types Packs/Day Years [...] documented as of this encounter Care Teams Roll Line Operator Relationship Specialty Start Date End Date Raquel Sethi MD [address] [place] [address] PCP - General Family Medicine 07/14/18 Sarkis Law FNP [address] [place] [address] Nurse Practitioner Family Medicine 06/17/23 Amelia Walker RN [address] [place] [address] Registered Nurse Family Medicine 12/27/24 02/28/25 Brody Dubois 12/27/24 02/28/25 documented as of this encounter
--- OUTSIDE RECORDS SUMMARY | 2025-04-18 08:50 | XMS_ITS | Encounter Summary ---
Author Organization [employer] Address [address] [facility] [address]t [place] [address] Care Team Providers Care Shop Mechanic Helper Name Role Phone Raquel Sethi MD Primary Care Provider [phone] Sarkis Law Unavailable Unavailable Amelia Walker RN Unavailable [phone] Brody Dubois Unavailable Reason for Visit * Reason Onset Date Comments new script 05/07/2023 Encounter Details Date Type Department Care Team ([facility] st Contact Info) Description 05/07/2023 Telephone [facility] MED[facility] [address] [place] [address] Raquel Sethi MD [address] [place] [address] new script Social History Tobacco Use Types [...] - 05/07/2023 11:13 AM EDT Tc from [place] with [facility] requesting a new script for Ventolin [...] documented as of this encounter Care Teams Shop Mechanic Helper Relationship Specialty Start Date End Date Raquel Sethi MD [address] [place] [address] PCP - General Family Medicine 07/14/18 Sarkis Law FNP [address] [place] [address] Nurse Practitioner Family Medicine 06/17/23 Amelia Walker, TRACEY [address] [place] [address] Registered Nurse Family Medicine 12/27/24 02/28/25 Brody Dubois 12/27/24 02/28/25 documented as of this encounter
--- OUTSIDE RECORDS SUMMARY | 2025-04-18 08:50 | XMS_ITS | Encounter Summary ---
Author Organization [employer] Address [address] [place] [address] 7 [place] [address] Care Team Providers Care Magnetic Prospecting Operator Name Role Phone Raquel Sethi MD Primary Care Provider [phone] Sarkis Law Unavailable Unavailable Amelia Walker RN Unavailable [phone] Brody Dubois Unavailable Reason for Visit * Reason Onset Date Comments Med Refill 12/03/2023 Encounter Details Date Type Department Care Team ([facility] Contact Info) Description 12/03/2023 Refill [facility]EDS [address] [place], [place] [phone] Raquel Sethi MD [address] [place], [place] [phone] Social History Tobacco Use Types Packs/Day Years [...] documented as of this encounter Care Teams Magnetic Prospecting Operator Relationship Specialty Start Date End Date Raquel Sethi MD [address] [place] [address] PCP - General Family Medicine 07/14/18 Sarkis Law FNP [address] [place] [address] Nurse Practitioner Family Medicine 06/17/23 Amelia Walker RN [address] [place] [address] Registered Nurse Family Medicine 12/27/24 02/28/25 Brody Dubois 12/27/24 02/28/25 documented as of this encounter
--- OUTSIDE RECORDS SUMMARY | 2025-04-18 08:50 | XMS_ITS | Encounter Summary ---
Author Organization [employer] Address [address] [facility] 7t [place] [address] Care Team Providers Care Php Mysql Web Developer Name Role Phone Raquel Sethi MD Primary Care Provider [phone] Sarkis Law Unavailable Unavailable Amelia Walker RN Unavailable [phone] Brody Dubois Unavailable Encounter Details Date Type Department Care Team (Late st Contact Info) Description 06/02/2023 Abstract [facility] MEDICINE [address] [place] [address] Beronica Mcginnis Social History Tobacco Use Types [...] documented as of this encounter Care Teams Php Mysql Web Developer Relationship Specialty Start Date End Date Raquel Sethi MD [address] [place] [address] PCP - General Family Medicine 07/14/18 Sarkis Law FNP [address] [place] [address] Nurse Practitioner Family Medicine 06/17/23 Amelia Walker, TRACEY [address] [place] [address] Registered Nurse Family Medicine 12/27/24 02/28/25 Brody Dubois 12/27/24 02/28/25 documented as of this encounter
--- OUTSIDE RECORDS SUMMARY | 2025-04-18 08:50 | XMS_ITS | Encounter Summary ---
Author Organization [employer] Address [address] [place] [address] 7 [place] [address] Care Team Providers Care Lock Master Name Role Phone Raquel Sethi MD Primary Care Provider Sarkis Law Unavailable Unavailable Amelia Walker RN Unavailable [phone] Brody Dubois Unavailable Reason for Visit * Reason Onset Date Comments Med Refill 06/20/2024 Encounter Details Date Type Department Care Team ([facility] Contact Info) Description 06/20/2024 Refill [facility] CHC MED & PEDS [address] [place], [place] [phone] Raquel Sethi MD [address] [place] [address] Anxious depression Social History Tobacco Use Types [...] documented as of this encounter Care Teams Lock Master Relationship Specialty Start Date End Date Raquel Sethi MD [address] [place] [address] PCP - General Family Medicine 07/14/18 Sarkis Law FNP [address] [place] [address] Nurse Practitioner Family Medicine 06/17/23 Amelia Walker RN 505 [place] [address] Registered Nurse Family Medicine 12/27/24 02/28/25 Brody Dubois 12/27/24 02/28/25 documented as of this encounter
== END 2025-04-18 08:25 | disposition home or self-care (01) ==
LOC: HO.XRAY 08:24
PROVIDERS: PCP Pediatrics; Visit Provider Urology
DX: N20.0 Calculus of kidney (principal)
CPT/HCPCS: 74018

== ENCOUNTER → 2025-04-18 08:34 | Outpatient (BNV) | payer MEDICAID, SELFPAY | PROVIDERS: PCP Pediatrics; Visit Provider Radiology Diagnostic Ultrasound | DX: N20.0 Calculus of kidney (principal) | CPT/HCPCS: 74018 ==

== ENCOUNTER 2025-05-26 09:49 | Outpatient (AMB) | payer MEDICAID, SELFPAY ==
--- NOTE | 2025-05-26 09:49 | MHC.OFFVIS ---
Intake Visit Reasons: 4m/KUB Intake Note: Patient is present for 4 mo follow up Urology Medication:,ALLOPURINOL,VITAMIN B6 Antibiotic Allergy:AMOXICILLIN Blood Thinner:NONE Imaging : XRAY 04/18/25 Chief Customer Officer Required: No Accompanied by: Self / Same As Patient Allergies cat dander (CATS) Allergy (Intermediate, Verified 05/26/25 09:49) RASH mold Allergy (Intermediate, Verified 05/26/25 09:49) RASH amoxicillin Adverse Reaction (Intermediate, Verified 05/26/25 09:49) yeast infection seasonal Allergy (Unknown, Uncoded 11/16/24 13:25) Unknown HPI Comments Details: Bita is a pleasant female. She is a patient of Dr. Sethi. She is seen for the following urologic conditions - nephrolithiasis Telemedicine Evaluation 15 min Consultation [employer] Juancarlos Video attempted Recent KUB does not demonstrate stones Continue allopurinol with vitamin B6. Prescriptions provided. Six-month follow-up imaging Recurrent stone former Imaging 09/03 CT NAD, 07/03 renal ultrasound no evidence of stones, 07/04 renal ultrasound no evidence of stones - 07/05 renal ultrasound bilateral 6 mm stone - 05/06 renal ultrasound no stones - 11/05 renal ultrasound question 3 mm stone right side - 05/07 KUB Procedures - multiple prior ESWL - 01/04 right ESWL Associated symptoms - minimal No definitive family history Discussed dietary restrictions Encouraged fluid intake with lemon water PFSH Medical History Anxiety and depression Morbid obesity Vasovagal syncope Asthma Spinal stenosis Degenerative disc disease Chronic kidney disease Surgical History History of surgical removal of pilonidal cyst Hx of lithotripsy Hx of cystoscopy History of cholecystectomy H/O Spinal surgery Social History Alcohol intake: current Alcohol intake frequency: former alcohol drinker Alcohol type: beer Patient Tobacco Use Status: Current someday Tobacco user Tobacco use type: Cigarette Cigarette Packs Per Day: 0.5 Cigarettes Per Day: 10.0 Substance Use Type: Marijuana Review of Systems Const All systems reviewed & are unremarkable except as noted in HPI and below Reports no additional complaints Resp Reports no additional complaints GI Reports no additional complaints Reports as per HPI Musc Reports no additional complaints Physical Exam Telemedicine evaluation Appropriate responses Regular breathing rate and rhythm HEENT Head: Yes normal to inspection Ears: hearing grossly normal bilaterally Eyes General: appearance normal, both eyes and all related structures Neck Neck: Yes normal visual inspection Chest Chest palpation & inspection: normal inspection of the chest Resp Effort & Inspection: normal respiratory effort and able to speak in complete sentences Telehealth Telehealth Telehealth Platform: [employer] Location of provider rendering services: practice address Location of patient: address on file Patient Identification confirmed using: Name, : Yes Telehealth method: video Patient verbally consented to treatment: Yes Patient verbally consented to billing insurance company: Yes Patient informed of any privacy concerns related to visit: Yes Minutes spent on Phone/Video with Pt.: 15 Assessment & Plan Assessment & Plan (1) Bilateral nephrolithiasis: Code(s): N20.0 - Calculus of kidney Category: Medical Plan Six-month follow-up imaging Orders: Orders XR KUB 6 Months N20.0 - Calculus of kidney Medications: Refilled pyridoxine (vitamin B6) 50 mg PO DAILY 90 tabs 1RF 90 days N20.0 - Calculus of kidney allopurinol 100 mg PO DAILY 90 tabs 1RF 90 days N20.0 - Calculus of kidney Patient Instructions: This note is constructed using voice recognition software. While every effort has been made to ensure accuracy accident examiner errors may have been included. Imaging studies, laboratory and physical exam results were discussed and reviewed in detail. No major barriers to patient understanding were identified. An opportunity to ask questions regarding the treatment plan was provided. All questions were answered. The patient expressed understanding and agreement with the above treatment plan. The patient is aware they should contact our office by phone for worsening of their current condition or the appearance of new urologic symptoms. Compliance is encouraged with any medications and followup testing that is ordered. It is a privilege to participate in the urologic care of your patient. If you have any questions or concerns regarding treatment for the above conditions, or other urologic issues, please do not hesitate to contact me. The office telephone contact is [phone]. Sincerely, Dr Herminio Yi MD, MISAEL [facility] - Urology Compassionate Specialist Care for the Genitourinary System Coding Level of Care Code Tele Est Pt Level 3 (54064) Complex EM visit Add On G2211 Diagnoses Bilateral nephrolithiasis N20.0
--- OUTSIDE RECORDS SUMMARY | 2025-05-26 11:30 | XMS_ITS | Encounter Summary ---
Author Organization [employer] Address [address] [facility] 7 [place] [address] Care Team Providers Care Machine Tool Designer Name Role Phone Raquel Sethi MD Primary Care Provider [phone] Sarkis Law Unavailable Unavailable Amelai Walker RN Unavailable Unavailable Brody Dubois Unavailable Reason for Visit * Reason Onset Date Comments new script 05/07/2023 Encounter Details Date Type Department Care Team ([facility] st Contact Info) Description 05/07/2023 Telephone [facility] MEDICINE [address] [place] [address] Raquel Sethi MD [address] [place] [address] new script Social History Tobacco Use Types [...] - 05/07/2023 11:13 AM EDT Tc from [place] with [facility] requesting a new script [...] documented as of this encounter Care Teams Machine Tool Designer Relationship Specialty Start Date End Date Raquel Sethi MD [address] [place] [address] PCP - General Family Medicine 07/14/18 Sarkis Law FNP [address] [place] [address] Nurse Practitioner Family Medicine 06/17/23 Amelia Walker, RN [address] [place] [address] Registered Nurse Family Medicine 12/27/24 02/28/25 Brody Dubois 12/27/24 02/28/25 documented as of this encounter
--- OUTSIDE RECORDS SUMMARY | 2025-05-26 11:30 | XMS_ITS | Clinical Summary ---
Author Organization [employer] Address [address] [place] [address] 7t [place] [address] Care Team Providers Care Security Engineer Name Role Phone Raquel Sethi MD Primary Care Provider [phone] Sarkis Law Unavailable Unavailable Allergies Active Allergy [...] 2 times daily. Do not start before May 18, 2025. 45 tablet 05/18/20 25 Active clonazePAM (KlonoPIN) 1 MG tabletIndicatio ns:Anxious depression Take 1 tablet (1 mg) by mouth 2 times daily. Do not start before April 22, 2025. 45 tablet 04/22/20 25 2024 Discontinued(R eorder (will not trigger [...] recommended reduction of 20-30% of maintenance calories; museum archivist referral offered. Recommended to decrease soda and sugary beverage consumption. Recommended at least 20 g per meal of protein to assist with satiety. Recommended at least 150 min/week of moderate intensity exercise. Anxiety 12/25/2011 Encounters Date Type Department Care Team Description 05/16/2025 Refill [facility] MED & PEDS [address] [place] [address] Raquel Sethi MD Anxious depression 05/15/2025 Refill [facility] CHC MED & PEDS [address] [place] [address] Raquel Sethi MD Anxious depression 04/19/2025 Refill [facility] CH[facility] MED & PEDS [address] [place] [address] Raquel Sethi MD Anxious depression 04/18/2025 Orders Only [facility] External Provider, [facility] 04/01/2025 Refill [facility] CH[facility] MED & PEDS [address] [place] [address] Raquel Sethi MD Primary hypertension; Anxious depression 03/21/2025 Refill [facility] MED & PEDS [address] [place] [address] Raquel Sethi MD 03/11/2025 Refill [facility] MED & PEDS [address] [place], [place] [phone] Raquel Sethi MD Anxious depression 02/28/2025 Patient Outreach [facility] MEDICINE [address] [place] [address] Raquel Sethi MD Care Coordination (C3/W Brody Dubois, TC #4 RS assessment appt_closed ) from Last 3 Months Immunizations Immunization Administration [...] the past 12 months, has t he [employer], gas, oil or water company threatened to [...] Procedure Name Priority Date/Time Associated Diagnosis Comments XR KUB AND UPRIGHT 2 VIEWS Routine 04/18/2025 8:40 AM EDT BI MAMMOGRAM DIAGNOSTIC TOMOSYNTHESIS BILATERAL [...] Recently Relevant to Health Maintenance Results * XR KUB and Upright 2 Views (04/18/2025 8:40 AM EDT) Anatomical Region Laterality Modality Radiographic Mariella ging 04/18/2025 8:40 AM EDT Narrative 04/18/2025 9:07 AM EDT [address] [address] XRay Report Signed Patient: Bita Irizarry MR#: [id number] : 1990 Acct:[id number] Age/Sex: 35 / F ADM Date: 04/18/25 Loc: HO.XRAY Attending Dr: Herminio Yi MD Ordering Physician: Herminio Yi MD Date of Service: 04/18/25 Procedure(s): XR KUB Accession Number(s): [id number] cc: Raquel Sethi MD; Herminio Yi MD Reason for Exam: N20.0 - Calculus of kidney EXAMINATION: XR ABDOMEN KUB CLINICAL INDICATION: N20.0 - Calculus of kidney COMPARISON: X-ray 11/12/2023 . Ultrasound 04/14/2024 TECHNIQUE: 3 AP views of the abdomen. FINDINGS: No radiographic evidence of renal calculi. Calcifications seen in the pelvis, having the appearance of phleboliths, similar to previous. Redemonstrated intervertebral fusion cage at L4-5. No aggressive bony lesion. Nonobstructive bowel gas pattern. No free air. XR/XR KUB IMPRESSION: No radiographic evidence of renal stones. Electronically signed by: Aravind Whitehead MD 04/18/2025 09:05 AM EDT Dictated By: Aravind Whitehead MD Signed By: <Electronically signed by Aravind Whitehead MD in OV> 04/18/25904 DD/ 0840 TD/TT: 04/18/25 0850 Spare Hand: Procedure Note Donotuseinterpreter, Image - 04/18/[address] [address] XRay Report Signed Patient: Bita Irizarry AMR#: [id number] : 1990Acct:[id number] Age/Sex: 35 / FADM Date: 04/18/25 Loc: HO.XRAY Attending Dr: Herminio Yi MD Ordering Physician: Herminio Yi MD Date of Service: 04/18/25 Procedure(s): XR KUB Accession Number(s): [id number] cc: Raquel Sethi MD; Herminio Yi MD Reason for Exam: N20.0 - Calculus of kidney EXAMINATION: XR ABDOMEN KUB CLINICAL INDICATION: N20.0 - Calculus of kidney COMPARISON: X-ray 11/12/2023 . Ultrasound 04/14/2024 TECHNIQUE: 3 AP views of the abdomen. FINDINGS: No radiographic evidence of renal calculi. Calcifications seen in the pelvis, having the appearance of phleboliths, similar to previous. Redemonstrated intervertebral fusion cage at L4-5. No aggressive bony lesion. Nonobstructive bowel gas pattern. No free air. XR/XR KUB IMPRESSION: No radiographic evidence of renal stones. Electronically signed by: Aravind Whitehead MD 04/18/2025 09:05 AM EDT Dictated By: Aravind Whitehead MD Signed By: <Electronically signed by Aravind Whitehead MD in OV> 04/18/25 0905 DD/ 0840 TD/TT: 04/18/25 0850 Spare Hand: MOR[facility] External Provider IMG XR PROCEDURES Final Result * BI Mammogram Diagnostic Tomosynthesis Bilateral (11/24/2023 11:35 AM EDT) Anatomical Region Laterality Modality Breast Bilateral Mammography 11/24/2023 11:3 5 AM EDT Narrative 12/01/2023 7:35 AM EDT [facility] [address] [place] [address] Mammography Report Signed Patient: Bita Irizarry MR#: [id number] : 1990 Acct:[id number] Age/Sex: 33 / F ADM Date: 11/24/23 Loc: HO.MAMMO Attending Dr: Raquel Sethi MD Ordering Physician: Raquel Sethi MD Results: 1Ne gative Date of Service: 11/24/23 Follow Up: 1 Year From Orig inal Mammogram Procedure(s): MM tomosynthesis diagnostic BI Accession Number(s): [id number] cc: Raquel Sethi MD EXAMINATION: MM DIAGNOSTIC [...] in OV> 12/01/23 0731 DD/ 1135 TD/TT: Spare Hand: Procedure Note Donotuseinterpreter, Image - 12/01/2023 [facility] [address] [place] [address] Mammography Report Signed Patient: Bita Irizarry BANNER#: [id number] : 1990Acct:[id number] Age/Sex: 33 / FADM Date: 11/24/23 Loc: HO.MAMMO Attending Dr: Raquel Sethi MD Ordering Physician: Raquel Sethi MDResults: 1Ne gative Date of Service: 11/24/23Follow Up: 1 Year From [facility] ina Mammogram Procedure(s): MM tomosynthesis diagnostic BI Accession Number(s): [id number] cc: Raquel Sethi MD EXAMINATION: MM DIAGNOSTIC [...] in OV> 12/01/23 0731 DD/ 1135 TD/TT: Spare Hand: Raquel Sethi MD IMG BI PROCEDURES Edited Resu lt - Final * Hepatitis C Antibody with Reflex to HCV, RNA, Quantitative, Real-Time PCR (05/07/2023 10:35 AM EDT) Hepatitis C Antibody Nonreactive Nonreactive [facility] Comment:Antibodies to HCV no t detected; does not exclude early acuteHCV infection. Blood Venous blood specimen / Unknown 05/07/2023 10:35 AM EDT 05/07/2023 2:55 PM EDT Raquel Sethi MD LAB BLOOD ORDERABLES Final Re sult [facility] [address] [place] [phone] * (ABNORMAL) Lipid Panel, Standard (05/07/2023 10:35 AM EDT) Triglycerides 171(H) <150 mg/dL [facility] Comment:Desirable Triglyceri de: less than 150 mg/dLBorderline High Triglyceride 150-199 mg/dLHigh Triglyceride: 200-499 mg/dLVery High Triglyceride: greater than or equal to 5OO mg/dL Cholesterol 205(H) <200 mg/dL [facility] Comment:Desirable Cholestero l: less than 200 mg/dLBorderline High Cholesterol: 200-239 mg/dLHigh Cholesterol: greater than 239 mg/dL LDL Cholesterol Calculated 136(H) <100 mg/dL [facility] Comment:Desirable LDL: less than 100 mg/dLNear Optimal/Above Optimal LDL: 110- 129 mg/dLBorderline High LDL: 130-159 mg/dLHigh LDL: 160-189 mg/dLVery High LDL: greater than or equal to 190 mg/dL HDL Cholesterol 35(L) >40 mg/dL [facility] Comment:Desirable HDL: great er than 40 mg/dL Note: This HDL assay may give artificially low results in patients with liver disease. Blood Venous blood specimen / Unknown 05/07/2023 10:35 AM EDT 05/07/2023 2:55 PM EDT Raquel Sethi MD LAB BLOOD ORDERABLES Final Re sult [facility] [address] [place] [address] [phone] * HPV mRNA E6/E7 (10/29/2018 3:26 PM EDT) Pathologist [facility] HPV mRNA E6/E7 Not Detected NOT DETECTED [facility] Comment: This test was performed using the APTIMA(R) HPV Assay ([employer] This assay detects E6/E7 viral messenger RNA (mRNA) from 14 high-risk HPV types (16,18,31,33,35,39,45,51, 52,56,58,59,66,68). For additional information please refer to: http://education.ShopPad/faq/RZS702a1 (This link is being provided for informational/ educational purposes only.) The analytical performance characteristics of this assay have been determined by [employer] [place], [place]. The modifications have not been cleared or approved by the FDA. This assay has been validated pursuant to the CLIA regulations and is used for clinical purposes. Test Performed by [facility], [email or web address] [facility], [address] [place] [address] Heath Kemp M.D., Ph.D., Director of Laboratories , CLIA [id number] Please note: Effective 03/25/2016, HPV testing will be performed using [employer]'s APTIMA test which targets mRNA. Detecting mRNA instead of DNA, as in older methods, offers significant improvements in specificity. 10/29/2018 3:26 PM EDT Raquel Sethi MD HISTORICAL/NON ORDERABLE LABS Final Result [facility] [address] * Pap Smear (10/29/2018) Pap Negative for intraephithelial lesion or malignancy Negative for intraephithelial lesion or malignancy, Other HPV Undetected Historical Provider HEALTH MAINTENANCE Final Result from Last 3 Months or Most Recently Relevant to Health Maintenance Insurance [employer] Care Teams Security Engineer Relationship Specialty Start Date End Date Raquel Sethi MD [address] [place], [place] PCP - General Family Medicine 07/14/18 Sarkis Law FNP [address] [place] [address] Nurse Practitioner Family Medicine 06/17/23
--- OUTSIDE RECORDS SUMMARY | 2025-05-26 11:30 | XMS_ITS | Encounter Summary ---
Author Organization [employer] Address [address] [place] [address] [address] [place] [address] Care Team Providers Care Charter Pilot Name Role Phone Raquel Sethi MD Primary Care Provider [phone] Sarkis Law Unavailable Unavailable Reason for Visit * Reason Comments Med Refill Encounter Details Date Type Department Care Team ([facility] Contact Info) Description 05/16/2025 Refill [facility] CHC MED & PEDS [address] [place] [address] Raquel Sethi MD [address] [place] [address] Anxious depression Social History Tobacco Use Types [...] documented as of this encounter Care Teams Charter Pilot Relationship Specialty Start Date End Date Raquel Sethi MD [address] [place] [address] PCP - General Family Medicine 07/14/18 Sarkis Law FNP [address] [place] [address] Nurse Practitioner Family Medicine 06/17/23 documented as of this encounter
--- OUTSIDE RECORDS SUMMARY | 2025-05-26 11:30 | XMS_ITS | Encounter Summary ---
Author Organization [employer] Address [address] [place] [address] 7 [place] [address] Care Team Providers Care Graphic Manager Name Role Phone Raquel Sethi MD Primary Care Provider [phone] Sarkis Law Unavailable Unavailable Amelia Walker RN Unavailable Unavailable Brody Dubois Unavailable Reason for Visit * Reason Onset Date Comments Med Refill 12/03/2023 Encounter Details Date Type Department Care Team ([facility] st Contact Info) Description 12/03/[address] [facility] CHC MED & PEDS [address] [place], [place] [phone] Raquel Sethi MD [address] [place], [place] [phone] Social History Tobacco Use Types Packs/Day Years [...] documented as of this encounter Care Teams Graphic Manager Relationship Specialty Start Date End Date Raquel Sethi MD [address] [place] [phone] PCP - General Family Medicine 07/14/18 Sarkis Law FNP [address] [place] [address] Nurse Practitioner Family Medicine 06/17/23 Amelia Walker RN [address] [place] [phone] Registered Nurse Family Medicine 12/27/24 02/28/25 Brody Dubois 12/27/24 02/28/25 documented as of this encounter
--- OUTSIDE RECORDS SUMMARY | 2025-05-26 11:30 | XMS_ITS | Encounter Summary ---
Author Organization [employer] Address [address] [facility] 7t [place] [address] Care Team Providers Care Hospice Spiritual Care Coordinator Name Role Phone Raquel Sethi MD Primary Care Provider [phone] Sarkis Law Unavailable Unavailable Amelia Walker RN Unavailable Unavailable Brody Dubois Unavailable Encounter Details Date Type Department Care Team ([facility] st Contact Info) Description 06/02/2023 Abstract [facility] MEDICINE [address] [place] [address] Beronica Mcginnis Social History Tobacco Use Types [...] documented as of this encounter Care Teams Hospice Spiritual Care Coordinator Relationship Specialty Start Date End Date Raquel Sethi MD [address] [place] [phone] PCP - General Family Medicine 07/14/18 Sarkis Law FNP [address] [place] [address] Nurse Practitioner Family Medicine 06/17/23 Amelia Walker, TRACEY [address] [place] [phone] Registered Nurse Family Medicine 12/27/24 02/28/25 Brody Dubois 12/27/24 02/28/25 documented as of this encounter
--- OUTSIDE RECORDS SUMMARY | 2025-05-26 11:30 | XMS_ITS | Encounter Summary ---
Author Organization [employer] Address [address] [place] [address] 7 [place] [address] Care Team Providers Care Supervisor Heat Treating Name Role Phone Raquel Sethi MD Primary Care Provider [phone] Sarkis Law Unavailable Unavailable Amelia Walker RN Unavailable Unavailable Brody Dubois Unavailable Encounter Details Date Type Department Care Team ([facility] st Contact Info) Description 11/10/2024 Orders Only [facility] CHC MED & PEDS [address] [place], [place] [phone] Dipika Markham MD [address] [place], [place] [phone] Social History Tobacco Use Types Packs/Day Years [...] documented as of this encounter Care Teams Supervisor Heat Treating Relationship Specialty Start Date End Date Raquel Sethi MD [address] [place] [phone] PCP - General Family Medicine 07/14/18 Sarkis Law FNP [address] [place] [address] Nurse Practitioner Family Medicine 06/17/23 Amelia Walker RN [address] [place] [phone] Registered Nurse Family Medicine 12/27/24 02/28/25 Brody Dubois 12/27/24 02/28/25 documented as of this encounter
--- OUTSIDE RECORDS SUMMARY | 2025-05-26 11:30 | XMS_ITS | Encounter Summary ---
Author Organization [employer] Address 75 [facility] 7 [place] [address] Care Team Providers Care Gang Drill Press Operator Name Role Phone Raquel Sethi MD Primary Care Provider [phone] Sarkis Law Unavailable Unavailable Amelia Walker RN Unavailable Unavailable Brody Dubois Unavailable Reason for Visit * Reason Onset Date Comments Med Refill 11/17/2023 Encounter Details Date Type Department Care Team (Late st Contact Info) Description 11/17/2023 Refill [facility] MEDICINE [address] [place] [address] Raquel Sethi MD [address] [place], [place] [phone] Anxious depression Social History Tobacco Use Types [...] 1 MG tablet To be sent to: [facility] - [address] documented in this encounter Plan of Treatment Not on file documented as of this encounter Visit Diagnoses Diagnosis Anxious depression documented in this encounter Additional Health Concerns Assessment Noted Time PHQ-9 Depression Total Score: 2 11/13/19 24 2:13 PM EDT documented as of this encounter Care Teams Gang Drill Press Operator Relationship Specialty Start Date End Date Raquel Sethi MD [address] [place] [address] PCP - General Family Medicine 07/14/18 Sarkis Law FNP [address] [place] [address] Nurse Practitioner Family Medicine 06/17/23 Amelia Walker RN [address] [place] [address] Registered Nurse Family Medicine 12/27/24 02/28/25 Brody Dubois 12/27/24 02/28/25 documented as of this encounter
--- OUTSIDE RECORDS SUMMARY | 2025-05-26 11:30 | XMS_ITS | Encounter Summary ---
Author Organization [employer] Address 75 [facility] 7 [place] [address] Care Team Providers Care Mule Rider Name Role Phone Raquel Sethi MD Primary Care Provider [phone] Sarkis Law Unavailable Unavailable Amelia Walker RN Unavailable Unavailable Brody Dubois Unavailable Reason for Visit * Reason Onset Date Comments Medication Question 09/12/2022 Encounter Details Date Type Department Care Team ([facility] Contact Info) Description 09/12/2022 Telephone [facility] MEDICINE 230 [place] [address] Raquel Sethi MD 505 [place] [address] Medication Question Social History Tobacco Use Types [...] PCP declined medication. Please contact pt at [phone] documented in this encounter Plan of Treatment Not on file documented as of this encounter Visit Diagnoses Not on filedocumented in this encounter Additional Health Concerns Assessment Noted Time PHQ-9 Depression Total Score: 2 08/27/19 23 9:17 AM EST documented as of this encounter Care Teams Mule Rider Relationship Specialty Start Date End Date Raquel Sethi MD 505 [place] [address] PCP - General Family Medicine 07/14/18 Sarkis Law FNP [address] [place] [address] Nurse Practitioner Family Medicine 06/17/23 Amelia Walker RN [address] [place] [address] Registered Nurse Family Medicine 12/27/24 02/28/25 Brody Dubois 12/27/24 02/28/25 documented as of this encounter
--- OUTSIDE RECORDS SUMMARY | 2025-05-26 11:31 | XMS_ITS | Encounter Summary ---
Author Organization [employer] Address 75 [facility] 7 [place] [address] Care Team Providers Care Armature Winder Repair Helper Name Role Phone Raquel Sethi MD Primary Care Provider [phone] Sarkis Law Unavailable Unavailable Amelia Walker RN Unavailable Unavailable Brody Dubois Unavailable Reason for Visit * Reason Onset Date Comments Nurse Triage 09/08/2024 Encounter Details Date Type Department Care Team ([facility] st Contact Info) Description 09/08/2024 Telephone [facility] MEDICINE 230 [place] [address] Raquel Sethi MD 505 [place], [place] [phone] Nurse Triage Social History Tobacco Use Types [...] documented as of this encounter Care Teams Armature Winder Repair Helper Relationship Specialty Start Date End Date Raquel Sethi MD [address] [place] [phone] PCP - General Family Medicine 07/14/18 Sarkis Law FNP 505 [place] [address] Nurse Practitioner Family Medicine 06/17/23 Amelia Walker, TRACEY 505 [place] [address] Registered Nurse Family Medicine 12/27/24 02/28/25 Brody Dubois 12/27/24 02/28/25 documented as of this encounter
--- OUTSIDE RECORDS SUMMARY | 2025-05-26 11:31 | XMS_ITS | Encounter Summary ---
Author Organization [employer] Address [address] [place] [address] 7 [place] [address] Care Team Providers Care Digital Technician Name Role Phone Raquel Sethi MD Primary Care Provider [phone] Sarkis Law Unavailable Unavailable Amelia Walker RN Unavailable Unavailable Brody Dubois Unavailable Reason for Visit * Reason Onset Date Comments Med Refill 06/20/2024 Encounter Details Date Type Department Care Team ([facility] st Contact Info) Description 06/20/2024 Refill [facility] CHC MED & PEDS 505 [place] [address] Raquel Sethi MD 505 [place], [place] [phone] Anxious depression Social History Tobacco Use Types [...] documented as of this encounter Care Teams Digital Technician Relationship Specialty Start Date End Date Raquel Sethi MD [address] [place] [phone] PCP - General Family Medicine 07/14/18 Sarkis Law FNP 505 [place] [address] Nurse Practitioner Family Medicine 06/17/23 Amelia Walker RN [address] [place] [phone] Registered Nurse Family Medicine 12/27/24 02/28/25 Brody Dubois 12/27/24 02/28/25 documented as of this encounter
== END 2025-05-26 11:17 | disposition home or self-care (01) ==
LOC: HO.HUSH 09:49
PROVIDERS: PCP Pediatrics; Visit Provider Urology
DX: N20.0 Calculus of kidney (principal)
CPT/HCPCS: 99213

== ENCOUNTER 2025-07-12 14:31 | Outpatient (AMB) | payer MEDICAID, SELFPAY ==
--- NOTE | 2025-07-12 14:36 | A.OFFVIS_ITS ---
Vital Signs 07/12/25 14:37 Height 5 ft 7 in Weight 281 lb 4.957 oz BMI 44.1 BP 130/72 Blood Pressure Location Lt brachial Position Sitting Pulse 96 Pulse Source Monitor Intake Visit Reasons: 2yr fu Intake Note: 2yr f/up Channel Development Manager Required: No Accompanied by: Self / Same As Patient Allergies cat dander (CATS) Allergy (Intermediate, Verified 05/26/25 09:49) RASH mold Allergy (Intermediate, Verified 05/26/25 09:49) RASH amoxicillin Adverse Reaction (Intermediate, Verified 05/26/25 09:49) yeast infection seasonal Allergy (Unknown, Uncoded 11/16/24 13:25) Unknown Medication List - Last Reconciled 07/12/25 by Beny Leach MD albuterol sulfate 90 mcg/actuation 2 inhalations inhalation Q4-6H PRN allopurinol 100 mg PO DAILY 90 days aripiprazole 20 mg PO DAILY clonazepam 1 mg PO BID PRN diazepam 2 mg PO BID PRN 1 day metoprolol succinate ER 25 mg PO DAILY omeprazole 20 mg PO DAILY 4 weeks ondansetron HCl 4 mg PO Q8H 14 days pyridoxine (vitamin B6) 50 mg PO DAILY 90 days venlafaxine ER 150 mg PO DAILY venlafaxine ER 37.5 mg PO DAILY HPI Comments Details: Bita comes for follow-up. She continues to unfortunately smoke and but he is interested in quitting smoking. She says she is going to make this maneuvers resolution. She has been having more trouble with breathing with exercise related to her asthma. She has also not been able to lose weight. She has not had any syncopal episodes. No other exertional symptoms. Was advise low-salt diet due to elevated blood pressure and prescribed metoprolol therapy which she is tolerating well. Blood pressures been well controlled [facility] Medical History Anxiety and depression Morbid obesity Vasovagal syncope Asthma Spinal stenosis Degenerative disc disease Chronic kidney disease Surgical History History of surgical removal of pilonidal cyst Hx of lithotripsy Hx of cystoscopy History of cholecystectomy H/O Spinal surgery Social History Alcohol intake: current Alcohol intake frequency: former alcohol drinker Alcohol type: beer Patient Tobacco Use Status: Current someday Tobacco user Tobacco use type: Cigarette Cigarette Packs Per Day: 0.5 Cigarettes Per Day: 10.0 Substance Use Type: Marijuana Review of Systems Const Denies chills, Denies fatigue, Denies fever(s), Denies frequent falls, Denies weakness, Denies weight gain and Denies weight loss ENT Denies dizziness Card Denies chest pain, Denies leg edema, Denies lightheadedness, Denies palpitations, Denies dyspnea and Denies dyspnea on exertion Resp Denies cough, Denies dyspnea and Denies dyspnea on exertion GI Denies hematochezia Musc Denies abnormal gait, Denies muscle weakness, Denies numbness, Denies radiating pain into limb and Denies tingling Neuro Denies abnormal gait, Denies dizziness, Denies frequent falls, Denies numbness, Denies tingling and Denies weakness Endo Denies fatigue and Denies palpitations Physical Exam Vital Signs: Last Vital Signs Pulse 96 07/12/25 14:37 BP 130/72 07/12/25 14:37 BMI result Body Mass Index 44.1 Const General: cooperative, comfortable, no acute distress, alert, awake and poor hygiene Nutritional Appearance: obese morbidly obese Orientation/consciousness: patient oriented x3 Limitations: no limitations Neck Neck: Yes trachea midline, Yes supple and Yes no JVD Resp Effort & Inspection: normal respiratory effort Auscultation: clear to auscultation bilaterally Cardio Jugular venous distension: no JVD Rate: regular rate and tachycardic Rhythm: regular rhythm Heart sounds: S1 normal heart sound present, S2 normal heart sound present, no click, no gallops, no murmurs and no rubs GI Auscultation: normal bowel sounds Neuro General: patient oriented x3 and no focal motor deficits Extrem General: No clubbing, No cyanosis and Yes edema Office Procedures EKG Details: EKGs shows normal sinus rhythm with nonspecific ST-T changes [id number], Complete Assessment & Plan Assessment & Plan (1) Vasovagal syncope: Comment: sees Dr. Leach Code(s): R55 - Syncope and collapse Category: Medical Plan: Vasovagal syncope in the past. She understands mechanism. Continue aggressive oral fluid intake. Orthostatic precautions were discussed. Metoprolol will also possibly help with vasovagal syncope to prevent tachycardic response that can then initiate vasovagal mechanism. Advise continue lifestyle modification with smoking cessation completely and aggressive weight loss program. She is interested. Will follow up in 2 years on her request. Coding Level of Care Code Est Pt Level 3 (29153) Diagnoses Vasovagal syncope R55 CPT Codes EKG - CPT: 95498-[id number], Complete ([id number])
[2025-07-12 14:37] VITALS: BP 130/72; PULSE 96; BMI 44.1
--- OUTSIDE RECORDS SUMMARY | 2025-07-12 18:11 | XMS_ITS | Encounter Summary ---
Author Organization [employer] Address 75 [facility] 7 [place] [address] Care Team Providers Care Hotel Service Manager Name Role Phone Raquel Sethi MD Primary Care Provider [phone] Sarkis Law Unavailable Unavailable Amelia Walker RN Unavailable Unavailable Brody Dubois Unavailable Reason for Visit * Reason Onset Date Comments Nurse Triage 09/08/2024 Encounter Details Date Type Department Care Team ([facility] st Contact Info) Description 09/08/2024 Telephone [facility] MEDICINE [address] [place] [address] Raquel Sethi MD [address] [place], [place] [phone] Nurse Triage Social History Tobacco Use Types [...] documented as of this encounter Care Teams Hotel Service Manager Relationship Specialty Start Date End Date Raquel Sethi MD [address] [place] [phone] PCP - General Family Medicine 07/14/18 Sarkis Law FNP [address] [place] [address] Nurse Practitioner Family Medicine 06/17/23 Amelia Walker, TRACEY [address] [place] [address] Registered Nurse Family Medicine 12/27/24 02/28/25 Brody Dubois 12/27/24 02/28/25 documented as of this encounter
--- OUTSIDE RECORDS SUMMARY | 2025-07-12 18:11 | XMS_ITS | Encounter Summary ---
Author Organization [employer] Address [address] [place] [address] 7 [place] [address] Care Team Providers Care Game Producer Name Role Phone Raquel Sethi MD Primary Care Provider [phone] Sarkis Law Unavailable Unavailable Amelia Walker RN Unavailable Unavailable Brody Dubois Unavailable Reason for Visit * Reason Onset Date Comments Med Refill 06/20/2024 Encounter Details Date Type Department Care Team ([facility] st Contact Info) Description 06/20/2024 Refill [facility] CHC MED & PEDS [address] [place] [address] Raquel Sethi MD 505 [place], [place] [phone] Anxious depression Social History Tobacco Use Types [...] documented as of this encounter Care Teams Game Producer Relationship Specialty Start Date End Date Raquel Sethi MD [address] [place] [phone] PCP - General Family Medicine 07/14/18 Sarkis Law FNP 505 [place] [address] Nurse Practitioner Family Medicine 06/17/23 Amelia Walker RN [address] [place] [phone] Registered Nurse Family Medicine 12/27/24 02/28/25 Brody Dubois 12/27/24 02/28/25 documented as of this encounter
--- OUTSIDE RECORDS SUMMARY | 2025-07-12 18:11 | XMS_ITS | Encounter Summary ---
Author Organization [employer] Address 75 [facility] 7 [place] [address] Care Team Providers Care Correction Lieutenant Name Role Phone Raquel Sethi MD Primary Care Provider [phone] Sarkis Law Unavailable Unavailable Amelia Walker RN Unavailable Unavailable Brody Dubois Unavailable Reason for Visit * Reason Onset Date Comments Medication Question 09/12/2022 Encounter Details Date Type Department Care Team ([facility] Contact Info) Description 09/12/2022 Telephone [facility] MEDICINE [address] [place] [address] Raquel Sethi MD 505 [place], [place] [phone] Medication Question Social History Tobacco Use Types [...] PCP declined medication. Please contact pt at [phone] documented in this encounter Plan of Treatment Not on file documented as of this encounter Visit Diagnoses Not on filedocumented in this encounter Additional Health Concerns Assessment Noted Time PHQ-9 Depression Total Score: 2 08/27/19 23 9:17 AM EST documented as of this encounter Care Teams Correction Lieutenant Relationship Specialty Start Date End Date Raquel Sethi MD 505 [place] [address] PCP - General Family Medicine 07/14/18 Sarkis Law FNP [address] [place] [address] Nurse Practitioner Family Medicine 06/17/23 Amelia Walker RN 505 [place] [address] Registered Nurse Family Medicine 12/27/24 02/28/25 Brody Dubois 12/27/24 02/28/25 documented as of this encounter
--- OUTSIDE RECORDS SUMMARY | 2025-07-12 18:11 | XMS_ITS | Encounter Summary ---
Author Organization [employer] Address [address] [place] [address] 7 [place] [address] Care Team Providers Care Front Office Manager Name Role Phone Raquel Sethi MD Primary Care Provider [phone] Sarkis Law Unavailable Unavailable Amelia Walker RN Unavailable Unavailable Brody Dubois Unavailable Encounter Details Date Type Department Care Team ([facility] st Contact Info) Description 11/10/2024 Orders Only [facility] CHC MED & PEDS [address] [place], [place] [phone] Dipika Marhkam MD [address] [place], [place] [phone] Social History Tobacco Use Types Packs/Day Years [...] documented as of this encounter Care Teams Front Office Manager Relationship Specialty Start Date End Date Raquel Sethi MD [address] [place] [phone] PCP - General Family Medicine 07/14/18 Sarkis Law FNP [address] [place] [address] Nurse Practitioner Family Medicine 06/17/23 Amelia Walker RN [address] [place] [phone] Registered Nurse Family Medicine 12/27/24 02/28/25 Brody Dubois 12/27/24 02/28/25 documented as of this encounter
--- OUTSIDE RECORDS SUMMARY | 2025-07-12 18:11 | XMS_ITS | Encounter Summary ---
Author Organization [employer] Address 75 [facility] 7t [place] [address] Care Team Providers Care Heel Coverer Machine Operator Name Role Phone Raquel Sethi MD Primary Care Provider [phone] Sarkis Law Unavailable Unavailable Amelia Walker RN Unavailable Unavailable Brody Dubois Unavailable Reason for Visit * Reason Onset Date Comments new script 05/07/2023 Encounter Details Date Type Department Care Team ([facility] st Contact Info) Description 05/07/2023 Telephone [facility] MEDICINE [address] [place] [address] Raquel Sethi MD 505 [place] [address] new script Social History Tobacco Use Types [...] - 05/07/2023 11:13 AM EDT Tc from [place] with [facility] requesting a new script for [...] documented as of this encounter Care Teams Heel Coverer Machine Operator Relationship Specialty Start Date End Date Raquel Sethi MD [address] [place] [address] PCP - General Family Medicine 07/14/18 Sarkis Law FNP [address] [place] [address] Nurse Practitioner Family Medicine 06/17/23 Amelia Walker, RN [address] [place] [address] Registered Nurse Family Medicine 12/27/24 02/28/25 Brody Dubois 12/27/24 02/28/25 documented as of this encounter
--- OUTSIDE RECORDS SUMMARY | 2025-07-12 18:11 | XMS_ITS | Encounter Summary ---
Author Organization [employer] Address 75 [facility] 7t [place] [address] Care Team Providers Care Poker Dealer Name Role Phone Raquel Sethi MD Primary Care Provider [phone] Sarkis Law Unavailable Unavailable Amelia Walker RN Unavailable Unavailable Brody Dubois Unavailable Encounter Details Date Type Department Care Team ([facility] st Contact Info) Description 06/02/2023 Abstract [facility] MEDICINE [address] [place] [address] Beronica Mcginnis Social History Tobacco Use Types [...] documented as of this encounter Care Teams Poker Dealer Relationship Specialty Start Date End Date Raquel Sethi MD [address] [place] [phone] PCP - General Family Medicine 07/14/18 Sarkis Law FNP [address] [place] [address] Nurse Practitioner Family Medicine 06/17/23 Amelia Walker, TRACEY [address] [place] [phone] Registered Nurse Family Medicine 12/27/24 02/28/25 Brody Dubois 12/27/24 02/28/25 documented as of this encounter
--- OUTSIDE RECORDS SUMMARY | 2025-07-12 18:11 | XMS_ITS | Encounter Summary ---
Author Organization [employer] Address [address] [place] [address] 7 [place] [address] Care Team Providers Care In Mold Coater Name Role Phone Raquel Sethi MD Primary Care Provider [phone] Sarkis Law Unavailable Unavailable Amelia Walker RN Unavailable Unavailable Brody Dubois Unavailable Reason for Visit * Reason Onset Date Comments Med Refill 12/03/2023 Encounter Details Date Type Department Care Team ([facility] st Contact Info) Description 12/03/2023 Refill [facility] CHC MED & PEDS [address] [place], [place] [phone] Raquel Sethi MD 505 [place], [place] [phone] Social History Tobacco Use Types Packs/Day Years [...] documented as of this encounter Care Teams In Mold Coater Relationship Specialty Start Date End Date Raquel Sethi MD [address] [place] [phone] PCP - General Family Medicine 07/14/18 Sarkis Law FNP [address] [place] [address] Nurse Practitioner Family Medicine 06/17/23 Amelia Walker RN [address] [place] [phone] Registered Nurse Family Medicine 12/27/24 02/28/25 Brody Dubois 12/27/24 02/28/25 documented as of this encounter
--- OUTSIDE RECORDS SUMMARY | 2025-07-12 18:11 | XMS_ITS | Encounter Summary ---
Author Organization [employer] Address 75 [facility] 7 [place] [address] Care Team Providers Care Cognos Developer Name Role Phone Raquel Sethi MD Primary Care Provider [phone] Sarkis Law Unavailable Unavailable Reason for Visit * Reason Comments Med Refill Encounter Details Date Type Department Care Team ([facility] Contact Info) Description 07/05/2025 Refill [facility] CHC MED & PEDS [address] [place] [address] Raquel Sethi MD [address] [place] [address] Anxious depression Social History Tobacco Use Types [...] documented as of this encounter Care Teams Cognos Developer Relationship Specialty Start Date End Date Raquel Sethi MD [address] [place] [address] PCP - General Family Medicine 07/14/18 Sarkis Law FNP 505 [place] [address] Nurse Practitioner Family Medicine 06/17/23 documented as of this encounter
--- OUTSIDE RECORDS SUMMARY | 2025-07-12 18:11 | XMS_ITS | Encounter Summary ---
Author Organization [employer] Address 75 [facility] 7 [place] [address] Care Team Providers Care Proj Mgr Name Role Phone Raquel Sethi MD Primary Care Provider [phone] Sarkis Law Unavailable Unavailable Amelia Walker RN Unavailable Unavailable Brody Dubois Unavailable Reason for Visit * Reason Onset Date Comments Med Refill 11/17/2023 Encounter Details Date Type Department Care Team (Late st Contact Info) Description 11/17/[address] [facility] MEDICINE [address] [place] [address] Raquel Sethi MD [address] [place], [place] [phone] Anxious depression Social History Tobacco Use Types [...] 1 MG tablet To be sent to: [facility] - [address] documented in this encounter Plan of Treatment Not on file documented as of this encounter Visit Diagnoses Diagnosis Anxious depression documented in this encounter Additional Health Concerns Assessment Noted Time PHQ-9 Depression Total Score: 2 11/13/19 24 2:13 PM EDT documented as of this encounter Care Teams Proj Mgr Relationship Specialty Start Date End Date Raquel Sethi MD [address] [place] [address] PCP - General Family Medicine 07/14/18 Sarkis Law FNP [address] [place] [address] Nurse Practitioner Family Medicine 06/17/23 Amelia Walker RN [address] [place] [address] Registered Nurse Family Medicine 12/27/24 02/28/25 Brody Dubois 12/27/24 02/28/25 documented as of this encounter
--- OUTSIDE RECORDS SUMMARY | 2025-07-12 18:11 | XMS_ITS | Clinical Summary ---
Author Organization [employer] Address [address] [place] [address] [address] [place] [address] Care Team Providers Care Lead [employer] Developer Name Role Phone Raquel Sethi MD Primary Care Provider [phone] Sarkis Law Unavailable Unavailable Allergies Active Allergy [...] DAY 90 tablet 1 03/22/20 25 Active metoprolol succinate XL (Toprol-XL) 25 MG 24 hr tabletIndicatio ns:Primary hypertension Take 1 tablet (25 mg) by mouth Once per day. Do not crush or chew. 30 tablet 2 04/01/20 25 2025 Active ondansetron (Zofran) 4 MG tabletIndicatio ns:Nausea and Vomiting TAKE 1 TABLET BY MOUTH EVERY 12 HOURS NEEDED FOR NAUSEA OR VOMITING 20 tablet 06/07/20 25 Active clonazePAM (KlonoPIN) 1 MG tabletIndicatio ns:Anxious depression Take 1 tablet (1 mg) by mouth 2 times daily. 45 tablet 07/05/20 25 Active clonazePAM (KlonoPIN) 1 MG tabletIndicatio ns:Anxious depression Take 1 tablet (1 mg) by mouth 2 times daily. Do not start before June 08, 2025. 45 tablet 06/08/20 25 2024 Discontinued(R eorder (will not trigger [...] recommended reduction of 20-30% of maintenance calories; manager recruitment referral offered. Recommended to decrease soda and sugary beverage consumption. Recommended at least 20 g per meal of protein to assist with satiety. Recommended at least 150 min/week of moderate intensity exercise. Anxiety 12/25/2011 Encounters Date Type Department Care Team Description 07/05/2025 Refill [facility] MED & PEDS [address] [place] [address] Raquel Sethi MD Anxious depression 07/02/2025 Refill [facility] [address] [place] [address] Raquel Sethi MD Anxious depression 06/06/2025 Refill [facility] MED [facility] PEDS [address] [place] [address] Raquel Sethi MD 05/30/2025 Refill [facility] MED [facility] PEDS [address] [place] [address] Ricky Lundberg MD Anxious depression 05/16/2025 Refill [facility] & PEDS [address] [place] [address] Raquel Sethi MD Anxious depression 05/15/2025 Refill [facility] PEDS [address] [place] [address] Raquel Sethi MD Anxious depression 04/19/2025 Refill [facility] MED [facility] PEDS [address] [place] [address] Raquel Sethi MD Anxious depression 04/18/2025 Orders Only [facility] External Provider, [facility] from Last 3 Months Immunizations Immunization Administration [...] 11/13/2023, 11/13/19 24 Mammogram 11/23/2024 11/24/2023, 11/11, 11/24/2023, Additional history exists COVID-19 Vaccine ( season) [...] AM EDT Narrative 04/18/2025 9:07 AM EDT [address] [address] XRay Report Signed Patient: Bita Irizarry MR#: [id number] : 1990 Acct:[id number] Age/Sex: 35 / F ADM Date: 04/18/25 Loc: HO.XRAY Attending Dr: Herminio Yi MD Ordering Physician: Herminio Yi MD Date of Service: 04/18/25 Procedure(s): XR KUB Accession Number(s): [id number] cc: Raquel Sethi MD; Herminio Yi MD [...] Aravind Whitehead MD 04/18/2025 09:05 AM EDT RP Dictated By: Aravind Whitehead MD Signed By: <Electronically signed by Aravind Whitehead MD in OV> 04/18/25 09 DD/ 0840 TD/TT: 04/18/25 0850 Lunch Cook: Procedure Note Donotuseinterpreter, Image - 04/18/[address] [address] XRay Report Signed Patient: Bita Irizarry AMR#: [id number] : 1990Acct:[id number] Age/Sex: 35 / FADM Date: 04/18/25 Loc: [facility] Attending Dr: Herminio Yi MD Ordering Physician: Herminio Yi MD Date of Service: 04/18/25 Procedure(s): XR KUB Accession Number(s): [id number] cc: Raquel Sethi MD; Herminio Yi MD [...] by Aravind Whitehead MD in OV> 04/18/25 09 DD/ 9 TD/TT: 04/18/25 0850 Lunch Cook: MORA [facility] External Provider IMG XR PROCEDURES Final Result * BI Mammogram Diagnostic Tomosynthesis Bilateral (11/24/2023 11:35 AM EDT) Anatomical Region Laterality Modality Breast Bilateral Mammography 11/24/2023 11:3 5 AM EDT Narrative 12/01/2023 7:35 AM EDT [facility] [address] [place] [address] Mammography Report Signed Patient: Bita Irizarry MR#: [id number] : 1990 Acct:[id number] Age/Sex: 33 / F ADM Date: 11/24/23 Loc: [facility] Attending Dr: Raquel Sethi MD Ordering Physician: Raquel Sethi MD Results: 1Ne gative Date of Service: 11/24/23 Follow Up: 1 Year From Orig ina Mammogram Procedure(s): MM tomosynthesis diagnostic BI Accession Number(s): [id number] cc: Raquel Sethi MD EXAMINATION: MM DIAGNOSTIC [...] in OV> 12/01/23 0731 DD/ 1135 TD/TT: Lunch Cook: Procedure Note Donotuseinterpreter, Image - 12/01/2023 [facility] [address] [place] [address] Mammography Report Signed Patient: Bita Irizarry [facility]#: [id number] : 1990Acct:[id number] Age/Sex: 33 / FADM Date: 11/24/23 Loc: HO.MAMMO Attending Dr: Raquel Sethi MD Ordering Physician: Raquel Sethi MDResults: 1Ne olena Date of Service: 11/24/23Follow Up: 1 Year From Orig ina Mammogram Procedure(s): MM tomosynthesis diagnostic BI Accession Number(s): [id number] cc: Raquel Sethi MD EXAMINATION: MM DIAGNOSTIC [...] in OV> 12/01/23 0731 DD/ 1135 TD/TT: Lunch Cook: us Raquel Sethi MD IMG BI PROCEDURES Edited Resu lt - Final * Hepatitis C Antibody with Reflex to HCV, RNA, Quantitative, Real-Time PCR (05/07/2023 10:35 AM EDT) Hepatitis C Antibody Nonreactive Nonreactive [facility] Comment:Antibodies to HCV no t detected; does not exclude early acuteHCV infection. Blood Venous blood specimen / Unknown 05/07/2023 10:35 AM EDT 05/07/2023 2:55 PM EDT us Raquel Sethi MD LAB BLOOD ORDERABLES Final Re sult [facility] [address] [place] [phone] * (ABNORMAL) Lipid Panel, Standard (05/07/2023 10:35 AM EDT) Triglycerides 171(H) <150 mg/dL [facility] Comment:Desirable Triglyceri de: less than 150 mg/dLBorderline High Triglyceride 150-199 mg/dLHigh Triglyceride: 200-499 mg/dLVery High Triglyceride: greater than or equal to 5OO mg/dL Cholesterol 205(H) <200 mg/dL [facility] Comment:Desirable Cholestero l: less than 200 mg/dLBorderline High Cholesterol: 200-239 mg/dLHigh Cholesterol: greater than 239 mg/dL LDL Cholesterol Calculated 136(H) <100 mg/dL [facility] Comment:Desirable LDL: less than 100 mg/dLNear Optimal/Above Optimal LDL: 110- 129 mg/dLBorderline High LDL: 130-159 mg/dLHigh LDL: 160-189 mg/dLVery High LDL: greater than or equal to 190 mg/dL HDL Cholesterol 35(L) >40 mg/dL [facility] Comment:Desirable HDL: great er than 40 mg/dL Note: This HDL assay may give artificially low results in patients with liver disease. Blood Venous blood specimen / Unknown 05/07/2023 10:35 AM EDT 05/07/2023 2:55 PM EDT Raquel Sethi MD LAB BLOOD ORDERABLES Final Re sult [facility] [address] [place] [phone] * HPV mRNA E6/E7 (10/29/2018 3:26 PM EDT) Pathologist [facility] HPV mRNA E6/E7 Not Detected NOT DETECTED [facility] Comment: This test was performed using the APTIMA(R) HPV Assay ([employer] This assay detects E6/E7 viral messenger RNA (mRNA) from 14 high-risk HPV types (16,18,31,33,35,39,45,51, 52,56,58,59,66,68). For additional information please refer to: http://education.Jogg/faq/WNO480b4 (This link is being provided for informational/ educational purposes only.) The analytical performance characteristics of this assay have been determined by [employer] [place], [place]. The modifications have not been cleared or approved by the FDA. This assay has been validated pursuant to the CLIA regulations and is used for clinical purposes. Test Performed by [facility] [place] [facility], [address] [place] [address] Heath Kemp M.D., Ph.D., Director of Laboratories , CLIA [id number] Please note: Effective 03/25/2016, HPV testing will be performed using [employer]'s APTIMA test which targets mRNA. Detecting mRNA instead of DNA, as in older methods, offers significant improvements in specificity. 10/29/2018 3:26 PM EDT Raquel Sethi MD HISTORICAL/NON ORDERABLE LABS Final Result [facility] [address] [place] [address], * Pap Smear (10/29/2018) Pap Negative for intraephithelial lesion or malignancy Negative for intraephithelial lesion or malignancy, Other HPV Undetected Historical Provider HEALTH MAINTENANCE Final Result from Last 3 Months or Most Recently Relevant to Health Maintenance Insurance * Guarantor: Juan C Bita Account Type Relation to Patient Date of Phone Billing Address Personal/Family Self [address] Care Teams Lead Inform[employer] Developer Relationship Specialty Start Date End Date Raquel Sethi MD [address] [place] [address] PCP - General Family Medicine 07/14/18 Sarkis Law FNP [address] [place] [address] Nurse Practitioner Family Medicine 06/17/23
--- OUTSIDE RECORDS SUMMARY | 2025-07-12 18:11 | XMS_ITS | Encounter Summary ---
Author Organization [employer] Address [address] [place] [address] Care Team Providers Care [employer] F[employer] Wellness Director Name Role Phone Raquel Sethi MD Primary Care Provider [phone] Sarkis Law Unavailable Unavailable Reason for Visit * Reason Comments Med Refill Encounter Details Date Type Department Care Team ([facility] Contact Info) Description 05/16/2025 Refill [facility] [address] [place] [address] Raquel Sethi MD [address] [place] [address] Anxious depression Social History Tobacco Use Types [...] documented as of this encounter Care Teams [employer] Wellness Director Relationship Specialty Start Date End Date Raquel Sethi MD [address] [place] [address] PCP - General Family Medicine 07/14/18 Sarkis Law FNP [address] [place] [address] Nurse Practitioner Family Medicine 06/17/23 documented as of this encounter
== END 2025-07-12 14:49 | disposition home or self-care (01) ==
LOC: HO.HCS 14:32
PROVIDERS: PCP Pediatrics; Visit Provider Internal Medicine Cardiovascular Disease
DX: R55 Syncope and collapse (principal)
CPT/HCPCS: 93010; 99213

== ENCOUNTER → 2025-07-12 14:31 | Outpatient (BNVA) | payer MEDICAID, SELFPAY | PROVIDERS: PCP Pediatrics; Visit Provider Internal Medicine Cardiovascular Disease | DX: R55 Syncope and collapse (principal); F17.210 Nicotine dependence, cigarettes, uncomplicated; E66.01 Morbid (severe) obesity due to excess calories; Z68.41 Body mass index [BMI] 40.0-44.9, adult | CPT/HCPCS: 93005; 99212 ==